=== PATIENT | male | born 1945 | race Caucasian/White ===

== ENCOUNTER 2017-06-18 02:50 | Inpatient (IN) | payer MEDICARE, MEDICAID ==
--- NOTE | 2017-06-18 03:07 | ED PDOC ---
Arrival/HPI - General Time Seen by Provider: 06/18/17 02:56 Historian: Patient, Family - History of Present Illness Narrative History of Present Illness (Text): 06/18/17 03:07 Perry Velásquez is a 71 year old male, whose past medical history includes leukemia and left arm PICC line, who presents to the Emergency department accompanied by relative complaining of fever. Relative states patient has been experiencing fever with associated generalized weakness tonight. Relative notes patient had chemotherapy yesterday and had been receiving antibiotics via his PICC line. Patient denies any chest pain, shortness of breath, nausea, vomiting , diarrhea, urinary symptoms, back pain, neck pain, headache, dizziness, or any other complaints. Oncologist: Dr. Martell ([facility]) Time/Duration: Other (tonight) Symptom Onset: Gradual Symptom Course: Unchanged Activities at Onset: Rest, Light Context: Home Past Medical History - Provider Review Nursing Documentation Reviewed: Yes Family/Social History - Physician Review Nursing Documentation Reviewed: Yes Family/Social History: Unknown Family HX Allergies/Home Meds Allergies/Adverse Reactions: Allergies No Known Allergies Allergy (Verified 06/18/17 02:56) Home Medications: Home Meds Medication Instructions Recorded Confirmed Acyclovir [Zovirax] 400 mg PO Q12H 06/18/17 06/18/17 Ciprofloxacin [Cipro] 500 mg PO Q12H 06/18/17 06/18/17 Docusate [Colace] 100 mg PO DAILY 06/18/17 06/18/17 Fluconazole [Diflucan] 400 mg PO DAILY 06/18/17 06/18/17 Insulin Aspart, Recombinant 8 units SUBCUT TID 06/18/17 06/18/17 [Novolog] Insulin Detemir [Levemir] 10 units SUBCUT HS 06/18/17 06/18/17 Memantine HCl [Namenda Xr] 28 mg PO HS 06/18/17 06/18/17 Pravastatin Sodium [Pravachol] 40 mg PO DAILY 06/18/17 06/18/17 Prochlorperazine [Compazine] 10 mg PO Q6H PRN 06/18/17 06/18/17 Tamsulosin [Flomax] 0.4 mg PO DAILY 06/18/17 06/18/17 Review of Systems - Physician Review All systems were reviewed & negative as marked: Yes - Review of Systems Constitutional: Fevers, Other (+generalized weakness) Eyes: Normal ENT: Normal Respiratory: Normal. absent: SOB, Cough Cardiovascular: Normal. absent: Chest Pain Gastrointestinal: Normal Genitourinary Male: Normal Musculoskeletal: Normal Skin: Normal Neurological: Normal Endocrine: Normal Hemo/Lymphatic: Normal Psychiatric: Normal Physical Exam Vital Signs Reviewed: Yes Vital Signs Temp Pulse Resp BP Pulse Ox 06/18/17 08:23 98 06/18/17 08:19 99.6 F 75 19 107/59 L 99 06/18/17 07:53 99.6 F 112 H 20 96/46 L 98 06/18/17 07:06 108 H 20 114/53 L 99 06/18/17 06:45 108 H 18 86/44 L 99 06/18/17 06:30 103 H 18 65/36 L 99 06/18/17 05:15 102.1 F H 107 H 18 102/60 98 06/18/17 04:59 102.1 F H 06/18/17 03:04 99.8 F H 117 H 17 104/63 96 Temperature: Afebrile Blood Pressure: Normal Pulse: Regular Respiratory Rate: Normal Appearance: Positive for: Well-Appearing, Non-Toxic, Comfortable Pain Distress: None Mental Status: Positive for: Alert and Oriented X 3 - Systems Exam Head: Present: Atraumatic, Normocephalic Pupils: Present: PERRL Extroacular Muscles: Present: EOMI Conjunctiva: Present: Normal Mouth: Present: Moist Mucous Membranes Neck: Present: Normal Range of Motion Respiratory/Chest: Present: Clear to Auscultation, Good Air Exchange. No: Respiratory Distress, Accessory Muscle Use Cardiovascular: Present: Regular Rate and Rhythm, Normal S1, S2. No: Murmurs Abdomen: Present: Normal Bowel Sounds. No: Tenderness, Distention, Peritoneal Signs Back: Present: Normal Inspection Upper Extremity: Present: Normal Inspection. No: Cyanosis, Edema Lower Extremity: Present: Normal Inspection. No: Edema Neurological: Present: GCS=15, CN II-XII Intact, Speech Normal Skin: Present: Warm, Dry, Normal Color. No: Rashes Psychiatric: Present: Alert, Oriented x 3, Normal Insight, Normal Concentration Medical Decision Making ED Course and Treatment: 06/18/17 03:07 Impression: 71 year old male brought in for fever and generalized weakness. Plan: -- EKG -- Chest X-ray -- Labs, VBG, blood cultures -- Urinalysis, urine cultures -- Vanco -- Zosyn -- Reassess and disposition Progress Notes: 06/18/17 03:12 Case discussed with RAQUEL Glaser, covering for Dr. Martell (pt's oncologist at [facility]), states pt can remain at [facility], does not need to be transferred at this time. 06/18/17 05:27 Reviewed EKG, sinus tachycardia at [address]-segment elevations or depressions, no T-wave inversions, normal intervals. 06/18/17 04:28 Reviewed radiology, Chest X-ray shows no acute processes. CASE D/W DR SPARKS ACCEPTS CASE CASE D/ DR VERONICA JENKINS ACCEPTS PT FOR SEPSIS 06/21/17 09:48 - Lab Interpretations Microbiology Results: Microbiology Results 06/18/17 04:50 Blood Blood Culture - Final Escherichia Coli 06/18/17 04:50 Blood Gram Stain - Final 06/18/17 04:20 Blood Blood Culture - Final Escherichia Coli 06/18/17 04:20 Blood Gram Stain - Final Lab Results: 06/18/17 04:20 06/18/17 04:20 Lab Results 06/18/17 06:27: Blood Type A POSITIVE, Antibody Screen Negative, Crossmatch See Detail, BBK History Checked No verified bt 06/18/17 04:20: Sodium 134, Chloride 101, Potassium 3.2 L, Carbon Dioxide 21, Anion Gap 15, BUN 30 H, Creatinine 1.1, Est GFR ( Amer) > 60, Est GFR ( Non-Af Amer) > 60, Random Glucose 284 H, Calcium 8.8, Phosphorus 1.4 L*, Magnesium 1.2 L, Total Bilirubin 0.7, AST 37, ALT 36, Alkaline Phosphatase 81, Total Protein 6.6, Albumin 3.4, Globulin 3.2, Albumin/Globulin Ratio 1.1 06/18/17 04:20: pO2 56 H, VBG pH 7.40, VBG pCO2 37.0 L, VBG HCO3 22.9, VBG Total CO2 24.0, VBG O2 Sat (Calc) 94.5 H, VBG Base Excess -1.7 L, VBG Potassium 3.2 L, Sodium 135.0, Chloride 102.0, Glucose 299 H, Lactate 3.7 H, FiO2 21.0, Venous Blood Potassium 3.2 L 06/18/17 04:20: PT 13.4 H, INR 1.24 H, APTT 21.6 L 06/18/17 04:20: WBC 0.1 L*, RBC 2.20 L, Hgb 6.6 L*, Hct 19.3 L*, MCV 87.7, MCH 30.0, MCHC 34.2, RDW 15.6 H, Plt Count 13 L*, Manual Plt Count 28 L*, Corrected WBC (Man) Cancelled, Neutrophils % (Manual) Cancelled, Band Neutrophils % Cancelled, Lymphocytes % (Manual) Cancelled, Atypical Lymphs % Cancelled, Monocytes % (Manual) Cancelled, Eosinophils % (Manual) Cancelled, Basophils % ( Manual) Cancelled, Metamyelocytes % Cancelled, Myelocytes % Cancelled, Promyelocytes % Cancelled, Nucleated RBC % Cancelled, Hypersegmented Polys Cancelled, Immature Lymphocytes Cancelled, Blast Cells Cancelled, Smudge Cells Cancelled, Toxic Granulation Cancelled, Dohle Bodies Cancelled, Denisse Rods Cancelled, Platelet Evaluation Cancelled, Plt Clumps, EDTA Cancelled, Large Platelets Cancelled, Giant Platelets Cancelled, Polychromasia Cancelled, Hypochromasia Cancelled, Hyperchromasia Cancelled, Poikilocytosis (manual Cancelled, Basophilic Stippling Cancelled, Anisocytosis (manual) Cancelled, Microcytosis (manual) Cancelled, Macrocytosis (manual) Cancelled, Spherocytes Cancelled, Sickle Cells Cancelled, Target Cells Cancelled, Tear Drop Cells Cancelled, Ovalocytes Cancelled, Stomatocytes Cancelled, Helmet Cells Cancelled , [place] Rings Cancelled, [place] Cells Cancelled, Acanthocytes (Spur) Cancelled, Rouleaux Cancelled I have reviewed the lab results: Yes - RAD Interpretation Radiology Orders: 06/18/17 03:28 CHEST PORTABLE [RAD] Stat County Director Welfare: Radiologist - EKG Interpretation Interpreted by ED Physician: Yes Type: 12 lead EKG - Medication Orders Current Medication Orders: Artificial Tears (Puralube Opht Oint) 1 appl OU Q2 OMARI Last Admin: 06/21/17 02:07 Dose: 1 applic Docusate Sodium (Colace) 100 mg PO DAILY [facility] Last Admin: 06/20/17 10:00 Dose: Sodium Chloride (Sodium Chloride 0.9%) 1,000 mls @ 125 mls/hr IV .Q8H [facility] Last Admin: 06/18/17 05:00 Dose: 125 mls/hr Norepinephrine Bitartrate 8 mg (/ Sodium Chloride) 250 mls @ 7.5 mls/hr IV .Q24H PRN; Protocol; 4 MCG/MIN PRN Reason: TITRATE PER MD ORDER Last Titration: 06/21/17 01:45 Dose: 1 mcg/min, 1.87 mls/hr Famotidine (Pepcid 20mg/50ml Premix) 20 mg in 50 mls @ 100 mls/hr IVPB Q12 [facility] Last Admin: 06/20/17 22:26 Dose: 100 mls/hr Propofol (Diprivan) 1,000 mg in 100 mls @ 2.121 mls/hr IV .Q24H PRN; Protocol; 5 MCG/KG/MIN PRN Reason: TITRATE PER MD ORDER Last Admin: 06/21/17 02:01 Dose: 25 mcg/kg/min, 10.607 mls/hr Micafungin Sodium 100 mg/ (Sodium Chloride) 100 mls @ 100 mls/hr IV DAILY [facility] PRN Reason: Protocol Stop: 06/27/17 10:01 Last Admin: 06/20/17 10:15 Dose: 100 mls/hr Meropenem 1g/NS 100mL IVPB (Meropenem 1g/Ns 100ml Ivpb) 1 gm in 100 mls @ 100 mls/hr IVPB Q8 OMARI PRN Reason: Protocol Stop: 07/01/17 14:01 Potassium Phosphate 15 mmole/ (Sodium Chloride) 255 mls @ 42.5 mls/hr IVPB ONCE ONE Stop: 06/21/17 15:30 Insulin Detemir (Levemir) 30 unit SC AMHS [facility] Insulin Human Lispro (Humalog High) 0 units SC Q6H OMARI PRN Reason: Protocol Last Admin: 06/21/17 07:46 Dose: 1 units Levalbuterol HCl (Xopenex) 1.25 mg IH [id number] PRN PRN Reason: Shortness of Breath Last Admin: 06/21/17 07:55 Dose: 1.25 mg Ondansetron HCl (Zofran Inj) 4 mg IVP Q6H PRN PRN Reason: Nausea/Vomiting Discontinued Medications Acetaminophen (Tylenol 325mg Tab) 650 mg PO STAT STA Stop: 06/18/17 04:53 Last Admin: 06/18/17 04:59 Dose: 650 mg Re-Assess: KAREN Pain/Vitals Document 06/18/17 05:59 GMI (Rec: 06/18/17 09:04 GMI [id number]) Pain Reassessment Is This A Pain ReAssessment? Yes Sleep Is patient sleeping during reassessment? No Presence of Pain Presence of Pain Yes Diphenhydramine HCl (Benadryl) 25 mg IVP STAT STA Stop: 06/18/17 14:10 Last Admin: 06/18/17 14:44 Dose: 25 mg Etomidate (Amidate) Confirm Administered Dose 20 mg IV .STK-MED ONE Stop: 06/19/17 01:41 Last Admin: 06/19/17 05:17 Dose: Etomidate (Amidate) 20 mg IVP STAT STA Stop: 06/19/17 02:10 Last Admin: 06/19/17 02:00 Dose: 20 mg Hydrocortisone Sodium Succinate (Solu-Cortef) 100 mg IV ONCE ONE Stop: 06/18/17 14:10 Last Admin: 06/18/17 14:44 Dose: 100 mg Hydrocortisone Sodium Succinate (Solu-Cortef) 100 mg IVP Q8 OMARI Last Admin: 06/19/17 06:37 Dose: 100 mg Hydrocortisone Sodium Succinate (Solu-Cortef) 50 mg IVP Q6H [facility] Last Admin: 06/21/17 05:18 Dose: 50 mg Vancomycin HCl (Vancomycin 1gm) 1 gm in 250 mls @ 167 mls/hr IVPB STAT STA PRN Reason: Protocol Stop: 06/18/17 04:57 Last Admin: 06/18/17 06:18 Dose: 167 mls/hr Piperacillin Sod/Tazobactam Sod (Zosyn 3.375 In Ns 100ml) 100 mls @ 200 mls/hr IVPB STAT STA PRN Reason: Protocol Stop: 06/18/17 03:58 Last Admin: 06/18/17 04:48 Dose: 200 mls/hr Sodium Chloride 2,100 ml/ IV (SUPPLIES) 2,100 mls @ 4,082.34 mls/hr IV ONCE ONE PRN Reason: 60 ML/KG/HR Stop: 06/18/17 06:36 Last Admin: 06/18/17 07:13 Dose: 4,082.34 mls/hr Gentamicin Sulfate 170 mg/ (Sodium Chloride) 104.25 mls @ 100 mls/hr IVPB Q8H [facility] Last Admin: 06/18/17 09:03 Dose: 100 mls/hr Sodium Chloride 2,100 ml/ IV (SUPPLIES) 2,100 mls @ 4,082.34 mls/hr IV ONCE ONE PRN Reason: 60 ML/KG/HR Stop: 06/18/17 08:04 Last Admin: 06/18/17 10:41 Dose: 4,082.34 mls/hr NOREPINEPHRINE BIT/0.9 % NACL (Levophed 4 Mg/ 250 Ml Ns Premixed) 4 mg in 250 mls @ 15 mls/hr IV .[id number] PRN; Protocol; 4 MCG/MIN PRN Reason: TITRATE PER MD ORDER Last Titration: 06/18/17 13:17 Dose: 24 mcg/min, 90 mls/hr Sodium Chloride (Sodium Chloride 0.9%) 1,000 mls @ 999 mls/hr IV .Q1H1M STA Stop: 06/18/17 10:27 Last Admin: 06/18/17 09:57 Dose: 999 mls/hr Sodium Chloride (Sodium Chloride 0.9%) 1,000 mls @ 999 mls/hr IV .Q1H1M STA Stop: 06/18/17 10:34 Last Admin: 06/18/17 10:02 Dose: 999 mls/hr Potassium Phosphate 15 mmole/ (Sodium Chloride) 255 mls @ 42.5 mls/hr IVPB ONCE ONE Stop: 06/18/17 15:53 Last Admin: 06/18/17 10:42 Dose: 42.5 mls/hr Acetaminophen (Ofirmev) 1,000 mg in 100 mls @ 400 mls/hr IVPB Q6H PRN PRN Reason: Temperature Stop: 06/20/17 09:59 Last Admin: 06/19/17 00:31 Dose: 400 mls/hr Re-Assess: KAREN Pain Assessment Document 06/19/17 01:31 SANDOVAL (Rec: 06/19/17 06:41 SANDOVAL [id number]) Pain Reassessment Is this a pain reassessment? No Sleep Is patient sleeping during reassessment? Yes Meropenem 1g/NS 100mL IVPB (Meropenem 1g/Ns 100ml Ivpb) 1 gm in 100 mls @ 100 mls/hr IVPB Q8 OMARI PRN Reason: Protocol Stop: 06/18/17 22:59 Last Admin: 06/18/17 13:08 Dose: 100 mls/hr Vancomycin HCl (Vancomycin 1gm) 1 gm in 250 mls @ 167 mls/hr IVPB Q12H OMARI PRN Reason: Protocol Stop: 06/28/17 10:16 Last Admin: 06/18/17 10:42 Dose: 167 mls/hr Magnesium Sulfate/Dextrose (Magnesium Sulfate 1 Gm/100 Ml D5w) 1 gm in 100 mls @ 100 mls/hr IVPB ONCE ONE Stop: 06/18/17 13:49 Last Admin: 06/18/17 13:14 Dose: 100 mls/hr Sodium Bicarbonate 100 meq/ (Sodium Chloride) 1,100 mls @ 100 mls/hr IV .Q11H [facility] Last Admin: 06/19/17 05:57 Dose: 100 mls/hr Comments: new bag needed Norepinephrine Bitartrate 8 mg (/ Sodium Chloride) 250 mls @ 7.5 mls/hr IV .Q24H OMARI PRN Reason: 4 MCG/MIN Last Admin: 06/18/17 15:39 Dose: Phenylephrine HCl 40 mg/ (Sodium Chloride) 254 mls @ 38.1 mls/hr IV .Q6H40M PRN ; Protocol; 100 MCG/MIN PRN Reason: TITRATE PER MD ORDER Last Admin: 06/19/17 15:18 Dose: 200 mcg/min, 76.2 mls/hr Meropenem 1g/NS 100mL IVPB (Meropenem 1g/Ns 100ml Ivpb) 1 gm in 100 mls @ 100 mls/hr IVPB Q8 OMARI PRN Reason: Protocol Stop: 06/28/17 22:01 Last Admin: 06/19/17 05:58 Dose: 100 mls/hr Propofol (Diprivan) Confirm Administered Dose 1,000 mg in 100 mls @ ud .ROUTE .STK-MED ONE Stop: 06/19/17 02:07 Last Admin: 06/19/17 05:18 Dose: Magnesium Sulfate/Dextrose (Magnesium Sulfate 1 Gm/100 Ml D5w) 1 gm in 100 mls @ 100 mls/hr IVPB ONCE ONE Stop: 06/19/17 03:11 Last Admin: 06/19/17 02:40 Dose: 100 mls/hr Meropenem 1g/NS 100mL IVPB (Meropenem 1g/Ns 100ml Ivpb) 1 gm in 100 mls @ 100 mls/hr IVPB Q12 OMARI PRN Reason: Protocol Stop: 06/29/17 10:01 Last Admin: 06/20/17 22:27 Dose: 100 mls/hr Vasopressin 20 units/ Sodium (Chloride) 101 mls @ 9.09 mls/hr IV .Q11H7M OMARI; 0.03 U/MIN PRN Reason: Protocol Last Admin: 06/20/17 01:55 Dose: 9.09 mls/hr Amikacin Sulfate 500 mg/ (Dextrose) 102 mls @ 204 mls/hr IVPB ONCE ONE PRN Reason: Protocol Stop: 06/19/17 10:14 Last Admin: 06/19/17 10:43 Dose: 204 mls/hr Sodium Bicarbonate 150 meq/ (Dextrose/Sodium Chloride) 1,150 mls @ 100 mls/hr IV .[id number] OMARI Stop: 06/20/17 23:58 Last Admin: 06/20/17 13:58 Dose: 100 mls/hr Micafungin Sodium 100 mg/ (Sodium Chloride) 100 mls @ 100 mls/hr IV DAILY OMARI PRN Reason: Protocol Stop: 06/26/17 10:59 Last Admin: 06/19/17 16:20 Dose: 100 mls/hr NOREPINEPHRINE BIT/0.9 % NACL (Levophed 4 Mg/ 250 Ml Ns Premixed) Confirm Administered Dose 4 mg in 250 mls @ ud IV .STK-MED ONE Stop: 06/20/17 02:37 Sodium Chloride (Sodium Chloride 0.9%) 1,000 mls @ 999 mls/hr IV .Q1H1M STA Stop: 06/20/17 16:36 Last Admin: 06/20/17 16:38 Dose: 999 mls/hr Potassium Phosphate 15 mmole/ (Sodium Chloride) 255 mls @ 42.5 mls/hr IVPB ONCE ONE Stop: 06/21/17 15:30 Insulin Detemir (Levemir) 10 unit SC HS [facility] Last Admin: 06/19/17 21:44 Dose: 10 unit Insulin Detemir (Levemir) 15 unit SC AMHS OMARI Last Admin: 06/20/17 12:53 Dose: 14 unit Insulin Detemir (Levemir) 20 unit SC AMHS [facility] Last Admin: 06/20/17 22:30 Dose: 20 unit Insulin Human Lispro (Humalog High) 0 units SC ACHS OMARI PRN Reason: Protocol Last Admin: 06/18/17 22:04 Dose: Not Given Non-Admin Reason: Blood Sugar Parameter Insulin Human Lispro (Humalog High) 0 units SC Q6H OMARI PRN Reason: Protocol Lorazepam (Ativan) Confirm Administered Dose 2 mg .ROUTE .STK-MED ONE Stop: 06/19/17 02:03 Last Admin: 06/19/17 05:18 Dose: Lorazepam (Ativan) 1 mg IVP ONCE ONE PRN Reason: Protocol Stop: 06/19/17 02:10 Last Admin: 06/19/17 03:14 Dose: 1 mg Magnesium Oxide (Mag-Ox) 400 mg PO STAT STA Stop: 06/18/17 09:54 Last Admin: 06/18/17 12:42 Dose: 400 mg Norepinephrine Bitartrate (Levophed) Confirm Administered Dose 8 mg IV .STK-MED ONE Stop: 06/18/17 15:02 Last Admin: 06/18/17 15:16 Dose: 8 mg Norepinephrine Bitartrate (Levophed) Confirm Administered Dose 4 mg IV .STK-MED ONE Stop: 06/20/17 02:52 Ondansetron HCl (Zofran Inj) 4 mg IVP STAT STA Stop: 06/18/17 05:24 Last Admin: 06/18/17 05:34 Dose: 4 mg Ondansetron HCl (Zofran Inj) Confirm Administered Dose 4 mg .ROUTE .STK-MED ONE Stop: 06/18/17 05:36 Last Admin: 06/18/17 06:19 Dose: Phenylephrine HCl (Phenylephrine Inj) Confirm Administered Dose 40 mg .ROUTE .STK-MED ONE Stop: 06/18/17 18:36 Last Admin: 06/18/17 18:43 Dose: 40 mg Potassium Chloride (K-Dur 20 Meq Er Tab) 40 meq PO STAT STA Stop: 06/18/17 04:56 Last Admin: 06/18/17 07:12 Dose: 40 meq Potassium Phos/Sodium Phos (Neutra-Phos) 1 pkt PO STAT STA Stop: 06/18/17 04:57 Last Admin: 06/18/17 07:13 Dose: 1 pkt Sodium Bicarbonate (Sodium Bicarbonate (8.4%) 50 Meq Syringe) 50 meq IVP ONCE ONE Stop: 06/18/17 12:37 Last Admin: 06/18/17 12:42 Dose: 50 meq Sodium Bicarbonate (Sodium Bicarbonate (8.4%) 50 Meq Syringe) 50 meq IVP STAT STA Stop: 06/18/17 13:31 Last Admin: 06/18/17 14:34 Dose: 50 meq Sodium Bicarbonate (Sodium Bicarbonate (8.4%) 50 Meq Syringe) 50 meq IVP ONCE ONE Stop: 06/19/17 09:58 Last Admin: 06/19/17 10:19 Dose: 50 meq - Scribe Statement The provider has reviewed the documentation as recorded by the Lisandro Boland Provider Scribe Attestation: All medical record entries made by the Scribangela were at my direction and personally dictated by me. I have reviewed the chart and agree that the record accurately reflects my personal performance of the history, physical exam, medical decision making, and the department course for this patient. I have also personally directed, reviewed, and agree with the discharge instructions and disposition. Disposition/Present on Arrival - Present on Arrival Any Indicators Present on Arrival: No - Disposition Have Diagnosis and Disposition been Completed?: Yes Diagnosis: Sepsis Disposition: HOSPITALIZED Disposition Time: 07:00 Condition: CRITICAL
[2017-06-18] MEDS ORDERED: Vancomycin 1gm in NS 250ml 1 GM/250 ML BAG IVPB STA (03:28)
[2017-06-18] MEDS ORDERED: Piperacillin/Tazobact 3.375 gm 100 ML IVPB STA (03:29)
[2017-06-18 04:42] LABS: VENOUS BLOOD GAS BASE EXCESS -1.7 mmol/L (0.0-2.0)
[2017-06-18 04:51] LABS: ALB/GLOB RATIO 1.1 (1.1-1.8); ALKALINE PHOSPHATASE 81 U/L (38-133); ALT/SGPT 36 U/L (7-56); AST/SGOT 37 U/L (15-59); BILIRUBIN,TOTAL 0.7 mg/dL (0.2-1.3); BLOOD UREA NITROGEN 30 mg/dL (7-21); CALCIUM 8.8 mg/dL (8.4-10.5); CARBON DIOXIDE 21 mmol/L (21-33); CHLORIDE 101 mmol/L (98-107); GFR AFRICAN-AMERICAN > 60; GLUCOSE,RANDOM 284 mg/dL (70-110); MAGNESIUM 1.2 mg/dL (1.7-2.2); POTASSIUM 3.2 mmol/L (3.6-5.0); SODIUM 134 mmol/L (132-148); TOTAL PROTEIN 6.6 g/dL (5.8-8.3)
[2017-06-18] MEDS ORDERED: Potassium Chloride 20 mEq ER Tab PO STA (04:55)
[2017-06-18] MEDS ORDERED: Potassium & Sodium Phosphate PO STA (04:56)
[2017-06-18] MEDS ORDERED: Sodium Chloride 0.9% 1,000 ML IV SCH (05:00)
[2017-06-18 05:01] LABS: PHOSPHOROUS 1.4 mg/dL (2.5-4.5)
[2017-06-18 06:22] LABS: WHITE BLOOD COUNT 0.1 10^3/ul (4.5-11.0)
[2017-06-18 06:23] LABS: HEMATOCRIT 19.3 % (42.0-52.0); MEAN CELL VOLUME 87.7 fl (80.0-105.0); MEAN CORPUSCULAR HGB CONC 34.2 g/dl (31.0-37.0); PLATELET COUNT 13 10^3/uL (120.0-450.0); RED CELL DISTRIBUTION WIDTH 15.6 % (11.5-14.5)
[2017-06-18 06:25] LABS: INR 1.24 (0.93-1.08)
[2017-06-18 06:26] LABS: PARTIAL THROMBOPLASTIN TIME 21.6 Seconds (23.7-30.8)
[2017-06-18] MEDS ORDERED: Gentamicin 80 mg/2mL Inj. IVPB SCH (06:45)
[2017-06-18 08:29] LABS: VENOUS BLOOD GAS BASE EXCESS -11.8 mmol/L (0.0-2.0); VENOUS BLOOD PH 7.35 (7.32-7.43)
[2017-06-18] MEDS ORDERED: NOREPINEPHRINE BIT/0.9 % NACL 4 MG/250 ML BAG IV PRN ×2 (09:15→14:51)
[2017-06-18] MEDS ORDERED: Sodium Chloride 0.9% 1,000 ML IV STA ×2 (09:27→09:34)
[2017-06-18 09:30] LABS: PH,URINE 5.5 (4.7-8.0); URINE BILIRUBIN NEGATIVE (NEGATIVE); URINE BLOOD TRACE-INTACT (NEGATIVE); URINE GLUCOSE (UA) NEGATIVE (NEGATIVE); URINE KETONE NEGATIVE (NEGATIVE); URINE LEUKOCYTE ESTERASE NEGATIVE Leu/uL (NEGATIVE); URINE PROTEIN TRACE mg/dL (<30 mg/dL); URINE UROBILINOGEN 0.2 E.U./dL (<1 E.U./dL)
[2017-06-18 09:31] LABS: URINE APPEARANCE CLEAR (CLEAR); URINE COLOR YELLOW (YELLOW)
[2017-06-18 09:38] LABS: URINE BACTERIA MANY (NEG)
[2017-06-18 09:39] LABS: URINE AMORPHOUS SEDIMENT FEW
[2017-06-18] MEDS ORDERED: Magnesium Oxide 400 mg Tab UD PO STA (09:53)
[2017-06-18] MEDS ORDERED: Potassium Phosphate 15 MMOLE in Sodium Chloride 0.9% 250 ML IVPB ONE (09:54)
[2017-06-18] MEDS ORDERED: Vancomycin 1gm in NS 250ml 1 GM/250 ML BAG IVPB SCH (10:15)
--- NOTE | 2017-06-18 10:53 | CARD ---
APPROVED REPORT EKG Measurement Heart [id number] <Conclusion> Sinus tachycardia Otherwise normal ECG
--- NOTE | 2017-06-18 11:20 | RAD ---
HISTORY: Sepsis Patient COMPARISON: 09/30/2016 FINDINGS: LUNGS: No active pulmonary disease. PLEURA: No significant pleural effusion identified, no pneumothorax apparent. CARDIOVASCULAR: Left PICC catheter terminates in the region of the right atrium. OSSEOUS STRUCTURES: No significant abnormalities. VISUALIZED UPPER ABDOMEN: Normal. OTHER FINDINGS: None. IMPRESSION: No acute infiltrate. Left PICC catheter.
[2017-06-18 12:17] LABS: VENOUS BLOOD GAS BASE EXCESS -15.9 mmol/L (0.0-2.0)
[2017-06-18 12:24] LABS: VENOUS BLOOD PH 7.11 (7.32-7.43)
[2017-06-18] MEDS ORDERED: Sodium Bicarbonate (8.4%) 50 Meq Syringe IVP ONE (12:36)
[2017-06-18] MEDS: Insulin Lispro (HUMAlog) HIGH Coverage SC SCH ×3 (12:36→22:04)
[2017-06-18] MEDS ORDERED: Magnesium Sulfate 1 gm in D5W 1 GM/100 ML BAG IVPB ONE (12:50)
[2017-06-18] MEDS ORDERED: Sodium Bicarbonate (8.4%) 50 Meq Syringe IVP STA (13:30)
[2017-06-18 13:31] VITALS: BMI 25.7
[2017-06-18] MEDS ORDERED: Meropenem 1g/NS 100mL IVPB 1 GM/100 ML PIGGYBACK IVPB SCH (14:00)
[2017-06-18] MEDS ORDERED: DiphenhydrAMINE 50 mg/ml Inj IVP STA (14:09)
[2017-06-18] MEDS ORDERED: Norepinephrine 8 MG in Sodium Chloride 0.9% 242 ML IV SCH (15:15)
[2017-06-18] MEDS: Levalbuterol 1.25 MG/3 ML Inhal Soln UD IH PRN (15:20)
[2017-06-18 15:58] LABS: VENOUS BLOOD GAS BASE EXCESS -14.4 mmol/L (0.0-2.0)
[2017-06-18 16:02] LABS: VENOUS BLOOD PH 7.11 (7.32-7.43)
[2017-06-18] MEDS: Norepinephrine 8 MG in Sodium Chloride 0.9% 242 ML IV PRN ×2 (16:55→19:11)
--- NOTE | 2017-06-18 18:21 | CON ---
DATE: 06/18/2017 LOCATION: The patient is seen in the ICU 128, bed 2. CHIEF COMPLAINT: Fever x1 to 2 days duration. HISTORY OF PRESENT ILLNESS: This is a 71-year-old [place] male with past medical history significant for leukemia and received status post chemotherapy one week ago and the patient is also with diabetes mellitus and hypertension. The patient also has a PICC line in his arm for the last 3-4 months, presenting now with a fever of 102, 103, shortness of breath, weakness, minimal cough, and he denies any abdominal pain, diarrhea or constipation. No bright red blood per rectum. He follows at [facility]. PAST MEDICAL HISTORY: Significant for leukemia, hypertension and diabetes according to the nursing note. PAST SURGICAL HISTORY: Significant for a PICC line placement 3-4 months ago. MEDICATIONS AT HOME: Are reviewed include acyclovir, Cipro, Diflucan, insulin, Namenda, Pravachol, Compazine and Flomax. PHYSICAL EXAMINATION: GENERAL: The patient is in bed, significantly acutely ill VITAL SIGNS: With a temperature of 102.1, blood pressure is 86/44, on pressors with a pulse of 108, respiratory rate of 20. HEENT: Unremarkable. NECK: Supple. LUNGS: Decreased breath sounds. HEART: Normal S1 and S2 ABDOMEN: Soft, nontender. No rebound. No guarding. No masses. LABORATORY DATA: Reveals a white count of 0.1, hemoglobin of 6, platelets of 13,000. Coagulation reveals INR is 1.24. Lactic acid in blood gases 9.2. BUN of 30,creatinine of 1.1. Glucose is 284. Phosphorus is 1.4. Urinalysis reveals 1-3 WBCs with yeast. Blood cultures have been ordered. The patient started on norepinephrine, was given vancomycin and Zosyn. ASSESSMENT AND PLAN: This is a 71-year-old male [place] with a history of leukemia, status post chemotherapy one week ago, history of diabetes, hypertension with a PICC line for the past 3-4 months, presenting with hypotension, fever, neutropenia and pancytopenia, and presenting now with septic shock and pancytopenia, neutropenic, febrile, status post chemotherapy, must rule out bacteremia from the PICC line and was fungemia versus healthcare-associated pneumonia. We will treat the patient with vancomycin, meropenem and Mycamine pending blood culture, urine culture. Case discussed with Dr. Pedro Bennett regarding the removal of the PICC line in phase of hypotension. We will make further recommendations pending initial bill[place] culture, procalcitonin, chest x-ray results. We will continue with gentamicin for now pending culture results in this patient, who is septic shock on pressors with pancytopenia and neutropenia pending procalcitonin and chest x-ray results and blood urine and sputum cultures. Gutsavo Billings MD
[2017-06-18] MEDS ORDERED: Phenylephrine 10 mg/ml Inj ONE (18:35)
[2017-06-18] MEDS: Insulin Detemir 100 units/ml Vial (Levemir) SC SCH (22:20)
[2017-06-18] MEDS: Famotidine 20mg/50ml 20 MG/50 ML BAG IVPB SCH (22:20)
[2017-06-18] MEDS: Meropenem 1g/NS 100mL IVPB 1 GM/100 ML PIGGYBACK IVPB SCH (22:20)
[2017-06-19 00:29] LABS: ARTERIAL BLOOD GAS HCO3 11.5 mmol/L (21-28); ARTERIAL BLOOD GAS PH 7.27 (7.35-7.45)
[2017-06-19] MEDS: Norepinephrine 8 MG in Sodium Chloride 0.9% 242 ML IV PRN ×4 (00:31→18:20)
--- NOTE | 2017-06-19 00:47 | CON ---
SURVEILLANCE OPERATOR CONSULT DATE: 06/18/2017 REQUESTING PHYSICIAN: Dr. Lane. CHIEF COMPLAINT: The patient presented with fever associated with weakness that started overnight. HISTORY OF PRESENT ILLNESS: Mr. Velásquez is a 71-year-old male with history of leukemia that presented to the emergency room with fever and chills, generalized weakness, that started approximately 24 hours prior to coming to the emergency room. The patient's family states that he had gotten chemotherapy approximately a week ago and episodes like this have happened in the past post chemotherapy. The patient is taking care for his leukemia at [facility]. Note that the patient has PICC line in that family states that it has been there for 3 months. He also has been receiving antibiotics via the PICC line. At this time, the patient does have a fever with rigors. He presented with hypotension given IV fluids, felt to be dehydrated and has been admitted to the intensive care unit. At this point, requires Levophed for blood pressure support. He is on oxygen support, facemask O2 with O2 saturation of 100%. The patient is awake and alert with no complaints of any pain, but does have fever and chills. PAST MEDICAL HISTORY: Significant for diabetes and leukemia. Also note that blood studies have shown that the patient is pancytopenic at this time and has been placed in reverse isolation. ALLERGIES: THE PATIENT HAS NO KNOWN ALLERGIES. CURRENT MEDICATIONS: Can be evaluated as per the nurses intake form. FAMILY HISTORY: Noncontributory. SOCIAL HISTORY: No history of smoking or ETOH abuse. No drug abuse. REVIEW OF SYSTEMS: CONSTITUTIONAL: Has fever and chills and weakness. HEENT: Within normal limits. CARDIOVASCULAR: No chest pain, no palpitations. GASTROINTESTINAL: The patient has no abdominal pain. RESPIRATORY: Does have some shortness of breath, but no cough, no congestion. MUSCULOSKELETAL: All normal. NEUROPSYCHIATRIC: All normal. INTEGUMENTARY: All normal. ENDOCRINE: All normal. HEMATOLOGIC AND LYMPHATIC: The patient has anemia, pancytopenia,and history of leukemia. IMMUNOLOGIC: All normal. PHYSICAL EXAMINATION VITAL SIGNS: Temperature is 101, pulse is 125, blood pressure is 113/59, respiratory rate 20, O2 saturation is 98%on facemask O2. HEENT: Head is atraumatic and normocephalic. Eyes reactive to light. Ear, nose, and throat seem to be within normal limits. NECK: Supple. No JVD. No thyroid enlargement. No lymph nodes. HEART: Regular rate and rhythm. Normal S1 and S2, but tachycardic. LUNGS: Revealed mild rhonchi at the bases. ABDOMEN: Soft, positive bowel sounds. No organomegaly noted. GENITALIA AND RECTAL: Deferred. MUSCULOSKELETAL: No joint deformities. EXTREMITIES: Reveal no edema. NEUROLOGICAL: The patient seems to be grossly intact. LABORATORY DATA: His white count is 0.1, hemoglobin is 6.6, hematocrit 19.3, and platelets 13,000. Manual platelet count is 28,000. PT is 13.4, INR is 1.24 and PTT is 21.6. Venous blood gas reveals a pH is 7.35, PCO2 of 23, and PO2 of 106. Note that his lactate is 9.2. Sodium 134, potassium 3.2, chloride 101, CO2 of 21 with a BUN 30, creatinine of 1.1, glucose of 284, calcium of 8.8, phosphorous of 1.4, and magnesium of 1.2. Chest x-ray unofficial reading; there seems to be a possibility of left lower lobe infiltrate. IMPRESSION: This patient has sepsis/septic shock with hypotension. The patient is pancytopenic, has history of lymphoma, also sepsis may be secondary to either pneumonia or line sepsis. Note that the patient has peripherally inserted central catheter line in place that was put in approximately 3 months ago. The patient has a history of diabetes. PLAN: We will continue with IV fluids, continue with Levophed to support blood pressure. The patient has ID consult as well as hematology/oncology consult. He is getting IV Tylenol for temperature. The patient is on antibiotics of Zosyn, vancomycin as well as gentamicin and, he is on Levophed to support blood pressure. The patient is getting O2 via facemask and we will follow his chest x-ray and O2 saturation closely. We will correct his electrolytes as needed and continue to follow his labs,CBC as well as CMP and we will continue to treat aggressively along with the consultants and primary care doctor. Pedro Bennett MD [facility] # [id number]
[2017-06-19 01:12] LABS: VENOUS BLOOD GAS BASE EXCESS -13.2 mmol/L (0.0-2.0); VENOUS BLOOD PH 7.24 (7.32-7.43)
[2017-06-19 01:18] LABS: BILIRUBIN,TOTAL 2.1 mg/dL (0.2-1.3); CALCIUM 7.3 mg/dL (8.4-10.5); MAGNESIUM 1.4 mg/dL (1.7-2.2)
[2017-06-19 01:19] LABS: MEAN CELL VOLUME 86.5 fl (80.0-105.0); MEAN CORPUSCULAR HEMOGLOBIN 30.7 pg (25.0-35.0); MEAN CORPUSCULAR HGB CONC 35.5 g/dl (31.0-37.0); MEAN PLATELET VOLUME 9.9 fl (7.0-11.0); PLATELET COUNT 59 10^3/uL (120.0-450.0); RED CELL DISTRIBUTION WIDTH 16.1 % (11.5-14.5)
[2017-06-19 01:22] LABS: HEMATOCRIT 18.6 % (42.0-52.0)
[2017-06-19 01:30] LABS: PHOSPHOROUS 7.3 mg/dL (2.5-4.5); POTASSIUM 3.9 mmol/L (3.6-5.0); TOTAL PROTEIN 5.7 g/dL (5.8-8.3)
[2017-06-19] MEDS ORDERED: Etomidate 20 mg/10ml Inj IV ONE (01:40)
[2017-06-19] MEDS ORDERED: Propofol 10 mg/ml 1,000 MG/100 ML VIAL ONE (02:06)
[2017-06-19] MEDS ORDERED: Etomidate 20 mg/10ml Inj IVP STA (02:09)
[2017-06-19] MEDS ORDERED: Magnesium Sulfate 1 gm in D5W 1 GM/100 ML BAG IVPB ONE (02:12)
[2017-06-19] MEDS: Propofol 10 mg/ml 1,000 MG/100 ML VIAL IV PRN ×3 (02:15→15:44)
--- NOTE | 2017-06-19 02:17 | PCM.PROC ---
<Jeni Carlson - Last Filed: 06/19/17 02:14> Procedures Attestation:: I certify that I have explained the specified Operation(s) or Procedure(s), risks, benefits and reasonable alternatives to the Patient and/or other person responsible. The opportunity was given to ask questions and all questions answered - Intubation Sedative: Etomidate Laryngoscope: Jocelyn ET Tube Size: 8.0 ET Tube Uncuffed: No ET Tube Secured at Depth: 23 ET Tube Secured Locarion: Lips ET Tube Placement Confirmation: Visualized Passing Through Cords, Breath Sounds Equal Bilaterally, Confirmation w/Capnometry Patient Tolerated Procedure: Well Procedure Immediate Complications: None Additional comments: Prior to intubation, patient refused central line placement. He would prefer a new PICC line instead. Patient was tachypneic, despite this pH remained low. PO2 was 87 on Non- rebreather, suggesting almost no reserve. Thus the decision to intubate was needed to decrease work of breathing in the hypermetabolic state of sepsis. <Bharat Gimenez - Last Filed: 06/19/17 06:30> Attending/Attestation - Attestation I have personally seen and examined this patient.: Yes I have fully participated in the care of the patient.: Yes I have reviewed all pertinent clinical information, including history, physical exam and plan: Yes
[2017-06-19] MEDS ORDERED: Insulin Lispro (HUMAlog) HIGH Coverage SC SCH (02:30)
--- NOTE | 2017-06-19 05:47 | CON ---
DATE: 06/18/2017 Hospital visiting, intensive care unit. For Dr. Vázquez. CHIEF COMPLAINT: Fevers. HISTORY OF PRESENT ILLNESS: The patient is a 71-year-old male brought in by his family due to high fevers with the family giving the history as the patient is lethargic and unable to answer questions appropriately. He is in the intensive care unit, has been admitted by the emergency room with significant pancytopenic indices. The patient has generalized weakness with the patient reportedly having chemotherapy recently. After conversation with Dr. Bennett, foundry operator, and Dr. Vázquez and family members, the patient has been injected with Neulasta yesterday in [place] as he had chemotherapy under Dr. Zaman's direction on 06/16. 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 He was on day #10 with consolidation treatment done. This was after conversation with Dr. Veliz, who returned the call to Dr. Vázquez today to give the information on the patient's recent chemotherapy and his diagnosis of AML. However, he did receive Neulasta, which is long-lasting agent for white blood cell stimulation similar to the short-acting version which are Granix or Neupogen. Therefore, no other medications for white blood stimulation are recommended since the patient did receive Neulasta. This was related to Dr. Bennett and to the ICU nurse. The patient is now seen lying supine, lethargic but arousable complaining of thirst as his only complaint. Denies any pain with family at the bedside unable to give more history then as above. They did report that chemo followup was to be on 06/13 with Mr. Ryley APN, phone number [phone] with the Neulasta which is pegfilgrastim recently given. FAMILY HISTORY: Noncontributory. SOCIAL HISTORY: Noncontributory. ALLERGIES: PER FAMILY NO KNOWN ALLERGIES. MEDICATIONS: At this point included for him to continue taking acyclovir, Cipro, Diflucan, Namenda, Pravachol, Compazine, Flomax, and insulin. He was to stop taking Januvia and B-Complex. He was also recommended to take MiraLax or Colace. PAST MEDICAL HISTORY: That of recently diagnosed AML/acute myelogenous leukemia with onset approximately 3-4 months prior as per his primary doctor, Dr. Childress. REVIEW OF SYSTEMS: Essentially negative to questioning except as above. The patient is unable to respond. OBJECTIVE/PHYSICAL EXAMINATION: VITAL SIGNS: Temperature on admission was 102.1. He was given IV Tylenol with the most recent temperature of 96.3, pulse 96, respirations 26, blood pressure 98/55, pulse ox of 93%. HEENT: Appears unremarkable. Tongue is dry. NECK: Supple. HEART: Tachy rate, regular rhythm. LUNGS: Rare rhonchi. ABDOMEN: Obese, soft, nontender. EXTREMITIES: No edema. SKIN: Warm and dry. NEUROLOGIC: Lethargic, but arousable with weakness of his extremities. He appears septic. LABORATORY DATA: The patient's labs were done, white blood cell count of 0.1, hemoglobin 6.6, hematocrit 19.3, [place] [address] with a manual count of 28,000. The patient's chem metabolic panel shows a potassium of 3.2, nonfasting glucose 295, phosphorus of 1.4, magnesium 1.2; otherwise normal chem panel. His INR is 1.24 with a blood gas showing a pH of 7.35. Urinalysis showed trace of protein, trace of blood. The patient's other testing included a chest x-ray which was done earlier today which is read as no acute infiltrate, left PICC catheter. His EKG was done earlier today it was read as sinus tach, otherwise normal EKG. ASSESSMENT: Pancytopenia, secondary to acute myelogenous leukemia/AML status post HiDAC consolidation treatment, day #10, was on 06/16/[address] Veliz at [facility]. The patient did get Neulasta after treatment; neutropenic sepsis; history of diabetes mellitus; benign prostatic hypertrophy; dementia?; hyperlipidemia. PLAN: After conversation with Dr. Vázquez and Dr. Bennett and Dr. Veliz at [facility] was to continue present medical regimen with consults with Dr. Gustavo Billings, infectious disease, and Dr. Toledo, renal, for his electrolyte analysis along with transfusion of 2 units of packed red blood cells along with 2 units of platelets. For now, we will also repeat his labs later on this afternoon along with monitoring clinically in the intensive care unit for his severe thrombocytopenia. There is no active bleeding at present; however, due to high temperatures, we will transfuse [address] Vázquez's recommendation. We will also give sips of clear liquids with ice chips as indicated. Prognosis for this patient is guarded. Family is at the bedside, they were informed of the severity of the patient's clinical presentation with recommendations as above. We will also monitor his electrolytes with supportive care including pressor agents as indicated as per ICU protocols. IV antibiotics will be continued. Jarrod Santiago MD
[2017-06-19] MEDS: Meropenem 1g/NS 100mL IVPB 1 GM/100 ML PIGGYBACK IVPB SCH ×3 (05:58→21:36)
[2017-06-19] MEDS ORDERED: Pantoprazole 40mg/100ml IVPB 40 MG/100 ML BAG IVPB SCH (06:00)
[2017-06-19 06:09] LABS: INR 1.81 (0.93-1.08); MEAN CELL VOLUME 85.8 fl (80.0-105.0); MEAN CORPUSCULAR HEMOGLOBIN 29.6 pg (25.0-35.0); MEAN CORPUSCULAR HGB CONC 34.5 g/dl (31.0-37.0); MEAN PLATELET VOLUME 9.1 fl (7.0-11.0); PARTIAL THROMBOPLASTIN TIME 35.9 Seconds (23.7-30.8)
[2017-06-19 06:10] LABS: ARTERIAL BLOOD GAS PH 7.26 (7.35-7.45)
[2017-06-19 06:12] LABS: WHITE BLOOD COUNT 0.1 10^3/ul (4.5-11.0)
[2017-06-19 06:13] LABS: ARTERIAL BLOOD GAS HCO3 9.9 mmol/L (21-28)
[2017-06-19 06:13] LABS: HEMATOCRIT 22.3 % (42.0-52.0); PLATELET COUNT 40 10^3/uL (120.0-450.0)
[2017-06-19 06:17] LABS: VENOUS BLOOD GAS BASE EXCESS -14.6 mmol/L (0.0-2.0); VENOUS BLOOD PH 7.21 (7.32-7.43)
[2017-06-19 06:37] LABS: BILIRUBIN,TOTAL 3.1 mg/dL (0.2-1.3); CALCIUM 7.3 mg/dL (8.4-10.5); MAGNESIUM 1.8 mg/dL (1.7-2.2); PHOSPHOROUS 7.1 mg/dL (2.5-4.5); POTASSIUM 4.1 mmol/L (3.6-5.0); TOTAL PROTEIN 5.6 g/dL (5.8-8.3)
[2017-06-19] MEDS: Insulin Lispro (HUMAlog) HIGH Coverage SC SCH ×3 (06:41→18:17)
--- NOTE | 2017-06-19 07:51 | RAD ---
HISTORY: ETT tube placement COMPARISON: 06/18/2017. FINDINGS: The endotracheal tube terminates 3.2 cm proximal to the natalie. The nasogastric tube terminates in the stomach. The left PICC line terminates in the right atrium. LUNGS: There is interval development of haziness and patchy airspace disease in the lungs. PLEURA: Suspect layering pleural effusions. No pneumothorax apparent. CARDIOVASCULAR: Normal. OSSEOUS STRUCTURES: No significant abnormalities. VISUALIZED UPPER ABDOMEN: Normal. OTHER FINDINGS: None. IMPRESSION: Findings are most compatible with developing pulmonary edema and pleural effusions. Endotracheal tube terminates 3.2 cm proximal to the natalie.
--- NOTE | 2017-06-19 09:34 | RAD ---
HISTORY: post intubation COMPARISON: Plain radiographs performed earlier the same day FINDINGS: The endotracheal tube terminates 4.5 cm proximal to the natalie. The nasogastric tube terminates in the stomach. The left PICC line terminates in the right atrium. LUNGS: There is redemonstration of severe pulmonary venous congestion and interstitial pulmonary edema. There is also alveolar pulmonary edema. PLEURA: No significant pleural effusion identified, no pneumothorax apparent. CARDIOVASCULAR: Normal. OSSEOUS STRUCTURES: No significant abnormalities. VISUALIZED UPPER ABDOMEN: Normal. OTHER FINDINGS: None. IMPRESSION: Endotracheal tube terminates 4.5 cm proximal to the natalie. Findings are most compatible with congestive heart failure.
--- NOTE | 2017-06-19 09:38 | CP.PCM.PN ---
Subjective - Date & Time of Evaluation Date of Evaluation: 06/19/17 Time of Evaluation: 09:00 - Subjective Subjective: Continues to be on the ventilator, sedated, poorly responsive, in some respiratory distress, on vasopressor support. No fevers noted this morning. Objective - Vital Signs/Intake and Output Vital Signs (last 24 hours): Temp Pulse Resp BP Pulse Ox 98.8 F 88 25 H 117/63 100 06/19/17 08:06 06/19/17 08:06 06/19/17 08:06 06/19/17 08:13 06/19/17 06:10 Intake and Output: 06/19/17 06/19/17 06:59 18:59 Intake Total 4100 150 Output Total 700 Balance 3400 150 - Medications Medications: Current Medications Docusate Sodium (Colace) 100 mg PO DAILY [facility] Hydrocortisone Sodium Succinate (Solu-Cortef) 100 mg IVP Q8 [facility] Last Admin: 06/19/17 06:37 Dose: 100 mg Sodium Chloride (Sodium Chloride 0.9%) 1,000 mls @ 125 mls/hr IV .Q8H [facility] Last Admin: 06/18/17 05:00 Dose: 125 mls/hr Acetaminophen (Ofirmev) 1,000 mg in 100 mls @ 400 mls/hr IVPB Q6H PRN PRN Reason: Temperature Stop: 06/20/17 09:59 Last Admin: 06/19/17 00:31 Dose: 400 mls/hr Sodium Bicarbonate 100 meq/ (Sodium Chloride) 1,100 mls @ 100 mls/hr IV .Q11H [facility] Last Admin: 06/19/17 05:57 Dose: 100 mls/hr Norepinephrine Bitartrate 8 mg (/ Sodium Chloride) 250 mls @ 7.5 mls/hr IV .Q24H PRN; Protocol; 4 MCG/MIN PRN Reason: TITRATE PER MD ORDER Last Titration: 06/19/17 06:00 Dose: 30 mcg/min, 56.25 mls/hr Famotidine (Pepcid 20mg/50ml Premix) 20 mg in 50 mls @ 100 mls/hr IVPB Q12 [facility] Last Admin: 06/18/17 22:20 Dose: 100 mls/hr Phenylephrine HCl 40 mg/ (Sodium Chloride) 254 mls @ 38.1 mls/hr IV .Q6H40M PRN ; Protocol; 100 MCG/MIN PRN Reason: TITRATE PER MD ORDER Last Admin: 06/19/17 06:29 Dose: 100 mcg/min, 38.1 mls/hr Propofol (Diprivan) 1,000 mg in 100 mls @ 2.121 mls/hr IV .Q24H PRN; Protocol; 5 MCG/KG/MIN PRN Reason: TITRATE PER MD ORDER Last Admin: 06/19/17 08:51 Dose: 30 mcg/kg/min, 12.729 mls/hr Meropenem 1g/NS 100mL IVPB (Meropenem 1g/Ns 100ml Ivpb) 1 gm in 100 mls @ 100 mls/hr IVPB Q12 [facility] PRN Reason: Protocol Stop: 06/29/17 10:01 Vasopressin 20 units/ Sodium (Chloride) 101 mls @ 9.09 mls/hr IV .Q11H7M [facility]; 0.03 U/MIN PRN Reason: Protocol Last Admin: 06/19/17 08:13 Dose: 9.09 mls/hr Insulin Detemir (Levemir) 10 unit SC HS [facility] Last Admin: 06/18/17 22:20 Dose: 10 unit Insulin Human Lispro (Humalog High) 0 units SC Q6H [facility] PRN Reason: Protocol Last Admin: 06/19/17 06:41 Dose: Not Given Levalbuterol HCl (Xopenex) 1.25 mg IH [id number] PRN PRN Reason: Shortness of Breath Last Admin: 06/18/17 15:20 Dose: 1.25 mg Ondansetron HCl (Zofran Inj) 4 mg IVP Q6H PRN PRN Reason: Nausea/Vomiting - Labs Labs: 06/19/17 05:45 06/19/17 05:45 PT 19.6 Seconds (9.9-11.8) H 06/19/17 05:45 INR 1.81 (0.93-1.08) H 06/19/17 05:45 APTT 35.9 Seconds (23.7-30.8) H 06/19/17 05:45 - Constitutional Appears: Other (Intubated, sedated, mild respiratory distress, on vasopressor support) - ENT Exam Additional comments: ET tube in place - Respiratory Exam Respiratory Exam: Rhonchi (scattered) - Cardiovascular Exam Cardiovascular Exam: +S1, +S2 - GI/Abdominal Exam GI & Abdominal Exam: Soft. absent: Tenderness - Extremities Exam Additional comments: left arm PICC line in place Assessment and Plan - Assessment and Plan (Free Text) Plan: Assessment Septic shock with multiorgan failure (acute renal failure, ventilator-dependent hypoxic respiratory failure, acute encephalopathy) due to gram negative bacilli bacteremia, suspect due to PICC line infection (since the PICC has been in place for about 3-4 months now) Leukemia S/P chemotherapy one week ago, now with neutropenia HTN DM Plan Continue Merrem (dose adjusted because of acute renal failure today) and will give a dose of IV amikacin pending identification and sensitivities of the gram negative bacilli in the blood discussed with ICU team - patient did not consent for new central venous catheter yesterday - recommend PICC removal when feasible as soon as possible - ICU team to reach out to family members will also continue Mycamine since he continues to be neutropenic and may be at risk for fungal infections will monitor clinically Overall prognosis is poor
[2017-06-19] MEDS ORDERED: Amikacin 500 MG in Dextrose 5% In Water 100 ML IVPB ONE (09:45)
[2017-06-19 09:50] LABS: VENOUS BLOOD GAS BASE EXCESS -18.7 mmol/L (0.0-2.0)
[2017-06-19 09:52] LABS: VENOUS BLOOD PH 7.06 (7.32-7.43)
--- NOTE | 2017-06-19 09:53 | CP.PCM.PN ---
<Yan Tipton - Last Filed: 06/19/17 20:22> Subjective - Date & Time of Evaluation Date of Evaluation: 06/19/17 Time of Evaluation: 07:10 - Subjective Subjective: Heme/ onc note for Dr Vázquez: Pt seen and examined at bedside in the ICU. Pt is currently intubated, and sedated. He is requiring levophed and phenylephrine at this time. ROS unobtainable. Objective - Vital Signs/Intake and Output Vital Signs (last 24 hours): Temp Pulse Resp BP Pulse Ox 98.8 F 88 25 H 117/63 100 06/19/17 08:06 06/19/17 08:06 06/19/17 08:06 06/19/17 08:13 06/19/17 06:10 Intake and Output: 06/19/17 06/19/17 06:59 18:59 Intake Total 4100 150 Output Total 700 Balance 3400 150 - Medications Medications: Current Medications Docusate Sodium (Colace) 100 mg PO DAILY [facility] Hydrocortisone Sodium Succinate (Solu-Cortef) 100 mg IVP Q8 [facility] Last Admin: 06/19/17 06:37 Dose: 100 mg Sodium Chloride (Sodium Chloride 0.9%) 1,000 mls @ 125 mls/hr IV .Q8H [facility] Last Admin: 06/18/17 05:00 Dose: 125 mls/hr Acetaminophen (Ofirmev) 1,000 mg in 100 mls @ 400 mls/hr IVPB Q6H PRN PRN Reason: Temperature Stop: 06/20/17 09:59 Last Admin: 06/19/17 00:31 Dose: 400 mls/hr Sodium Bicarbonate 100 meq/ (Sodium Chloride) 1,100 mls @ 100 mls/hr IV .Q11H [facility] Last Admin: 06/19/17 05:57 Dose: 100 mls/hr Norepinephrine Bitartrate 8 mg (/ Sodium Chloride) 250 mls @ 7.5 mls/hr IV .Q24H PRN; Protocol; 4 MCG/MIN PRN Reason: TITRATE PER MD ORDER Last Titration: 06/19/17 06:00 Dose: 30 mcg/min, 56.25 mls/hr Famotidine (Pepcid 20mg/50ml Premix) 20 mg in 50 mls @ 100 mls/hr IVPB Q12 [facility] Last Admin: 06/18/17 22:20 Dose: 100 mls/hr Phenylephrine HCl 40 mg/ (Sodium Chloride) 254 mls @ 38.1 mls/hr IV .Q6H40M PRN ; Protocol; 100 MCG/MIN PRN Reason: TITRATE PER MD ORDER Last Admin: 06/19/17 06:29 Dose: 100 mcg/min, 38.1 mls/hr Propofol (Diprivan) 1,000 mg in 100 mls @ 2.121 mls/hr IV .Q24H PRN; Protocol; 5 MCG/KG/MIN PRN Reason: TITRATE PER MD ORDER Last Admin: 06/19/17 08:51 Dose: 30 mcg/kg/min, 12.729 mls/hr Meropenem 1g/NS 100mL IVPB (Meropenem 1g/Ns 100ml Ivpb) 1 gm in 100 mls @ 100 mls/hr IVPB Q12 [facility]I PRN Reason: Protocol Stop: 06/29/17 10:01 Vasopressin 20 units/ Sodium (Chloride) 101 mls @ 9.09 mls/hr IV .Q11H7M [facility]; 0.03 U/MIN PRN Reason: Protocol Last Admin: 06/19/17 08:13 Dose: 9.09 mls/hr Insulin Detemir (Levemir) 10 unit SC HS [facility] Last Admin: 06/18/17 22:20 Dose: 10 unit Insulin Human Lispro (Humalog High) 0 units SC Q6H [facility] PRN Reason: Protocol Last Admin: 06/19/17 06:41 Dose: Not Given Levalbuterol HCl (Xopenex) 1.25 mg IH [id number] PRN PRN Reason: Shortness of Breath Last Admin: 06/18/17 15:20 Dose: 1.25 mg Ondansetron HCl (Zofran Inj) 4 mg IVP Q6H PRN PRN Reason: Nausea/Vomiting - Labs Labs: 06/19/17 05:45 06/19/17 05:45 PT 19.6 Seconds (9.9-11.8) H 06/19/17 05:45 INR 1.81 (0.93-1.08) H 06/19/17 05:45 APTT 35.9 Seconds (23.7-30.8) H 06/19/17 05:45 - Constitutional Appears: No Acute Distress - Head Exam Head Exam: ATRAUMATIC - Eye Exam Eye Exam: PERRL - ENT Exam ENT Exam: Mucous Membranes Moist - Respiratory Exam Respiratory Exam: Clear to Ausculation Bilateral. absent: Rales, Rhonchi, Wheezes - Cardiovascular Exam Cardiovascular Exam: REGULAR RHYTHM, +S1, +S2 - GI/Abdominal Exam GI & Abdominal Exam: Soft. absent: Distended, Tenderness - Neurological Exam Neurological Exam: Alert, Awake, Oriented x3 - Psychiatric Exam Psychiatric exam: Normal Affect, Normal Mood - Skin Skin Exam: Dry, Intact, Warm Assessment and Plan - Assessment and Plan (Free Text) Assessment: 71 M with pmh of DM, BPH, HLD, and acute myelogenous leukemia s/p HiDAC treatment (last administered 06/16/17) followed by [facility] presents with septic shock with fever and pancytopenia. Currently intubated, sedated and requiring 2 pressers. - Anemia - Hb this am 7.7 s/p 4 units PRBC - Recommend administering 1 unit FFP - Neutropenia - pt is s/p Neulasta - Thrombocytopenia - manual count 46 this am - no active bleeding - s/p 2 units platelets - ICU recs and management - currently intubated and sedated requiring 2 pressers - F/u ID recs - consider removing picc line and replacing - Cont Amikacin and Chacha - cont Mycamine - F/u Septic work up - Gram neg rods in blood - F/u Renal consult - F/u with patients oncologist at [facility] Case and plan was reviewed and discussed in detail with Dr Vázquez. <Sepideh Vázquez P - Last Filed: 06/24/17 18:32> Objective - Vital Signs/Intake and Output Vital Signs (last 24 hours): Temp Pulse Resp BP Pulse Ox 98.6 F 77 27 H 130/64 97 06/24/17 16:00 06/24/17 17:40 06/24/17 17:40 06/24/17 15:30 06/24/17 17:40 Intake and Output: 06/24/17 06/24/17 06:59 18:59 Intake Total 1536 Output Total 5100 Balance -3564 - Medications Medications: Current Medications Dextrose (Dextrose 50% Inj) 50 ml IVP Q15M PRN PRN Reason: Hypoglycemia Last Admin: 06/22/17 11:58 Dose: 50 ml Docusate Sodium (Colace) 100 mg PO DAILY [facility] Last Admin: 06/24/17 09:09 Dose: Not Given Furosemide (Lasix) 40 mg IVP Q12 [facility] Last Admin: 06/24/17 12:12 Dose: 40 mg Famotidine (Pepcid 20mg/50ml Premix) 20 mg in 50 mls @ 100 mls/hr IVPB Q12 [facility] Last Admin: 06/24/17 09:13 Dose: 100 mls/hr Meropenem 1g/NS 100mL IVPB (Meropenem 1g/Ns 100ml Ivpb) 1 gm in 100 mls @ 100 mls/hr IVPB Q8 [facility] PRN Reason: Protocol Stop: 07/01/17 14:01 Last Admin: 06/24/17 13:01 Dose: 100 mls/hr Dobutamine HCl/Dextrose (Dobutamine/Dextrose 5% 500mg/250ml) 500 mg in 250 mls @ 5.964 mls/hr IV .Q24H PRN; Protocol; 2.5 MCG/KG/MIN PRN Reason: TITRATE PER PROTOCOL Last Admin: 06/23/17 21:43 Dose: 2.5 mcg/kg/min, 5.964 mls/hr Dextrose (Dextrose 5% In Water 1000 Ml) 1,000 mls @ 50 mls/hr IV .Q20H [facility] Last Admin: 06/24/17 13:01 Dose: 50 mls/hr Insulin Human Lispro (Humalog High) 0 units SC Q6H [facility] PRN Reason: Protocol Last Admin: 06/24/17 17:31 Dose: 10 units Levalbuterol HCl (Xopenex) 1.25 mg IH [id number] PRN PRN Reason: Shortness of Breath Last Admin: 06/24/17 07:48 Dose: 1.25 mg Ondansetron HCl (Zofran Inj) 4 mg IVP Q6H PRN PRN Reason: Nausea/Vomiting Last Admin: 06/22/17 12:33 Dose: 4 mg - Labs Labs: 06/24/17 06:00 06/24/17 06:00 PT 18.6 Seconds (9.9-11.8) H 06/24/17 06:00 INR 1.72 (0.93-1.08) H 06/24/17 06:00 APTT 35.9 Seconds (23.7-30.8) H 06/19/17 05:45 Attending/Attestation - Attestation I have personally seen and examined this patient.: Yes I have fully participated in the care of the patient.: Yes I have reviewed all pertinent clinical information, including history, physical exam and plan: Yes
[2017-06-19] MEDS: Famotidine 20mg/50ml 20 MG/50 ML BAG IVPB SCH ×2 (09:56→21:37)
[2017-06-19] MEDS ORDERED: Sodium Bicarbonate (8.4%) 50 Meq Syringe IVP ONE (09:57)
[2017-06-19] MEDS ORDERED: Micafungin 100 MG in Sodium Chloride 0.9% 100 ML IV SCH ×2 (10:00→15:45)
--- NOTE | 2017-06-19 10:39 | CP.PCM.PN ---
Subjective - Date & Time of Evaluation Date of Evaluation: 06/19/17 Time of Evaluation: 09:00 - Subjective Subjective: Pt's daughter called and informed about the need for CVC placement, and removal of current PICC line, as it is the likely source of infection. Pt's daughter did not agree to allow the ICU team to place the CVC until she is physically here. We will wait until the daughter is inhouse before proceeding with the CVC placement as per family wishes. Objective - Vital Signs/Intake and Output Vital Signs (last 24 hours): Temp Pulse Resp BP Pulse Ox 98.8 F 88 25 H 96/70 L 100 06/19/17 10:20 06/19/17 10:20 06/19/17 08:06 06/19/17 10:15 06/19/17 10:20 Intake and Output: 06/19/17 06/19/17 06:59 18:59 Intake Total 4100 150 Output Total 700 Balance 3400 150 - Medications Medications: Current Medications Docusate Sodium (Colace) 100 mg PO DAILY [facility] Last Admin: 06/19/17 09:36 Dose: Not Given Hydrocortisone Sodium Succinate (Solu-Cortef) 100 mg IVP Q8 [facility] Last Admin: 06/19/17 06:37 Dose: 100 mg Sodium Chloride (Sodium Chloride 0.9%) 1,000 mls @ 125 mls/hr IV .Q8H [facility] Last Admin: 06/18/17 05:00 Dose: 125 mls/hr Acetaminophen (Ofirmev) 1,000 mg in 100 mls @ 400 mls/hr IVPB Q6H PRN PRN Reason: Temperature Stop: 06/20/17 09:59 Last Admin: 06/19/17 00:31 Dose: 400 mls/hr Norepinephrine Bitartrate 8 mg (/ Sodium Chloride) 250 mls @ 7.5 mls/hr IV .Q24H PRN; Protocol; 4 MCG/MIN PRN Reason: TITRATE PER MD ORDER Last Titration: 06/19/17 06:00 Dose: 30 mcg/min, 56.25 mls/hr Famotidine (Pepcid 20mg/50ml Premix) 20 mg in 50 mls @ 100 mls/hr IVPB Q12 [facility] Last Admin: 06/19/17 09:56 Dose: 100 mls/hr Phenylephrine HCl 40 mg/ (Sodium Chloride) 254 mls @ 38.1 mls/hr IV .Q6H40M PRN ; Protocol; 100 MCG/MIN PRN Reason: TITRATE PER MD ORDER Last Admin: 06/19/17 06:29 Dose: 100 mcg/min, 38.1 mls/hr Propofol (Diprivan) 1,000 mg in 100 mls @ 2.121 mls/hr IV .Q24H PRN; Protocol; 5 MCG/KG/MIN PRN Reason: TITRATE PER MD ORDER Last Admin: 06/19/17 08:51 Dose: 30 mcg/kg/min, 12.729 mls/hr Meropenem 1g/NS 100mL IVPB (Meropenem 1g/Ns 100ml Ivpb) 1 gm in 100 mls @ 100 mls/hr IVPB Q12 [facility] PRN Reason: Protocol Stop: 06/29/17 10:01 Last Admin: 06/19/17 09:55 Dose: 100 mls/hr Vasopressin 20 units/ Sodium (Chloride) 101 mls @ 9.09 mls/hr IV .Q11H7M [facility]; 0.03 U/MIN PRN Reason: Protocol Last Admin: 06/19/17 08:13 Dose: 9.09 mls/hr Sodium Bicarbonate 150 meq/ (Dextrose/Sodium Chloride) 1,150 mls @ 100 mls/hr IV .[id number] [facility] Insulin Detemir (Levemir) 10 unit SC HS [facility] Last Admin: 06/18/17 22:20 Dose: 10 unit Insulin Human Lispro (Humalog High) 0 units SC Q6H [facility] PRN Reason: Protocol Last Admin: 06/19/17 06:41 Dose: Not Given Levalbuterol HCl (Xopenex) 1.25 mg IH [id number] PRN PRN Reason: Shortness of Breath Last Admin: 06/18/17 15:20 Dose: 1.25 mg Ondansetron HCl (Zofran Inj) 4 mg IVP Q6H PRN PRN Reason: Nausea/Vomiting - Labs Labs: 06/19/17 05:45 06/19/17 05:45 PT 19.6 Seconds (9.9-11.8) H 06/19/17 05:45 INR 1.81 (0.93-1.08) H 06/19/17 05:45 APTT 35.9 Seconds (23.7-30.8) H 06/19/17 05:45
[2017-06-19] MEDS: Sodium Bicarbonate 8.4% 150 MEQ in Dextrose 5%/0.9% NS 1,000 ML IV SCH (10:44)
--- NOTE | 2017-06-19 12:58 | PCM.PROC ---
Procedures Attestation:: I certify that I have explained the specified Operation(s) or Procedure(s), risks, benefits and reasonable alternatives to the Patient and/or other person responsible. The opportunity was given to ask questions and all questions answered - Central Line Placement Right Internal Jugular Triple Lumen Catheter Aseptic technique was employed throughout the procedure: Hand Hygiene done prior to procedure, Full sterile barriers (mask, hair cover, sterile gown, sterile gloves), Full body sterile drape, Chloraprep Antiseptic: 30 second prep for IJ or SC sites CVP Time Out Performed: Yes Pt. Placed on Pulse Ox Monitor: Yes Central Line Prep: Chlorhexidine-Alcohol Combination Local Anesthesia Used: Lidocaine 1% Ultrasound Used for Placement: Yes Central Line Lumen Inserted: triple Central Line Length: 20 cm Post Procedure: Sutured in Place, Good Blood Return, All Ports Aspirated, Flushed, Capped, Sterile Dressing Applied Secured by: Suture Post procedure dressing: Chlorhexidine disc (Biopatch) Post Procedure X-Ray: Yes Patient Tolerated Procedure: Well Immediate Complications: None
[2017-06-19 13:00] LABS: HEMATOCRIT 26.4 % (42.0-52.0); MEAN CELL VOLUME 85.4 fl (80.0-105.0); MEAN CORPUSCULAR HEMOGLOBIN 29.4 pg (25.0-35.0); MEAN CORPUSCULAR HGB CONC 34.5 g/dl (31.0-37.0); MEAN PLATELET VOLUME 11.3 fl (7.0-11.0); RED CELL DISTRIBUTION WIDTH 16.7 % (11.5-14.5); VENOUS BLOOD GAS BASE EXCESS -15.7 mmol/L (0.0-2.0)
[2017-06-19 13:03] LABS: VENOUS BLOOD PH 7.16 (7.32-7.43)
[2017-06-19 13:04] LABS: PLATELET COUNT 25 10^3/uL (120.0-450.0)
--- NOTE | 2017-06-19 13:41 | RAD ---
HISTORY: Central line placement COMPARISON: Earlier same day FINDINGS: LUNGS: There is a new right internal jugular line that terminates at the caval atrial junction. There is no pneumothorax. Endotracheal and nasogastric tubes unchanged. Left-sided central line in the SVC PLEURA: No significant pleural effusion identified, no pneumothorax apparent. CARDIOVASCULAR: Normal. OSSEOUS STRUCTURES: No significant abnormalities. VISUALIZED UPPER ABDOMEN: Normal. OTHER FINDINGS: None. IMPRESSION: Right internal jugular line in satisfactory position. No pneumothorax
[2017-06-19 14:34] LABS: PLATELET ESTIMATE LOW (NORMAL)
--- NOTE | 2017-06-19 14:47 | CP.PCM.PN ---
<JIM LEIVA - Last Filed: 06/19/17 14:36> Subjective - Date & Time of Evaluation Date of Evaluation: 06/19/17 Time of Evaluation: 07:30 - Subjective Subjective: Jim Gigi DO PGY1 - ICU Progress Note Patient seen and examined at bedside. Overnight, patient was intubated for respiratory distress with tachypnea and increased work of breathing. He remains persistently acidotic with an elevated lactate and decreased bicarbonate. Today , family was contacted in the morning to consent for placement of a central line , prior to removal of the PICC line, which was the presumed source of infection. Initially, family did not consent and insisted on having us wait until they arrived, despite the urgent nature of the procedure which was stressed to them. Eventually, they arrived and consented to the procedure, R IJ central line placed and left PICC removed, without complications. Objective - Vital Signs/Intake and Output Vital Signs (last 24 hours): Temp Pulse Resp BP Pulse Ox 98.8 F 83 25 H 87/62 L 100 06/19/17 10:45 06/19/17 10:45 06/19/17 08:06 06/19/17 10:45 06/19/17 10:45 Intake and Output: 06/19/17 06/19/17 06:59 18:59 Intake Total 4100 400 Output Total 700 Balance 3400 400 - Medications Medications: Current Medications Docusate Sodium (Colace) 100 mg PO DAILY [facility] Last Admin: 06/19/17 09:36 Dose: Not Given Hydrocortisone Sodium Succinate (Solu-Cortef) 50 mg IVP Q6H [facility] Sodium Chloride (Sodium Chloride 0.9%) 1,000 mls @ 125 mls/hr IV .Q8H [facility] Last Admin: 06/18/17 05:00 Dose: 125 mls/hr Acetaminophen (Ofirmev) 1,000 mg in 100 mls @ 400 mls/hr IVPB Q6H PRN PRN Reason: Temperature Stop: 06/20/17 09:59 Last Admin: 06/19/17 00:31 Dose: 400 mls/hr Norepinephrine Bitartrate 8 mg (/ Sodium Chloride) 250 mls @ 7.5 mls/hr IV .Q24H PRN; Protocol; 4 MCG/MIN PRN Reason: TITRATE PER MD ORDER Last Admin: 06/19/17 11:18 Dose: 30 mcg/min, 56.25 mls/hr Famotidine (Pepcid 20mg/50ml Premix) 20 mg in 50 mls @ 100 mls/hr IVPB Q12 [facility] Last Admin: 06/19/17 09:56 Dose: 100 mls/hr Phenylephrine HCl 40 mg/ (Sodium Chloride) 254 mls @ 38.1 mls/hr IV .Q6H40M PRN ; Protocol; 100 MCG/MIN PRN Reason: TITRATE PER MD ORDER Last Admin: 06/19/17 06:29 Dose: 100 mcg/min, 38.1 mls/hr Propofol (Diprivan) 1,000 mg in 100 mls @ 2.121 mls/hr IV .Q24H PRN; Protocol; 5 MCG/KG/MIN PRN Reason: TITRATE PER MD ORDER Last Admin: 06/19/17 08:51 Dose: 30 mcg/kg/min, 12.729 mls/hr Meropenem 1g/NS 100mL IVPB (Meropenem 1g/Ns 100ml Ivpb) 1 gm in 100 mls @ 100 mls/hr IVPB Q12 [facility] PRN Reason: Protocol Stop: 06/29/17 10:01 Last Admin: 06/19/17 09:55 Dose: 100 mls/hr Vasopressin 20 units/ Sodium (Chloride) 101 mls @ 9.09 mls/hr IV .Q11H7M [facility]; 0.03 U/MIN PRN Reason: Protocol Last Admin: 06/19/17 08:13 Dose: 9.09 mls/hr Sodium Bicarbonate 150 meq/ (Dextrose/Sodium Chloride) 1,150 mls @ 100 mls/hr IV .[id number] [facility] Last Admin: 06/19/17 10:44 Dose: 100 mls/hr Insulin Detemir (Levemir) 10 unit SC HS [facility] Last Admin: 06/18/17 22:20 Dose: 10 unit Insulin Human Lispro (Humalog High) 0 units SC Q6H [facility] PRN Reason: Protocol Last Admin: 06/19/17 06:41 Dose: Not Given Levalbuterol HCl (Xopenex) 1.25 mg IH [id number] PRN PRN Reason: Shortness of Breath Last Admin: 06/18/17 15:20 Dose: 1.25 mg Ondansetron HCl (Zofran Inj) 4 mg IVP Q6H PRN PRN Reason: Nausea/Vomiting - Labs Labs: 06/19/17 12:57 06/19/17 05:45 PT 19.6 Seconds (9.9-11.8) H 06/19/17 05:45 INR 1.81 (0.93-1.08) H 06/19/17 05:45 APTT 35.9 Seconds (23.7-30.8) H 06/19/17 05:45 - Constitutional Appears: Chronically Ill, Other (intubated, sedated) - Head Exam Head Exam: ATRAUMATIC, NORMOCEPHALIC - Eye Exam Eye Exam: PERRL - ENT Exam ENT Exam: Mucous Membranes Moist - Neck Exam Neck Exam: absent: Lymphadenopathy, Thyromegaly - Respiratory Exam Respiratory Exam: Clear to Ausculation Bilateral. absent: Rales, Rhonchi, Wheezes - Cardiovascular Exam Cardiovascular Exam: RRR, +S1, +S2 Additional comments: Borderline hypotensive, despite being on 3 vasopressors - GI/Abdominal Exam GI & Abdominal Exam: Soft. absent: Distended, Firm, Guarding, Rigid - Extremities Exam Additional comments: Left PICC line in place, no exudate or drainage, minimal erythema. 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 - On Levophed, phenylephrine, and Vasopressin, titrated to maintain MAP>65 - S/p 4 U PRBC, 2U plt, and 6L fluid bolus. Bedside ultrasound indicates no longer fluid responsive. - Will continue with vasopressors, stress dose steroids, and optimization of acid base status, to maintain BP - Maintaining slight UO, indicates adequate perfusion. - Echo completed, pending read - Maintain MAP>65 Pulm: - Currently intubated for respiratory distress with tachypnea and increased work of breathing in the setting of severe lactic acidosis 2/2 sepsis - PRCV 400/14/5/80% - Patient continues to over-breathe the vent at RR ~30 due to persistent metabolic acidosis. Acid/base status improving slightly, after receiving 1 amp bicarb this AM and currently on a bicarb drip. Will repeat ABG and titrate vent settings as indicated - Protective lung strategies, wean FiO2 down from 100% to 50% as tolerated GI: - Currently NPO, will place NG tube if respiratory status doesn't improve - Transaminitis and elevated total bilirubin, likely 2/2 shock state, but cannot r/o cholelithiasis/cholecystitis - Ordered RUQ US - Pepcid for PPx Renal: - DONTE likely 2/2 hypoperfusion in the setting of shock - Maintaining some urine output - Received approximately 7L fluids, and on 100cc/hr bicarb drip - Strict I's and O's - Maintain euvolemia - Monitor and replete lytes as needed - Nephro (Tre) on consult, all recs appreciated Endo: - History of DM, hold all oral hypoglycemics - Accucheck Q6 and ACHS, with SSI high - On Stress dose steroids, hydrocortisone 50mg Q6 - Maintain euglycemia Hem/Onc: - Pancytopenic with ANC of 0, 2/2 AML s/p chemotherapy (HiDAC) and Neulasta, last dose 06/16/2017 - s/p 4U PRBC, 2U platelets. H/H stable after transfusions. - No bone marrow stimulant indicated at this time, per Hem/Onc - Hem/Onc consulted, all recs appreciated ID: - Septic shock in the setting of pancytopenia with ANC of 0. Likely 2/2 to indwelling PICC line infection, vs UTI vs PNA - PICC line removed for source control, after placement of a central line for continued administration of vasopressors - On merrem and mycamine (d1), received one dose of amikacin today, and zosyn and vanc in the ER - ID consulted (Taj), all recs appreciated Ppx: SCDs for DVT and Pepcid for GI Patient seen, discussed, and reviewed with attending <Alberto Almaraz - Last Filed: 06/19/17 16:23> Objective - Vital Signs/Intake and Output Vital Signs (last 24 hours): Temp Pulse Resp BP Pulse Ox 98.8 F 83 25 H 101/69 100 06/19/17 10:45 06/19/17 10:45 06/19/17 08:06 06/19/17 14:00 06/19/17 10:45 Intake and Output: 06/19/17 06/19/17 06:59 18:59 Intake Total 4100 754 Output Total 700 Balance 3400 754 - Medications Medications: Current Medications Docusate Sodium (Colace) 100 mg PO DAILY [facility] Last Admin: 06/19/17 09:36 Dose: Not Given Hydrocortisone Sodium Succinate (Solu-Cortef) 50 mg IVP Q6H [facility] Last Admin: 06/19/17 11:00 Dose: 50 mg Sodium Chloride (Sodium Chloride 0.9%) 1,000 mls @ 125 mls/hr IV .Q8H [facility] Last Admin: 06/18/17 05:00 Dose: 125 mls/hr Acetaminophen (Ofirmev) 1,000 mg in 100 mls @ 400 mls/hr IVPB Q6H PRN PRN Reason: Temperature Stop: 06/20/17 09:59 Last Admin: 06/19/17 00:31 Dose: 400 mls/hr Norepinephrine Bitartrate 8 mg (/ Sodium Chloride) 250 mls @ 7.5 mls/hr IV .Q24H PRN; Protocol; 4 MCG/MIN PRN Reason: TITRATE PER MD ORDER Last Admin: 06/19/17 11:18 Dose: 30 mcg/min, 56.25 mls/hr Famotidine (Pepcid 20mg/50ml Premix) 20 mg in 50 mls @ 100 mls/hr IVPB Q12 [facility] Last Admin: 06/19/17 09:56 Dose: 100 mls/hr Phenylephrine HCl 40 mg/ (Sodium Chloride) 254 mls @ 38.1 mls/hr IV .Q6H40M PRN ; Protocol; 100 MCG/MIN PRN Reason: TITRATE PER MD ORDER Last Admin: 06/19/17 15:18 Dose: 200 mcg/min, 76.2 mls/hr Propofol (Diprivan) 1,000 mg in 100 mls @ 2.121 mls/hr IV .Q24H PRN; Protocol; 5 MCG/KG/MIN PRN Reason: TITRATE PER MD ORDER Last Admin: 06/19/17 15:44 Dose: 35 mcg/kg/min, 14.85 mls/hr Meropenem 1g/NS 100mL IVPB (Meropenem 1g/Ns 100ml Ivpb) 1 gm in 100 mls @ 100 mls/hr IVPB Q12 [facility] PRN Reason: Protocol Stop: 06/29/17 10:01 Last Admin: 06/19/17 09:55 Dose: 100 mls/hr Vasopressin 20 units/ Sodium (Chloride) 101 mls @ 9.09 mls/hr IV .Q11H7M [facility]; 0.03 U/MIN PRN Reason: Protocol Last Admin: 06/19/17 14:00 Dose: 9.09 mls/hr Sodium Bicarbonate 150 meq/ (Dextrose/Sodium Chloride) 1,150 mls @ 100 mls/hr IV .[id number] [facility] Last Admin: 06/19/17 10:44 Dose: 100 mls/hr Micafungin Sodium 100 mg/ (Sodium Chloride) 100 mls @ 100 mls/hr IV DAILY [facility] PRN Reason: Protocol Stop: 06/26/17 10:59 Insulin Detemir (Levemir) 10 unit SC HS [facility] Last Admin: 06/18/17 22:20 Dose: 10 unit Insulin Human Lispro (Humalog High) 0 units SC Q6H [facility] PRN Reason: Protocol Last Admin: 06/19/17 12:00 Dose: 1 units Levalbuterol HCl (Xopenex) 1.25 mg IH [id number] PRN PRN Reason: Shortness of Breath Last Admin: 06/18/17 15:20 Dose: 1.25 mg Ondansetron HCl (Zofran Inj) 4 mg IVP Q6H PRN PRN Reason: Nausea/Vomiting - Labs Labs: 06/19/17 12:57 06/19/17 05:45 PT 19.6 Seconds (9.9-11.8) H 06/19/17 05:45 INR 1.81 (0.93-1.08) H 06/19/17 05:45 APTT 35.9 Seconds (23.7-30.8) H 06/19/17 05:45 Assessment and Plan - Assessment and Plan (Free Text) Assessment: Patient seen and examined. Case discussed with residents on rounds. Agree with residents note, A/P. Patient is 71yo male with PMHx of AML on chemo, followed at [facility] in [place], [place], presented with septic shock, gram negative bacteremia, neutropenic fevers. Currently the patient remains intubated, sedated, on vasopressors, Neosynephrine , Vasopressin, Levophed. Pressor requirements are actually decreasing, yet patient is not adequately clearing lactate. Patient with gram negative bacteremia, with source likely being L arm PICC line which has been in use for the last 3 months. This morning the patients family member was notified of the importance of removing the PICC line and placing a central line, the family insisted that we wait for them to come in before proceeding with the central line placement. Patient had CVC placed this morning, tolerated the procedure well, L arm PICC line removed. ID is following. AML on chemotherapy Septic Shock Gram negative Bacteremia PNA Respiratory failure Renal failure PICC line infection? Recommend: - cont with ventilatory support, low tidal volume ventilation, titrate FiO2, goal saturation 90-92% - cont with broad spectrum abx as per ID, Merropenem, Mycafungin, Amikacin x 1, Vancomycin x 1, by levels - Cont with vasopressor support, titrate to MAP>65, stress dose steroids SoluCortef 50mg Q6hr - Persistent metabolic acidosis 2/2 lactic acidosis, renal failure, septic shock , renal following - cont with NaBicarb drip, D5W with 3 amps NaBicarb, repeat ABG - follow up ECHO - check central venous sat% - follow up cultures, speciation of gram neg bacteremia - keep NPO for now - monitor HH, platelets, monitor for bleeding - follow up Hematology - GI ppx, Pepcid - DVT ppx HSQ Patients condition remains critical. Patient at high risk for morbidity and mortality Patients condition discussed with the family Critical care time 60 minutes
--- NOTE | 2017-06-19 15:18 | CARD ---
APPROVED REPORT EXAM: Two-dimensional and M-mode echocardiogram with Doppler and color Doppler. INDICATION PULMONARY VASCULAR CONGESTION 2D DIMENSIONS Left Atrium (2D)3.7 (1.6-4.0cm)IVSd1.0 (0.7-1.1cm) LVDd4.7 (3.9-5.9cm)PWd1.0 (0.7-1.1cm) LVDs4.0 (2.5-4.0cm)FS (%) 15.0 % LVEF (%)31.7 (>50%) M-Mode DIMENSIONS Aortic Root3.20 (2.2-3.7cm)Aortic Cusp Exc.1.90 (1.5-2.0cm) Aortic Valve AO Peak GR.5mmHg Mitral Valve E/A ratio0.0 TDI E/Lateral E'0.0E/Medial E'0.0 Tricuspid Valve TR Peak [id number]/sRAP [id number] Peak Gr.31mmHg [id number] LEFT VENTRICLE The left ventricle is normal size. There is normal left ventricular wall thickness. The systolic function is severely impaired. Apical hypokinesis Transmitral Doppler flow pattern is Grade I-abnormal relaxation pattern. Cannot rule out thrombus in left Ventricle. RIGHT VENTRICLE The right ventricle is normal size. There is normal right ventricular wall thickness. Systolic function is mildly reduced. ATRIA The left atrium size is normal. The right atrium size is normal. AORTIC VALVE The aortic valve is not well visualized. No aortic regurgitation is present. There is no aortic valvular stenosis. MITRAL VALVE The mitral valve is mildly thickened. There is no mitral valve regurgitation noted. TRICUSPID VALVE There is mild tricuspid regurgitation. There is mild pulmonary hypertension. GREAT VESSELS The aortic root is normal in size. The IVC collapses <50% with inspiration. <Conclusion> The left ventricle is normal size. There is normal left ventricular wall thickness. The systolic function is severely impaired. Apical hypokinesis Cannot rule out thrombus in left Ventricle. There is mild tricuspid regurgitation. There is mild pulmonary hypertension.
[2017-06-19] MEDS: White Petrolatum Ophth Oint (Puralube) OU SCH ×3 (17:23→22:00)
--- NOTE | 2017-06-19 17:50 | US ---
HISTORY: Transaminitis COMPARISON: None available. TECHNIQUE: Sonographic evaluation of the abdomen. FINDINGS: LIVER: Measures 16.2 x 10.9 x 19.9 cm. No focal hepatic mass identified. The main portal vein appears patent with normal directional flow. No intrahepatic bile duct dilatation. GALLBLADDER: No gallstones. Pericholecystic fluid/ gallbladder-wall thickening measuring up to approximately 4 mm. Negative sonographic No's sign as assessed by the uniform cap operator. COMMON BILE DUCT: Measures 5 mm. PANCREAS: Not well visualized. RIGHT KIDNEY: Measures 13.1 x 5.2 x 5.0cm. No obstructing calculus or hydronephrosis identified. LEFT KIDNEY: Measures 12.4 x 5.2 x 5.3cm. No obstructing calculus or hydronephrosis identified. SPLEEN: Measures approximately 12.1 x 4.1 x 6.9 cm. AORTA: Limited views appear unremarkable. IVC: Limited views appear unremarkable. OTHER FINDINGS: Incidental note is made of right-sided pleural effusion. IMPRESSION: Incidental note is made of right-sided pleural effusion. Trace pericholecystic fluid/gallbladder-wall thickening measuring up to 4 mm. No gallstones. Negative sonographic No's sign as assessed by the uniform cap operator. Correlate clinically.
[2017-06-19 18:03] LABS: ABG MECHANICAL RATE 16; ARTERIAL BLOOD GAS PH 7.26 (7.35-7.45); ATERIAL BLOOD GAS PEEP 5
[2017-06-19 18:44] LABS: ARTERIAL BLOOD GAS HCO3 9.9 mmol/L (21-28)
[2017-06-19] MEDS: Levalbuterol 1.25 MG/3 ML Inhal Soln UD IH PRN (19:45)
[2017-06-19] MEDS: Insulin Detemir 100 units/ml Vial (Levemir) SC SCH (21:44)
[2017-06-19 22:22] LABS: VENOUS BLOOD GAS BASE EXCESS -10.5 mmol/L (0.0-2.0); VENOUS BLOOD PH 7.26 (7.32-7.43)
--- NOTE | 2017-06-19 23:52 | CON ---
DATE: 06/19/2017 REASON FOR CONSULTATION: Pancytopenia, acute kidney injury, severe metabolic acidosis. HISTORY OF PRESENT ILLNESS: A 71-year-old male previously unknown to me, was brought to the emergency room yesterday by his family because of history of high fevers. The patient was found to be lethargic. Currently, the patient is intubated and sedated in the ICU. Hence, history is obtained from the chart. 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 He received chemotherapy with HiDAC, D10 of consolidation treatment. The patient was found to have a PICC line which was placed 3 months ago. The patient was receiving outpatient antibiotics with the PICC line. At presentation, the patient had fever with rigors, he was hypotensive. He was given IV fluids. He was admitted to the ICU. He was started on pressor support with Levophed. Subsequently, the patient was intubated early this morning at 2 a.m. because he was tachypneic, severely acidotic and hypoxic. Currently, the patient is sedated, on mechanical ventilation. He is initial creatinine was 1.1. His creatinine has risen to 1.5. Hence consultation was requested. He was also found to be profoundly acidotic with a VBG showing a pH of 7.06. His arterial blood gas showed a pH of 7.26 earlier this morning. His WBC count is 0.1 and he is pancytopenic with hemoglobin of 7.7 and platelets of 40. PAST MEDICAL AND SURGICAL HISTORY: AML diagnosed recently. SOCIAL HISTORY: Not available. FAMILY HISTORY: Not available. ALLERGIES: NO KNOWN DRUG ALLERGIES. REVIEW OF SYSTEMS: Unavailable as the patient is currently sedated, on mechanical ventilation in the ICU. PHYSICAL EXAMINATION: GENERAL: Elderly male lying in bed in the ICU on mechanical ventilation. VITAL SIGNS: Blood pressure 87/62, heart rate 83, respiratory rate 25, temperature 98.8, T-max is 99. HEENT: Normocephalic, atraumatic. NECK: Supple, no JVD. LUNGS: Bilateral equal air entry, bilateral rhonchi, no rales appreciated. CARDIAC: S1 and S2, regular rate and rhythm, no murmur, no rub. ABDOMEN: Obese, distended, soft, nontender, bowel sounds present. EXTREMITIES: No lower extremity edema. INTAKE AND OUTPUT: 4238/700. LABORATORY DATA: WBC 0.1, hemoglobin 7.7, hematocrit 22, platelets 40. Sodium 144, potassium 4.1, chloride 112, CO2 of 12, BUN 37, creatinine 1.5, glucose 189, calcium 7.3, phosphorus 7.1 magnesium 1.8, total bili 3.1, AST 337, ALT 309. Total protein 5.6, albumin 2.8. Urinalysis: Yellow, clear, pH 5.5, specific gravity 1.020, protein trace, blood trace, nitrite negative, leukocyte esterase negative. Chest x-ray pulmonary edema. CURRENT MEDICATIONS: Colace, Diprivan, Humalog, meropenem 1 g q. 12, norepinephrine at 30 mcg/minute, Pepcid, phenylephrine, D5W with 3 amps of bicarb at 100, Solu-Cortef 100 q. 12, vasopressin, Xopenex, Zofran, amikacin 1 dose given. ASSESSMENT AND PLAN: A 71-year-old male with recently diagnosed AML, status post chemotherapy, was receiving consolidation therapy #10 with HiDAC presenting with pancytopenia, septic shock, hypotension, respiratory failure, acute kidney injury. The patient has a PICC line which may be a source of sepsis. At this time, the patient is critically ill. He has multiorgan dysfunction. He is receiving multiple antibiotics. He is receiving antifungals as well. The patient now has received 2 doses of aminoglycosides. Suspect his renal function will get worse before it gets better. He has severe metabolic acidosis. He also has lactic acidosis. The patient is critically ill. He also has transaminitis, RBCs, severe hypocalcemia, hyperphosphatemia. 1. Neutropenic septic shock. 2. Pancytopenia. 3. Respiratory failure. 4. Acute kidney injury. 5. Severe anion gap metabolic acidosis. 6. Transaminitis suspect shock liver. 7. Underlying history of diabetes. 8. AML status post chemotherapy. PLAN: 1. Continue IV fluids with sodium bicarbonate, D5W with 3 amps of bicarbonate to 100 mL/hour. 2. Agree with empiric broad-spectrum antibiotics. 3. Agree with antifungals 4. Remove PICC line 5. Monitor urine output. 6. Expect renal function to deteriorate. 7. Check urine sodium, urine creatinine, urine eosinophils. Case discussed with ICU attending and resident at bedside at length. More than 35 minutes spent in the care of this critically ill patient. Nicole Toledo MD
[2017-06-20] MEDS: Sodium Bicarbonate 8.4% 150 MEQ in Dextrose 5%/0.9% NS 1,000 ML IV SCH ×2 (01:31→13:58)
[2017-06-20] MEDS: White Petrolatum Ophth Oint (Puralube) OU SCH ×10 (02:00→22:35)
--- NOTE | 2017-06-20 02:01 | HP ---
The patient is a 71-year-old male. CHIEF COMPLAINT: Fever and feeling fatigue and tired. HISTORY OF PRESENT ILLNESS: Mr. Christen Amador is a 71-year-old male with past medical history of leukemia, left arm PICC line, came to the emergency room. Relative states that the patient has fever with associated generalized weakness tonight. Relative noticed that the patient had chemotherapy yesterday and had been receiving antibiotics via PICC line, denies any chest pain. I saw the patient in the ICU with heavy shortness of breath. No nausea, vomiting, or diarrhea; no urinary symptoms; no dizziness. The patient was getting chemotherapy in [facility]. 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 PAST MEDICAL HISTORY: Leukemia, getting chemotherapy and anemia. ALLERGIES: THE PATIENT IS NOT ALLERGIC TO ANY MEDICATIONS. HABITS: No smoking No drugs. No ethanol. HOME MEDICATIONS: Reviewed by me. REVIEW OF SYSTEMS: The patient was seen and examined on 06/18/2017 on the bedside in the unit, still having shortness of breath, feverish chills, feeling lethargic. The patient is not very good historian, not giving good review of systems. PHYSICAL EXAMINATION: VITAL SIGNS: Temperature 102.1, blood pressure 86/44, respiratory 20, pulse 108. HEENT: Head normocephalic and atraumatic. Eyes; PERRLA. Extraocular muscles intact. Conjunctivae clear. Nose is patent. Mucous membranes moist. NECK: Supple. No carotid bruits. No JVD or thyromegaly. CHEST: Bilaterally symmetrical. HEART: S1 and S2 positive. LUNGS: Clear to auscultation. ABDOMEN: Soft. Bowel sounds present. No organomegaly. EXTREMITIES: No edema. No cyanosis. NEUROLOGIC: The patient is awake and alert, answering the simple questions, but is not giving good conversation. LABORATORY DATA: White blood cell is 0.1, hemoglobin 6.6, hematocrit 20.3, platelets 13. Sodium 134, potassium 3.4, BUN 30, creatinine 1.1, glucose 284, phosphorus 1.4, magnesium 1.2. ASSESSMENT AND PLAN: Mr. Christen Amador is a 71-year-old male with hypokalemia, hyperglycemia, hypophosphatemia, diabetes mellitus uncontrolled, hypomagnesemia, leukopenia, severe anemia, status post blood transfusion, thrombocytopenia, overall pancytopenia, history of leukemia, hypertension, has peripherally inserted central catheter line placement 3 to 4 months ago, status post chemotherapy one week ago, came with fever and severe pancytopenia, now is in septic shock, no neutropenic precautions, must rule out bacteremia from PICC line and fungemia versus healthcare-associated pneumonia. The patient will get vancomycin, meropenem, and Mycamine pending blood culture and urine culture as per Dr. Billings. Dr. Pedro Bennett was aba tutor, has discussion done with him. We will continue with gentamicin. GI and DVT prophylaxis, repeat labs. We will follow up. Melanie Lane MD
[2017-06-20] MEDS ORDERED: NOREPINEPHRINE BIT/0.9 % NACL 4 MG/250 ML BAG IV ONE (02:36)
[2017-06-20 02:39] LABS: VENOUS BLOOD GAS BASE EXCESS -7.9 mmol/L (0.0-2.0)
[2017-06-20] MEDS: Norepinephrine 8 MG in Sodium Chloride 0.9% 242 ML IV PRN ×2 (02:41→13:24)
[2017-06-20] MEDS: Propofol 10 mg/ml 1,000 MG/100 ML VIAL IV PRN ×3 (02:59→18:15)
--- NOTE | 2017-06-20 03:11 | PN ---
DATE: 06/19/2017 The patient is a 71-year-old male. SUBJECTIVE: When I saw the patient today, the patient was intubated. Actually overnight, the patient had respiratory distress with tachypnea and increased work of breathing. He persistently was acidotic with an elevated lactate and decreased bicarbonate. Then, the patient is septic, plan was to discontinue PICC line and start another IV line. ICU called the patient's family, especially daughter; she do not want to do any procedure without her presence. According to her, she said that she will come and then she will give consent for removing PICC line and putting central line. Hospital explained her urgency of the procedure, but still she wants to come to do the consent and wants her product sales representative to wait; then finally, she arrived to give consent and safely PICC line was removed and central line was pushed. When I saw the patient, he was intubated. PHYSICAL EXAMINATION VITAL SIGNS: Temperature 98.8, pulse 83, respiratory rate 25, blood pressure 87/76 and pulse oximetry 100%. HEENT: Head is normocephalic and atraumatic. Eyes closed. Nose patent. NECK: Supple. No carotid bruit. No JVD. No thyromegaly. CHEST: Bilaterally symmetrical. HEART: S1 and S2 positive. LUNGS: Poor air entry, now with intubation. Lungs are clear. ABDOMEN: Soft. Bowel sounds present. No organomegaly. EXTREMITIES: No edema. No cyanosis. NEUROLOGIC: The patient cannot be evaluated because the patient is sedated and is intubated. MEDICATIONS: Colace, Solu-Cortef, Ancef, acetaminophen, norepinephrine, famotidine, MS, Diprivan, meropenem, vasopressor, bicarbonate, Levemir and Zofran. LABORATORY DATA: White blood cell is 0.0, hemoglobin 9.1, hematocrit 26.4 and platelets 25. Sodium 144, potassium 4.1, BUN 36, creatinine 1.5 and glucose 189. ASSESSMENT AND PLAN: The patient is a 71-year-old male with leukopenia, , anemia, thrombocytopenia, bad pancytopenia, renal insufficiency, hyperglycemia, hyperchloremia, has septic shock likely with PICC line infection versus urinary tract infection versus , in the setting of pancytopenia with ANC of 0 with PMH of AML on Neulasta. Currently, the patient is sedated on propofol, daily sedation and weaning trial, continue monitoring. Gastrointestinal and deep venous thrombosis prophylaxis maintaining blood pressure. Tachypnea is better. We will follow. Melanie Lane MD [email or web address]
[2017-06-20] MEDS: Insulin Lispro (HUMAlog) HIGH Coverage SC SCH ×3 (05:34→18:42)
[2017-06-20 06:06] LABS: VENOUS BLOOD GAS BASE EXCESS -6.2 mmol/L (0.0-2.0); VENOUS BLOOD PH 7.31 (7.32-7.43)
[2017-06-20 06:16] LABS: ALB/GLOB RATIO 0.9 (1.1-1.8); BILIRUBIN,TOTAL 2.4 mg/dL (0.2-1.3); CALCIUM 7.5 mg/dL (8.4-10.5); MAGNESIUM 1.9 mg/dL (1.7-2.2); POTASSIUM 4.8 mmol/L (3.6-5.0); TOTAL PROTEIN 5.3 g/dL (5.8-8.3)
[2017-06-20 06:17] LABS: INR 3.29 (0.93-1.08)
[2017-06-20 06:46] LABS: HEMATOCRIT 25.7 % (42.0-52.0); MEAN CELL VOLUME 85.4 fl (80.0-105.0); MEAN CORPUSCULAR HEMOGLOBIN 28.9 pg (25.0-35.0); MEAN CORPUSCULAR HGB CONC 33.9 g/dl (31.0-37.0); RED CELL DISTRIBUTION WIDTH 17.7 % (11.5-14.5)
[2017-06-20 06:55] LABS: PHOSPHOROUS 5.8 mg/dL (2.5-4.5)
[2017-06-20 06:56] LABS: WHITE BLOOD COUNT 0.1 10^3/ul (4.5-11.0)
[2017-06-20 06:59] LABS: PLATELET COUNT 12 10^3/uL (120.0-450.0)
[2017-06-20] MEDS: Levalbuterol 1.25 MG/3 ML Inhal Soln UD IH PRN (07:30)
[2017-06-20] MEDS: Meropenem 1g/NS 100mL IVPB 1 GM/100 ML PIGGYBACK IVPB SCH ×3 (08:50→22:27)
[2017-06-20] MEDS: Famotidine 20mg/50ml 20 MG/50 ML BAG IVPB SCH ×3 (08:53→22:26)
--- NOTE | 2017-06-20 09:37 | CP.PCM.PN ---
Subjective - Date & Time of Evaluation Date of Evaluation: 06/20/17 Time of Evaluation: 09:10 - Subjective Subjective: Continues to be on the ventilator, still on sedation but is opening eyes to tactile stimuli, no fevers overnight, still on vasopressors, PICC was removed yesterday and a new central venous catheter was placed. Objective - Vital Signs/Intake and Output Vital Signs (last 24 hours): Temp Pulse Resp BP Pulse Ox 97.5 F L 78 25 H 99/56 L 99 06/20/17 04:50 06/20/17 04:50 06/19/17 08:06 06/20/17 04:30 06/20/17 04:50 Intake and Output: 06/19/17 06/20/17 18:59 06:59 Intake Total 2754 63.1 Output Total 650 Balance 2104 63.1 - Medications Medications: Current Medications Artificial Tears (Puralube Opht Oint) 1 appl OU Q2 [facility] Last Admin: 06/20/17 04:00 Dose: 1 applic Docusate Sodium (Colace) 100 mg PO DAILY [facility] Last Admin: 06/19/17 09:36 Dose: Not Given Hydrocortisone Sodium Succinate (Solu-Cortef) 50 mg IVP Q6H [facility] Last Admin: 06/20/17 05:12 Dose: 50 mg Sodium Chloride (Sodium Chloride 0.9%) 1,000 mls @ 125 mls/hr IV .Q8H [facility] Last Admin: 06/18/17 05:00 Dose: 125 mls/hr Acetaminophen (Ofirmev) 1,000 mg in 100 mls @ 400 mls/hr IVPB Q6H PRN PRN Reason: Temperature Stop: 06/20/17 09:59 Last Admin: 06/19/17 00:31 Dose: 400 mls/hr Norepinephrine Bitartrate 8 mg (/ Sodium Chloride) 250 mls @ 7.5 mls/hr IV .Q24H PRN; Protocol; 4 MCG/MIN PRN Reason: TITRATE PER MD ORDER Last Admin: 06/20/17 02:41 Dose: 20 mcg/min, 37.5 mls/hr Famotidine (Pepcid 20mg/50ml Premix) 20 mg in 50 mls @ 100 mls/hr IVPB Q12 [facility] Last Admin: 06/19/17 21:37 Dose: 100 mls/hr Phenylephrine HCl 40 mg/ (Sodium Chloride) 254 mls @ 38.1 mls/hr IV .Q6H40M PRN ; Protocol; 100 MCG/MIN PRN Reason: TITRATE PER MD ORDER Last Admin: 06/19/17 15:18 Dose: 200 mcg/min, 76.2 mls/hr Propofol (Diprivan) 1,000 mg in 100 mls @ 2.121 mls/hr IV .Q24H PRN; Protocol; 5 MCG/KG/MIN PRN Reason: TITRATE PER MD ORDER Last Admin: 06/20/17 02:59 Dose: 35 mcg/kg/min, 14.85 mls/hr Meropenem 1g/NS 100mL IVPB (Meropenem 1g/Ns 100ml Ivpb) 1 gm in 100 mls @ 100 mls/hr IVPB Q12 [facility] PRN Reason: Protocol Stop: 06/29/17 10:01 Last Admin: 06/19/17 21:36 Dose: 100 mls/hr Vasopressin 20 units/ Sodium (Chloride) 101 mls @ 9.09 mls/hr IV .Q11H7M [facility]; 0.03 U/MIN PRN Reason: Protocol Last Admin: 06/20/17 01:55 Dose: 9.09 mls/hr Sodium Bicarbonate 150 meq/ (Dextrose/Sodium Chloride) 1,150 mls @ 100 mls/hr IV .[id number] [facility] Last Admin: 06/20/17 01:31 Dose: 100 mls/hr Micafungin Sodium 100 mg/ (Sodium Chloride) 100 mls @ 100 mls/hr IV DAILY [facility] PRN Reason: Protocol Stop: 06/26/17 10:59 Last Admin: 06/19/17 16:20 Dose: 100 mls/hr Insulin Detemir (Levemir) 10 unit SC HS [facility] Last Admin: 06/19/17 21:44 Dose: 10 unit Insulin Human Lispro (Humalog High) 0 units SC Q6H [facility] PRN Reason: Protocol Last Admin: 06/20/17 05:34 Dose: 10 units Levalbuterol HCl (Xopenex) 1.25 mg IH [id number] PRN PRN Reason: Shortness of Breath Last Admin: 06/19/17 19:45 Dose: 1.25 mg Ondansetron HCl (Zofran Inj) 4 mg IVP Q6H PRN PRN Reason: Nausea/Vomiting - Labs Labs: 06/19/17 12:57 06/19/17 05:45 PT 19.6 Seconds (9.9-11.8) H 06/19/17 05:45 INR 1.81 (0.93-1.08) H 06/19/17 05:45 APTT 35.9 Seconds (23.7-30.8) H 06/19/17 05:45 - Constitutional Appears: Other (Intubated, on sedated, on vasopressor support) - Head Exam Head Exam: NORMAL INSPECTION - ENT Exam Additional comments: ET tube in place - Neck Exam Additional comments: right IJ central venous catheter in place with surrounding petechiae - Respiratory Exam Respiratory Exam: Decreased Breath Sounds, Rhonchi (scattered) - Cardiovascular Exam Cardiovascular Exam: Tachycardia, +S1, +S2 - GI/Abdominal Exam GI & Abdominal Exam: Soft. absent: Tenderness Assessment and Plan - Assessment and Plan (Free Text) Plan: Assessment Septic shock with multiorgan failure (acute renal failure, ventilator-dependent hypoxic respiratory failure, acute encephalopathy) due to gram negative bacilli bacteremia, suspect due to PICC line infection (since the PICC has been in place for about 3-4 months now), S/P removal yesterday Leukemia S/P chemotherapy one week ago, now with continued neutropenia HTN DM Plan Continue Merrem (dose adjusted because of acute renal failure) and has been given a dose of IV amikacin yesterday pending identification and sensitivities of the gram negative bacilli in the blood - follow up repeat blood cx that were taken last night after the PICC was removed will also continue Mycamine since he continues to be neutropenic (ie. he may have been neutropenic for about 2-3 days prior to admission and may be at risk for fungal infections) will continue monitor clinically Overall prognosis is poor
[2017-06-20] MEDS: Micafungin 100 MG in Sodium Chloride 0.9% 100 ML IV SCH (10:15)
--- NOTE | 2017-06-20 10:39 | CP.PCM.PN ---
<Yan Tipton - Last Filed: 06/20/17 10:52> Subjective - Date & Time of Evaluation Date of Evaluation: 06/20/17 Time of Evaluation: 08:00 - Subjective Subjective: Heme/ onc note for Dr Vázquez: Pt seen and examined at bedside in the ICU. Pt is intubated, and sedated. He is requiring levophed and vasopressin. ROS unobtainable. Objective - Vital Signs/Intake and Output Vital Signs (last 24 hours): Temp Pulse Resp BP Pulse Ox 97.5 F L 74 25 H 90/57 L 100 06/20/17 08:40 06/20/17 08:40 06/19/17 08:06 06/20/17 08:30 06/20/17 08:40 Intake and Output: 06/20/17 06/20/17 06:59 18:59 Intake Total 622.1 Output Total 700 Balance -77.9 - Medications Medications: Current Medications Artificial Tears (Puralube Opht Oint) 1 appl OU Q2 [facility] BEDS AT [facility] Last Admin: 06/20/17 08:00 Dose: 1 applic Docusate Sodium (Colace) 100 mg PO DAILY [facility] 234 BEDS AT [facility] Last Admin: 06/19/17 09:36 Dose: Not Given Hydrocortisone Sodium Succinate (Solu-Cortef) 50 mg IVP Q6H [facility] 234 BEDS AT THE [facility] Last Admin: 06/20/17 05:12 Dose: 50 mg Sodium Chloride (Sodium Chloride 0.9%) 1,000 mls @ 125 mls/hr IV .Q8H [facility] 234 BEDS AT THE [facility] Last Admin: 06/18/17 05:00 Dose: 125 mls/hr Norepinephrine Bitartrate 8 mg (/ Sodium Chloride) 250 mls @ 7.5 mls/hr IV .Q24H PRN; Protocol; 4 MCG/MIN PRN Reason: TITRATE PER MD ORDER Last Admin: 06/20/17 02:41 Dose: 20 mcg/min, 37.5 mls/hr Famotidine (Pepcid 20mg/50ml Premix) 20 mg in 50 mls @ 100 mls/hr IVPB Q12 [facility] 234 BEDS AT [facility] Last Admin: 06/20/17 08:53 Dose: 100 mls/hr Phenylephrine HCl 40 mg/ (Sodium Chloride) 254 mls @ 38.1 mls/hr IV .Q6H40M PRN ; Protocol; 100 MCG/MIN PRN Reason: TITRATE PER MD ORDER Last Admin: 06/19/17 15:18 Dose: 200 mcg/min, 76.2 mls/hr Propofol (Diprivan) 1,000 mg in 100 mls @ 2.121 mls/hr IV .Q24H PRN; Protocol; 5 MCG/KG/MIN PRN Reason: TITRATE PER MD ORDER Last Admin: 06/20/17 06:47 Dose: 25 mcg/kg/min, 10.607 mls/hr Meropenem 1g/NS 100mL IVPB (Meropenem 1g/Ns 100ml Ivpb) 1 gm in 100 mls @ 100 mls/hr IVPB Q12 [facility] PRN Reason: Protocol Stop: 06/29/17 10:01 Last Admin: 06/20/17 08:50 Dose: 100 mls/hr Vasopressin 20 units/ Sodium (Chloride) 101 mls @ 9.09 mls/hr IV .Q11H7M [facility]; 0.03 U/MIN PRN Reason: Protocol Last Admin: 06/20/17 01:55 Dose: 9.09 mls/hr Sodium Bicarbonate 150 meq/ (Dextrose/Sodium Chloride) 1,150 mls @ 100 mls/hr IV .[id number] [facility] Last Admin: 06/20/17 01:31 Dose: 100 mls/hr Micafungin Sodium 100 mg/ (Sodium Chloride) 100 mls @ 100 mls/hr IV DAILY [facility] PRN Reason: Protocol Stop: 06/27/17 10:01 Last Admin: 06/20/17 10:15 Dose: 100 mls/hr Insulin Detemir (Levemir) 10 unit SC HS [facility] Last Admin: 06/19/17 21:44 Dose: 10 unit Insulin Human Lispro (Humalog High) 0 units SC Q6H [facility] PRN Reason: Protocol Last Admin: 06/20/17 05:34 Dose: 10 units Levalbuterol HCl (Xopenex) 1.25 mg IH [id number] PRN PRN Reason: Shortness of Breath Last Admin: 06/20/17 07:30 Dose: 1.25 mg Ondansetron HCl (Zofran Inj) 4 mg IVP Q6H PRN PRN Reason: Nausea/Vomiting - Labs Labs: 06/20/17 05:50 06/20/17 05:50 PT 35.5 Seconds (9.9-11.8) H* 06/20/17 05:50 INR 3.29 (0.93-1.08) H 06/20/17 05:50 APTT 35.9 Seconds (23.7-30.8) H 06/19/17 05:45 - Constitutional Appears: No Acute Distress - Head Exam Head Exam: ATRAUMATIC - Eye Exam Eye Exam: PERRL - ENT Exam ENT Exam: Mucous Membranes Moist - Respiratory Exam Respiratory Exam: Clear to Ausculation Bilateral. absent: Rales, Rhonchi, Wheezes - Cardiovascular Exam Cardiovascular Exam: REGULAR RHYTHM, RRR, +S1, +S2 - GI/Abdominal Exam GI & Abdominal Exam: Soft. absent: Distended, Tenderness - Extremities Exam Extremities Exam: absent: Calf Tenderness, Pedal Edema - Skin Skin Exam: Dry, Intact, Warm Assessment and Plan - Assessment and Plan (Free Text) Assessment: 71 M with pmh of DM, BPH, HLD, and acute myelogenous leukemia s/p HiDAC treatment followed by [facility] presents with septic shock 2/2 ESBL E.coli bacterimia. Pancytopenic. Currently intubated, sedated and requiring 2 pressers. I spoke to Jane from Dr Martell office which is aware the patient is here in the ICU. She stated the pateint received 7+3 induction HiDAC and a second dose during hospitalization of 06/06-06/11; pt did follow up in the office on 06/16. Pt also has a matched 10/[address] Bill Calle called Dr Vázquez regarding the patient and recommended considering Neupogen this . Will follow up. - Neutropenia - pt is s/p Neulasta - Anemia - Hb this am 8.7 s/p 4 units PRBC - Recommend transfusing 2 units of PRBC today along with 1 unit FFP (can transfuse 2 if not clinically fluid overloaded) - Thrombocytopenia - platelets of 12 this am s/p 2 units platelets - no signs of active bleeding - recommend transfusing 2 units of irradiated platelets - Transaminitis - recommend GI consult - ICU recs and management - currently intubated and sedated requiring 2 pressers - F/u ID recs - picc line removed - Cont Amikacin and Chacha - cont Mycamine - F/u Septic work up - E. coli + ESBL - F/u Renal consult - F/u with patients oncologist at [facility] Case and plan was reviewed and discussed in detail with Dr Vázquez. <Sepideh Vázquez P - Last Filed: 06/23/17 23:31> Objective - Vital Signs/Intake and Output Vital Signs (last 24 hours): Temp Pulse Resp BP Pulse Ox 98 F 64 16 123/62 97 06/23/17 22:30 06/23/17 22:30 06/23/17 22:30 06/23/17 22:30 06/23/17 22:15 Intake and Output: 06/23/17 06/24/17 18:59 06:59 Intake Total 572 275 Output Total 3500 Balance -2928 275 - Medications Medications: Current Medications Dextrose (Dextrose 50% Inj) 50 ml IVP Q15M PRN PRN Reason: Hypoglycemia Last Admin: 06/22/17 11:58 Dose: 50 ml Docusate Sodium (Colace) 100 mg PO DAILY [facility]CLUDE 234 BEDS AT [facility] Last Admin: 06/23/17 10:09 Dose: Not Given Furosemide (Lasix) 40 mg IVP Q12 [facility] Last Admin: 06/23/17 21:00 Dose: 40 mg Famotidine (Pepcid 20mg/50ml Premix) 20 mg in 50 mls @ 100 mls/hr IVPB Q12 [facility] Last Admin: 06/23/17 21:45 Dose: 100 mls/hr Micafungin Sodium 100 mg/ (Sodium Chloride) 100 mls @ 100 mls/hr IV DAILY [facility] PRN Reason: Protocol Stop: 06/27/17 10:01 Last Admin: 06/23/17 10:14 Dose: 100 mls/hr Meropenem 1g/NS 100mL IVPB (Meropenem 1g/Ns 100ml Ivpb) 1 gm in 100 mls @ 100 mls/hr IVPB Q8 [facility] PRN Reason: Protocol Stop: 07/01/17 14:01 Last Admin: 06/23/17 21:45 Dose: 100 mls/hr Dobutamine HCl/Dextrose (Dobutamine/Dextrose 5% 500mg/250ml) 500 mg in 250 mls @ 5.964 mls/hr IV .Q24H PRN; Protocol; 2.5 MCG/KG/MIN PRN Reason: TITRATE PER PROTOCOL Last Admin: 06/23/17 21:43 Dose: 2.5 mcg/kg/min, 5.964 mls/hr Dextrose (Dextrose 5% In Water 1000 Ml) 1,000 mls @ 50 mls/hr IV .Q20H [facility] Last Admin: 06/22/17 22:14 Dose: 50 mls/hr Insulin Human Lispro (Humalog High) 0 units SC Q6H [facility] PRN Reason: Protocol Last Admin: 06/23/17 17:49 Dose: 2 units Levalbuterol HCl (Xopenex) 1.25 mg IH [id number] PRN PRN Reason: Shortness of Breath Last Admin: 06/23/17 13:11 Dose: 1.25 mg Ondansetron HCl (Zofran Inj) 4 mg IVP Q6H PRN PRN Reason: Nausea/Vomiting Last Admin: 06/22/17 12:33 Dose: 4 mg - Labs Labs: 06/23/17 05:30 06/23/17 13:00 PT 19.4 Seconds (9.9-11.8) H 06/23/17 05:30 INR 1.80 (0.93-1.08) H 06/23/17 05:30 APTT 35.9 Seconds (23.7-30.8) H 06/19/17 05:45 Attending/Attestation - Attestation I have personally seen and examined this patient.: Yes I have fully participated in the care of the patient.: Yes I have reviewed all pertinent clinical information, including history, physical exam and plan: Yes
[2017-06-20] MEDS ORDERED: Insulin Regular 100 UNITS in Sodium Chloride 0.9% 99 ML IV PRN (12:02)
[2017-06-20] MEDS ORDERED: Insulin Detemir 100 units/ml Vial (Levemir) SC SCH ×2 (12:20→18:32)
--- NOTE | 2017-06-20 12:31 | CP.PCM.PN ---
<JIM LEIVA - Last Filed: 06/20/17 14:45> Subjective - Date & Time of Evaluation Date of Evaluation: 06/20/17 Time of Evaluation: 07:30 - Subjective Subjective: Jim Leiva DO PGY1 - ICU Progress Note Patient seen and examined at bedside. Nurse reports that patient was afebrile overnight, with decreased requirement for vasopressor support, as well as 700mL urine output. Patient remains intubated, and sedated on propofol. Continues to have some spontaneous movements of all extremities. Objective - Vital Signs/Intake and Output Vital Signs (last 24 hours): Temp Pulse Resp BP Pulse Ox 97.5 F L 74 25 H 103/60 100 06/20/17 11:30 06/20/17 11:30 06/19/17 08:06 06/20/17 11:00 06/20/17 11:30 Intake and Output: 06/20/17 06/20/17 06:59 18:59 Intake Total 622.1 Output Total 700 Balance -77.9 - Medications Medications: Current Medications Artificial Tears (Puralube Opht Oint) 1 appl OU Q2 [facility] Last Admin: 06/20/17 08:00 Dose: 1 applic Docusate Sodium (Colace) 100 mg PO DAILY [facility] Last Admin: 06/19/17 09:36 Dose: Not Given Hydrocortisone Sodium Succinate (Solu-Cortef) 50 mg IVP Q6H [facility] Last Admin: 06/20/17 05:12 Dose: 50 mg Sodium Chloride (Sodium Chloride 0.9%) 1,000 mls @ 125 mls/hr IV .Q8H [facility] Last Admin: 06/18/17 05:00 Dose: 125 mls/hr Norepinephrine Bitartrate 8 mg (/ Sodium Chloride) 250 mls @ 7.5 mls/hr IV .Q24H PRN; Protocol; 4 MCG/MIN PRN Reason: TITRATE PER MD ORDER Last Admin: 06/20/17 02:41 Dose: 20 mcg/min, 37.5 mls/hr Famotidine (Pepcid 20mg/50ml Premix) 20 mg in 50 mls @ 100 mls/hr IVPB Q12 [facility] Last Admin: 06/20/17 08:53 Dose: 100 mls/hr Propofol (Diprivan) 1,000 mg in 100 mls @ 2.121 mls/hr IV .Q24H PRN; Protocol; 5 MCG/KG/MIN PRN Reason: TITRATE PER MD ORDER Last Admin: 06/20/17 06:47 Dose: 25 mcg/kg/min, 10.607 mls/hr Meropenem 1g/NS 100mL IVPB (Meropenem 1g/Ns 100ml Ivpb) 1 gm in 100 mls @ 100 mls/hr IVPB Q12 [facility] PRN Reason: Protocol Stop: 06/29/17 10:01 Last Admin: 06/20/17 08:50 Dose: 100 mls/hr Sodium Bicarbonate 150 meq/ (Dextrose/Sodium Chloride) 1,150 mls @ 100 mls/hr IV .[id number] [facility] Last Admin: 06/20/17 01:31 Dose: 100 mls/hr Micafungin Sodium 100 mg/ (Sodium Chloride) 100 mls @ 100 mls/hr IV DAILY [facility] PRN Reason: Protocol Stop: 06/27/17 10:01 Last Admin: 06/20/17 10:15 Dose: 100 mls/hr Insulin Human Regular 100 (units/ Sodium Chloride) 100 mls @ 1 mls/hr IV .Q24H PRN; Protocol; 1 UNITS/HR PRN Reason: TITRATE PER MD ORDER Insulin Human Lispro (Humalog High) 0 units SC Q6H [facility] PRN Reason: Protocol Last Admin: 06/20/17 05:34 Dose: 10 units Levalbuterol HCl (Xopenex) 1.25 mg IH [id number] PRN PRN Reason: Shortness of Breath Last Admin: 06/20/17 07:30 Dose: 1.25 mg Ondansetron HCl (Zofran Inj) 4 mg IVP Q6H PRN PRN Reason: Nausea/Vomiting - Labs Labs: 06/20/17 05:50 06/20/17 05:50 PT 35.5 Seconds (9.9-11.8) H* 06/20/17 05:50 INR 3.29 (0.93-1.08) H 06/20/17 05:50 APTT 35.9 Seconds (23.7-30.8) H 06/19/17 05:45 - Constitutional Appears: Chronically Ill, Other (intubated, sedated) - Head Exam Head Exam: ATRAUMATIC, NORMOCEPHALIC - Eye Exam Eye Exam: PERRL - ENT Exam ENT Exam: Mucous Membranes Moist - Neck Exam Neck Exam: absent: Lymphadenopathy, Thyromegaly - Respiratory Exam Respiratory Exam: Rales. absent: Rhonchi, Wheezes Additional comments: Intubated on PRVC 60%/5/16/400 - Cardiovascular Exam Cardiovascular Exam: RRR, +S1, +S2 - GI/Abdominal Exam GI & Abdominal Exam: Soft. 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 Will continue to titrate off vasopressors. Off neosynephrine yesterday evening, will d/c vasopressin today, then titrate down on levophed as tolerated - On Levophed and Vasopressin, titrated to maintain MAP>65 - S/p 4 U PRBC, 2U plt, and 6L fluid bolus. On 100cc/hr bicarb drip. Bedside ultrasound this afternoon indicated that he is again fluid responsive, will bolus with 1L NS. - Will continue with vasopressors, and optimization of acid base status, to maintain BP. Will d/c stress dose steroids - Maintaining slight UO, indicates adequate perfusion. - Echo completed, pending read - Maintain MAP>65 Pulm: - Currently intubated for respiratory distress with tachypnea and increased work of breathing in the setting of severe lactic acidosis 2/2 sepsis - PRCV 400/14/5/80% - Patient continues to over-breathe the vent at RR ~30 due to persistent metabolic acidosis. Acid/base status improving slightly, after receiving 1 amp bicarb this AM and currently on a bicarb drip. Will repeat ABG and titrate vent settings as indicated - Protective lung strategies, wean FiO2 down from 100% to 50% as tolerated GI: - OG tube in place, deras start tube feeding today, glucerna - Further elevated transaminitis and elevated total bilirubin, likely 2/2 shock state - RUQ US completed yesterday, negative for signs of cholecystitis, cholangitis, cholelithiasis, or choledocholithiasis - Pepcid for PPx Renal: - DONTE likely 2/2 hypoperfusion in the setting of shock, stable - Maintaining urine output, though minimal relative to amount of fluids he has received - Received approximately 7L fluids, and on 100cc/hr bicarb drip. Will d/c bicarb drip today if repeat labs indicate improving acid-base status with improvement in bicarb level - Strict I's and O's - Maintain euvolemia - Monitor and replete lytes as needed - Nephro ([place]) on consult, all recs appreciated Endo: - History of DM, hold all oral hypoglycemics - On levimir 10u HS, will increase to 15u [facility] - Accucheck Q6 and ACHS, with SSI high - On Stress dose steroids, will d/c today - Maintain euglycemia Hem/Onc: - Pancytopenic with ANC of 0, 2/2 AML s/p chemotherapy (HiDAC) and Neulasta, last dose 06/16/2017 - s/p 4U PRBC, 2U platelets. H/H stable after transfusions. - No bone marrow stimulant indicated at this time, per Hem/Onc - Hem/Onc consulted, all recs appreciated ID: - Septic shock in the setting of pancytopenia with ANC of 0. Likely 2/2 to indwelling PICC line infection, vs UTI vs PNA - UCx negative. BCx significant for ESBL+ E. coli. - PICC line removed yesterday for source control, after placement of a central line for continued administration of vasopressors - On merrem and mycamine (d2), received one dose of amikacin yesterday, and zosyn and vanc in the ER - ID consulted (Taj), all recs appreciated Ppx: SCDs for DVT and Pepcid for GI Patient seen, discussed, and reviewed with attending <Natalie Mckinnon MD H - Last Filed: 06/20/17 17:15> Objective - Vital Signs/Intake and Output Vital Signs (last 24 hours): Temp Pulse Resp BP Pulse Ox 97.3 F L 85 25 H 103/60 98 06/20/17 12:20 06/20/17 12:20 06/19/17 08:06 06/20/17 11:00 06/20/17 12:20 Intake and Output: 06/20/17 06/20/17 06:59 18:59 Intake Total 622.1 387 Output Total 700 Balance -77.9 387 - Medications Medications: Current Medications Artificial Tears (Puralube Opht Oint) 1 appl OU Q2 [facility] Last Admin: 06/20/17 15:19 Dose: 1 applic Docusate Sodium (Colace) 100 mg PO DAILY [facility] Last Admin: 06/20/17 10:00 Dose: Not Given Hydrocortisone Sodium Succinate (Solu-Cortef) 50 mg IVP Q6H [facility] Last Admin: 06/20/17 12:52 Dose: 50 mg Sodium Chloride (Sodium Chloride 0.9%) 1,000 mls @ 125 mls/hr IV .Q8H [facility] Last Admin: 06/18/17 05:00 Dose: 125 mls/hr Norepinephrine Bitartrate 8 mg (/ Sodium Chloride) 250 mls @ 7.5 mls/hr IV .Q24H PRN; Protocol; 4 MCG/MIN PRN Reason: TITRATE PER MD ORDER Last Titration: 06/20/17 16:30 Dose: 5 mcg/min, 9.37 mls/hr Famotidine (Pepcid 20mg/50ml Premix) 20 mg in 50 mls @ 100 mls/hr IVPB Q12 [facility] Last Admin: 06/20/17 15:11 Dose: 100 mls/hr Propofol (Diprivan) 1,000 mg in 100 mls @ 2.121 mls/hr IV .Q24H PRN; Protocol; 5 MCG/KG/MIN PRN Reason: TITRATE PER MD ORDER Last Titration: 06/20/17 15:25 Dose: 25 mcg/kg/min, 10.607 mls/hr Meropenem 1g/NS 100mL IVPB (Meropenem 1g/Ns 100ml Ivpb) 1 gm in 100 mls @ 100 mls/hr IVPB Q12 [facility] PRN Reason: Protocol Stop: 06/29/17 10:01 Last Admin: 06/20/17 16:37 Dose: 100 mls/hr Sodium Bicarbonate 150 meq/ (Dextrose/Sodium Chloride) 1,150 mls @ 100 mls/hr IV .[id number] [facility] Stop: 06/20/17 23:58 Last Admin: 06/20/17 13:58 Dose: 100 mls/hr Micafungin Sodium 100 mg/ (Sodium Chloride) 100 mls @ 100 mls/hr IV DAILY [facility] PRN Reason: Protocol Stop: 06/27/17 10:01 Last Admin: 06/20/17 10:15 Dose: 100 mls/hr Insulin Detemir (Levemir) 15 unit SC [facility] Last Admin: 06/20/17 12:53 Dose: 14 unit Insulin Human Lispro (Humalog High) 0 units SC Q6H [facility] PRN Reason: Protocol Last Admin: 06/20/17 05:34 Dose: 10 units Levalbuterol HCl (Xopenex) 1.25 mg IH [id number] PRN PRN Reason: Shortness of Breath Last Admin: 06/20/17 07:30 Dose: 1.25 mg Ondansetron HCl (Zofran Inj) 4 mg IVP Q6H PRN PRN Reason: Nausea/Vomiting - Labs Labs: 06/20/17 05:50 06/20/17 05:50 PT 35.5 Seconds (9.9-11.8) H* 06/20/17 05:50 INR 3.29 (0.93-1.08) H 06/20/17 05:50 APTT 35.9 Seconds (23.7-30.8) H 06/19/17 05:45 Attending/Attestation - Attestation I have personally seen and examined this patient.: Yes I have fully participated in the care of the patient.: Yes I have reviewed all pertinent clinical information, including history, physical exam and plan: Yes Notes (Text): 06/20/17 17:11 71 y/o M w/ Neutropenic Septic shock. Currently source control was in effect an dPICC was removed and new TLC was placed. Vasopressor requirement has cr improving. Urine output increasing. Currently on Levophed 8 to keep MAP>65 On Broad spectrum abx due to neutropenia and blood cx Gram - ESBl E. Coli. On Carbapenum. Acute liver failure with increased INR and LFT's. Likely due to MODS and Septic shock. US abd negative. Will follow daily trend, no further changes at this point. If Platelets< 10k or bleeding, and INR elevated if bleeding or procedure planned can give FFp and Platelets. Acute respiratory failure . ABG ordered. Keep PAO2> 60 Ph>7.3 on Bicarbonate drip. CMP this evening. DVT p SCD AML- plan per oncology , Neulasta given prior, awaiting counts to rise. Poor prognosis cc time 65 min
[2017-06-20] MEDS ORDERED: Sodium Chloride 0.9% 1,000 ML IV STA (15:36)
--- NOTE | 2017-06-20 16:23 | RAD ---
HISTORY: Intubated COMPARISON: 06/19/2017 FINDINGS: LUNGS: Increasing infiltrates are seen most consistent with pulmonary edema. The endotracheal tube and nasogastric tube are in satisfactory position PLEURA: No significant pleural effusion identified, no pneumothorax apparent. CARDIOVASCULAR: Normal. OSSEOUS STRUCTURES: No significant abnormalities. VISUALIZED UPPER ABDOMEN: Normal. OTHER FINDINGS: None. IMPRESSION: Increasing infiltrates are seen most consistent with pulmonary edema. The endotracheal tube and nasogastric tube are in satisfactory position
--- NOTE | 2017-06-20 17:49 | PN ---
SUBJECTIVE: The patient is currently seen in ICU bed 2. The patient remains intubated, sedated. He is down to one pressor for blood pressure support. He remains on a multitude of antibacterial, antifungal agents for his pancytopenic sepsis. He is status post recent chemotherapy for AML. MEDICATIONS: Medication was reviewed. The patient is currently on Colace, Diprivan, insulin sliding scale, meropenem, micafungin, Levocet, Pepcid, sodium bicarbonate and IV fluid 150 mEq at 100 mL an hour, Solu-Cortef, Xopenex and Zofran p.r.n. OBJECTIVE: INTAKE/OUTPUT: 3376/1350. VITAL SIGNS: Blood pressure presently is 103/60. Temperature 97.3, respiratory rate is 19. Pulse is 85. Pulse ox is 98%. HEENT: The patient's eyes are closed. The patient is intubated and he is sedated. NECK: No neck vein distention. CHEST: Clear to auscultation and percussion. Bilateral rhonchi. No rales or wheezing. CARDIOVASCULAR: S1 and S2 are normal. No audible murmurs, rubs or gallops. ABDOMEN: Soft. Bowel sounds normal. No masses, no rebound, no guarding. EXTREMITIES: Show no lower extremity edema. No cyanosis or clubbing. NEUROLOGIC: Difficult to assess this patient as he is sedated, on a ventilator. LABORATORY DATA AND IMAGING: CBC: White blood cell count remains low at 0.1, hemoglobin is 8.7, platelets count is 12,000. Coagulation PT 35.5 with a PTT of 35.9, fibrinogen split products greater than 10 less than 40 mcg/mL, fibrinogen elevated at 418.7. Blood gas today pO2 67, pH is 7.31, pCO2 is 39 with the bicarbonate of 20 significantly improved. Chemistry: Sodium 148, potassium 4.8, chloride 112, CO2 of 20 up from 12. BUN 46, creatinine 1.5. BUN is up from 30, creatinine is up from 1.1. Glucose 334, calcium 7.5, phosphorus 5.8, magnesium 1.9, elevated liver enzymes. Bilirubin 2.4, albumin 2.5. Urine: Eosinophils are negative. Urinalysis is negative. Microbiology positive for E. coli as blood ESBL. Urine cultures were negative. ASSESSMENT AND PLAN: 1. Acute renal failure mild in the setting of pancytopenia, septic shock, E. coli ESBL bacteremia. The patient is on appropriate antibiotic therapy, also continues on antifungal therapy. The patient's blood pressure has stabilized. He is currently only on one pressor which is being weaned. 2. Respiratory failure, the patient remains intubated. He remains sedated. Over the next 24 to 48 hours, there will be an attempt to try and remove sedation and see if patient can be maintained off the ventilator. 3. Status post severe anion gap metabolic acidosis, the patient continues on sodium bicarbonate therapy. We will be cautious not to over correct him as his pH is returning to normal. 4. Transaminitis secondary to suspected shock liver. This is in the setting of profound hypotension and septic shock. 5. History of diabetes. Glucose controlled. He is being monitored closely with sliding scale insulin. 6. History of acute myelogenous leukemia status post chemotherapy likely the cause of his pancytopenia. PLAN: 1. Agree to continue IV fluids with sodium bicarbonate and try not to make the patient too hyponatremic. The amount of sodium bicarbonate in the IV fluid may be decreased from 3 amps/L down to 1 - 2 amps/L pending follow up labs. Again be cautious not to overcorrect and overtreat his metabolic acidosis. 2. Continue to monitor labs closely. 3. Continue to monitor accurate I's and O's. The patient appears to be making adequate amounts of urine. 4. Continue appropriate antibiotic therapy for his pancytopenic sepsis being caused by ESBL E. coli bacteremia. 5. Discussed with ICU staff in detail. 6. Greater than 35 minutes spent in the care of this patient. Oswaldo Araya MD
[2017-06-20 18:46] LABS: VENOUS BLOOD GAS BASE EXCESS 0.4 mmol/L (0.0-2.0); VENOUS BLOOD PH 7.36 (7.32-7.43)
[2017-06-20 18:48] LABS: MEAN CELL VOLUME 84.4 fl (80.0-105.0); MEAN CORPUSCULAR HEMOGLOBIN 29.2 pg (25.0-35.0); MEAN CORPUSCULAR HGB CONC 34.6 g/dl (31.0-37.0); RED CELL DISTRIBUTION WIDTH 17.1 % (11.5-14.5)
[2017-06-20 18:52] LABS: INR 2.44 (0.93-1.08)
[2017-06-20 18:53] LABS: HEMATOCRIT 20.5 % (42.0-52.0); PLATELET COUNT 8 10^3/uL (120.0-450.0)
[2017-06-20 19:00] LABS: ALB/GLOB RATIO 0.9 (1.1-1.8); ALKALINE PHOSPHATASE 60 U/L (38-133); BILIRUBIN,TOTAL 2.1 mg/dL (0.2-1.3); BLOOD UREA NITROGEN 45 mg/dL (7-21); CALCIUM 7.4 mg/dL (8.4-10.5); CARBON DIOXIDE 26 mmol/L (21-33); CHLORIDE 114 mmol/L (98-107); GFR AFRICAN-AMERICAN > 60; POTASSIUM 3.7 mmol/L (3.6-5.0); SODIUM 154 mmol/L (132-148); TOTAL PROTEIN 4.8 g/dL (5.8-8.3)
[2017-06-20 19:45] LABS: ALT/SGPT 4016 U/L (7-56); AST/SGOT 2534 U/L (15-59)
[2017-06-20 19:47] LABS: GLUCOSE,RANDOM 342 mg/dL (70-110)
[2017-06-20 22:21] LABS: VENOUS BLOOD PH 7.38 (7.32-7.43)
[2017-06-21] MEDS: Insulin Lispro (HUMAlog) HIGH Coverage SC SCH ×4 (00:24→18:27)
[2017-06-21] MEDS: White Petrolatum Ophth Oint (Puralube) OU SCH ×5 (00:25→18:28)
[2017-06-21] MEDS: Propofol 10 mg/ml 1,000 MG/100 ML VIAL IV PRN (02:01)
[2017-06-21 05:36] LABS: ARTERIAL BLOOD GAS HCO3 30.8 mmol/L (21-28); ARTERIAL BLOOD GAS PH 7.54 (7.35-7.45)
[2017-06-21 06:31] LABS: INR 1.77 (0.93-1.08)
[2017-06-21 06:46] LABS: ALKALINE PHOSPHATASE 72 U/L (38-133); BILIRUBIN,TOTAL 2.4 mg/dL (0.2-1.3); BLOOD UREA NITROGEN 45 mg/dL (7-21); CARBON DIOXIDE 30 mmol/L (21-33); CHLORIDE 117 mmol/L (98-107); GFR AFRICAN-AMERICAN > 60; GLUCOSE,RANDOM 267 mg/dL (70-110); PHOSPHOROUS 2.2 mg/dL (2.5-4.5); POTASSIUM 3.3 mmol/L (3.6-5.0); TOTAL PROTEIN 5.1 g/dL (5.8-8.3)
[2017-06-21 06:48] LABS: MEAN CELL VOLUME 84.6 fl (80.0-105.0); MEAN CORPUSCULAR HEMOGLOBIN 29.8 pg (25.0-35.0); MEAN CORPUSCULAR HGB CONC 35.2 g/dl (31.0-37.0); MEAN PLATELET VOLUME 10.2 fl (7.0-11.0); RED CELL DISTRIBUTION WIDTH 16.9 % (11.5-14.5)
[2017-06-21 06:51] LABS: HEMATOCRIT 19.3 % (42.0-52.0); WHITE BLOOD COUNT 0.1 10^3/ul (4.5-11.0)
[2017-06-21 07:37] LABS: AST/SGOT 1281 U/L (15-59)
[2017-06-21 07:38] LABS: ALT/SGPT 3249 U/L (7-56)
[2017-06-21 07:40] LABS: SODIUM 157 mmol/L (132-148)
[2017-06-21] MEDS: Levalbuterol 1.25 MG/3 ML Inhal Soln UD IH PRN ×3 (07:55→16:57)
[2017-06-21 08:20] LABS: PLATELET COUNT 17 10^3/uL (120.0-450.0)
--- NOTE | 2017-06-21 09:28 | RAD ---
HISTORY: Intubated COMPARISON: 08/20/2017 FINDINGS: LUNGS: The hazy bilateral inferior opacities concerning for coalescent areas of pulmonary edema are renoted. Bilateral pleural effusions are suggested. There is perhaps some minimal increased aeration in the left lung base compared the prior study. The left perihilar vascular fullness congestion is re- suggested. No worsening or significant changes in the right are appreciated. PLEURA: No significant pleural effusion identified, no pneumothorax apparent. CARDIOVASCULAR: Probable top-normal OSSEOUS STRUCTURES: No significant abnormalities. VISUALIZED UPPER ABDOMEN: Normal. OTHER FINDINGS: The inferior endotracheal tip is at the inferior clavicular level approximately 2 cm cephalad to the natalie. An NG tube is inserted its tip is in the region of the gastric upper body. A right internal jugular vein central line is inserted its tip is in the superior vena cava probably bordering the right atrium. IMPRESSION: B bilateral layering pleural effusions with coalescent bilateral pulmonary edema opacities are renoted there is probably some mild improved aeration in the left infrahilar location. The persistent prominence of the central pulmonary vasculature left greater than right is as before. No worsening features suggested Support lines and tubes as above all appear satisfactory
[2017-06-21] MEDS ORDERED: Potassium Phosphate 15 MMOLE in Sodium Chloride 0.9% 250 ML IVPB ONE ×2 (09:31→09:42)
[2017-06-21] MEDS ORDERED: SODIUM CHLORIDE IVPB ONE (09:35)
[2017-06-21] MEDS ORDERED: POTASSIUM PHOSPHATE IVPB ONE (09:35)
--- NOTE | 2017-06-21 09:58 | CP.PCM.PN ---
<NOELLE YUCHUYITA - Last Filed: 06/21/17 10:34> Subjective - Date & Time of Evaluation Date of Evaluation: 06/21/17 Time of Evaluation: 07:30 - Subjective Subjective: Jim Yu DO PGY1 - ICU Progress Note Patient seen and examined at bedside. Nurse reports that overnight, he received 2U platelets (as ordered yesterday), and that he is no longer on any vasopressors. Patient remains intubated, sedated, responsive only to painful stimuli on exam. Objective - Vital Signs/Intake and Output Vital Signs (last 24 hours): Temp Pulse Resp BP Pulse Ox 97.7 F 80 16 90/53 L 100 06/21/17 09:39 06/21/17 09:39 06/21/17 09:39 06/21/17 09:39 06/21/17 07:55 Intake and Output: 06/21/17 06/21/17 06:59 18:59 Intake Total 2100 20 Output Total 800 Balance 1300 20 - Medications Medications: Current Medications Artificial Tears (Puralube Opht Oint) 1 appl OU Q2 [facility] Last Admin: 06/21/17 02:07 Dose: 1 applic Docusate Sodium (Colace) 100 mg PO DAILY [facility] Last Admin: 06/20/17 10:00 Dose: Not Given Sodium Chloride (Sodium Chloride 0.9%) 1,000 mls @ 125 mls/hr IV .Q8H [facility] Last Admin: 06/18/17 05:00 Dose: 125 mls/hr Norepinephrine Bitartrate 8 mg (/ Sodium Chloride) 250 mls @ 7.5 mls/hr IV .Q24H PRN; Protocol; 4 MCG/MIN PRN Reason: TITRATE PER MD ORDER Last Titration: 06/21/17 01:45 Dose: 1 mcg/min, 1.87 mls/hr Famotidine (Pepcid 20mg/50ml Premix) 20 mg in 50 mls @ 100 mls/hr IVPB Q12 [facility] Last Admin: 06/20/17 22:26 Dose: 100 mls/hr Propofol (Diprivan) 1,000 mg in 100 mls @ 2.121 mls/hr IV .Q24H PRN; Protocol; 5 MCG/KG/MIN PRN Reason: TITRATE PER MD ORDER Last Admin: 06/21/17 02:01 Dose: 25 mcg/kg/min, 10.607 mls/hr Micafungin Sodium 100 mg/ (Sodium Chloride) 100 mls @ 100 mls/hr IV DAILY [facility] PRN Reason: Protocol Stop: 06/27/17 10:01 Last Admin: 06/20/17 10:15 Dose: 100 mls/hr Meropenem 1g/NS 100mL IVPB (Meropenem 1g/Ns 100ml Ivpb) 1 gm in 100 mls @ 100 mls/hr IVPB Q8 [facility] PRN Reason: Protocol Stop: 07/01/17 14:01 Potassium Phosphate 15 mmole/ (Sodium Chloride) 255 mls @ 42.5 mls/hr IVPB ONCE ONE Stop: 06/21/17 15:30 Insulin Detemir (Levemir) 30 unit SC AMHS [facility] Insulin Human Lispro (Humalog High) 0 units SC Q6H [facility] PRN Reason: Protocol Last Admin: 06/21/17 07:46 Dose: 1 units Levalbuterol HCl (Xopenex) 1.25 mg IH [id number] PRN PRN Reason: Shortness of Breath Last Admin: 06/21/17 07:55 Dose: 1.25 mg Ondansetron HCl (Zofran Inj) 4 mg IVP Q6H PRN PRN Reason: Nausea/Vomiting - Labs Labs: 06/21/17 05:50 06/21/17 05:50 PT 19.1 Seconds (9.9-11.8) H 06/21/17 05:50 INR 1.77 (0.93-1.08) H 06/21/17 05:50 APTT 35.9 Seconds (23.7-30.8) H 06/19/17 05:45 - Constitutional Appears: Chronically Ill, Other (intubated, sedated) - Head Exam Head Exam: ATRAUMATIC, NORMOCEPHALIC - Eye Exam Eye Exam: PERRL - ENT Exam ENT Exam: Mucous Membranes Moist - Respiratory Exam Additional comments: Intubated, PRVC 60%/16/5/400 Bloody sputum in suction tubing - Cardiovascular Exam Cardiovascular Exam: RRR, +S1, +S2 - GI/Abdominal Exam GI & Abdominal Exam: Soft. 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 Off bicarb drip. - Will continue with optimization of acid base status and fluid management, to maintain BP. - Significantly improved UO, indicates adequate renal perfusion - Echo completed, significant for apical hypokinesis and severely impared systolic function with LVEF of 31% - Maintain MAP>65 Pulm: - Currently intubated for respiratory distress with tachypnea and increased work of breathing in the setting of severe lactic acidosis 2/2 sepsis - Daily weaning trials - PRCV 400/16/5/60% this AM, now on pressure support, 08/03, without tachypnea or hypoxia - No longer over breathing the vent. Acid/base status improved significantly. Repeat ABG shows metabolic alkalosis, likely contraction alkalosis after large urine output since yesterday - Protective lung strategies GI: - OG tube in place, continue tube feeds with glucerna, increase free water flush to 300mL Q6 - Transaminitis improving, with improving INR, acute liver failure likely 2/2 shock state and MODS - RUQ US completed, negative for signs of cholecystitis, cholangitis, cholelithiasis, or choledocholithiasis - Pepcid for PPx Renal: - DONTE likely 2/2 hypoperfusion in the setting of shock, resolved - Maintaining good urine output, though still has significant positive fluid balance (total 8L since admission) - Bicarb drip discontinued yesterday, acidosis resolved - Now hypernatremic and hyperchloremic, increased free water flushes and will recheck BMP this afternoon. Will likely start 1/2NS if no improvement in hyperglycemia and hypernatremia. - Strict I's and O's - Maintain euvolemia - Monitor and replete lytes as needed - Nephro Devante) on consult, all recs appreciated Endo: - History of DM, hold all oral hypoglycemics - On levimir 20u AMHS. Continues to be hyperglycemic. Recently discontinued stress dose steroids, which likely worsened this. Will increase levemir again to 30u [facility] and continue to monitor. - Not starting insulin drip at this time to avoid Q1 accucheck due to pancytopenic state - Accucheck Q6 and ACHS, with SSI high - Maintain euglycemia Hem/Onc: - Pancytopenic with ANC of 0, 2/2 AML s/p chemotherapy (HiDAC) and Neulasta, last dose of both 06/16/2017 - s/p 4U PRBC, 4U platelets. Hgb today 6.8, currently receiving first of 2U PRBC ordered by hem/onc, who also ordered 1U FFP - No colony stimulating factor indicated at this time, per Hem/Onc - Hem/Onc consulted, all recs appreciated ID: - Septic shock in the setting of pancytopenia with ANC of 0. Likely 2/2 to indwelling PICC line infection, vs UTI vs PNA - Shock state resolved, though still neutropenic with elevated lactate - which is downtrending. No longer acidotic, tachypnic, tachycardic, or hypotensive. - UCx negative. BCx significant for ESBL+ E. coli. - PICC line removed yesterday for source control, after placement of a central line - On merrem and mycamine (d3), received one dose of amikacin on admission, and zosyn and vanc in the ER - ID consulted (Taj), all recs appreciated Ppx: SCDs for DVT and Pepcid for GI Patient seen, discussed, and reviewed with attending <Natalie Mckinnon MD - Last Filed: 06/21/17 13:40> Objective - Vital Signs/Intake and Output Vital Signs (last 24 hours): Temp Pulse Resp BP Pulse Ox 97.3 F L 64 16 85/51 L 100 06/21/17 12:31 06/21/17 12:31 06/21/17 12:31 06/21/17 12:31 06/21/17 10:40 Intake and Output: 06/21/17 06/21/17 06:59 18:59 Intake Total 2100 345 Output Total 800 Balance 1300 345 - Medications Medications: Current Medications Artificial Tears (Puralube Opht Oint) 1 appl OU Q2 [facility] Last Admin: 06/21/17 10:17 Dose: 1 applic Docusate Sodium (Colace) 100 mg PO DAILY [facility] Last Admin: 06/21/17 10:06 Dose: Not Given Sodium Chloride (Sodium Chloride 0.9%) 1,000 mls @ 125 mls/hr IV .Q8H [facility] Last Admin: 06/18/17 05:00 Dose: 125 mls/hr Norepinephrine Bitartrate 8 mg (/ Sodium Chloride) 250 mls @ 7.5 mls/hr IV .Q24H PRN; Protocol; 4 MCG/MIN PRN Reason: TITRATE PER MD ORDER Last Titration: 06/21/17 01:45 Dose: 1 mcg/min, 1.87 mls/hr Famotidine (Pepcid 20mg/50ml Premix) 20 mg in 50 mls @ 100 mls/hr IVPB Q12 [facility] Last Admin: 06/21/17 10:15 Dose: 100 mls/hr Propofol (Diprivan) 1,000 mg in 100 mls @ 2.121 mls/hr IV .Q24H PRN; Protocol; 5 MCG/KG/MIN PRN Reason: TITRATE PER MD ORDER Last Admin: 06/21/17 02:01 Dose: 25 mcg/kg/min, 10.607 mls/hr Micafungin Sodium 100 mg/ (Sodium Chloride) 100 mls @ 100 mls/hr IV DAILY [facility] PRN Reason: Protocol Stop: 06/27/17 10:01 Last Admin: 06/21/17 10:08 Dose: 100 mls/hr Meropenem 1g/NS 100mL IVPB (Meropenem 1g/Ns 100ml Ivpb) 1 gm in 100 mls @ 100 mls/hr IVPB Q8 [facility] PRN Reason: Protocol Stop: 07/01/17 14:01 Potassium Phosphate 15 mmole/ (Sodium Chloride) 255 mls @ 42.5 mls/hr IVPB ONCE ONE Stop: 06/21/17 15:30 Last Admin: 06/21/17 10:18 Dose: 42.5 mls/hr Insulin Detemir (Levemir) 30 unit SC AMHS [facility] Last Admin: 06/21/17 10:15 Dose: 30 unit Insulin Human Lispro (Humalog High) 0 units SC Q6H [facility] PRN Reason: Protocol Last Admin: 06/21/17 07:46 Dose: 1 units Levalbuterol HCl (Xopenex) 1.25 mg IH [id number] PRN PRN Reason: Shortness of Breath Last Admin: 06/21/17 07:55 Dose: 1.25 mg Ondansetron HCl (Zofran Inj) 4 mg IVP Q6H PRN PRN Reason: Nausea/Vomiting - Labs Labs: 06/21/17 05:50 06/21/17 05:50 PT 19.1 Seconds (9.9-11.8) H 06/21/17 05:50 INR 1.77 (0.93-1.08) H 06/21/17 05:50 APTT 35.9 Seconds (23.7-30.8) H 06/19/17 05:45 Attending/Attestation - Attestation I have personally seen and examined this patient.: Yes I have fully participated in the care of the patient.: Yes I have reviewed all pertinent clinical information, including history, physical exam and plan: Yes Notes (Text): 06/21/17 13:38 VDRF , Acute respiratory failure Neutropenic septic shock resolving. ESBL bactermemia Currently on Broad spectrum abx and to cover ESBL, PICC removed and TLC placed. Keep HGB>7, Platelets > 20k and INR< 2. transfusions to be given today PS trial comleted, SBT passed, after transfusion, plan to extubate unless clinical status changes. dvt p SCD Tube feeds continued . cc time 65 min
--- NOTE | 2017-06-21 10:01 | CP.PCM.PN ---
Subjective - Date & Time of Evaluation Date of Evaluation: 06/21/17 Time of Evaluation: 09:40 - Subjective Subjective: Continues to be on the ventilator, now off vasopressors, still on sedation, but responds to tactile stimuli with eye opening. No fevers overnight. Objective - Vital Signs/Intake and Output Vital Signs (last 24 hours): Temp Pulse Resp BP Pulse Ox 97.3 F L 72 17 102/66 100 06/21/17 04:36 06/21/17 04:36 06/21/17 04:36 06/21/17 04:36 06/21/17 04:00 Intake and Output: 06/20/17 06/21/17 18:59 06:59 Intake Total 2021 504 Output Total 900 Balance 1121 504 - Medications Medications: Current Medications Artificial Tears (Puralube Opht Oint) 1 appl OU Q2 [facility] Last Admin: 06/21/17 02:07 Dose: 1 applic Docusate Sodium (Colace) 100 mg PO DAILY [facility] Last Admin: 06/20/17 10:00 Dose: Not Given Hydrocortisone Sodium Succinate (Solu-Cortef) 50 mg IVP Q6H [facility] Last Admin: 06/21/17 05:18 Dose: 50 mg Sodium Chloride (Sodium Chloride 0.9%) 1,000 mls @ 125 mls/hr IV .Q8H [facility] Last Admin: 06/18/17 05:00 Dose: 125 mls/hr Norepinephrine Bitartrate 8 mg (/ Sodium Chloride) 250 mls @ 7.5 mls/hr IV .Q24H PRN; Protocol; 4 MCG/MIN PRN Reason: TITRATE PER MD ORDER Last Titration: 06/21/17 01:45 Dose: 1 mcg/min, 1.87 mls/hr Famotidine (Pepcid 20mg/50ml Premix) 20 mg in 50 mls @ 100 mls/hr IVPB Q12 [facility] Last Admin: 06/20/17 22:26 Dose: 100 mls/hr Propofol (Diprivan) 1,000 mg in 100 mls @ 2.121 mls/hr IV .Q24H PRN; Protocol; 5 MCG/KG/MIN PRN Reason: TITRATE PER MD ORDER Last Admin: 06/21/17 02:01 Dose: 25 mcg/kg/min, 10.607 mls/hr Meropenem 1g/NS 100mL IVPB (Meropenem 1g/Ns 100ml Ivpb) 1 gm in 100 mls @ 100 mls/hr IVPB Q12 [facility] PRN Reason: Protocol Stop: 06/29/17 10:01 Last Admin: 06/20/17 22:27 Dose: 100 mls/hr Micafungin Sodium 100 mg/ (Sodium Chloride) 100 mls @ 100 mls/hr IV DAILY [facility] PRN Reason: Protocol Stop: 06/27/17 10:01 Last Admin: 06/20/17 10:15 Dose: 100 mls/hr Insulin Detemir (Levemir) 20 unit SC [facility] Last Admin: 06/20/17 22:30 Dose: 20 unit Insulin Human Lispro (Humalog High) 0 units SC Q6H [facility] PRN Reason: Protocol Last Admin: 06/21/17 00:24 Dose: 2 units Levalbuterol HCl (Xopenex) 1.25 mg IH [id number] PRN PRN Reason: Shortness of Breath Last Admin: 06/20/17 07:30 Dose: 1.25 mg Ondansetron HCl (Zofran Inj) 4 mg IVP Q6H PRN PRN Reason: Nausea/Vomiting - Labs Labs: 06/20/17 18:18 06/20/17 18:18 PT 26.4 Seconds (9.9-11.8) H 06/20/17 18:18 INR 2.44 (0.93-1.08) H 06/20/17 18:18 APTT 35.9 Seconds (23.7-30.8) H 06/19/17 05:45 - Constitutional Appears: Other (Intubated and sedated) - Head Exam Head Exam: NORMAL INSPECTION - ENT Exam Additional comments: ET tube in place - Neck Exam Additional comments: right IJ central venous catheter intact, some petechiae noted - Respiratory Exam Respiratory Exam: Decreased Breath Sounds - Cardiovascular Exam Cardiovascular Exam: +S1, +S2 - GI/Abdominal Exam GI & Abdominal Exam: Soft. absent: Tenderness Assessment and Plan - Assessment and Plan (Free Text) Plan: Assessment Septic shock with multiorgan failure (acute renal failure, ventilator-dependent hypoxic respiratory failure, acute encephalopathy) due to ESBL E.coli bacteremia , suspect due to PICC line infection (since the PICC has been in place for about 3-4 months now), S/P removal 2 days ago - now off vaspressors Leukemia S/P chemotherapy one week ago, now with continued severe neutropenia and pancytopenia HTN DM Plan Continue Merrem - repeat blood cx are negative x 24 hours will also continue Mycamine since he continues to be neutropenic (ie. he may have been neutropenic for about 2-3 days prior to admission and may be at risk for fungal infections) will continue monitor clinically Overall prognosis is poor
[2017-06-21] MEDS: Micafungin 100 MG in Sodium Chloride 0.9% 100 ML IV SCH (10:08)
[2017-06-21] MEDS: Insulin Detemir 100 units/ml Vial (Levemir) SC SCH ×2 (10:15→21:45)
[2017-06-21] MEDS: Famotidine 20mg/50ml 20 MG/50 ML BAG IVPB SCH ×2 (10:15→21:46)
[2017-06-21] MEDS: Meropenem 1g/NS 100mL IVPB 1 GM/100 ML PIGGYBACK IVPB SCH ×2 (14:33→21:46)
--- NOTE | 2017-06-21 16:56 | PN ---
DATE: 06/20/2017 This is a 71-year-old male. SUBJECTIVE: The patient was seen and examined on 06/20/2017 on the unit, talked to the patient's daughter. The patient is still intubated, sedated, requiring Levophed and vasopressor. REVIEW OF SYSTEMS: The patient is on neutropenic precautions, has contact isolation. No nausea, vomiting. PHYSICAL EXAMINATION: VITAL SIGNS: Temperature 97.5, pulse 74, respiratory rate 25, blood pressure 90/57 and pulse oximetry 100%. HEENT: Head is normocephalic and atraumatic. Eyes closed. Nose patent. The patient is intubated. Mucous membranes are moist. NECK: Supple. No carotid bruit. CHEST: Positive wheezing bilaterally. HEART: S1 and S2 positive. ABDOMEN: Soft. Bowel sounds present. No organomegaly. EXTREMITIES: No edema. No cyanosis. NEUROLOGIC: Cannot do evaluation, patient is sedated. MEDICATIONS: Colace, Solu-Cortef, famotidine, MS, Diprivan, meropenem, vasopressor, bicarbonate, Levemir, Xopenex, Zofran. LABORATORY DATA: White blood cell is 0.1, hemoglobin 8.7, hematocrit 25.7, platelets 12. Sodium 148, potassium 4.1, BUN 46, creatinine 1.5 and glucose 334. ASSESSMENT AND PLAN: Mr. Perry Velásquez is a 71-year-old male with leukopenia, anemia, renal insufficiency, thrombocytopenia, pancytopenia, hyperglycemia, with history of diabetes mellitus, benign prostatic hypertrophy, HDL, has acute myelogenous leukemia, status post HiDAC treatment followed by [facility], came with septic shock, ESBL E. coli bacteremia, currently intubated and sedated, requiring tube pressors. Lots of family discussion done with the patient's daughter. She knows father's condition. Neutropenia. The patient is status post Neulasta. I recommended a transfusion of two units of packed RBCs along with the one unit of FFP, status post two units of platelets. No significant active bleeding. Transaminitis. We will require GI consult. Continue antibiotics amikacin and meropenem. Continue Mycamine. We will follow up. Melanie Lane MD
[2017-06-21 18:22] LABS: MEAN CELL VOLUME 86.5 fl (80.0-105.0); MEAN CORPUSCULAR HEMOGLOBIN 29.8 pg (25.0-35.0); MEAN CORPUSCULAR HGB CONC 34.5 g/dl (31.0-37.0); MEAN PLATELET VOLUME 9.4 fl (7.0-11.0); PLATELET COUNT 44 10^3/uL (120.0-450.0); RED CELL DISTRIBUTION WIDTH 17.1 % (11.5-14.5)
[2017-06-21 18:23] LABS: VENOUS BLOOD GAS BASE EXCESS 6.3 mmol/L (0.0-2.0); VENOUS BLOOD PH 7.41 (7.32-7.43)
[2017-06-21 18:28] LABS: HEMATOCRIT 23.8 % (42.0-52.0); WHITE BLOOD COUNT 0.1 10^3/ul (4.5-11.0)
[2017-06-21 18:29] LABS: BLOOD UREA NITROGEN 48 mg/dL (7-21); CALCIUM 8.6 mg/dL (8.4-10.5); CARBON DIOXIDE 31 mmol/L (21-33); CHLORIDE 115 mmol/L (95-110); GFR AFRICAN-AMERICAN > 60; GLUCOSE,RANDOM 200 mg/dL (70-110)
[2017-06-21 18:31] LABS: SODIUM 158 mmol/L (132-148)
--- NOTE | 2017-06-21 19:31 | PN ---
DATE: SUBJECTIVE: The patient is currently seen in ICU, bed 2. He remains sedated. There are plans to possibly extubate him later in the day. The patient's blood pressure has stabilized. The patient's IV fluids have been discontinued. He is receiving tube feedings together with copious amounts of free water. He is receiving potassium phosphorus supplements. His creatinine remains stable and improved at 1.1 with improvement in his blood pressure. MEDICATIONS: Medications are currently reviewed. The patient is currently on Colace, Diprivan, insulin, meropenem, micafungin, norepinephrine at low dose, Pepcid, potassium, artificial tears. Sodium chloride has been discontinued. Xopenex and Zofran p.r.n. OBJECTIVE: INTAKE/OUTPUT: Intake 4121. Output 1700 mL. VITAL SIGNS: Blood pressure presently is 89/53 with temperature of 97.3, pulse of 64 with a respiratory rate of 16. HEENT: The patient's eyes are closed as he is sedated on ventilator and intubated. NECK: No neck vein distention. CHEST: Clear to auscultation and percussion. Scattered rhonchi. No rales or wheezing. CARDIOVASCULAR: S1 and S2 are normal. No audible murmurs, rub,s or gallops. ABDOMEN: Soft. Bowel sounds normal. No masses, no rebound, no guarding. EXTREMITIES: Show no significant lower extremity edema. No cyanosis or clubbing. LABORATORY DATA AND IMAGING: CBC: White blood cell count is 0.1, hemoglobin is 6.8 with a platelet count of 17,000. He remains profoundly pancytopenic. Blood gas today pH 7.54, pO2 of 163 with a pCO2 of 36. Sodium bicarbonate infusion had been discontinued. Chemistries: Sodium up to 157 with potassium of 3.3, chloride 117 with a CO2 of 30. BUN 45, creatinine 1.1, glucose 267, repeat 315, calcium 8 with a phosphorus of 2.2, magnesium 2.0. Liver enzymes remain elevated, but improving. Albumin level is 2.5. Microbiology: Blood cultures are positive for E. coli, ESBL. Follow up blood cultures have been negative. Urine cultures are negative. ASSESSMENT AND PLAN: 1. Acute renal failure, mostly prerenal in nature in the setting of pancytopenia, septic shock, Escherichia coli extended-spectrum beta-lactamase bacteremia in the setting of profound pancytopenia. The patient has neutropenic sepsis. The patient appears to have stabilization of his blood pressure, he is down to low dose Levophed to maintain blood pressure in the 90 systolic range. 2. Respiratory failure. The patient remains intubated. He is currently receiving 2 units of packed red blood cells post transfusions, there will be an attempt to try and decrease his sedation and to wean the patient off the ventilator and extubate him. 3. Status post severe anion gap metabolic acidosis. Sodium bicarbonate has been discontinued as we have overcorrected his CO2 level. 4. Hyponatremia. This is secondary to receiving hypertonic fluids, sodium bicarbonate plus normal saline. With discontinuation of the IV fluids and giving the patient free water through the tube feeding, I expect the sodium level to gradually fall back to baseline levels. 5. Transaminitis secondary to suspected shock liver. This should likely continue to recover with stabilization of blood pressure and treatment of septic shock. 6. History of diabetes. Glucose is difficult to control. Sugars have been in the 300 range. He is being monitored closely and he is on sliding scale insulin. 7. History of acute myelogenous leukemia, status post chemotherapy, which is likely the cause of his pancytopenia. PLAN: 1. Agree with the decision to discontinue IV fluids. The patient can receive free water via the PEG tube. I will increase the free water to 300 mL q.4 hours instead of q.6 hours, this has been discussed with the nursing staff. No further sodium bicarbonate is necessary. 2. Continue to monitor accurate I's and O's. 3. Continue tube feedings with free mendez as noted above. 4. Continue antibiotic therapy for his pancytopenic/neutropenic sepsis being caused by E. coli bacteremia, ESBL. 5. Agree with Lenka feldman. 6. Should it be difficult to correct his hypernatremia, the patient may be started on D5W cautiously with close coverage and monitoring of his glucose levels. 7. Greater than 35 minutes spent in the care of this critically ill patient. Oswaldo Araya MD [facility]
[2017-06-21 23:17] LABS: VENOUS BLOOD GAS BASE EXCESS 11.2 mmol/L (0.0-2.0); VENOUS BLOOD PH 7.46 (7.32-7.43)
[2017-06-22 00:13] LABS: BLOOD UREA NITROGEN 48 mg/dL (7-21); CALCIUM 8.7 mg/dL (8.4-10.5); CARBON DIOXIDE 35 mmol/L (21-33); CHLORIDE 115 mmol/L (95-110); GFR AFRICAN-AMERICAN > 60; GLUCOSE,RANDOM 106 mg/dL (70-110); MAGNESIUM 1.8 mg/dL (1.7-2.2); PHOSPHOROUS 2.6 mg/dL (2.5-4.5)
[2017-06-22 00:14] LABS: SODIUM 157 mmol/L (132-148)
[2017-06-22 00:15] LABS: POTASSIUM 2.7 mmol/L (3.6-5.0)
[2017-06-22] MEDS: Insulin Lispro (HUMAlog) HIGH Coverage SC SCH ×4 (00:20→18:47)
[2017-06-22] MEDS: Levalbuterol 1.25 MG/3 ML Inhal Soln UD IH PRN ×3 (01:05→13:12)
[2017-06-22 02:03] LABS: ARTERIAL BLOOD GAS HCO3 36.7 mmol/L (21-28); ARTERIAL BLOOD GAS O2 CAPACITY 11.9 mL/dl (16-24); ARTERIAL BLOOD GAS O2 CONTENT 11.3 ML/dl (15-23); ARTERIAL BLOOD GAS PH 7.51 (7.35-7.45); ARTERIAL BLOOD HGB O2 SAT 91.7 % (95.0-98.0); CARBOXYHEMOGLOBIN 2.6 % (0.5-1.5); HHB 4.5 % (0-5); METHEMOGLOBIN 1.2 % (0.0-3.0)
[2017-06-22] MEDS: Meropenem 1g/NS 100mL IVPB 1 GM/100 ML PIGGYBACK IVPB SCH ×3 (05:25→21:29)
[2017-06-22] MEDS ORDERED: Dextrose 50% SYRINGE Inj (50 ml) ONE (06:23)
[2017-06-22] MEDS ORDERED: Dextrose 50% SYRINGE Inj (50 ml) IVP ONE ×2 (06:44→08:03)
[2017-06-22 06:53] LABS: VENOUS BLOOD GAS BASE EXCESS 11.4 mmol/L (0.0-2.0); VENOUS BLOOD PH 7.42 (7.32-7.43)
[2017-06-22 07:04] LABS: GRAN # 0.08 (1.4-6.5); GRAN % 29.7 % (50.0-68.0); LYMPH # 0.1 (1.2-3.4); LYMPH % 33.3 % (22.0-35.0); MEAN CELL VOLUME 85.1 fl (80.0-105.0); MEAN PLATELET VOLUME 9.2 fl (7.0-11.0); MONO # 0.1 (0.1-0.6); RED CELL DISTRIBUTION WIDTH 17.5 % (11.5-14.5)
[2017-06-22 07:12] LABS: ALB/GLOB RATIO 0.9 (1.1-1.8); ALKALINE PHOSPHATASE 66 U/L (38-133); AST/SGOT 453 U/L (15-59); BLOOD UREA NITROGEN 46 mg/dL (7-21); CALCIUM 8.2 mg/dL (8.4-10.5); CARBON DIOXIDE 36 mmol/L (21-33); CHLORIDE 116 mmol/L (98-107); GFR AFRICAN-AMERICAN > 60; GLUCOSE,RANDOM 179 mg/dL (70-110); MAGNESIUM 1.7 mg/dL (1.7-2.2); PHOSPHOROUS 2.9 mg/dL (2.5-4.5); TOTAL PROTEIN 5.2 g/dL (5.8-8.3)
--- NOTE | 2017-06-22 07:13 | CON ---
DATE: 06/21/2017 PULMONARY CRITICAL CARE CONSULT REFERRING PHYSICIAN: Dr. Lane. REASON FOR CONSULTATION: Respiratory failure, pulmonary infiltrates. HISTORY OF PRESENT ILLNESS: This is a 71-year-old gentleman with past medical history significant for acute myelocytic leukemia, been lethargic with respiratory distress, intubated, in the intensive care unit. He recently received chemotherapy for his acute myelocytic leukemia, presently arousable, receiving blood transfusion, on ventilator. No hemoptysis or emesis. No hematuria, no diarrhea reported. He is neutropenic. He required originally better fluid challenges. PAST MEDICAL HISTORY: Acute myelocytic leukemia. FAMILY HISTORY: No significant cardiopulmonary disease reported. SOCIAL HISTORY: No smoker. No drinker. ALLERGIES: NONE KNOWN. MEDICATIONS: Colace 100 mg daily, on Diprivan, insulin, Levemir 30 units subcu a.m. and at bedtime, meropenem 1 g IV q. 8 hours, also on micafungin 100 mg daily, was on Levophed, Pepcid 20 mg q. 12 hours, IV fluid normal saline, Xopenex to inhale q. 6 hours, Zofran p.r.n. basis. REVIEW OF SYSTEMS: Presently intubated, arousable, not much ET tube secretions. No hemoptysis, hematemesis. No hematuria. No diarrhea. No significant leg swelling. PHYSICAL EXAMINATION GENERAL: Intubated, on vent. VITAL SIGNS: Temperature 98, heart rate is 85, respiratory rate is 20, blood pressure 91/55, pulse ox 100% on ventilator. HEENT: Moist mucous membranes. ET tube showing minimal secretions. NECK: Supple. No JVD. LUNGS: Scattered rhonchi. HEART: S1 and S2. ABDOMEN: Soft, nontender. No organomegaly. EXTREMITIES: No edema. NEUROLOGIC: Lethargic, arousable. LABORATORY DATA: Shows hemoglobin 6.8, hematocrit 19.3, WBC 0.1, platelets 17,000. INR 1.77, fibrinogen 2 days ago 418, blood gasses done, which shows pH of 7.54, PCO2 36, O2 163 this is on ventilator with 60% of oxygen. Sodium 157, potassium 2.3, chloride 117, bicarbonate 30, BUN 45, creatinine 1.1, glucose 267, calcium 8.0, phosphorus 2.2, magnesium 2.0, AST 1281, ALT 3246, alk phos is 72, albumin is 2.5. Urinalysis is trace blood and proteins. Microbiology on admission on 06/18/2017, his blood culture was positive for E. coli subsequent follow up blood culture so far is negative. ET tube cultures are pending. Last chest x-ray which is done on today shows bilateral pleural effusion, bilateral infiltrates, not much change from yesterday. He had echocardiogram done on 06/19/2017, which shows normal wall thickening, systolic function is severely impaired, cannot rule out the left ventricle, mild pulmonary hypertension, PA pressure is 41. IMPRESSION AND PLAN: Respiratory failure, severe cardiomyopathy, pulmonary hypertension, pancytopenia, leukopenia. Agree with the present management, status post chemotherapy, receive Neulasta. Follow up serial ABGs, keep head elevated at 45 degrees, gastric prophylaxis, sequential compression devices to lower extremities. We will suggest placing the patient on small dose of dobutamine, if cardiac point of view he can handle it. If tachycardia will discontinued, follow ABG, chest x-ray, CBC, CMP in the morning. Critical care time spent more than 30 minutes and can be followed. Pablo Miguel MD
[2017-06-22 07:23] LABS: ALT/SGPT 1824 U/L (7-56)
[2017-06-22 07:24] LABS: SODIUM 160 mmol/L (132-148)
[2017-06-22 07:25] LABS: POTASSIUM 2.7 mmol/L (3.6-5.0)
--- NOTE | 2017-06-22 07:37 | PN ---
SUBJECTIVE: The patient was seen and examined on the bedside, looking comfortable. No nausea, vomiting or diarrhea. No hematuria or hematochezia. No swelling of the legs. No chest pain, no palpitation. The patient is not a good historian, still intubated and sedated. PHYSICAL EXAMINATION: VITAL SIGNS: Temperature 98.2, pulse 86, respiratory rate 32, blood pressure 134/81. HEENT: Head normocephalic and atraumatic. Eyes closed. Nose patent. Mucous membranes are moist. The patient is intubated. NECK: Supple. No carotid bruit, JVD, or thyromegaly. CHEST: Bilateral symmetrical. HEART: S1 and S2 positive. LUNGS: Poor air entry. ABDOMEN: Soft. Bowel sounds present. No organomegaly. EXTREMITIES: No edema. No cyanosis. NEUROLOGIC: The patient is sedated, cannot do further neurological examination. MEDICATIONS: Colace, insulin, Levemir, meropenem, Xopenex, Zofran. LABORATORY DATA: White blood cells 0.1, hemoglobin 8.2, hematocrit 23.8, platelets 44. ASSESSMENT AND PLAN: The patient is a 71-year-old male with leukopenia; anemia; thrombocytopenia, practically pancytopenia; hypernatremia; hypokalemia; hyperchloremia; increased BUN; hyperglycemia; proteinuria, and hematuria came with septic shock, still on the ventilator, now off the vasopressors, still on sedation but responding to tactile stimuli with opening eyes, no fever overnight, history of hypertension, multiorgan failure with acute renal failure, ventilator dependent, hypoxia, respiratory failure, acute encephalopathy due to extended-spectrum beta-lactamases Escherichia coli bacteremia suspect due to PICC line infection since PICC line has been placed in about 2 to 4 months now, 2 days ago now off the vasopressor. Leukemia, status post chemotherapy. Continue present treatment. Gastrointestinal and deep venous thrombosis prophylaxis. Blood cultures were done. Review Dr. Oswaldo Araya, Dr. Keny Vang and Dr. Mckinnon . Gastrointestinal and deep venous thrombosis prophylaxis. Repeat labs. We will follow. Melanie Lane MD MTDD
[2017-06-22 07:47] LABS: WHITE BLOOD COUNT 0.3 10^3/ul (4.5-11.0)
[2017-06-22 07:48] LABS: HEMATOCRIT 23.5 % (42.0-52.0)
[2017-06-22] MEDS: DOBUTamine 500mg/250ml D5W 500 MG/250 ML BAG IV PRN (07:55)
--- NOTE | 2017-06-22 07:56 | CP.PCM.PN ---
<JIM YU - Last Filed: 06/22/17 08:58> Subjective - Date & Time of Evaluation Date of Evaluation: 06/22/17 Time of Evaluation: 07:30 - Subjective Subjective: Jim Yu DO PGY1 - ICU Progress Note Patient seen and examined at bedside. Nurse reports that overnight patient became agitated and required 0.5mg Ativan once, then again at 2AM became agitated again and was desaturating on O2 by facemask so was given 2mg Haldol then switched to highflow. Nurse also reported that overnight, blood glucose came down to ~110, then at approximately 6AM, was <20's, so he reflexively gave an amp of bicarb. On exam, patient remains lethargic, but arousable, making incomprehensible sounds, not obeying commands. He is on HFNC, saturating well, at 100% FiO2. Significant electrolyte derangements noted on morning labs. Objective - Vital Signs/Intake and Output Vital Signs (last 24 hours): Temp Pulse Resp BP Pulse Ox 98.2 F 61 18 99/48 L 100 06/21/17 18:00 06/22/17 07:42 06/22/17 07:30 06/22/17 04:00 06/22/17 04:30 - Medications Medications: Current Medications Docusate Sodium (Colace) 100 mg PO DAILY PENDING SALE TO [facility] Last Admin: 06/21/17 10:06 Dose: Not Given Famotidine (Pepcid 20mg/50ml Premix) 20 mg in 50 mls @ 100 mls/hr IVPB Q12 PENDING SALE TO [facility] Last Admin: 06/21/17 21:46 Dose: 100 mls/hr Micafungin Sodium 100 mg/ (Sodium Chloride) 100 mls @ 100 mls/hr IV DAILY OMARI PRN Reason: Protocol Stop: 06/27/17 10:01 Last Admin: 06/21/17 10:08 Dose: 100 mls/hr Meropenem 1g/NS 100mL IVPB (Meropenem 1g/Ns 100ml Ivpb) 1 gm in 100 mls @ 100 mls/hr IVPB Q8 OMARI PRN Reason: Protocol Stop: 07/01/17 14:01 Last Admin: 06/22/17 05:25 Dose: 100 mls/hr Dobutamine HCl/Dextrose (Dobutamine/Dextrose 5% 500mg/250ml) 500 mg in 250 mls @ 5.964 mls/hr IV .Q24H PRN; Protocol; 2.5 MCG/KG/MIN PRN Reason: TITRATE PER PROTOCOL Dextrose (Dextrose 5% In Water 1000 Ml) 1,000 mls @ 50 mls/hr IV .Q20H PENDING SALE TO [facility] Last Admin: 06/21/17 21:00 Dose: 50 mls/hr Potassium Chloride (Potassium Chloride 20 Meq/100 Ml) 20 meq in 100 mls @ 50 mls/hr IVPB Q2H PENDING SALE TO [facility] Stop: 06/22/17 11:44 Insulin Detemir (Levemir) 30 unit SC AMHS PENDING SALE TO [facility] Last Admin: 06/21/17 21:45 Dose: 30 unit Insulin Human Lispro (Humalog High) 0 units SC Q6H OMARI PRN Reason: Protocol Last Admin: 06/22/17 00:20 Dose: Not Given Levalbuterol HCl (Xopenex) 1.25 mg IH [id number] PRN PRN Reason: Shortness of Breath Last Admin: 06/22/17 07:21 Dose: 1.25 mg Ondansetron HCl (Zofran Inj) 4 mg IVP Q6H PRN PRN Reason: Nausea/Vomiting - Labs Labs: 06/21/17 18:16 06/22/17 06:37 PT 19.1 Seconds (9.9-11.8) H 06/21/17 05:50 INR 1.77 (0.93-1.08) H 06/21/17 05:50 APTT 35.9 Seconds (23.7-30.8) H 06/19/17 05:45 - Constitutional Appears: In Acute Distress, Confused, Chronically Ill - Head Exam Head Exam: ATRAUMATIC, NORMOCEPHALIC - Eye Exam Eye Exam: EOMI - ENT Exam ENT Exam: Mucous Membranes Dry - Neck Exam Neck Exam: absent: Lymphadenopathy, Thyromegaly - Respiratory Exam Respiratory Exam: Decreased Breath Sounds, Rales, Rhonchi Additional comments: On HFNC 50L at 70% FiO2, recently decreased from 100% - Cardiovascular Exam Cardiovascular Exam: RRR, +S1, +S2 - GI/Abdominal Exam GI & Abdominal Exam: Soft. absent: Distended, Firm, Guarding, Rigid - Extremities Exam Extremities Exam: Pedal Edema. 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 Plan: Neuro: - Off sedation, was agitated overnight, received 0.5mg Ativan then several hours later 2mg Haldol. Currently lethargic but arousable, responsive to verbal stimuli, but only making inappropriate sounds, and not obeying commands - AMS likely 2/2 to sepsis vs hypoglycemia vs hypernatremia vs hepatic encephalopathy in the setting of acute liver failure - Severely hypoglycemic this AM, given one amp of D50 twice - Hypernatremic, likely free water deficit, but in the setting of CHF with pulmonary edema will administer free water PO and D5W@150, hold diuresis while monitoring respiratory status and starting dobutamine as a positive inotrope - Continue to monitor CV: - No longer in shock, off all pressors, BP stable - S/p 6 U PRBC, 6U plt, 1U FFP - Will continue with optimization of acid base status and fluid management, to maintain BP. - Significantly improved UO with slight negative fluid balance after receiving lasix once yesterday - Echo completed, significant for apical hypokinesis and severely impared systolic function with LVEF of 31% - On dobutamine, which was held yesterday, but will start today as positive inotrope to improve heart function and reduce pulmonary edema - Maintain MAP>65 Pulm: - Extubated yesterday, to O2 by facemask, but switched to HFNC overnight. Saturating well on 70% FiO2. - Repeat ABG last night shows metabolic alkalosis with compensatory respiratory acidosis - Protective lung strategies GI: - Currently NPO, pending swallow eval - Transaminitis improving, with improving INR, acute liver failure likely 2/2 shock state and MODS - GI (Brian) on consult, all recs appreciated - RUQ US completed, negative for signs of cholecystitis, cholangitis, cholelithiasis, or choledocholithiasis - Pepcid for PPx Renal: - DONTE likely 2/2 hypoperfusion in the setting of shock, resolved - Maintaining good urine output, with slight negative balance past 24 hours, overall still has significant positive fluid balance (total 8L since admission) - Persistent hypernatremia and hyperchloremia, with significant free water deficit. On D5 at 50cc/hr, will continue to administer free water PO as tolerated (passed bedside swallow screen) and increase D5 to 150cc/hr. Monitor respiratory status closely with low threshold for diuresis. - Strict I's and O's - Maintain euvolemia - Monitor and replete lytes as needed - Nephro (Tre) on consult, all recs appreciated Endo: - History of DM, hold all oral hypoglycemics - On levimir 30u AMHS. Hypoglycemic this AM, after stopping tube feeds and increasing levemir. Given one amp of D50 twice. Will decrease dose of levimir back down to 10u AMHS with SSI coverage - Accucheck Q6 and ACHS, with SSI high - Maintain euglycemia Hem/Onc: - Pancytopenic 2/2 AML s/p chemotherapy (HiDAC) and Neulasta, last dose of both 06/16/2017. WBC improved very slightly today to 300 - s/p 6U PRBC, 6U platelets, and 1 FFP. Hgb today 8.0, platelets 21,000 - No colony stimulating factor indicated at this time, per Hem/Onc - Hem/Onc consulted, all recs appreciated ID: - Septic shock in the setting of pancytopenia. Likely 2/2 to indwelling PICC line infection, vs UTI vs PNA - Shock state resolved, though still neutropenic. No longer acidotic, lactate down to 1.7, tachypnic, tachycardic, or hypotensive. - UCx negative. BCx significant for ESBL+ E. coli. Repeat BCx shows no growth after 48hrs. Sputum Cx pending. - PICC line removed for source control, after placement of a central line - On merrem and mycamine (d4), received one dose of amikacin on admission, and zosyn and vanc in the ER - ID consulted (Taj), all recs appreciated Ppx: SCDs for DVT and Pepcid for GI Patient seen, discussed, and reviewed with attending <Natalie Mckinnon MD H - Last Filed: 06/22/17 14:10> Objective - Vital Signs/Intake and Output Vital Signs (last 24 hours): Temp Pulse Resp BP Pulse Ox 97.3 F L 55 L 32 H 93/49 L 100 06/22/17 06:00 06/22/17 09:00 06/22/17 13:19 06/22/17 09:00 06/22/17 09:00 Intake and Output: 06/22/17 06/22/17 06:59 18:59 Intake Total 2560 Output Total 2600 Balance -40 - Medications Medications: Current Medications Dextrose (Dextrose 50% Inj) 50 ml IVP Q15M PRN PRN Reason: Hypoglycemia Last Admin: 06/22/17 11:58 Dose: 50 ml Docusate Sodium (Colace) 100 mg PO DAILY OMARI Last Admin: 06/22/17 09:47 Dose: Not Given Famotidine (Pepcid 20mg/50ml Premix) 20 mg in 50 mls @ 100 mls/hr IVPB Q12 OMARI Last Admin: 06/22/17 09:48 Dose: 100 mls/hr Micafungin Sodium 100 mg/ (Sodium Chloride) 100 mls @ 100 mls/hr IV DAILY OMARI PRN Reason: Protocol Stop: 06/27/17 10:01 Last Admin: 06/22/17 09:48 Dose: 100 mls/hr Meropenem 1g/NS 100mL IVPB (Meropenem 1g/Ns 100ml Ivpb) 1 gm in 100 mls @ 100 mls/hr IVPB Q8 OMARI PRN Reason: Protocol Stop: 07/01/17 14:01 Last Admin: 06/22/17 05:25 Dose: 100 mls/hr Dobutamine HCl/Dextrose (Dobutamine/Dextrose 5% 500mg/250ml) 500 mg in 250 mls @ 5.964 mls/hr IV .Q24H PRN; Protocol; 2.5 MCG/KG/MIN PRN Reason: TITRATE PER PROTOCOL Last Admin: 06/22/17 07:55 Dose: 2.5 mcg/kg/min, 5.964 mls/hr Potassium Chloride 60 meq/ (Dextrose) 1,030 mls @ 150 mls/hr IV .Q6H52M PENDING SALE TO [facility] Stop: 06/22/17 18:23 Last Admin: 06/22/17 12:26 Dose: 150 mls/hr Insulin Human Lispro (Humalog High) 0 units SC Q6H OMARI PRN Reason: Protocol Last Admin: 06/22/17 08:31 Dose: Not Given Levalbuterol HCl (Xopenex) 1.25 mg IH [id number] PRN PRN Reason: Shortness of Breath Last Admin: 06/22/17 13:12 Dose: 1.25 mg Ondansetron HCl (Zofran Inj) 4 mg IVP Q6H PRN PRN Reason: Nausea/Vomiting Last Admin: 06/22/17 12:33 Dose: 4 mg - Labs Labs: 06/22/17 06:37 06/22/17 06:37 PT 17.8 Seconds (9.9-11.8) H 06/22/17 12:29 INR 1.65 (0.93-1.08) H 06/22/17 12:29 APTT 35.9 Seconds (23.7-30.8) H 06/19/17 05:45 Attending/Attestation - Attestation I have personally seen and examined this patient.: Yes I have fully participated in the care of the patient.: Yes I have reviewed all pertinent clinical information, including history, physical exam and plan: Yes Notes (Text): 06/22/17 14:06 71 y/o M w/ Resolved septic shock from ESBL bacteremia Respiratory failure s/p extubation on HFNC CXR shows RLL infiltrate with increased pulmonary vascular congestion. I&0'S indicate 10+L positive. Diamox x1 dose given. Plan to diurese aggressively as tolerated. Reduced EF , dobutamine started by infrastructure consultant . Cardiology following. On Abx for ESBL bacteremia. Neutropenia improving slowly. Plan to keep Platelets > 20k , INR< 2 and HGb> 7. Monitor for fluid overload as well. AML, plan per ONC, possible BMT candidate. dvt p SCD cc time 65 min
--- NOTE | 2017-06-22 08:02 | RAD ---
HISTORY: Intubated COMPARISON: 06/21/2017 FINDINGS: LUNGS: No active pulmonary disease. PLEURA: Bilateral pleural effusion, right greater than left. CARDIOVASCULAR: Right internal jugular central venous catheter. Endotracheal tube and nasogastric tube have been removed. OSSEOUS STRUCTURES: No significant abnormalities. VISUALIZED UPPER ABDOMEN: Normal. OTHER FINDINGS: None. IMPRESSION: Bilateral pleural effusion, right greater than left. No definite infiltrate. ET tube and NG tube removed.
[2017-06-22] MEDS ORDERED: Dextrose 50% SYRINGE Inj (50 ml) IVP PRN (08:04)
--- NOTE | 2017-06-22 08:07 | CP.PCM.CON ---
History of Present Illness - History of Present Illness History of Present Illness: this 71-year-old patient with a past medical history of AML status-post s/p HiDAC treatment followed by [facility] on 06/20/2017 was admitted with a fever and weakness. Patient was found to have septic shock blood cultures grew Escherichia coli ESBL. Patient did have a PICC line which was removed. Patient was found to have elevated LFTs. Mainly transaminases. Patient was also hypotensive with systolic blood pressure around 80. patient was on vasopressor support to maintain blood pressure.The ultrasound scan showed trace pericholecystic fluid CBC normal no gallstones. Patient is also pancytopenic. He is due to get Neupogen on . Patient is on antibiotics Merrem,and mycamine as per ID. Patient was followed at [facility] for AML treatment. He was also matched for transplant donor at the time of examination today he was extubated and the patient's family was at bedside on neutropenic precautions OTHER PAST MEDICAL HISTORY significant for ddiabetes mellitus and hypertension SOCIAL HISTORY nno smoking or alcohol FAMILY HISTORY Limited REVIEW OF SYSTEMS as per chart patient recently was extubated Past Patient History - Past Social History Smoking Status: Never Smoked - CARDIAC Hx Hypertension: Yes - PULMONARY Hx Respiratory Disorders: No - NEUROLOGICAL Hx Neurological Disorder: No - HEENT Hx HEENT Problems: No - RENAL Hx Chronic Kidney Disease: No - ENDOCRINE/METABOLIC Hx Endocrine Disorders: No Hx Diabetes Mellitus Type 2: Yes - HEMATOLOGICAL/ONCOLOGICAL Hx Blood Disorders: No Hx Leukemia: Yes - INTEGUMENTARY Hx Dermatological Problems: No - MUSCULOSKELETAL/RHEUMATOLOGICAL Hx Falls: No - GASTROINTESTINAL Hx Gastrointestinal Disorders: No - GENITOURINARY/GYNECOLOGICAL Hx Genitourinary Disorders: No - PSYCHIATRIC Hx Substance Use: No - SURGICAL HISTORY Hx Surgeries: No Meds Allergies/Adverse Reactions: Allergies Allergy/AdvReac Type Severity Reaction Status Date / Time No Known Allergies Allergy Verified 06/18/17 02:56 - Medications Medications: Current Medications Docusate Sodium (Colace) 100 mg PO DAILY [facility] Last Admin: 06/21/17 10:06 Dose: Not Given Famotidine (Pepcid 20mg/50ml Premix) 20 mg in 50 mls @ 100 mls/hr IVPB Q12 [facility] Last Admin: 06/21/17 21:46 Dose: 100 mls/hr Micafungin Sodium 100 mg/ (Sodium Chloride) 100 mls @ 100 mls/hr IV DAILY [facility] PRN Reason: Protocol Stop: 06/27/17 10:01 Last Admin: 06/21/17 10:08 Dose: 100 mls/hr Meropenem 1g/NS 100mL IVPB (Meropenem 1g/Ns 100ml Ivpb) 1 gm in 100 mls @ 100 mls/hr IVPB Q8 [facility] PRN Reason: Protocol Stop: 07/01/17 14:01 Last Admin: 06/21/17 21:46 Dose: 100 mls/hr Dobutamine HCl/Dextrose (Dobutamine/Dextrose 5% 500mg/250ml) 500 mg in 250 mls @ 5.964 mls/hr IV .Q24H PRN; Protocol; 2.5 MCG/KG/MIN PRN Reason: TITRATE PER PROTOCOL Dextrose (Dextrose 5% In Water 1000 Ml) 1,000 mls @ 50 mls/hr IV .Q20H [facility] Last Admin: 06/21/17 21:00 Dose: 50 mls/hr Insulin Detemir (Levemir) 30 unit SC AMHS [facility] Last Admin: 06/21/17 21:45 Dose: 30 unit Insulin Human Lispro (Humalog High) 0 units SC Q6H [facility] PRN Reason: Protocol Last Admin: 06/21/17 18:27 Dose: 4 units Levalbuterol HCl (Xopenex) 1.25 mg IH [id number] PRN PRN Reason: Shortness of Breath Last Admin: 06/21/17 16:57 Dose: 1.25 mg Ondansetron HCl (Zofran Inj) 4 mg IVP Q6H PRN PRN Reason: Nausea/Vomiting Physical Exam - Constitutional Appears: Confused - Head Exam Head Exam: ATRAUMATIC, NORMOCEPHALIC - Eye Exam Eye Exam: EOMI, PERRL, Scleral icterus - ENT Exam ENT Exam: Mucous Membranes Moist - Neck Exam Neck exam: Positive for: Full Rom. Negative for: Lymphadenopathy - Respiratory Exam Respiratory Exam: Rales. absent: Rhonchi, Respiratory Distress - Cardiovascular Exam Cardiovascular Exam: +S1, +S2. absent: JVD - GI/Abdominal Exam GI & Abdominal Exam: Soft. absent: Mass, Tenderness - Extremities Exam Extremities exam: Positive for: pedal pulses present. Negative for: joint swelling Results - Vital Signs Recent Vital Signs: Last Vital Signs Temp 98.2 F 06/21/17 18:00 Pulse 86 06/21/17 18:50 Resp 32 H 06/21/17 18:40 BP 100/38 L 06/21/17 18:15 Pulse Ox 97 06/21/17 18:50 - Labs Result Diagrams: 06/22/17 06:37 06/22/17 06:37 Labs: Laboratory Results - last 24 hr 06/21/17 06/21/17 06/21/17 00:06 05:20 05:50 WBC 0.1 L* D RBC 2.28 L Hgb 6.8 L* Hct 19.3 L* MCV 84.6 MCH 29.8 MCHC 35.2 RDW 16.9 H Plt Count 17 L* MPV 10.2 Corrected WBC (Man) Cancelled Neutrophils % (Manual) Cancelled Band Neutrophils % Cancelled Lymphocytes % (Manual) Cancelled Atypical Lymphs % Cancelled Monocytes % (Manual) Cancelled Eosinophils % (Manual) Cancelled Basophils % (Manual) Cancelled Metamyelocytes % Cancelled Myelocytes % Cancelled Promyelocytes % Cancelled Nucleated RBC % Cancelled Hypersegmented Polys Cancelled Immature Lymphocytes Cancelled Blast Cells Cancelled Smudge Cells Cancelled Toxic Granulation Cancelled Dohle Bodies Cancelled Denisse Rods Cancelled Platelet Evaluation Cancelled Plt Clumps, EDTA Cancelled Large Platelets Cancelled Giant Platelets Cancelled Polychromasia Cancelled Hypochromasia Cancelled Hyperchromasia Cancelled Poikilocytosis (manual Cancelled Basophilic Stippling Cancelled Anisocytosis (manual) Cancelled Microcytosis (manual) Cancelled Macrocytosis (manual) Cancelled Spherocytes Cancelled Sickle Cells Cancelled Target Cells Cancelled Tear Drop Cells Cancelled Ovalocytes Cancelled Stomatocytes Cancelled Helmet Cells Cancelled Galien Rings Cancelled Lawrence Cells Cancelled Acanthocytes (Spur) Cancelled Rouleaux Cancelled Schistocytes Cancelled PT INR pCO2 36 pO2 163.0 H HCO3 30.8 H ABG pH 7.54 H ABG Total CO2 31.9 H ABG O2 Saturation 99.6 H ABG Base Excess 7.7 H ABG Potassium 3.4 L VBG pH VBG pCO2 VBG HCO3 VBG Total CO2 VBG O2 Sat (Calc) VBG Base Excess VBG Potassium Sodium 156.0 H Chloride 121.0 H Glucose 291 H Lactate 4.7 H* FiO2 60.0 Potassium Carbon Dioxide Anion Gap BUN Creatinine Est GFR ( Amer) Est GFR (Non-Af Amer) POC Glucose (mg/dL) 338 H Random Glucose Calcium Phosphorus Magnesium Total Bilirubin AST ALT Alkaline Phosphatase Total Protein Albumin Globulin Albumin/Globulin Ratio Arterial Blood Potassium 3.4 L Venous Blood Potassium Blood Type Antibody Screen Crossmatch BBK History Checked 06/21/17 06/21/17 06/21/17 05:50 05:50 06:13 WBC RBC Hgb Hct MCV MCH MCHC RDW Plt Count MPV Corrected WBC (Man) Neutrophils % (Manual) Band Neutrophils % Lymphocytes % (Manual) Atypical Lymphs % Monocytes % (Manual) Eosinophils % (Manual) Basophils % (Manual) Metamyelocytes % Myelocytes % Promyelocytes % Nucleated RBC % Hypersegmented Polys Immature Lymphocytes Blast Cells Smudge Cells Toxic Granulation Dohle Bodies Denises Rods Platelet Evaluation Plt Clumps, EDTA Large Platelets Giant Platelets Polychromasia Hypochromasia Hyperchromasia Poikilocytosis (manual Basophilic Stippling Anisocytosis (manual) Microcytosis (manual) Macrocytosis (manual) Spherocytes Sickle Cells Target Cells Tear Drop Cells Ovalocytes Stomatocytes Helmet Cells Galien Rings Lawrence Cells Acanthocytes (Spur) Rouleaux Schistocytes PT 19.1 H INR 1.77 H pCO2 pO2 HCO3 ABG pH ABG Total CO2 ABG O2 Saturation ABG Base Excess ABG Potassium VBG pH VBG pCO2 VBG HCO3 VBG Total CO2 VBG O2 Sat (Calc) VBG Base Excess VBG Potassium Sodium 157 H* Chloride 117 H Glucose Lactate FiO2 Potassium 3.3 L Carbon Dioxide 30 Anion Gap 13 BUN 45 H Creatinine 1.1 Est GFR ( Amer) > 60 Est GFR (Non-Af Amer) > 60 POC Glucose (mg/dL) 315 H Random Glucose 267 H Calcium 8.0 L Phosphorus 2.2 L Magnesium 2.0 Total Bilirubin 2.4 H AST 1281 H ALT 3249 H Alkaline Phosphatase 72 Total Protein 5.1 L Albumin 2.5 L Globulin 2.6 Albumin/Globulin Ratio 1.0 L Arterial Blood Potassium Venous Blood Potassium Blood Type Antibody Screen Crossmatch BBK History Checked 06/21/17 06/21/17 06/21/17 07:06 14:27 18:02 WBC RBC Hgb Hct MCV MCH MCHC RDW Plt Count MPV Corrected WBC (Man) Neutrophils % (Manual) Band Neutrophils % Lymphocytes % (Manual) Atypical Lymphs % Monocytes % (Manual) Eosinophils % (Manual) Basophils % (Manual) Metamyelocytes % Myelocytes % Promyelocytes % Nucleated RBC % Hypersegmented Polys Immature Lymphocytes Blast Cells Smudge Cells Toxic Granulation Dohle Bodies Denisse Rods Platelet Evaluation Plt Clumps, EDTA Large Platelets Giant Platelets Polychromasia Hypochromasia Hyperchromasia Poikilocytosis (manual Basophilic Stippling Anisocytosis (manual) Microcytosis (manual) Macrocytosis (manual) Spherocytes Sickle Cells Target Cells Tear Drop Cells Ovalocytes Stomatocytes Helmet Cells Galien Rings Lawrence Cells Acanthocytes (Spur) Rouleaux Schistocytes PT INR pCO2 pO2 HCO3 ABG pH ABG Total CO2 ABG O2 Saturation ABG Base Excess ABG Potassium VBG pH VBG pCO2 VBG HCO3 VBG Total CO2 VBG O2 Sat (Calc) VBG Base Excess VBG Potassium Sodium Chloride Glucose Lactate FiO2 Potassium Carbon Dioxide Anion Gap BUN Creatinine Est GFR ( Amer) Est GFR (Non-Af Amer) POC Glucose (mg/dL) 327 H 220 H Random Glucose Calcium Phosphorus Magnesium Total Bilirubin AST ALT Alkaline Phosphatase Total Protein Albumin Globulin Albumin/Globulin Ratio Arterial Blood Potassium Venous Blood Potassium Blood Type A POSITIVE Antibody Screen Negative Crossmatch See Detail BBK History Checked Patient has bt 06/21/17 06/21/17 06/21/17 18:16 18:16 18:16 WBC 0.1 L* RBC 2.75 L Hgb 8.2 L Hct 23.8 L MCV 86.5 MCH 29.8 MCHC 34.5 RDW 17.1 H Plt Count 44 L* MPV 9.4 Corrected WBC (Man) Neutrophils % (Manual) Band Neutrophils % Lymphocytes % (Manual) Atypical Lymphs % Monocytes % (Manual) Eosinophils % (Manual) Basophils % (Manual) Metamyelocytes % Myelocytes % Promyelocytes % Nucleated RBC % Hypersegmented Polys Immature Lymphocytes Blast Cells Smudge Cells Toxic Granulation Dohle Bodies Denisse Rods Platelet Evaluation Plt Clumps, EDTA Large Platelets Giant Platelets Polychromasia Hypochromasia Hyperchromasia Poikilocytosis (manual Basophilic Stippling Anisocytosis (manual) Microcytosis (manual) Macrocytosis (manual) Spherocytes Sickle Cells Target Cells Tear Drop Cells Ovalocytes Stomatocytes Helmet Cells Galien Rings Lawrence Cells Acanthocytes (Spur) Rouleaux Schistocytes PT INR pCO2 pO2 54 HCO3 ABG pH ABG Total CO2 ABG O2 Saturation ABG Base Excess ABG Potassium VBG pH 7.41 VBG pCO2 51.0 VBG HCO3 32.3 H VBG Total CO2 33.9 H VBG O2 Sat (Calc) 94.0 H VBG Base Excess 6.3 H VBG Potassium 3.1 L Sodium 160.0 H* 158 H* Chloride 120.0 H 115 H Glucose 205 H Lactate 4.8 H* FiO2 21.0 Potassium 3.0 L Carbon Dioxide 31 Anion Gap 15 BUN 48 H Creatinine 1.1 Est GFR ( Amer) > 60 Est GFR (Non-Af Amer) > 60 POC Glucose (mg/dL) Random Glucose 200 H Calcium 8.6 Phosphorus Magnesium Total Bilirubin AST ALT Alkaline Phosphatase Total Protein Albumin Globulin Albumin/Globulin Ratio Arterial Blood Potassium Venous Blood Potassium 3.1 L Blood Type Antibody Screen Crossmatch BBK History Checked 06/21/17 18:16 WBC RBC Hgb Hct MCV MCH MCHC RDW Plt Count MPV Corrected WBC (Man) Neutrophils % (Manual) Band Neutrophils % Lymphocytes % (Manual) Atypical Lymphs % Monocytes % (Manual) Eosinophils % (Manual) Basophils % (Manual) Metamyelocytes % Myelocytes % Promyelocytes % Nucleated RBC % Hypersegmented Polys Immature Lymphocytes Blast Cells Smudge Cells Toxic Granulation Dohle Bodies Denisse Rods Platelet Evaluation Plt Clumps, EDTA Large Platelets Giant Platelets Polychromasia Hypochromasia Hyperchromasia Poikilocytosis (manual Basophilic Stippling Anisocytosis (manual) Microcytosis (manual) Macrocytosis (manual) Spherocytes Sickle Cells Target Cells Tear Drop Cells Ovalocytes Stomatocytes Helmet Cells Galien Rings Lawrence Cells Acanthocytes (Spur) Rouleaux Schistocytes PT INR pCO2 pO2 HCO3 ABG pH ABG Total CO2 ABG O2 Saturation ABG Base Excess ABG Potassium VBG pH VBG pCO2 VBG HCO3 VBG Total CO2 VBG O2 Sat (Calc) VBG Base Excess VBG Potassium Sodium Chloride Glucose Lactate FiO2 Potassium Carbon Dioxide Anion Gap BUN Creatinine Est GFR ( Amer) Est GFR (Non-Af Amer) POC Glucose (mg/dL) Random Glucose Calcium Phosphorus 3.4 Magnesium Total Bilirubin AST ALT Alkaline Phosphatase Total Protein Albumin Globulin Albumin/Globulin Ratio Arterial Blood Potassium Venous Blood Potassium Blood Type Antibody Screen Crossmatch BBK History Checked - Imaging and Cardiology US - abdomen Status: Image reviewed by me Assessment & Plan - Assessment and Plan (Free Text) Assessment: pthis 71-year-old patient with AML status post chemotherapy admitted with the neutropenic sepsis, septic shock, status post removal of the PICC line. He has Elevated transaminases wwith the normal aalkaline phosphatase, ultrasound scan showed no gallstones. Most likely related to shock liver. Patient was hypotensive requiring pressure support Pancytopenia probably related to chemotherapy and sepsis patient was now extubated elements confused Other comorbidities include acute kidney injury, diabetes mellitus PLAN 1. Continue antibiotics as per ID 2. Follow up LFT, PT INR 3. Close hematology to follow up. Patient is planned to receive Neupogen tomorrow 4. Recommend CT of the abdomen and pelvis with no by mouth and IV contrast when the patient is optimized to go down for scan We will discuss with the clinical research nurse coordinator Thank you very much for allowing us to participate in the care of the patient - Date & Time Date: 06/21/17 Time: 19:00
[2017-06-22] MEDS ORDERED: Insulin Detemir 100 units/ml Vial (Levemir) SC SCH (08:09)
--- NOTE | 2017-06-22 08:55 | CP.PCM.PN ---
Subjective - Date & Time of Evaluation Date of Evaluation: 06/22/17 Time of Evaluation: 08:30 - Subjective Subjective: Patient is now extubated and on a high flow oxygen, not in distress but still somewhat lethargic but responds to verbal and tactile stimuli by waking up. No fevers overnight. Objective - Vital Signs/Intake and Output Vital Signs (last 24 hours): Temp Pulse Resp BP Pulse Ox 98.2 F 68 17 99/48 L 100 06/21/17 18:00 06/22/17 04:30 06/22/17 04:30 06/22/17 04:00 06/22/17 04:30 Intake and Output: 06/21/17 06/22/17 18:59 06:59 Intake Total 3550 Output Total 600 Balance 2950 - Medications Medications: Current Medications Docusate Sodium (Colace) 100 mg PO DAILY [facility] Last Admin: 06/21/17 10:06 Dose: Not Given Famotidine (Pepcid 20mg/50ml Premix) 20 mg in 50 mls @ 100 mls/hr IVPB Q12 [facility] Last Admin: 06/21/17 21:46 Dose: 100 mls/hr Micafungin Sodium 100 mg/ (Sodium Chloride) 100 mls @ 100 mls/hr IV DAILY [facility] PRN Reason: Protocol Stop: 06/27/17 10:01 Last Admin: 06/21/17 10:08 Dose: 100 mls/hr Meropenem 1g/NS 100mL IVPB (Meropenem 1g/Ns 100ml Ivpb) 1 gm in 100 mls @ 100 mls/hr IVPB Q8 [facility] PRN Reason: Protocol Stop: 07/01/17 14:01 Last Admin: 06/22/17 05:25 Dose: 100 mls/hr Dobutamine HCl/Dextrose (Dobutamine/Dextrose 5% 500mg/250ml) 500 mg in 250 mls @ 5.964 mls/hr IV .Q24H PRN; Protocol; 2.5 MCG/KG/MIN PRN Reason: TITRATE PER PROTOCOL Dextrose (Dextrose 5% In Water 1000 Ml) 1,000 mls @ 50 mls/hr IV .Q20H [facility] Last Admin: 06/21/17 21:00 Dose: 50 mls/hr Insulin Detemir (Levemir) 30 unit SC AMHS [facility] Last Admin: 06/21/17 21:45 Dose: 30 unit Insulin Human Lispro (Humalog High) 0 units SC Q6H [facility] PRN Reason: Protocol Last Admin: 06/22/17 00:20 Dose: Not Given Levalbuterol HCl (Xopenex) 1.25 mg IH [id number] PRN PRN Reason: Shortness of Breath Last Admin: 06/22/17 01:05 Dose: 1.25 mg Ondansetron HCl (Zofran Inj) 4 mg IVP Q6H PRN PRN Reason: Nausea/Vomiting - Labs Labs: 06/21/17 18:16 06/21/17 23:59 PT 19.1 Seconds (9.9-11.8) H 06/21/17 05:50 INR 1.77 (0.93-1.08) H 06/21/17 05:50 APTT 35.9 Seconds (23.7-30.8) H 06/19/17 05:45 - Constitutional Appears: Other (Now extubated, still somewhat lethargic) - Head Exam Head Exam: NORMAL INSPECTION - ENT Exam ENT Exam: Mucous Membranes Moist - Neck Exam Neck Exam: absent: Meningismus Additional comments: right IJ central venous catheter in place and intact, with some petechiae surrounding the insertion site - Respiratory Exam Respiratory Exam: Decreased Breath Sounds - Cardiovascular Exam Cardiovascular Exam: +S1, +S2 - GI/Abdominal Exam GI & Abdominal Exam: Soft. absent: Tenderness Assessment and Plan - Assessment and Plan (Free Text) Plan: Assessment Severe sepsis (S/P) Septic shock with multiorgan failure (acute renal failure which has improved, S/P ventilator-dependent hypoxic respiratory failure, acute encephalopathy) due to ESBL E.coli bacteremia, suspect due to PICC line infection (since the PICC has been in place for about 3-4 months now), S/P removal 3 days ago - now off vaspressors and extubated Leukemia S/P chemotherapy one week ago, now with continued severe neutropenia and pancytopenia HTN DM Plan Continue Merrem - repeat blood cx are negative will also continue Mycamine since he continues to be neutropenic (ie. he may have been neutropenic for about 2-3 days prior to admission and may be at risk for fungal infections) will continue monitor clinically and trend WBC count Overall prognosis is poor
[2017-06-22] MEDS: Micafungin 100 MG in Sodium Chloride 0.9% 100 ML IV SCH (09:48)
[2017-06-22] MEDS: Famotidine 20mg/50ml 20 MG/50 ML BAG IVPB SCH ×2 (09:48→21:38)
--- NOTE | 2017-06-22 10:36 | CP.PCM.PN ---
<Yan Tipton - Last Filed: 06/22/17 10:29> Subjective - Date & Time of Evaluation Date of Evaluation: 06/22/17 Time of Evaluation: 07:10 - Subjective Subjective: Heme/ onc note for Dr Vázquez: Pt seen and examined at bedside in the ICU. Pt was extubated and is on high flow oxygen. On Dobutamine 6mcg. Not following commands and appears restless. ROS unobtainable. Objective - Vital Signs/Intake and Output Vital Signs (last 24 hours): Temp Pulse Resp BP Pulse Ox 97.3 F L 55 L 14 93/49 L 100 06/22/17 06:00 06/22/17 09:00 06/22/17 09:00 06/22/17 09:00 06/22/17 09:00 Intake and Output: 06/22/17 06/22/17 06:59 18:59 Intake Total 2560 Output Total 2600 Balance -40 - Medications Medications: Current Medications Dextrose (Dextrose 50% Inj) 50 ml IVP Q15M PRN PRN Reason: Hypoglycemia Docusate Sodium (Colace) 100 mg PO DAILY [facility] Last Admin: 06/22/17 09:47 Dose: Not Given Famotidine (Pepcid 20mg/50ml Premix) 20 mg in 50 mls @ 100 mls/hr IVPB Q12 [facility] Last Admin: 06/22/17 09:48 Dose: 100 mls/hr Micafungin Sodium 100 mg/ (Sodium Chloride) 100 mls @ 100 mls/hr IV DAILY [facility] PRN Reason: Protocol Stop: 06/27/17 10:01 Last Admin: 06/22/17 09:48 Dose: 100 mls/hr Meropenem 1g/NS 100mL IVPB (Meropenem 1g/Ns 100ml Ivpb) 1 gm in 100 mls @ 100 mls/hr IVPB Q8 [facility] PRN Reason: Protocol Stop: 07/01/17 14:01 Last Admin: 06/22/17 05:25 Dose: 100 mls/hr Dobutamine HCl/Dextrose (Dobutamine/Dextrose 5% 500mg/250ml) 500 mg in 250 mls @ 5.964 mls/hr IV .Q24H PRN; Protocol; 2.5 MCG/KG/MIN PRN Reason: TITRATE PER PROTOCOL Last Admin: 06/22/17 07:55 Dose: 2.5 mcg/kg/min, 5.964 mls/hr Potassium Chloride (Potassium Chloride 20 Meq/100 Ml) 20 meq in 100 mls @ 50 mls/hr IVPB Q2H [facility] Stop: 06/22/17 11:44 Last Admin: 06/22/17 10:13 Dose: 50 mls/hr Dextrose (Dextrose 5% In Water 1000 Ml) 1,000 mls @ 150 mls/hr IV .Q6H40M [facility] Insulin Human Lispro (Humalog High) 0 units SC Q6H [facility] PRN Reason: Protocol Last Admin: 06/22/17 08:31 Dose: Not Given Levalbuterol HCl (Xopenex) 1.25 mg IH [id number] PRN PRN Reason: Shortness of Breath Last Admin: 06/22/17 07:21 Dose: 1.25 mg Ondansetron HCl (Zofran Inj) 4 mg IVP Q6H PRN PRN Reason: Nausea/Vomiting - Labs Labs: 06/22/17 06:37 06/22/17 06:37 PT 19.1 Seconds (9.9-11.8) H 06/21/17 05:50 INR 1.77 (0.93-1.08) H 06/21/17 05:50 APTT 35.9 Seconds (23.7-30.8) H 06/19/17 05:45 - Constitutional Appears: No Acute Distress - Eye Exam Eye Exam: EOMI, PERRL - ENT Exam ENT Exam: Mucous Membranes Moist - Respiratory Exam Respiratory Exam: Clear to Ausculation Bilateral. absent: Rales, Wheezes - Cardiovascular Exam Cardiovascular Exam: REGULAR RHYTHM, RRR, +S1, +S2 - GI/Abdominal Exam GI & Abdominal Exam: Soft. absent: Tenderness - Extremities Exam Extremities Exam: absent: Calf Tenderness, Pedal Edema - Neurological Exam Neurological Exam: Awake - Skin Skin Exam: Dry, Intact, Normal Color, Warm Assessment and Plan - Assessment and Plan (Free Text) Assessment: 71 M with pmh of DM, BPH, HLD, and acute myelogenous leukemia s/p HiDAC treatment followed by [facility] presents with septic shock 2/2 ESBL E.coli bacterimia. Pancytopenic. Patient did receive 7+3 induction HiDAC and a second dose during hospitalization of 06/06-06/11; pt did follow up in the office on . Pt also has a matched 10/10 transplant donor. Pt was in septic shock requiring 3 pressors and intubated to protect airway. He is currently extubated and requiring high flow O2 and on Dobutamine. - Neutropenia - pt is s/p Neulasta - wbc inc to 0.3 this morning and will cont to monitor - Anemia - Hb this am 8.0 - recommend transfusing 1 unit prbc - Thrombocytopenia - platelets of 21 this am - no obvious signs of active bleeding - recommend transfusing 1 units of irradiated platelets - Transaminitis - improving f/u GI consult - ICU recs and management - F/u ID recs - picc line removed - ContMero - cont Mycamine - F/u Septic work up - E. coli + ESBL - F/u Renal consult - t with hypernatremia and hypokalemia - F/u with patients oncologist at [facility] Case and plan was reviewed and discussed in detail with Dr Vázquez. <Sepideh Vázquez P - Last Filed: 06/23/17 23:21> Objective - Vital Signs/Intake and Output Vital Signs (last 24 hours): Temp Pulse Resp BP Pulse Ox 98 F 64 16 123/62 97 06/23/17 22:30 06/23/17 22:30 06/23/17 22:30 06/23/17 22:30 06/23/17 22:15 Intake and Output: 06/23/17 06/24/17 18:59 06:59 Intake Total 572 275 Output Total 3500 Balance -2928 275 - Medications Medications: Current Medications Dextrose (Dextrose 50% Inj) 50 ml IVP Q15M PRN PRN Reason: Hypoglycemia Last Admin: 06/22/17 11:58 Dose: 50 ml Docusate Sodium (Colace) 100 mg PO DAILY [facility] Last Admin: 06/23/17 10:09 Dose: Not Given Furosemide (Lasix) 40 mg IVP Q12 [facility] Last Admin: 06/23/17 21:00 Dose: 40 mg Famotidine (Pepcid 20mg/50ml Premix) 20 mg in 50 mls @ 100 mls/hr IVPB Q12 [facility] Last Admin: 06/23/17 21:45 Dose: 100 mls/hr Micafungin Sodium 100 mg/ (Sodium Chloride) 100 mls @ 100 mls/hr IV DAILY [facility] PRN Reason: Protocol Stop: 06/27/17 10:01 Last Admin: 06/23/17 10:14 Dose: 100 mls/hr Meropenem 1g/NS 100mL IVPB (Meropenem 1g/Ns 100ml Ivpb) 1 gm in 100 mls @ 100 mls/hr IVPB Q8 [facility] PRN Reason: Protocol Stop: 07/01/17 14:01 Last Admin: 06/23/17 21:45 Dose: 100 mls/hr Dobutamine HCl/Dextrose (Dobutamine/Dextrose 5% 500mg/250ml) 500 mg in 250 mls @ 5.964 mls/hr IV .Q24H PRN; Protocol; 2.5 MCG/KG/MIN PRN Reason: TITRATE PER PROTOCOL Last Admin: 06/23/17 21:43 Dose: 2.5 mcg/kg/min, 5.964 mls/hr Dextrose (Dextrose 5% In Water 1000 Ml) 1,000 mls @ 50 mls/hr IV .Q20H [facility] Last Admin: 06/22/17 22:14 Dose: 50 mls/hr Insulin Human Lispro (Humalog High) 0 units SC Q6H [facility] PRN Reason: Protocol Last Admin: 06/23/17 17:49 Dose: 2 units Levalbuterol HCl (Xopenex) 1.25 mg IH [id number] PRN PRN Reason: Shortness of Breath Last Admin: 06/23/17 13:11 Dose: 1.25 mg Ondansetron HCl (Zofran Inj) 4 mg IVP Q6H PRN PRN Reason: Nausea/Vomiting Last Admin: 06/22/17 12:33 Dose: 4 mg - Labs Labs: 06/23/17 05:30 06/23/17 13:00 PT 19.4 Seconds (9.9-11.8) H 06/23/17 05:30 INR 1.80 (0.93-1.08) H 06/23/17 05:30 APTT 35.9 Seconds (23.7-30.8) H 06/19/17 05:45 Attending/Attestation - Attestation I have personally seen and examined this patient.: Yes I have fully participated in the care of the patient.: Yes I have reviewed all pertinent clinical information, including history, physical exam and plan: Yes
[2017-06-22 12:41] LABS: INR 1.65 (0.93-1.08)
[2017-06-22] MEDS ORDERED: DiphenhydrAMINE 50 mg/ml Inj IM ONE (13:30)
[2017-06-22 14:33] LABS: BLOOD UREA NITROGEN 40 mg/dL (7-21); CALCIUM 8.7 mg/dL (8.4-10.5); CARBON DIOXIDE 34 mmol/L (21-33); CHLORIDE 116 mmol/L (98-107); GFR AFRICAN-AMERICAN > 60; GLUCOSE,RANDOM 92 mg/dL (70-110); POTASSIUM 3.5 mmol/L (3.6-5.0)
[2017-06-22 14:38] LABS: SODIUM 158 mmol/L (132-148)
--- NOTE | 2017-06-22 14:56 | PN ---
SUBJECTIVE: The patient is once again seen in ICU, bed 2. He was extubated yesterday. He remains on high-flow oxygen. He remains lethargic; eyes are closed. He remains on hypotonic IV fluids. His NG tube was removed. He has not received any free fluid via the tube since removal of the tube. His sodium level is up to 160. MEDICATIONS: Medication list reviewed. The patient is on Colace, D5W 150 mL an hour, insulin, meropenem, micafungin, Pepcid, potassium chloride, Xopenex, and Zofran p.r.n. OBJECTIVE: INTAKE/OUTPUT: Intake 3550. Output 600. VITAL SIGNS: Blood pressure 93/49, temperature 97.3, respiratory rate 14 with a pulse of 55. On high-flow oxygen, oxygen saturation is 100%. HEENT: Eyes are closed. NECK: Supple. No neck vein distention. CHEST: Clear to auscultation and percussion. Scattered rhonchi. No rales or wheezing. CARDIOVASCULAR: S1 and S2 are normal. No audible murmurs, rubs or gallops. ABDOMEN: Soft. Bowel sounds normal. No masses, no rebound, no guarding. EXTREMITIES: Show no significant lower extremity edema. No cyanosis or clubbing. LABORATORY DATA AND IMAGING: White blood cell count is 0.3, hemoglobin is 8, platelet count is 21,000. Blood gas today 7.42 with a pCO2 of 59 and a pO2 of 81. Chemistries today showed sodium up to 160, potassium low at 2.7. Magnesium level is 1.7. Chloride 116 with a CO2 of 36. Anion gap is 11. BUN stable at 46. Creatinine stable at 1.0. Glucose 179, calcium 8.2, phosphorus 2.9 with a magnesium of 1.7. Albumin is 2.5. Microbiology: Positive for E. coli, ESBL. Followup blood cultures have been negative at 48 hours. ASSESSMENT: 1. Acute renal failure, mostly prerenal in nature in the setting of pancytopenia, septic shock, Escherichia coli extended-spectrum beta-lactamase bacteremia in the setting of profound pancytopenia. The patient has neutropenic sepsis. Blood pressure has stabilized. 2. Respiratory failure. The patient was successfully extubated. He is currently on high-flow oxygen. He appears lethargic. 3. Status post severe anion gap metabolic acidosis with sodium bicarbonate administration has had resolved. CO2 levels are now moderately elevated. 4. Hypernatremia. The patient's sodium level has slowly increased, to have received free fluid via the NG/OG tube; however, this has not done as the tube was pulled. The patient is currently receiving hypotonic fluids, D5W 150 mL in an hour. Calculating his fluid deficit, he is approximately down about 9 to 10 liters in order to lower his sodium from 160 down to 140. Agree with large volume hypotonic IV fluid administration today with close monitoring of his sodium levels. The patient will likely require potassium supplements in the IV fluids as his potassium level was low at 2.7. Magnesium level was normal. 5. Hypokalemia. I agree with potassium supplements. 6. Transaminitis thought to be secondary to shock liver. Expecting to new recovery with correction and normalization of his hemodynamic state. 7. History of diabetes. In laid of the large amount of D5W, the patient is receiving only close monitoring of his sugars with monitoring of his glucose levels and appropriate insulin coverage. 8. History of acute myelogenous leukemia. Status post chemotherapy, which is responsible for his pancytopenia. PLAN: 1. Discussed with horse show judge, house staff, and nursing staff in detail in the ICU this morning. The patient will require copious amounts of hypotonic IV fluid administration to correct his hypernatremia. I am concerned about worsening of the hypokalemia with large amounts of IV fluid administration. We will need to follow these labs throughout the day and supplements can be given and the patient can receive maintenance potassium chloride in his IV fluid. 2. Monitored accurate I's and O's. 3. Continue antibiotic therapy for his pancytopenic/neutropenic sepsis being caused by ESBL. 4. Continue to monitor the patient closely in the ICU. Greater than 35 minutes spent in the care of this patient. Oswaldo Araya MD MTDD
[2017-06-22] MEDS ORDERED: Morphine 2 mg/ml ISec IVP STA ×2 (16:20→20:20)
[2017-06-22 21:28] LABS: GRAN # 0.34 (1.4-6.5); GRAN % 50.8 % (50.0-68.0); HEMATOCRIT 28.3 % (42.0-52.0); LYMPH # 0.1 (1.2-3.4); LYMPH % 14.9 % (22.0-35.0); MEAN CELL VOLUME 86.5 fl (80.0-105.0); MEAN CORPUSCULAR HEMOGLOBIN 29.1 pg (25.0-35.0); MEAN CORPUSCULAR HGB CONC 33.6 g/dl (31.0-37.0); MEAN PLATELET VOLUME 8.8 fl (7.0-11.0); MONO # 0.2 (0.1-0.6); MONO % 34.3 % (1.0-6.0); RED CELL DISTRIBUTION WIDTH 17.5 % (11.5-14.5)
[2017-06-22 21:31] LABS: PLATELET COUNT 24 10^3/uL (120.0-450.0); WHITE BLOOD COUNT 0.7 10^3/ul (4.5-11.0)
[2017-06-22 21:36] LABS: BLOOD UREA NITROGEN 40 mg/dL (7-21); CARBON DIOXIDE 31 mmol/L (21-33); CHLORIDE 115 mmol/L (98-107); GFR AFRICAN-AMERICAN > 60; GLUCOSE,RANDOM 129 mg/dL (70-110); POTASSIUM 4.2 mmol/L (3.6-5.0)
[2017-06-22 21:39] LABS: SODIUM 155 mmol/L (132-148)
[2017-06-22] MEDS ORDERED: Potassium Phosphate 3 mmol/ml Inj IV SCH (21:45)
[2017-06-22 22:08] LABS: HYPOCHROMIA SLIGHT; NEUTROPHIL 60 % (50.0-70.0); OVALOCYTES SLIGHT; PLATELET ESTIMATE LOW (NORMAL)
--- NOTE | 2017-06-23 00:16 | PN ---
PULMONARY CRITICAL CARE PROGRESS NOTE DATE: 06/22/2017 REFERRING PHYSICIAN: Dr. Lane. SUBJECTIVE: The patient is lying in the bed, extubated on high-flow nasal cannula oxygen. Family at the bedside. There is some cough with sputum production. No hemoptysis. No emesis. No hematuria. No diarrhea reported. PHYSICAL EXAMINATION: GENERAL: No acute distress. VITAL SIGNS: Temperature 98, heart rate is 63, respiratory rate is 20, blood pressure 116/49 and pulse ox 100% on high-flow nasal cannula. HEENT: Moist mucous membranes. Crowded airway. NECK: Supple. No JVD. No stridor. LUNGS: Has scattered rhonchi. Few crackles. HEART: S1 and S2. ABDOMEN: Soft and nontender. No organomegaly. EXTREMITIES: Not much edema. NEUROLOGIC: Awake and alert. Follows simple commands. Not much murmur. MEDICATIONS: He is Colace 100 mg daily, IV fluid carrying dobutamine IV, insulin coverage, meropenem 1 g IV q. 8 hours, micafungin 800 mg daily, Pepcid 20 mg twice a day, Xopenex inhaled q. 6 hours, Zofran p.r.n. basis. LABORATORY DATA: Shows hemoglobin 8.0, hematocrit 23.5, WBC 0.3 and platelet count is 21. INR is 1.65. Blood gas shows pH 7.51, pCO2 of 40, CO2 of 46 and pO2 of 55 that is on 50% oxygen. Sodium is 158, potassium 2.5, chloride 116, bicarbonate 34, BUN 40, creatinine 1.1, glucose 92 and calcium 8.7. Microbiology; trachea secretion has yeast. Initial blood culture has E. Coli. Chest x-ray done this morning, shows bilateral pleural effusion, right greater than the left, no definite infiltrate, endotracheal tube and nasogastric tube been removed. IMPRESSION AND PLAN: Respiratory failure, presently extubated, severe cardiomyopathy, pulmonary hypertension, pancytopenia, leukopenia, acute myelocytic leukemia. Spoke to nursing staff. Requiring blood transfusion and platelet transfusion. Keep head elevated at 45 degrees. Continue dobutamine and bronchodilator aspiration precaution. Followup ABG, chest x-ray, CBC, CMP in the morning. Chest x-ray in the morning. Critical care time spent more than 35 minutes. Thank you and we will follow with you. Pablo Miguel MD [facility] # [id number]
[2017-06-23 04:28] LABS: (1-3)-B-D GLUCAN 40 pg/mL
[2017-06-23] MEDS: Meropenem 1g/NS 100mL IVPB 1 GM/100 ML PIGGYBACK IVPB SCH ×3 (05:27→21:45)
[2017-06-23] MEDS: Insulin Lispro (HUMAlog) HIGH Coverage SC SCH ×4 (06:00→17:49)
[2017-06-23 06:18] LABS: GRAN # 0.89 (1.4-6.5); HEMATOCRIT 28.3 % (42.0-52.0); LYMPH # 0.2 (1.2-3.4); LYMPH % 13.5 % (22.0-35.0); MEAN CELL VOLUME 87.1 fl (80.0-105.0); MEAN CORPUSCULAR HEMOGLOBIN 28.6 pg (25.0-35.0); MEAN CORPUSCULAR HGB CONC 32.9 g/dl (31.0-37.0); MONO # 0.3 (0.1-0.6); MONO % 19.5 % (1.0-6.0)
[2017-06-23 06:29] LABS: INR 1.8 (0.93-1.08)
[2017-06-23 06:33] LABS: ALB/GLOB RATIO 0.9 (1.1-1.8); ALKALINE PHOSPHATASE 73 U/L (38-133); AST/SGOT 174 U/L (15-59); BILIRUBIN,TOTAL 3.7 mg/dL (0.2-1.3); BLOOD UREA NITROGEN 45 mg/dL (7-21); CALCIUM 8.9 mg/dL (8.4-10.5); CARBON DIOXIDE 30 mmol/L (21-33); CHLORIDE 116 mmol/L (98-107); GFR AFRICAN-AMERICAN > 60; GLUCOSE,RANDOM 198 mg/dL (70-110); MAGNESIUM 1.6 mg/dL (1.7-2.2); PHOSPHOROUS 3.8 mg/dL (2.5-4.5); POTASSIUM 4.1 mmol/L (3.6-5.0); TOTAL PROTEIN 5.7 g/dL (5.8-8.3)
[2017-06-23 06:37] LABS: PLATELET COUNT 22 10^3/uL (120.0-450.0); WHITE BLOOD COUNT 1.3 10^3/ul (4.5-11.0)
[2017-06-23 06:47] LABS: ALT/SGPT 1316 U/L (7-56)
[2017-06-23 06:48] LABS: SODIUM 156 mmol/L (132-148)
[2017-06-23] MEDS: Levalbuterol 1.25 MG/3 ML Inhal Soln UD IH PRN ×2 (07:04→13:11)
--- NOTE | 2017-06-23 08:36 | RAD ---
HISTORY: Intubated COMPARISON: 06/22/2017 FINDINGS: LUNGS: Vascular congestion and bilateral infiltrates consistent with CHF. PLEURA: No significant pleural effusion identified, no pneumothorax apparent. CARDIOVASCULAR: Moderate to severe cardiomegaly OSSEOUS STRUCTURES: No significant abnormalities. VISUALIZED UPPER ABDOMEN: Normal. OTHER FINDINGS: None. IMPRESSION: Vascular congestion and bilateral infiltrates consistent with CHF. No significant change
[2017-06-23] MEDS: Micafungin 100 MG in Sodium Chloride 0.9% 100 ML IV SCH (10:14)
[2017-06-23] MEDS: Famotidine 20mg/50ml 20 MG/50 ML BAG IVPB SCH ×2 (10:22→21:45)
[2017-06-23 10:50] LABS: ARTERIAL BLOOD GAS HCO3 29.2 mmol/L (21-28); ARTERIAL BLOOD GAS PH 7.45 (7.35-7.45)
[2017-06-23 10:53] LABS: PH,URINE 6.5 (4.7-8.0); URINE BILIRUBIN NEGATIVE (NEGATIVE); URINE BLOOD SMALL (NEGATIVE); URINE GLUCOSE (UA) NEGATIVE (NEGATIVE); URINE KETONE 15 mg/dL (NEGATIVE); URINE LEUKOCYTE ESTERASE NEGATIVE Leu/uL (NEGATIVE); URINE PROTEIN 30 mg/dL (<30 mg/dL); URINE UROBILINOGEN 0.2 E.U./dL (<1 E.U./dL)
[2017-06-23 10:55] LABS: URINE COLOR YELLOW (YELLOW)
[2017-06-23 10:56] LABS: URINE APPEARANCE CLEAR (CLEAR)
[2017-06-23 11:08] LABS: URINE WBC NEGATIVE /hpf (0-6)
--- NOTE | 2017-06-23 11:14 | CP.PCM.PN ---
<JIM YU - Last Filed: 06/23/17 12:55> Subjective - Date & Time of Evaluation Date of Evaluation: 06/23/17 Time of Evaluation: 07:30 - Subjective Subjective: Jim uY DO PGY1 - ICU Progress Note Patient seen and examined at bedside. Nurse reported that overnight, patient was agitated and received one dose of morphine 1mg, then an hour later, 1mg ativan, at which point he relaxed. Today, he was lethargic, but arousable, responding to verbal stimuli, but only with eye opening and inappropriate noises. He localized painful stimuli, and was moving all four extremities spontaneously. Objective - Vital Signs/Intake and Output Vital Signs (last 24 hours): Temp Pulse Resp BP Pulse Ox 98.2 F 64 13 145/68 98 06/23/17 08:00 06/23/17 10:45 06/23/17 10:45 06/23/17 10:45 06/23/17 10:45 Intake and Output: 06/23/17 06/23/17 06:59 18:59 Intake Total 872 Output Total 800 Balance 72 - Medications Medications: Current Medications Dextrose (Dextrose 50% Inj) 50 ml IVP Q15M PRN PRN Reason: Hypoglycemia Last Admin: 06/22/17 11:58 Dose: 50 ml Docusate Sodium (Colace) 100 mg PO DAILY [facility] Last Admin: 06/23/17 10:09 Dose: Not Given Famotidine (Pepcid 20mg/50ml Premix) 20 mg in 50 mls @ 100 mls/hr IVPB Q12 OMARI Last Admin: 06/23/17 10:22 Dose: 100 mls/hr Micafungin Sodium 100 mg/ (Sodium Chloride) 100 mls @ 100 mls/hr IV DAILY OMARI PRN Reason: Protocol Stop: 06/27/17 10:01 Last Admin: 06/23/17 10:14 Dose: 100 mls/hr Meropenem 1g/NS 100mL IVPB (Meropenem 1g/Ns 100ml Ivpb) 1 gm in 100 mls @ 100 mls/hr IVPB Q8 OMARI PRN Reason: Protocol Stop: 07/01/17 14:01 Last Admin: 06/23/17 05:27 Dose: 100 mls/hr Dobutamine HCl/Dextrose (Dobutamine/Dextrose 5% 500mg/250ml) 500 mg in 250 mls @ 5.964 mls/hr IV .Q24H PRN; Protocol; 2.5 MCG/KG/MIN PRN Reason: TITRATE PER PROTOCOL Last Admin: 06/22/17 07:55 Dose: 2.5 mcg/kg/min, 5.964 mls/hr Dextrose (Dextrose 5% In Water 1000 Ml) 1,000 mls @ 50 mls/hr IV .Q20H OMARI Last Admin: 06/22/17 22:14 Dose: 50 mls/hr Insulin Human Lispro (Humalog High) 0 units SC Q6H OMARI PRN Reason: Protocol Last Admin: 06/23/17 06:00 Dose: Not Given Levalbuterol HCl (Xopenex) 1.25 mg IH [id number] PRN PRN Reason: Shortness of Breath Last Admin: 06/23/17 07:04 Dose: 1.25 mg Ondansetron HCl (Zofran Inj) 4 mg IVP Q6H PRN PRN Reason: Nausea/Vomiting Last Admin: 06/22/17 12:33 Dose: 4 mg - Labs Labs: 06/23/17 05:30 06/23/17 05:30 PT 19.4 Seconds (9.9-11.8) H 06/23/17 05:30 INR 1.80 (0.93-1.08) H 06/23/17 05:30 APTT 35.9 Seconds (23.7-30.8) H 06/19/17 05:45 - Constitutional Appears: Confused, Chronically Ill - Head Exam Head Exam: ATRAUMATIC, NORMOCEPHALIC - Eye Exam Eye Exam: PERRL - ENT Exam ENT Exam: Mucous Membranes Moist - Neck Exam Neck Exam: absent: Lymphadenopathy, Thyromegaly Additional comments: R IJ central line in place, with soft tissue edema, no expanding hematoma - Respiratory Exam Respiratory Exam: Decreased Breath Sounds, Rales, Rhonchi - Cardiovascular Exam Cardiovascular Exam: RRR, +S1, +S2. absent: Bradycardia, Tachycardia, JVD - GI/Abdominal Exam GI & Abdominal Exam: Soft. absent: Distended, Firm, Guarding, Rigid - Extremities Exam Extremities Exam: absent: Pedal Edema Additional comments: b/l UE edema, nonpitting - Neurological Exam Additional comments: Lethargic, responsive to verbal stimuli with eye opening and inappropriate noises. Remains very confused, and not obeying simple commands. GCS 12-13. PERRL. Moving all four extremities spontaneously. Wincing to painful stimuli on all four extremities. 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 Remains neutropenic, with ANC 870. Plan: Neuro: - Neuro status unchanged since yesterday. Off sedation, was agitated overnight, received 1mg morphine and 1mg ativan, last dose at 10PM. Currently lethargic but arousable, responsive to verbal stimuli, but only making inappropriate sounds, and not obeying commands. - AMS likely 2/2 to sepsis vs CVA vs hypernatremia vs hepatic encephalopathy in the setting of acute liver failure - Platelet count was 8 two days ago, and neuro status in unchanging. Obtained head CT which showed possible bifrontal and left occipital hemorrhages vs calcifications and potential left sided pontine infarct. - Neuro (Claudia) consulted. Consider repeat head CT tomorrow if worsening or no improvement in mental status - Ordered 2U platelets and 5mg Vit K - Will obtain ammonia level, and start lactulose if elevated - No longer hypoglycemic. Hypernatremia improving, but still has significant free water deficit, in a volume overloaded state. - Will hold fluids and start Lasix for diuresis and natruesis, with repeat BMP this afternoon to monitor electrolytes. - Continue to monitor. Neuro consult if any significant findings on head CT, or if no changes in mental status CV: - No longer in shock, off all pressors, BP stable - S/p 7 U PRBC, 7U plt, 1U FFP, in addition to large amount of fluid administration. Approximately 11L+ fluid balance since admission. - Will continue with optimization of acid base status and fluid management, to maintain BP. - Start Lasix to improve fluid overloaded state - Echo completed, significant for apical hypokinesis and severely impared systolic function with LVEF of 31% - On dobutamine, per sales development consultant, as positive inotrope to improve heart function and reduce pulmonary edema - Maintain MAP>65 Pulm: - Was on HFNC at FiO2 50%. Oxygenating well. Will titrate down to 30%, then switch to NC. - ABG today shows borderline metabolic alkalosis. Mildly elevated lactate. - Chest CT complete, pending read, but appears to have b/l LL PNA with complete consolidation of both lobes with b/l pleural effusion. - Will likely add vancomycin for MRSA coverage, but ID on case, will consult prior to initiating. - Protective lung strategies GI: - Currently NPO, failed swallow eval. Will repeat swallow eval if neuro status improves, otherwise, will insert NG tube for PO meds and feeds - Transaminitis improving, though INR increased again today, acute liver failure likely 2/2 shock state and MODS - GI (Brian) on consult, all recs appreciated - RUQ US completed, negative for signs of cholecystitis, cholangitis, cholelithiasis, or choledocholithiasis - Pepcid for PPx Renal: - DONTE likely 2/2 hypoperfusion in the setting of shock, resolved - UO 4300 over the past 24 hours, but still had positive fluid balance. Will continue to diurese to improve fluid overloaded state. Monitor lytes - Persistent hypernatremia and hyperchloremia, with significant free water deficit. On D5 at 50cc/hr, will hold at this time, and start naturesis and diuresis with a loop diuretic. - Strict I's and O's - Maintain euvolemia - Monitor and replete lytes as needed - Nephro ([place]) on consult, all recs appreciated Endo: - History of DM, hold all oral hypoglycemics - Currently NPO, will consider placing an NG tube tomorrow, but risk of aspiration is high - Accucheck Q6 and ACHS, with SSI high - Maintain euglycemia Hem/Onc: - Pancytopenic 2/2 AML s/p chemotherapy (HiDAC) and Neulasta, last dose of both 06/16/2017. WBC improved today to 1.3, ANC 870 - s/p 7U PRBC, 7U platelets, and 1 FFP. Hgb today 9.3, platelets 22,000 - Ordered 2U platelets and 5mg Vit K, per hem/onc - No colony stimulating factor indicated at this time, per Hem/Onc - Hem/Onc consulted, all recs appreciated ID: - Septic shock in the setting of pancytopenia. Likely 2/2 to indwelling PICC line infection, vs UTI vs PNA - Shock state resolved, though still neutropenic. No longer acidotic, lactate 2.4, tachypnic, tachycardic, or hypotensive. - UCx negative. BCx significant for ESBL+ E. coli. Repeat BCx shows no growth after 48hrs. Sputum Cx light growth of yeast. - PICC line removed for source control, after placement of a central line - On merrem and mycamine (d5), received one dose of amikacin on admission, and zosyn and vanc in the ER - Will defer to ID for selection of an antibiotic for likely PNA seen on chest CT - ID consulted (Taj), all recs appreciated Ppx: Thrombocytopenic, no DVT ppx indicated. Pepcid for GI Patient seen, discussed, and reviewed with attending <Alberto Almaraz - Last Filed: 06/23/17 14:00> Objective - Vital Signs/Intake and Output Vital Signs (last 24 hours): Temp Pulse Resp BP Pulse Ox 98.2 F 64 13 142/83 98 06/23/17 08:00 06/23/17 10:45 06/23/17 10:45 06/23/17 11:14 06/23/17 10:45 Intake and Output: 06/23/17 06/23/17 06:59 18:59 Intake Total 872 Output Total 800 Balance 72 - Medications Medications: Current Medications Dextrose (Dextrose 50% Inj) 50 ml IVP Q15M PRN PRN Reason: Hypoglycemia Last Admin: 06/22/17 11:58 Dose: 50 ml Docusate Sodium (Colace) 100 mg PO DAILY [facility] Last Admin: 06/23/17 10:09 Dose: Not Given Famotidine (Pepcid 20mg/50ml Premix) 20 mg in 50 mls @ 100 mls/hr IVPB Q12 OMARI Last Admin: 06/23/17 10:22 Dose: 100 mls/hr Micafungin Sodium 100 mg/ (Sodium Chloride) 100 mls @ 100 mls/hr IV DAILY OMARI PRN Reason: Protocol Stop: 06/27/17 10:01 Last Admin: 06/23/17 10:14 Dose: 100 mls/hr Meropenem 1g/NS 100mL IVPB (Meropenem 1g/Ns 100ml Ivpb) 1 gm in 100 mls @ 100 mls/hr IVPB Q8 OMARI PRN Reason: Protocol Stop: 07/01/17 14:01 Last Admin: 06/23/17 13:07 Dose: 100 mls/hr Dobutamine HCl/Dextrose (Dobutamine/Dextrose 5% 500mg/250ml) 500 mg in 250 mls @ 5.964 mls/hr IV .Q24H PRN; Protocol; 2.5 MCG/KG/MIN PRN Reason: TITRATE PER PROTOCOL Last Admin: 06/22/17 07:55 Dose: 2.5 mcg/kg/min, 5.964 mls/hr Dextrose (Dextrose 5% In Water 1000 Ml) 1,000 mls @ 50 mls/hr IV .Q20H [facility] Last Admin: 06/22/17 22:14 Dose: 50 mls/hr Insulin Human Lispro (Humalog High) 0 units SC Q6H OMARI PRN Reason: Protocol Last Admin: 06/23/17 12:26 Dose: 4 units Levalbuterol HCl (Xopenex) 1.25 mg IH [id number] PRN PRN Reason: Shortness of Breath Last Admin: 06/23/17 13:11 Dose: 1.25 mg Ondansetron HCl (Zofran Inj) 4 mg IVP Q6H PRN PRN Reason: Nausea/Vomiting Last Admin: 06/22/17 12:33 Dose: 4 mg - Labs Labs: 06/23/17 05:30 06/23/17 13:00 PT 19.4 Seconds (9.9-11.8) H 06/23/17 05:30 INR 1.80 (0.93-1.08) H 06/23/17 05:30 APTT 35.9 Seconds (23.7-30.8) H 06/19/17 05:45 Assessment and Plan - Assessment and Plan (Free Text) Assessment: Patient seen and examined, case discussed with resident on rounds. Agree with Physical exam and A/P. Patient currently HD stable, afebrile, comfortable on 4LNC, remains off vasopressors. Patient remains altered, but family reports he recognizes and attempts to converse with them. CT head done today shows ?possible bifrontal and left occipital hemorrhages vs calcifications and potential left sided pontine infarct. Neurology consult placed. Gram negative bacteremia Severe Sepsis Resp failure, s/p extubation Systolic CHF, volume overload AMS Thrombocytopenia AML on chemo Neutropenia Hypernatremia ?IPH Recommend - continue to monitor resp status, patient tolerating NC well - duonebs PRN - IV diuresis - follow up renal - Neurology consult, may need repeat CTH vs MRI - transfuse 2u platelets, Vit k IV - abx as per ID - follow up official CT chest read - follow up hematology - titrate off dobutamine - keep NPO for now - GI ppx, Pepcid - DVT ppx SCDs Family updated of clinical status Critical care time 35 minutes
--- NOTE | 2017-06-23 11:46 | PN ---
DATE: SUBJECTIVE: The patient is in the ICU earlier this morning. He was seen earlier this morning in the ICU room number 128, bed 2. No fevers reported and no chills. The patient status is stable. PHYSICAL EXAMINATION VITAL SIGNS: Temperature is 98, blood pressure is 120/60, and respiratory rate of 18. HEENT: Unremarkable. NECK: Supple. CARDIOPULMONARY: Normal S1 and S2. LUNGS: Decreased breath sounds. ABDOMEN: Soft and nontender. LABORATORY DATA: Examination reveals white count is 1.3, hemoglobin of 9, and platelets of 22. Chemistry reveals a BUN of 45, creatinine of 1.2, AST is 174, and ALT is 1316. Urinalysis is noted and beta 1, 3-D glucan is negative. Microbiology reveals initial blood cultures are E. coli. Urine culture initially had no growth. Sputum culture has yeast and initial procalcitonin was elevated 15.6. MEDICATIONS: Reviewing medications revealed the patient to be on meropenem and micafungin. Dr. Miguel's note is reviewed. ASSESSMENT AND PLAN: He is a 71-year-old male who remains extubated, comfortable admitted with severe sepsis with status post septic shock with multiorgan failure including acute renal failure, which is resolved status post ventilatory dependent hypoxic respiratory failure and acute encephalopathy with extended-spectrum beta-lactamase Escherichia coli bacteremia due to peripherally inserted central catheter line, status post removal 4 days ago, currently off of vasopressors and extubated in the patient with setting of leukemia, status post chemotherapy with pancytopenia, hypertension and diabetes, on meropenem and micafungin with white count today is up to 1.3 with an absolute neutrophil count of 890. We will continue to meropenem and micafungin, we will order a serum cryptococcal antigen. We will make further recommendations. Gustavo Billings MD
[2017-06-23] MEDS ORDERED: Magnesium Sulfate 2 GM in Sodium Chloride 0.9% 100 ML IVPB ONE (11:54)
--- NOTE | 2017-06-23 12:37 | CT ---
PROCEDURE: CT HEAD WITHOUT CONTRAST. HISTORY: ams COMPARISON: None available. TECHNIQUE: Axial computed tomography images were obtained through the head/brain without intravenous contrast. Radiation dose: Total exam DLP = 779.46 mGy-cm. This CT exam was performed using one or more of the following dose reduction techniques: Automated exposure control, adjustment of the mA and/or kV according to patient size, and/or use of iterative reconstruction technique. FINDINGS: HEMORRHAGE: There are tiny areas of linear hyperdensity seen related to 2 bilateral right frontal gyri Re, 1 on the left and another at the right, with a similar focus identified in the left occipital lobe. The lack of prior imaging limits differentiation of calcification from trace hemorrhage and follow-up head CT is advised. No large intracranial hemorrhage is identified nevertheless. Extra-axial spaces appear unremarkable diffusely. BRAIN: No mass effect or edema. Mild diffuse cerebral atrophy is appreciated manifest by expansion of the ventricular sulcal and cisternal spaces. Imaging through the brainstem is artifacted with a limited infarction in the left side of the izabela difficult to exclude. Follow-up MRI is advised. VENTRICLES: Unremarkable. No hydrocephalus. CALVARIUM: Unremarkable. PARANASAL SINUSES: Unremarkable as visualized. No significant inflammatory changes. MASTOID AIR CELLS: [id number] bilateral mastoiditis is appreciated, right greater than left, with right otitis media noted as well. Limited left otitis media is not excluded. OTHER FINDINGS: None. IMPRESSION: 1. Trace linear calcification or even possible hemorrhage is seen infrequently at the bilateral frontal lobes and the left occipital lobe. Calcification is probable. Follow-up CT is advised nevertheless. MRI can be used for evaluation as well. 2. Potential pontine infarction in the left side. Artifacts obscure this area. Follow-up brain MRI is advised without contrast for better characterization. 3. Mild diffuse cerebral atrophy encountered. 4. Bilateral mastoiditis incidentally noted as well as right otitis media. Limited left otitis media is not excluded. Findings discussed with Nurse Delaney who provided read back verification 06/23/2017 12:15 p.m.. A message was also left at Dr. Lane's office with my cell phone number 06/23/2017 11:50 a.m..
[2017-06-23] MEDS ORDERED: Phytonadione 5 MG in Sodium Chloride 0.9% 50 ML IV ONE (12:53)
[2017-06-23 13:20] LABS: BILIRUBIN,DIRECT 2.3 mg/dL (0.0-0.4); BLOOD UREA NITROGEN 50 mg/dL (7-21); CALCIUM 9.1 mg/dL (8.4-10.5); CARBON DIOXIDE 31 mmol/L (21-33); CHLORIDE 113 mmol/L (98-107); GFR AFRICAN-AMERICAN > 60; GLUCOSE,RANDOM 234 mg/dL (70-110); POTASSIUM 3.7 mmol/L (3.6-5.0); SODIUM 154 mmol/L (132-148)
--- NOTE | 2017-06-23 13:20 | CT ---
PROCEDURE: CT Chest without contrast HISTORY: fu overload COMPARISON: None. TECHNIQUE: Contiguous axial images were obtained through the chest without intravenous contrast enhancement. Sagittal and coronal reconstructions were performed. Radiation dose (DLP): 943 mGy-cm. This CT exam was performed using one or more of the following dose reduction techniques: Automated exposure control, adjustment of the mA and/or kV according to patient size, and/or use of iterative reconstruction technique. FINDINGS: LUNGS: There is dense consolidation of both lung bases with air bronchograms. MEDIASTINUM: Unremarkable thoracic aorta. No aneurysm. Normal sized heart. Main pulmonary artery unremarkable. No vascular congestion. No lymphadenopathy. PLEURA: Small bilateral pleural effusions. BONES: No fracture. No destructive lesion. UPPER ABDOMEN: Grossly unremarkable. OTHER FINDINGS: None. IMPRESSION: Dense alveolar consolidation of both lung bases posteriorly. Small bilateral pleural effusions. Findings could be secondary to pulmonary edema or pneumonia
--- NOTE | 2017-06-23 14:10 | CP.PCM.PN ---
<Yan Tipton - Last Filed: 06/23/17 14:47> Subjective - Date & Time of Evaluation Date of Evaluation: 06/23/17 Time of Evaluation: 07:10 - Subjective Subjective: Heme/ onc note for Dr Vázquez: Pt seen and examined at bedside in the ICU. Pt is on high flow oxygen. On Dobutamine 2.5mcg.Still not following any commands and appears restless. ROS unobtainable. Objective - Vital Signs/Intake and Output Vital Signs (last 24 hours): Temp Pulse Resp BP Pulse Ox 98.2 F 64 13 142/83 98 06/23/17 08:00 06/23/17 10:45 06/23/17 10:45 06/23/17 11:14 06/23/17 10:45 Intake and Output: 06/23/17 06/23/17 06:59 18:59 Intake Total 872 Output Total 800 Balance 72 - Medications Medications: Current Medications Dextrose (Dextrose 50% Inj) 50 ml IVP Q15M PRN PRN Reason: Hypoglycemia Last Admin: 06/22/17 11:58 Dose: 50 ml Docusate Sodium (Colace) 100 mg PO DAILY OMARI Last Admin: 06/23/17 10:09 Dose: Not Given Famotidine (Pepcid 20mg/50ml Premix) 20 mg in 50 mls @ 100 mls/hr IVPB Q12 OMARI Last Admin: 06/23/17 10:22 Dose: 100 mls/hr Micafungin Sodium 100 mg/ (Sodium Chloride) 100 mls @ 100 mls/hr IV DAILY OMARI PRN Reason: Protocol Stop: 06/27/17 10:01 Last Admin: 06/23/17 10:14 Dose: 100 mls/hr Meropenem 1g/NS 100mL IVPB (Meropenem 1g/Ns 100ml Ivpb) 1 gm in 100 mls @ 100 mls/hr IVPB Q8 OMARI PRN Reason: Protocol Stop: 07/01/17 14:01 Last Admin: 06/23/17 13:07 Dose: 100 mls/hr Dobutamine HCl/Dextrose (Dobutamine/Dextrose 5% 500mg/250ml) 500 mg in 250 mls @ 5.964 mls/hr IV .Q24H PRN; Protocol; 2.5 MCG/KG/MIN PRN Reason: TITRATE PER PROTOCOL Last Admin: 06/22/17 07:55 Dose: 2.5 mcg/kg/min, 5.964 mls/hr Dextrose (Dextrose 5% In Water 1000 Ml) 1,000 mls @ 50 mls/hr IV .Q20H OMARI Last Admin: 06/22/17 22:14 Dose: 50 mls/hr Insulin Human Lispro (Humalog High) 0 units SC Q6H OMARI PRN Reason: Protocol Last Admin: 06/23/17 12:26 Dose: 4 units Levalbuterol HCl (Xopenex) 1.25 mg IH [id number] PRN PRN Reason: Shortness of Breath Last Admin: 06/23/17 13:11 Dose: 1.25 mg Ondansetron HCl (Zofran Inj) 4 mg IVP Q6H PRN PRN Reason: Nausea/Vomiting Last Admin: 06/22/17 12:33 Dose: 4 mg - Labs Labs: 06/23/17 05:30 06/23/17 13:00 PT 19.4 Seconds (9.9-11.8) H 06/23/17 05:30 INR 1.80 (0.93-1.08) H 06/23/17 05:30 APTT 35.9 Seconds (23.7-30.8) H 06/19/17 05:45 - Constitutional Appears: No Acute Distress - Head Exam Head Exam: ATRAUMATIC - Eye Exam Eye Exam: PERRL - ENT Exam ENT Exam: Mucous Membranes Moist - Respiratory Exam Respiratory Exam: Clear to Ausculation Bilateral. absent: Rales, Rhonchi, Wheezes - Cardiovascular Exam Cardiovascular Exam: RRR, +S1, +S2 - GI/Abdominal Exam GI & Abdominal Exam: Soft, Normal Bowel Sounds. absent: Distended - Extremities Exam Extremities Exam: absent: Calf Tenderness, Pedal Edema - Skin Skin Exam: Dry, Intact, Warm Assessment and Plan - Assessment and Plan (Free Text) Assessment: 71 M with pmh of DM, BPH, HLD, and acute myelogenous leukemia s/p HiDAC treatment followed by [facility] presents with septic shock 2/2 ESBL E.coli bacterimia. Pancytopenic. Patient did receive 7+3 induction HiDAC and a second dose during hospitalization of 06/06-06/11; pt did follow up in the office on . Pt also has a matched 10/10 transplant donor. Pt was in septic shock requiring 3 pressors and intubated to protect airway. He is currently extubated and requiring high flow O2 and on Dobutamine. - CT head showed some changes and possible hemorrhage f/u CT or MRI rec - Neurology consulted for recs - Neutropenia - pt is s/p Neulasta - wbc inc to 1.3 this morning and will cont to monitor - Anemia - Hb this am 9.3 will cont to monitor - Thrombocytopenia - platelets of 22 this am - recommend transfusing 1 units of irradiated platelets - no bleeding - Transaminitis - improving f/u GI consult - ICU recs and management - F/u ID recs - picc line removed - Cont Chacha & Mycamine - Septic work up - E. coli + ESBL - F/u Renal consult - hypernatremia - F/u with patients oncologist at [facility] and plan was reviewed and discussed in detail with Dr Vázquez. <Sepideh Vázquez P - Last Filed: 06/23/17 22:53> Objective - Vital Signs/Intake and Output Vital Signs (last 24 hours): Temp Pulse Resp BP Pulse Ox 98 F 64 16 123/62 97 06/23/17 22:30 06/23/17 22:30 06/23/17 22:30 06/23/17 22:30 06/23/17 22:15 Intake and Output: 06/23/17 06/24/17 18:59 06:59 Intake Total 572 275 Output Total 3500 Balance -2928 275 - Medications Medications: Current Medications Dextrose (Dextrose 50% Inj) 50 ml IVP Q15M PRN PRN Reason: Hypoglycemia Last Admin: 06/22/17 11:58 Dose: 50 ml Docusate Sodium (Colace) 100 mg PO DAILY OMARI Last Admin: 06/23/17 10:09 Dose: Not Given Furosemide (Lasix) 40 mg IVP Q12 OMARI Last Admin: 06/23/17 21:00 Dose: 40 mg Famotidine (Pepcid 20mg/50ml Premix) 20 mg in 50 mls @ 100 mls/hr IVPB Q12 OMARI Last Admin: 06/23/17 21:45 Dose: 100 mls/hr Micafungin Sodium 100 mg/ (Sodium Chloride) 100 mls @ 100 mls/hr IV DAILY OMARI PRN Reason: Protocol Stop: 06/27/17 10:01 Last Admin: 06/23/17 10:14 Dose: 100 mls/hr Meropenem 1g/NS 100mL IVPB (Meropenem 1g/Ns 100ml Ivpb) 1 gm in 100 mls @ 100 mls/hr IVPB Q8 OMARI PRN Reason: Protocol Stop: 07/01/17 14:01 Last Admin: 06/23/17 21:45 Dose: 100 mls/hr Dobutamine HCl/Dextrose (Dobutamine/Dextrose 5% 500mg/250ml) 500 mg in 250 mls @ 5.964 mls/hr IV .Q24H PRN; Protocol; 2.5 MCG/KG/MIN PRN Reason: TITRATE PER PROTOCOL Last Admin: 06/23/17 21:43 Dose: 2.5 mcg/kg/min, 5.964 mls/hr Dextrose (Dextrose 5% In Water 1000 Ml) 1,000 mls @ 50 mls/hr IV .Q20H [facility] Last Admin: 06/22/17 22:14 Dose: 50 mls/hr Insulin Human Lispro (Humalog High) 0 units SC Q6H OMARI PRN Reason: Protocol Last Admin: 06/23/17 17:49 Dose: 2 units Levalbuterol HCl (Xopenex) 1.25 mg IH [id number] PRN PRN Reason: Shortness of Breath Last Admin: 06/23/17 13:11 Dose: 1.25 mg Ondansetron HCl (Zofran Inj) 4 mg IVP Q6H PRN PRN Reason: Nausea/Vomiting Last Admin: 06/22/17 12:33 Dose: 4 mg - Labs Labs: 06/23/17 05:30 06/23/17 13:00 PT 19.4 Seconds (9.9-11.8) H 06/23/17 05:30 INR 1.80 (0.93-1.08) H 06/23/17 05:30 APTT 35.9 Seconds (23.7-30.8) H 06/19/17 05:45 Attending/Attestation - Attestation I have personally seen and examined this patient.: Yes I have fully participated in the care of the patient.: Yes I have reviewed all pertinent clinical information, including history, physical exam and plan: Yes
--- NOTE | 2017-06-23 18:08 | PN ---
DATE: SUBJECTIVE: The patient is currently seen together with his family in ICU bed 2. The patient appears to be mildly sedated. The patient has failed multiple swallowing tests. Presently, his IV fluids have been discontinued because of a concern of hypervolemia and perhaps CHF on his chest CT scan. The patient's sodium had dropped from 160 down to 154 with hydration over the last 24 hours. He did receive hypotonic fluids. His potassium level has improved. MEDICATIONS: Medication list reviewed. The patient is currently on Colace, D5W has been discontinued. Dobutrex, sliding scale insulin, IV Lasix, meropenem, micafungin, Pepcid, Xopenex and Zofran. OBJECTIVE: INTAKE/OUTPUT: Intake 5524. Output 4300. VITAL SIGNS: Blood pressure is 124/67, heart rate is 66. Respiratory rate is 20, pulse ox is 99%. Temperature is 97.8. HEENT: Sclerae are icteric. Normocephalic and atraumatic. Conjunctivae are pale. NECK: Supple. No neck vein distention. CHEST: Clear to auscultation and percussion with scattered rhonchi. No rales or wheezing. Slight decreased breath sounds at the bases. CARDIOVASCULAR: S1 and S2 are normal. No audible murmurs, rubs or gallops noted. ABDOMEN: Soft. Bowel sounds normal. No rebound, no guarding, no masses, no distention. EXTREMITIES: No lower extremity pitting edema. No cyanosis or clubbing. Arms are puffy. LABORATORY DATA AND IMAGING: Chest CT done earlier today shows bilateral basilar infiltrates and small pleural effusions either consistent with pneumonia or CHF. CBC, white blood cell count is up to 1.3, hemoglobin is 9.3 stable. Platelet count remains low at 22,000. Blood gas today, pH 7.45 with a pO2 of 88 and a pCO2 of 42. Chemistries today sodium down to 154. Potassium 3.7, chloride 113 with a CO2 of 31, BUN up to 50 with a creatinine of 1.2. Glucose is 234, calcium is 9.1. Bilirubin is 3.7. Phosphorus 3.8, magnesium 1.6. Ammonia level was less than 9. Microbiology: Positive blood cultures for E. coli ESBL. Followup blood cultures have been negative at 3 days. Sputum is positive for yeast. ASSESSMENT: 1. Acute renal failure, mostly prerenal azotemia, this is in the setting of perhaps mild hypervolemia with the use of IV diuretic therapy. The patient is status post severe pancytopenia, neutropenic septic shock. He has Escherichia coli extended-spectrum beta-lactamase bacteremia in his blood and he is being treated with IV antibiotic therapy. Blood pressure has stabilized. The patient is currently being supported with inotropic agents Dobutrex. 2. Status post respiratory failure. The patient was extubated approximately 3 days ago. He appears to be stable on oxygen therapy. He remains mildly lethargic. 3. Status post severe anion gap metabolic acidosis. The patient receives sodium bicarbonate therapy during the hospitalization with CO2 level is currently normal and in the borderline elevated range at 31. He is no longer receiving any bicarbonate supplements. 4. Hypernatremia. I once again discussed with the staff, portable sawmill operator and house staff in the ICU patient requires hypotonic fluid administration. He has swallowing evaluation. He should have an nasogastric or an orogastric tube, perhaps Dobhoff tube placed so that he may receive free fluid. Otherwise, his sodium level would drift back up into the 160 range. He is currently down about 5 or 6 liters of free water. I suggest starting him back on tube feedings and getting approximately 300 mL of water every 3 hours through the tube feedings. 5. Status post hypokalemia, this has been replaced. With borderline low magnesium level, this can be replaced by the house staff. 6. Transaminitis secondary to shock liver. The patient's liver enzymes continued to fall back to baseline range. Bilirubin remains elevated. 7. History of diabetes. The patient remains on sliding scale insulin therapy. 8. Possible pneumonia, bilateral basilar pneumonia. The patient will continue IV antibiotic therapy. 9. Perhaps mild hypervolemia secondary to positive fluid balance over the last several days. The patient may continue IV diuretic therapy. In part, this is responsible for his prerenal azotemia. The patient should try and receive hydration through enteral means such as an orogastric or nasogastric Dobhoff tube. 10. History of acute myelogenous leukemia, status post chemotherapy, which is responsible for his pancytopenia, which led to the neutropenic sepsis. PLAN: 1. Once again discussed in great detail with house staff, portable sawmill operator and nursing staff in the ICU. 2. Suggest placement of a Dobhoff tube to start oral nutrition via enteral means along with oral fluid hydration. This should be safer than giving him IV fluid hydration in light of the fact that it is difficult to manage his volume status as the patient is developing more CHF and fluid retention. 3. Complete course of antibiotics for E. coli ESBL. 4. Monitor chest x-ray for any worsening of his possible bilateral level of pneumonia. 5. Continue to monitor labs on a daily basis. Greater than 35 minutes spent in the care of this critically ill patient. Lengthy discussion with the patient's family. Oswaldo Araya MD
[2017-06-23] MEDS: DOBUTamine 500mg/250ml D5W 500 MG/250 ML BAG IV PRN (21:43)
[2017-06-24] MEDS: Insulin Lispro (HUMAlog) HIGH Coverage SC SCH ×4 (00:39→17:31)
--- NOTE | 2017-06-24 04:58 | PN ---
DATE: 06/22/2017 SUBJECTIVE: The patient is a 71-year-old male. The patient was seen and examined on 06/22/2017 on the bedside, looking comfortable. No nausea, vomiting or diarrhea. No hematuria or hematochezia. Extubated on high-flow nasal cannula oxygen. Some coughing, shortness of breath, sputum production. Sometime getting anxious. No hematuria or hematochezia. The patient is not good in giving review of system. PHYSICAL EXAMINATION: VITAL SIGNS: Temperature 98.1, heart rate is 60, respiratory rate 18, blood pressure 120/40 and pulse ox 100% on high-flow nasal cannula. HEENT: Normocephalic and atraumatic. Eyes, PERRLA. Extraocular muscles intact. Conjunctivae clear. Nose patent. Mucous membranes are moist. NECK: Supple. No carotid bruit or thyromegaly. LUNGS: Has scattered rhonchi. Few crackles. HEART: S1 and S2 positive. ABDOMEN: Soft and nontender. No organomegaly. EXTREMITIES: No much edema. NEUROLOGIC: The patient is awake and alert. Follows simple commands. MEDICATIONS: Colace, IV fluid, dobutamine, insulin coverage, meropenem, micafungin, Pepcid, Xopenex, and Zofran. LABORATORY DATA: Hemoglobin 8.0, hematocrit 23.5, white blood cell 0.3, and platelets 21. Sodium 158, potassium 2.5, BUN 40, and creatinine 1.1. ASSESSMENT AND PLAN: Respiratory failure, apparently extubated; severe cardiomyopathy; pancytopenia; pulmonary hypertension; leukopenia; anemia; acute myelocytic leukemia. Anemia requiring blood transfusion and platelet transfusion. Fresh frozen plasma transfusion. Continue dobutamine and bronchodilators. Aspiration precaution. Pulmonology is on the case. Gastrointestinal and deep venous thrombosis prophylaxis. Repeat labs. We will follow. Melanie Lane MD
--- NOTE | 2017-06-24 05:13 | PN ---
SUBJECTIVE: The patient is seen and examined at the bedside. Daughter was standing on the left side also. One moment he is getting restless, second moment he was sleepy, arousable, but still moving all 4 extremities. As per nursing staff last night, the patient was very restless, was given Ativan and morphine. After that, he was sleepy. He is not able to give review of system but looks like not feverous. He is extubated. He is getting oxygen with nasal cannula. PHYSICAL EXAMINATION: VITAL SIGNS: Temperature 98.0, pulse 64, blood pressure 120/62 and respiratory rate 16. HEENT: Head is normocephalic and atraumatic. Eyes: PERRLA. Extraocular muscles intact. Conjunctivae clear. Nose patent. Mucous membrane moist. NECK: Supple. No carotid bruits, JVD, or thyromegaly. CHEST: Bilaterally symmetrical. HEART: S1 and S2 positive. LUNGS: Clear to auscultation. ABDOMEN: Soft. Bowel sounds present. No organomegaly. EXTREMITIES: No edema. No cyanosis. NEUROLOGIC: The patient is awake and alert. Moving all 4 extremities. No focal deficits. MEDICATIONS: Colace, dextrose, dobutamine, insulin, Lasix, meropenem, famotidine, Xopenex, and Zofran. LABORATORY DATA: White blood cell is 1.3, hemoglobin 9.3, hematocrit 28.3 and platelets 22. On admission, white blood cell was 0.0 increasing slowly, and platelets was 8, increasing slowly to 22. Sodium 154, potassium 3.7, BUN 50, creatinine 1.2 and glucose 177. ASSESSMENT AND PLAN: The patient is a 71-year-old male with pancytopenia, hypernatremia, hyperchloremia, hyperglycemia, abnormal liver function test, proteinuria and hematuria, seen by Dr. Oswaldo Araya, kitchen bath designer. The patient's acute renal failure mostly prerenal azotemia, may be due to hypovolemia due to use of IV diuretics therapy; neutropenic septic shock; Escherichia coli extended-spectrum beta-lactamases bacteremia in the blood and he is being treated with IV antibiotic therapy. Status post respiratory failure, now the patient is extubated approximately 3 days ago, appears to be stable on oxygen therapy status post recent non-anion gap metabolic acidosis, electrolyte imbalance, history of diabetes, possible bilateral basal pneumonia, history of acute myelogenous leukemia, status post chemotherapy, which is possible for his pancytopenia which lead to the neutropenic sepsis. Length of time discussion with patient's daughter, medical laboratory technical officer, house physician, nursing staff, suggested placement of Dobbhoff tube to start oral nutrition via g.t means along with oral fluid hydration. Continue antibiotics as per infectious disease. Gastrointestinal and deep vein thrombosis prophylaxis. Continue monitoring electrolytes. We will follow up. Melanie Lane MD MTDD
[2017-06-24] MEDS: Meropenem 1g/NS 100mL IVPB 1 GM/100 ML PIGGYBACK IVPB SCH ×3 (05:22→21:03)
[2017-06-24 06:27] LABS: ALB/GLOB RATIO 0.9 (1.1-1.8); ALKALINE PHOSPHATASE 91 U/L (38-133); ALT/SGPT 818 U/L (7-56); AST/SGOT 84 U/L (15-59); BILIRUBIN,TOTAL 4.6 mg/dL (0.2-1.3); BLOOD UREA NITROGEN 50 mg/dL (7-21); CALCIUM 9.1 mg/dL (8.4-10.5); CARBON DIOXIDE 32 mmol/L (21-33); CHLORIDE 113 mmol/L (98-107); GFR AFRICAN-AMERICAN > 60; GLUCOSE,RANDOM 159 mg/dL (70-110); TOTAL PROTEIN 5.8 g/dL (5.8-8.3)
[2017-06-24 06:36] LABS: SODIUM 154 mmol/L (132-148)
[2017-06-24 06:38] LABS: INR 1.72 (0.93-1.08)
[2017-06-24 06:39] LABS: BASO # 0.01 K/mm3 (0.0-2.0); BASO % 0.3 % (0.0-3.0); GRAN # 3.59 (1.4-6.5); GRAN % 95.5 % (50.0-68.0); HEMATOCRIT 29.1 % (42.0-52.0); LYMPH # 0.1 (1.2-3.4); LYMPH % 3.7 % (22.0-35.0); MEAN CELL VOLUME 86.9 fl (80.0-105.0); MEAN CORPUSCULAR HGB CONC 33.3 g/dl (31.0-37.0); MEAN PLATELET VOLUME 9.9 fl (7.0-11.0); MONO % 0.5 % (1.0-6.0); RED CELL DISTRIBUTION WIDTH 17.3 % (11.5-14.5); WHITE BLOOD COUNT 3.8 10^3/ul (4.5-11.0)
--- NOTE | 2017-06-24 07:34 | PN ---
DATE: 06/23/2017 PULMONARY PROGRESS NOTE REFERRING PHYSICIAN: Dr. Lane. SUBJECTIVE: He is lying in the bed, sleepy, arousable; has some cough. Family is at bedside does have a couple of hemoptysis. No emesis. No hematuria. No diarrhea reported. OBJECTIVE: VITAL SIGNS: Temperature 98, heart rate is 69, respiratory rate is 20, blood pressure 132/65 and pulse ox 98% on nasal cannula. HEENT: Moist mucous membranes. Crowded airway. Mallampati score is 4. NECK: Supple. No JVD. LUNGS: Scattered rhonchi. HEART: S1 and S2. ABDOMEN: Soft and nontender. There is no organomegaly. EXTREMITIES: Not much edema. NEUROLOGIC: Awake, alert. Does not follow much commands. MEDICATIONS: He is on Colace 100 mg twice a day, dextrose p.r.n. basis, dobutamine 2.5 mcg/kg/min, insulin coverage, Lasix 40 mg twice a day, meropenem 1 g IV q. 8 hours, Pepcid IV twice a day, Xopenex inhaled q. 6 hours p.r.n., Zofran 4 mg q. 6 hours p.r.n. LABORATORY DATA: Shows hemoglobin 9.3, hematocrit 38.3, WBC 1.3, platelet is 22. INR 1.80. Blood gases shows pH of 7.45, pCO2 of 42, O2 of 88, this is on supplemental oxygen. Sodium 154, potassium 3.7, chloride 113, bicarbonate 31, BUN 50, creatinine 1.2, glucose 237, calcium 9.1, total bilirubin 2.3, ammonia less than 9. Microbiology; tracheal secretion has yeast. Blood culture had E. coli on admission. Had a CAT scan of the head done today, which shows trace linear calcification or even possible hemorrhage seen infrequently at the bilateral frontal lobes and in the left occipital lobe. Calcification is possible. Potential pontine infarct in the left side. Mild diffused cerebral atrophy, bilateral mastoiditis incidentally noted. CAT scan of the chest done today, which shows dense alveolar consolidation of both lung bases, small right, bilateral pleural effusion. IMPRESSION AND PLAN: Respiratory failure, presently extubated, multilobar pneumonia, cardiomyopathy, acute myelocytic leukemia status post chemotherapy, presently pancytopenia, also have pulmonary hypertension. Case discussed with the nursing staff, spoke to medical chief technician. Requested to put a Dobbhoff feeding tube and start feeding. Keep head elevated at 45 degrees. Also, spoke with the patient's family at the bedside. Continue dobutamine and bronchodilator p.r.n. with suction. ABG, chest x-ray, CBC, CMP in the morning. May have petechial hemorrhage in the brain according to CT. If symptoms persist, may need to get MRI, and not a bad idea to get a stroke neurology opinion. Critical care time spent more than 35 minutes. Thank you and we will follow with you. Pablo Miguel MD
[2017-06-24] MEDS: Levalbuterol 1.25 MG/3 ML Inhal Soln UD IH PRN (07:48)
[2017-06-24] MEDS: Famotidine 20mg/50ml 20 MG/50 ML BAG IVPB SCH ×2 (09:13→21:04)
[2017-06-24] MEDS: Micafungin 100 MG in Sodium Chloride 0.9% 100 ML IV SCH (09:15)
--- NOTE | 2017-06-24 10:21 | CON ---
HISTORY OF PRESENT ILLNESS: This is a 71-year-old [place] male with past medical history of leukemia, and the patient was lethargic and extubated, and called to evaluate the patient. CAT scan of the head was done, which shows some linear calcification versus hemorrhage in the frontal lobe and left occipital. Also, some change in izabela and could be artifact, it is not clear, so we agreed to repeat the CAT scan of the head tomorrow and we will compare and follow it up. REVIEW OF SYSTEMS: The patient is still lethargic and the patient is getting platelets and also chemo. The patient had altered mental status. PHYSICAL EXAMINATION NEUROLOGIC: The patient follows one-step simple command. Both pupils reactive. Spontaneous movement of extremities noted, and the patient is able to show two fingers in response to verbal command. Otherwise, generally, weakness of all the extremities noted and deep tendon reflexes 1+. Both plantars are equivocal. Cerebellar, gait deferred. IMPRESSION: Encephalopathy, altered mental status due to multiple medical problems and also leukemia and neutropenic sepsis and the patient had septic shock and also has pancytopenia. PLAN: Continue present management, we will repeat the CAT scan of the head in the morning and compare and follow it up. Remi Taylor MD
--- NOTE | 2017-06-24 10:39 | CT ---
PROCEDURE: CT HEAD WITHOUT CONTRAST. HISTORY: f/u COMPARISON: Comparison CT scan brain 06/23/2017 TECHNIQUE: Axial computed tomography images were obtained through the head/brain without intravenous contrast. Note the examination is limited by motion artifact. Radiation dose: Total exam DLP = 725.84 mGy-cm. This CT exam was performed using one or more of the following dose reduction techniques: Automated exposure control, adjustment of the mA and/or kV according to patient size, and/or use of iterative reconstruction technique. FINDINGS: HEMORRHAGE: Motion artifact limits evaluation for subtle intracranial hemorrhage. No gross hemorrhages are identified BRAIN: Suspect mild chronic periventricular white matter ischemic changes which extend peripherally into the deep and subcortical white matter both cerebral hemispheres. Mild generalized volume loss. . VENTRICLES: No evidence of gross obstructive hydrocephalus CALVARIUM: No obvious acute calvarial fractures are identified on this limited study PARANASAL SINUSES: Minor mucosal thickening left maxillary antrum again noted. Is pacs. MASTOID AIR CELLS: Re- demonstrated is partial opacification both mastoid air complexes and both middle ear canals. OTHER FINDINGS: None. IMPRESSION: Limited study due to significant motion artifact which limits evaluation for subtle intracranial hemorrhage. . No gross intracranial hemorrhage identified on this study. Mild chronic periventricular white matter ischemic changes. Mild generalized volume loss.
--- NOTE | 2017-06-24 11:29 | CP.CCUPN ---
CCU Subjective - Physician Review Events Since Last Encounter (Free Text): 06/24/17 11:19 71 y/o M w/ Neutropenic sepsis . WBC count improving, Plateletes improving. No blood transfusions given overnight Extubated and mental status not improved. Following minimal commands CCU Objective - Vital Signs / Intake & Output Vital Signs (Last 4 hours): Vital Signs Temp Pulse Resp BP Pulse Ox 06/24/17 08:20 51 L 20 100 06/24/17 08:15 50 L 21 131/57 L 99 06/24/17 08:10 60 16 99 06/24/17 08:00 98.7 F 45 L 21 117/50 L 100 06/24/17 07:50 53 L 30 H 100 06/24/17 07:45 48 L 23 129/46 L 99 06/24/17 07:40 50 L 22 100 06/24/17 07:30 48 L 21 121/55 L 100 06/24/17 07:20 48 L 18 100 Intake and Output (Last 8hrs): Intake & Output 06/23/17 06/24/17 06/24/17 22:59 06:59 14:59 Intake Total 847 1261 Output Total 3500 5100 Balance -8856 -9956 Intake: IV 822 1058 IV medication 300 Right Internal Jugular 572 572 levophed 113 nahco3 drip 72 vasopressin 1 Oral 0 Blood Product 0 203 Apheresis Plts Acda Lr 0 203 1st Con Unit [id number] Other 25 Apheresis Plts Acda Lr 25 1st Con Unit [id number] Output: Gastric Amount 100 Stomach 100 Urine 3500 5000 Urethral ([place]) 3500 5000 Other: Voiding Method Indwelling Catheter Indwelling Catheter # Bowel Movements 0 - Physical Exam Physical Exam Limitations: Positive for: Altered Mental Status Head: Positive for: Atraumatic, Normocephalic Pupils: Positive for: PERRL Extroacular Muscles: Positive for: EOMI Conjunctiva: Positive for: Normal Mouth: Positive for: Moist Mucous Membranes Neck: Positive for: Normal Range of Motion Respiratory/Chest: Positive for: Clear to Auscultation, Good Air Exchange. Negative for: Respiratory Distress, Accessory Muscle Use Cardiovascular: Positive for: Regular Rate and Rhythm, Normal S1, S2. Negative for: Murmurs Abdomen: Positive for: Normal Bowel Sounds. Negative for: Tenderness, Distention, Peritoneal Signs Back: Positive for: Normal Inspection Upper Extremity: Positive for: Normal Inspection. Negative for: Cyanosis, Edema Lower Extremity: Positive for: Normal Inspection. Negative for: Edema Neurological: Positive for: GCS=15, CN II-XII Intact, Speech Normal, Other (R motor strength decreased ) Skin: Positive for: Warm, Dry, Normal Color. Negative for: Rashes Psychiatric: Positive for: Alert, Oriented x 3, Normal Insight, Normal Concentration - Medications Active Medications: Active Medications Generic Name Dose Route Start Last Admin Trade Name Freq PRN Reason Stop Dose Admin Dextrose 50 ml 06/22/17 08:04 06/22/17 11:58 Dextrose 50% Inj IVP 50 ml Q15M PRN Administration Hypoglycemia Docusate Sodium 100 mg 06/19/17 10:00 06/24/17 09:09 Colace PO Not Given DAILY OMARI Furosemide 40 mg 06/23/17 22:00 06/23/17 21:00 Lasix IVP 40 mg Q12 OMARI Administration Famotidine 20 mg in 50 mls @ 100 mls/hr 06/18/17 22:00 06/24/17 09:13 Pepcid 20mg/50ml Premix IVPB 100 mls/hr Q12 OMARI Administration Micafungin Sodium 100 mg/ 100 mls @ 100 mls/hr 06/20/17 10:00 06/24/17 09:15 Sodium Chloride IV 06/27/17 10:01 100 mls/hr DAILY OMARI Administration Protocol Meropenem 1g/NS 100mL IVPB 1 gm in 100 mls @ 100 mls/hr 06/21/17 14:00 05:22 Meropenem 1g/Ns 100ml Ivpb IVPB 07/01/17 14:01 100 mls/hr Q8 OMARI Administration Protocol Dobutamine HCl/Dextrose 500 mg in 250 mls @ 5.964 mls/hr 06/21/17 16:03 06/23 21:43 Dobutamine/Dextrose 5% 500mg/250ml IV 2.5 mcg/kg/min .Q24H PRN 5.964 mls/hr TITRATE PER PROTOCOL Administration Protocol 2.5 MCG/KG/MIN Dextrose 1,000 mls @ 50 mls/hr 06/22/17 22:00 06/22/17 22:14 Dextrose 5% In Water 1000 Ml IV 50 mls/hr .Q20H OMARI Administration Insulin Human Lispro 0 units 06/19/17 06:10 06/24/17 05:33 Humalog High SC Not Given Q6H [facility] Protocol Levalbuterol HCl 1.25 mg 06/18/17 15:04 06/24/17 07:48 Xopenex IH 1.25 mg [id number] PRN Administration Shortness of Breath Ondansetron HCl 4 mg 06/18/17 15:03 06/22/17 12:33 Zofran Inj IVP 4 mg Q6H PRN Administration Nausea/Vomiting - Patient Studies Lab Studies: Microbiology Studies 06/19/17 22:20 Blood Culture - Preliminary Blood-Venous NO GROWTH AFTER 4 DAYS 06/19/17 22:00 Blood Culture - Preliminary Blood-Venous NO GROWTH AFTER 4 DAYS Lab Studies 06/24/17 06/24/17 06/24/17 Range/Units 06:00 06:00 06:00 WBC 3.8 L D (4.5-11.0) 10^3/ul RBC 3.35 L (3.5-6.1) 10^6/uL Hgb 9.7 L (14.0-18.0) g/dL Hct 29.1 L (42.0-52.0) % MCV 86.9 (80.0-105.0) fl MCH 29.0 (25.0-35.0) pg MCHC 33.3 (31.0-37.0) g/dl RDW 17.3 H (11.5-14.5) % Plt Count 59 L (120.0-450.0) 10^3/uL MPV 9.9 (7.0-11.0) fl Gran % 95.5 H (50.0-68.0) % Lymph % (Auto) 3.7 L (22.0-35.0) % [place] % (Auto) 0.5 L (1.0-6.0) % Eos % (Auto) 0.0 L (1.5-5.0) % Baso % (Auto) 0.3 (0.0-3.0) % Gran # 3.59 (1.4-6.5) Lymph # 0.1 L (1.2-3.4) [place] # 0.0 L (0.1-0.6) Eos # 0.0 (0.0-0.7) Baso # 0.01 (0.0-2.0) K/mm3 PT 18.6 H (9.9-11.8) Seconds INR 1.72 H (0.93-1.08) Sodium 154 H (132-148) mmol/L Potassium 3.0 L (3.6-5.0) mmol/L Chloride 113 H (98-107) mmol/L Carbon Dioxide 32 (21-33) mmol/L Anion Gap 12 (10-20) BUN 50 H (7-21) mg/dL Creatinine 1.2 (0.5-1.4) mg/dL Est GFR ( Amer) > 60 Est GFR (Non-Af Amer) > 60 POC Glucose (mg/dL) (65-110) mg/dL Random Glucose 159 H (70-110) mg/dL Calcium 9.1 (8.4-10.5) mg/dL Total Bilirubin 4.6 H (0.2-1.3) mg/dL Direct Bilirubin (0.0-0.4) mg/dL AST 84 H (15-59) U/L ALT 818 H (7-56) U/L Alkaline Phosphatase 91 (38-133) U/L Ammonia (9-33) umol/L Total Protein 5.8 (5.8-8.3) g/dL Albumin 2.8 L (3.0-4.8) g/dL Globulin 3.0 gm/dL Albumin/Globulin Ratio 0.9 L (1.1-1.8) Crossmatch 06/24/17 06/23/17 06/23/17 Range/Units 00:37 16:23 13:00 WBC (4.5-11.0) 10^3/ul RBC (3.5-6.1) 10^6/uL Hgb (14.0-18.0) g/dL Hct (42.0-52.0) % MCV (80.0-105.0) fl MCH (25.0-35.0) pg MCHC (31.0-37.0) g/dl RDW (11.5-14.5) % Plt Count (120.0-450.0) 10^3/uL MPV (7.0-11.0) fl Gran % (50.0-68.0) % Lymph % (Auto) (22.0-35.0) % [place] % (Auto) (1.0-6.0) % Eos % (Auto) (1.5-5.0) % Baso % (Auto) (0.0-3.0) % Gran # (1.4-6.5) Lymph # (1.2-3.4) [place] # (0.1-0.6) Eos # (0.0-0.7) Baso # (0.0-2.0) K/mm3 PT (9.9-11.8) Seconds INR (0.93-1.08) Sodium (132-148) mmol/L Potassium (3.6-5.0) mmol/L Chloride (98-107) mmol/L Carbon Dioxide (21-33) mmol/L Anion Gap (10-20) BUN (7-21) mg/dL Creatinine (0.5-1.4) mg/dL Est GFR ( Amer) Est GFR (Non-Af Amer) POC Glucose (mg/dL) 145 H 177 H (65-110) mg/dL Random Glucose (70-110) mg/dL Calcium (8.4-10.5) mg/dL Total Bilirubin (0.2-1.3) mg/dL Direct Bilirubin (0.0-0.4) mg/dL AST (15-59) U/L ALT (7-56) U/L Alkaline Phosphatase (38-133) U/L Ammonia < 9 L (9-33) umol/L Total Protein (5.8-8.3) g/dL Albumin (3.0-4.8) g/dL Globulin gm/dL Albumin/Globulin Ratio (1.1-1.8) Crossmatch 06/23/17 06/23/17 06/23/17 Range/Units 13:00 12:19 08:54 WBC (4.5-11.0) 10^3/ul RBC (3.5-6.1) 10^6/uL Hgb (14.0-18.0) g/dL Hct (42.0-52.0) % MCV (80.0-105.0) fl MCH (25.0-35.0) pg MCHC (31.0-37.0) g/dl RDW (11.5-14.5) % Plt Count (120.0-450.0) 10^3/uL MPV (7.0-11.0) fl Gran % (50.0-68.0) % Lymph % (Auto) (22.0-35.0) % [place] % (Auto) (1.0-6.0) % Eos % (Auto) (1.5-5.0) % Baso % (Auto) (0.0-3.0) % Gran # (1.4-6.5) Lymph # (1.2-3.4) [place] # (0.1-0.6) Eos # (0.0-0.7) Baso # (0.0-2.0) K/mm3 PT (9.9-11.8) Seconds INR (0.93-1.08) Sodium 154 H (132-148) mmol/L Potassium 3.7 (3.6-5.0) mmol/L Chloride 113 H (98-107) mmol/L Carbon Dioxide 31 (21-33) mmol/L Anion Gap 14 (10-20) BUN 50 H (7-21) mg/dL Creatinine 1.2 (0.5-1.4) mg/dL Est GFR ( Amer) > 60 Est GFR (Non-Af Amer) > 60 POC Glucose (mg/dL) 234 H 240 H (65-110) mg/dL Random Glucose 234 H (70-110) mg/dL Calcium 9.1 (8.4-10.5) mg/dL Total Bilirubin (0.2-1.3) mg/dL Direct Bilirubin 2.3 H (0.0-0.4) mg/dL AST (15-59) U/L ALT (7-56) U/L Alkaline Phosphatase (38-133) U/L Ammonia (9-33) umol/L Total Protein (5.8-8.3) g/dL Albumin (3.0-4.8) g/dL Globulin gm/dL Albumin/Globulin Ratio (1.1-1.8) Crossmatch 06/21/17 Range/Units 07:06 WBC (4.5-11.0) 10^3/ul RBC (3.5-6.1) 10^6/uL Hgb (14.0-18.0) g/dL Hct (42.0-52.0) % MCV (80.0-105.0) fl MCH (25.0-35.0) pg MCHC (31.0-37.0) g/dl RDW (11.5-14.5) % Plt Count (120.0-450.0) 10^3/uL MPV (7.0-11.0) fl Gran % (50.0-68.0) % Lymph % (Auto) (22.0-35.0) % [place] % (Auto) (1.0-6.0) % Eos % (Auto) (1.5-5.0) % Baso % (Auto) (0.0-3.0) % Gran # (1.4-6.5) Lymph # (1.2-3.4) [place] # (0.1-0.6) Eos # (0.0-0.7) Baso # (0.0-2.0) K/mm3 PT (9.9-11.8) Seconds INR (0.93-1.08) Sodium (132-148) mmol/L Potassium (3.6-5.0) mmol/L Chloride (98-107) mmol/L Carbon Dioxide (21-33) mmol/L Anion Gap (10-20) BUN (7-21) mg/dL Creatinine (0.5-1.4) mg/dL Est GFR ( Amer) Est GFR (Non-Af Amer) POC Glucose (mg/dL) (65-110) mg/dL Random Glucose (70-110) mg/dL Calcium (8.4-10.5) mg/dL Total Bilirubin (0.2-1.3) mg/dL Direct Bilirubin (0.0-0.4) mg/dL AST (15-59) U/L ALT (7-56) U/L Alkaline Phosphatase (38-133) U/L Ammonia (9-33) umol/L Total Protein (5.8-8.3) g/dL Albumin (3.0-4.8) g/dL Globulin gm/dL Albumin/Globulin Ratio (1.1-1.8) Crossmatch See Detail Laboratory Results - last 24 hr 06/21/17 06/23/17 06/23/17 07:06 08:54 12:19 WBC RBC Hgb Hct MCV MCH MCHC RDW Plt Count MPV Gran % Lymph % (Auto) [place] % (Auto) Eos % (Auto) Baso % (Auto) Gran # Lymph # [place] # Eos # Baso # PT INR Sodium Potassium Chloride Carbon Dioxide Anion Gap BUN Creatinine Est GFR ( Amer) Est GFR (Non-Af Amer) POC Glucose (mg/dL) 240 H 234 H Random Glucose Calcium Total Bilirubin Direct Bilirubin AST ALT Alkaline Phosphatase Ammonia Total Protein Albumin Globulin Albumin/Globulin Ratio Crossmatch See Detail 06/23/17 06/23/17 06/23/17 13:00 13:00 16:23 WBC RBC Hgb Hct MCV MCH MCHC RDW Plt Count MPV Gran % Lymph % (Auto) [place] % (Auto) Eos % (Auto) Baso % (Auto) Gran # Lymph # [place] # Eos # Baso # PT INR Sodium 154 H Potassium 3.7 Chloride 113 H Carbon Dioxide 31 Anion Gap 14 BUN 50 H Creatinine 1.2 Est GFR ( Amer) > 60 Est GFR (Non-Af Amer) > 60 POC Glucose (mg/dL) 177 H Random Glucose 234 H Calcium 9.1 Total Bilirubin Direct Bilirubin 2.3 H AST ALT Alkaline Phosphatase Ammonia < 9 L Total Protein Albumin Globulin Albumin/Globulin Ratio Crossmatch 06/24/17 06/24/17 06/24/17 00:37 06:00 06:00 WBC 3.8 L D RBC 3.35 L Hgb 9.7 L Hct 29.1 L MCV 86.9 MCH 29.0 MCHC 33.3 RDW 17.3 H Plt Count 59 L MPV 9.9 Gran % 95.5 H Lymph % (Auto) 3.7 L [place] % (Auto) 0.5 L Eos % (Auto) 0.0 L Baso % (Auto) 0.3 Gran # 3.59 Lymph # 0.1 L [place] # 0.0 L Eos # 0.0 Baso # 0.01 PT 18.6 H INR 1.72 H Sodium Potassium Chloride Carbon Dioxide Anion Gap BUN Creatinine Est GFR ( Amer) Est GFR (Non-Af Amer) POC Glucose (mg/dL) 145 H Random Glucose Calcium Total Bilirubin Direct Bilirubin AST ALT Alkaline Phosphatase Ammonia Total Protein Albumin Globulin Albumin/Globulin Ratio Crossmatch 06/24/17 06:00 WBC RBC Hgb Hct MCV MCH MCHC RDW Plt Count MPV Gran % Lymph % (Auto) [place] % (Auto) Eos % (Auto) Baso % (Auto) Gran # Lymph # [place] # Eos # Baso # PT INR Sodium 154 H Potassium 3.0 L Chloride 113 H Carbon Dioxide 32 Anion Gap 12 BUN 50 H Creatinine 1.2 Est GFR ( Amer) > 60 Est GFR (Non-Af Amer) > 60 POC Glucose (mg/dL) Random Glucose 159 H Calcium 9.1 Total Bilirubin 4.6 H Direct Bilirubin AST 84 H ALT 818 H Alkaline Phosphatase 91 Ammonia Total Protein 5.8 Albumin 2.8 L Globulin 3.0 Albumin/Globulin Ratio 0.9 L Crossmatch Fingerstick Blood Sugar Results: 180 Review of Systems - EENT Eyes: UNREMARKABLE Ears: UNREMARKABLE Nose/Mouth/Throat: UNREMARKABLE - Cardiovascular Cardiovascular: UNREMARKABLE - Respiratory Respiratory: UNREMARKABLE - Gastrointestinal Gastrointestinal: UNREMARKABLE Critical Care Progress Note - Nutrition Nutrition: Nutrition Category Date Time Status Pureed [Dysphagia/Modified Consistency Diet] [DIET] Diets 06/24/17 Lunch Ordered Assessment/Plan - Assessment and Plan (Free Text) Assessment: 71 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 Platelets > 10K, INR< 2 and HGB> 7 Mental status not improving. Will need f/u MRI to determine the findings on the head CT and confirm the findings. AML, Oncology following awaiting improvement before possible aml treatment/ transfer dvt P SCD ppi cc time 65 min
--- NOTE | 2017-06-24 12:36 | CP.PCM.PN ---
Subjective - Date & Time of Evaluation Date of Evaluation: 06/24/17 Time of Evaluation: 12:34 - Subjective Subjective: seen in icu remains critically ill Objective - Vital Signs/Intake and Output Vital Signs (last 24 hours): Temp Pulse Resp BP Pulse Ox 98.7 F 51 L 20 132/64 100 06/24/17 08:00 06/24/17 08:20 06/24/17 08:20 06/24/17 12:12 06/24/17 08:20 Intake and Output: 06/24/17 06/24/17 06:59 18:59 Intake Total 1536 Output Total 5100 Balance -3564 - Medications Medications: Current Medications Dextrose (Dextrose 50% Inj) 50 ml IVP Q15M PRN PRN Reason: Hypoglycemia Last Admin: 06/22/17 11:58 Dose: 50 ml Docusate Sodium (Colace) 100 mg PO DAILY [facility] Last Admin: 06/24/17 09:09 Dose: Not Given Furosemide (Lasix) 40 mg IVP Q12 OMARI Last Admin: 06/24/17 12:12 Dose: 40 mg Famotidine (Pepcid 20mg/50ml Premix) 20 mg in 50 mls @ 100 mls/hr IVPB Q12 OMARI Last Admin: 06/24/17 09:13 Dose: 100 mls/hr Meropenem 1g/NS 100mL IVPB (Meropenem 1g/Ns 100ml Ivpb) 1 gm in 100 mls @ 100 mls/hr IVPB Q8 OMARI PRN Reason: Protocol Stop: 07/01/17 14:01 Last Admin: 06/24/17 05:22 Dose: 100 mls/hr Dobutamine HCl/Dextrose (Dobutamine/Dextrose 5% 500mg/250ml) 500 mg in 250 mls @ 5.964 mls/hr IV .Q24H PRN; Protocol; 2.5 MCG/KG/MIN PRN Reason: TITRATE PER PROTOCOL Last Admin: 06/23/17 21:43 Dose: 2.5 mcg/kg/min, 5.964 mls/hr Dextrose (Dextrose 5% In Water 1000 Ml) 1,000 mls @ 50 mls/hr IV .Q20H OMARI Last Admin: 06/22/17 22:14 Dose: 50 mls/hr Insulin Human Lispro (Humalog High) 0 units SC Q6H OMARI PRN Reason: Protocol Last Admin: 06/24/17 12:15 Dose: Not Given Levalbuterol HCl (Xopenex) 1.25 mg IH [id number] PRN PRN Reason: Shortness of Breath Last Admin: 06/24/17 07:48 Dose: 1.25 mg Ondansetron HCl (Zofran Inj) 4 mg IVP Q6H PRN PRN Reason: Nausea/Vomiting Last Admin: 06/22/17 12:33 Dose: 4 mg - Labs Labs: 06/24/17 06:00 06/24/17 06:00 PT 18.6 Seconds (9.9-11.8) H 06/24/17 06:00 INR 1.72 (0.93-1.08) H 06/24/17 06:00 APTT 35.9 Seconds (23.7-30.8) H 06/19/17 05:45 - Constitutional Appears: Toxic - Head Exam Head Exam: ATRAUMATIC - Eye Exam Eye Exam: Normal appearance - ENT Exam ENT Exam: Normal Exam - Neck Exam Neck Exam: Normal Inspection - Respiratory Exam Respiratory Exam: NORMAL BREATHING PATTERN - Cardiovascular Exam Cardiovascular Exam: +S1, +S2 - Extremities Exam Additional comments: trace edema - Neurological Exam Additional comments: follows commands - Psychiatric Exam Psychiatric exam: Flat Affect - Skin Skin Exam: Normal Color Assessment and Plan - Assessment and Plan (Free Text) Assessment: Sepsis/ Pancytopenia/ Hypokalemia/ Hypernatremia k repleted today recheck and replete further as necessary recheck mag tomorrow as well will start d5w 50 cc/hr for hypernatremia discussed w/ etymology professor
--- NOTE | 2017-06-24 13:33 | CT ---
PROCEDURE: CT abdomen and pelvis dated 06/24/2017. HISTORY: sepsis coordinate with ct head repeat COMPARISON: Comparison made with CT scan chest 06/23/2017 which also image the upper abdomen. TECHNIQUE: Contiguous axial images of the abdomen and pelvis performed without oral or intravenous contrast. Coronal and Sagittal reformats generated. Radiation dose: Total exam DLP = 859.40 mGy-cm. This CT exam was performed using one or more of the following dose reduction techniques: Automated exposure control, adjustment of the mA and/or kV according to patient size, and/or use of iterative reconstruction technique. Note that streak and beam hardening artifact arising from the upper extremities which have not been removed from the field of view limit evaluation of the abdomen. FINDINGS: LOWER THORAX: Mild bibasilar atelectasis and or infiltrates and large bilateral effusions. . LIVER: Evaluation is limited as above The liver is normal in size measuring nearly 615 cm in CC dimension. No obvious hepatic mass or collection. Mild fatty hepatic infiltration. No definitive hepatic mass or collection seen on this limited noncontrast study. . Small amount of perihepatic ascites. GALLBLADDER AND BILE DUCTS: The gallbladder is physiologically distended. No definitive intraluminal gallbladder calculi seen. Questionable gallbladder wall thickening. PANCREAS: The pancreas is atrophic and fatty replaced. No obvious pancreatic mass or collection. SPLEEN: Evaluation of the splenic parenchyma limited as above Spleen upper limits of normal measuring 12.4 cm. There is a small amount of perisplenic ascites present. The the ADRENALS: Slightly nodular appearing adrenal glands more so on the left. KIDNEYS AND URETERS: Kidneys demonstrate relatively symmetric size. Crossing streak and beam hardening artifact partially obscures detail infiltration changes are present within the perinephric fat nonspecific. BLADDER: The urinary bladder is collapsed about an in situ unclamped Rothman catheter. Small amount of air is present within the urinary bladder likely due to instrumentation. The bladder wall is also thickening felt to be secondary to collapse however muscular hypertrophy may contribute. The possibility of cystitis or other intrinsic/invasive wall lesion not excluded. REPRODUCTIVE: Prostate gland appears unremarkable. APPENDIX: Unremarkable. BOWEL: Evaluation of the bowel is limited due to the lack of oral contrast material. . The stomach is incompletely distended which presumably accounts for thick-walled appearance. Gastritis not excluded. Visualized loops of small bowel exhibit normal contour and caliber. No evidence of acute mechanical small bowel obstruction. The appendix not seen with certainty. The none ascites fluid and infiltration are present within the right pericolic gutter and right lower quadrant limiting evaluation for acute appendicitis. . Wall thickening of the ascending colon with minimal wall thickening of the remaining colon. Findings may in part be secondary to incomplete distention and peristalsis and adherent under opacified bowel. Ascites with hypoalbuminemia may contribute given the presence of anasarca ; rule out nonspecific colitis which would include infectious/ inflammatory or ischemic bowel PERITONEUM: Perihepatic - splenic and small amount of pelvic ascites present. Ascites seen in both pericolic gutters right more so than left. No gross free of the air. The infiltration changes throughout the mesenteries felt to be secondary to ascites. Mild diffuse anasarca. LYMPH NODES: Evaluation for lymphadenopathy is limited due to the lack of intravenous contrast material as well as ascites fluid. There may be a few small nonspecific retroperitoneal lymph nodes. VASCULATURE: Atherosclerotic plaque changes seen along the abdominal aorta and iliac arteries. No evidence of aneurysm. BONES: Mild multilevel degenerative spondylosis of the thoracic and lumbar spine. There is a subtle levoscoliosis of the lumbar spine OTHER FINDINGS: None. IMPRESSION: Bibasilar atelectasis and/or infiltrates with large bilateral effusions Mild amount of abdominal and pelvic ascites as above. Wall thickening of the ascending colon with minimal wall thickening of the remaining colon. Findings may in part be secondary to incomplete distention and peristalsis and adherent under opacified bowel. Ascites with hypoalbuminemia may contribute given the presence of anasarca ; rule out nonspecific colitis which would include infectious/ inflammatory or ischemic bowel. . In situ unclamped Rothman catheter with collapse of the urinary bladder about the Rothman balloon. Small amount of air is present within the lumen of the urinary bladder felt to be due to recent instrumentation. Cystitis not excluded. Mild diffuse anasarca . See above discussion for additional details and findings. . These findings were discussed with Dr. Torres at approximately 1:25 p.m. with written down and read back verification. .
--- NOTE | 2017-06-24 14:19 | RAD ---
HISTORY: Intubated COMPARISON: No prior. FINDINGS: LUNGS: Re- demonstrated is in situ central venous line with tip in the SVC. Diffuse bilateral infiltrates with bilateral effusions. Findings could represent pneumonia versus pulmonary edema PLEURA: No significant pleural effusion identified, no pneumothorax apparent. CARDIOVASCULAR: Normal. OSSEOUS STRUCTURES: No significant abnormalities. VISUALIZED UPPER ABDOMEN: Normal. OTHER FINDINGS: None. IMPRESSION: Bibasilar atelectasis/ infiltrates with bilateral effusions. Rule out pneumonia and or pulmonary edema- CHF
--- NOTE | 2017-06-24 15:37 | RAD ---
PROCEDURE: Left forearm dated 06/24/2017 HISTORY: Rule out rides and pins. COMPARISON: No prior study available for comparison TECHNIQUE: Single portable view of the left forearm obtained. FINDINGS: BONES: The current study reveals in situ fixation rods traversing the shafts of the left radius and ulna reducing old healed fracture deformities of the distal 1/ 3 of the radius and mid to distal 1/3 of the ulna. Hardware appears intact with no evidence of loosening or infection. No evidence of acute displaced fracture nor dislocation. . No evidence of acute displaced fracture nor dislocation. No cortical destructive changes. Soft tissues appear grossly unremarkable. Impression: ORIF changes old healed fractures of the left radius and ulna as described. No evidence of hardware failure.
--- NOTE | 2017-06-24 15:41 | PN ---
DATE: 06/24/2017 SUBJECTIVE: The patient is in bed, in no acute distress, nontoxic. No fevers. The patient was seen earlier this morning in 128, bed 2. PHYSICAL EXAMINATION: VITAL SIGNS: Temperature is 98, blood pressure is 130/50, respiratory rate of 21, heart rate of 50. HEENT: Unremarkable. NECK: Supple. LUNGS: Decreased breath sounds. HEART: Normal S1 and S2. ABDOMEN: Soft and nontender. LABORATORY DATA: Reveals the patient's white count of 3.8 and with absolute granulocyte count of over 3000. Microbiology reveals the patient's E. coli from the in the blood and repeat blood cultures are negative. Urine cultures are negative, and there is yeast in the trach cultures. Review of orders reveals the cryptococcal antigen is pending. The patient is still on dobutamine, meropenem, micafungin. Dr. Jonnie Gandara is the radiologist who gives us a report on the CAT scan of the head, which shows limited study and chronic white matter changes. Dr. Lane's note from yesterday is reviewed, and Dr. Miguel's note is also reviewed from yesterday. The patient is scheduled for the CAT scan of the abdomen and pelvis and the chest x-ray results from today are pending. CAT scan of the chest was done yesterday. ASSESSMENT AND PLAN: He is a 71-year-old male with a history of acute myelocytic leukemia, status post chemotherapy, status post neutropenic septic shock with extended-spectrum beta-lactamase E. coli bacteremia. Now, the neutropenia has resolved, and the patient with severe sepsis and septic shock, now extubated with extended-spectrum beta-lactamase E. coli bacteremia due to a PICC line and status post 4 days removal. Currently, we will discontinue the micafungin. Check on the serum cryptococcal antigen. Continue the meropenem. Today is day #6 of meropenem with complete at least 10 to 14 days of meropenem for a extended-spectrum beta-lactamase E. coli bacteremia. The patient is no longer neutropenic. We will follow closely with you. Overall prognosis is quite poor for this patient, who is very frail. Gustavo Billings MD
[2017-06-24] MEDS ORDERED: Potassium Chloride 20 mEq ER Tab PO STA (20:27)
[2017-06-24 23:55] LABS: ARTERIAL BLOOD GAS PH 7.53 (7.35-7.45)
[2017-06-24 23:56] LABS: ARTERIAL BLOOD GAS HCO3 31.8 mmol/L (21-28)
--- NOTE | 2017-06-25 00:08 | PN ---
PULMONARY CRITICAL CARE PROGRESS NOTE DATE: 06/24/2017 SUBJECTIVE: The patient is lying in the bed at 45 degrees, more awake and alert. Family is at bedside, able to verbalize, still short of breath. No nausea, no vomiting, no diarrhea, leg pain or leg swelling. PHYSICAL EXAMINATION GENERAL: No acute distress. VITAL SIGNS: Temperature 98, heart rate is 75, respiratory rate is 20, blood pressure 123/59 and pulse ox 100% on nasal cannula. HEENT: Moist mucous membranes. Crowded airway. NECK: Supple. No JVD. LUNGS: With few crackles, scattered rhonchi. HEART: S1 and S2. ABDOMEN: Soft and nontender. No organomegaly. EXTREMITIES: Trace edema. NEUROLOGIC: Awake and alert. Follows simple commands. LABORATORY DATA: Shows hemoglobin 9.7, hematocrit 29.1, WBC 3.8 and platelet count is 59. INR 1.72. Sodium 154, potassium 3.0, chloride 113, bicarbonate 32, BUN 15, creatinine 1.2, glucose 159, calcium 9.1, total bilirubin 4.6, AST is 84, ALT 818, alk phos is 91, albumin is 2.8. Beta 1-3 D glucan is negative. Beta 1-3 D-gluten is 40. IMAGING: Had a CT of the abdomen and pelvis done today, which shows bibasilar atelectasis and infiltrate, positive pleural effusion, small abdomen and pelvic ascites, wall thickening of the ascending colon with minimal wall thickening of the remaining colon, cystitis . CAT scan of the head was repeated today, which shows limited study due to significant motion artifact, which leave us evaluation for septal intracranial hemorrhage, no gross intracranial hemorrhage identified at this time, mild chronic periventricular white matter ischemic changes and mild generalized volume loss reported. MEDICATIONS: He is on Colace 100 mg daily, IV fluid D5 water 50 mL per hour, also getting dobutamine IV, insulin coverage, Lasix 40 mg twice a day, meropenem 1 g IV q. 8 hours, Pepcid 20 mg twice a day, Xopenex inhaled q. 6 hours p.r.n. and Zofran p.r.n. basis. IMPRESSION AND PLAN: Status post respiratory failure presently extubated, bilateral infiltrate, pleural effusion, cardiomyopathy, acute myelocytic leukemia status post chemotherapy and pancytopenia requiring multi unit of transfusion of blood and platelets, also pulmonary hypertension, case discussed with him, answered all the questions and answer. For now continue dobutamine, continue IV fluids, antibiotics, bronchodilators, gastric prophylaxis, sequential compression device to lower extremity. Followup ABG, chest x-ray, CBC, CMP in the morning. Critical care time spent more than 35 minutes. Thank you and we will follow with you. Pablo Miguel MD
[2017-06-25] MEDS: Insulin Lispro (HUMAlog) HIGH Coverage SC SCH ×5 (00:12→22:01)
--- NOTE | 2017-06-25 04:40 | PN ---
DATE: 06/24/2017 SUBJECTIVE: Patient is a 71-year-old male. Patient is seen and examined on the bedside, looking comfortable. While he was sitting on the beside, still is on isolation. Neutropenic precautions, counts have been improving. Patient is activated. Follows minimal commands, still he is confused. No nausea, vomiting, or diarrhea. No hematuria, hematochezia. He is not able to give a complete review of systems. PHYSICAL EXAMINATION VITAL SIGNS: Temperature is 98.7, pulse 75. respirations 21, blood pressure 117/50. HEENT: Head is normocephalic, atraumatic. Eyes: PERRLA. Extraocular movements intact. Conjunctiva clear. Nose is patent. Mucous membranes moist. NECK: Supple. No carotid bruits, JVD or thyromegaly. CHEST: Bilaterally symmetrical. HEART: S1 and S2 positive. LUNGS: Clear to auscultation. ABDOMEN: Soft. Positive bowel sounds present. No organomegaly. EXTREMITIES: Trace edema. No cyanosis. MEDICATIONS: Reviewed by me. Aldactone, Colace, Lasix, Pepcid, amikacin, meropenem, dobutamine, dextrose, insulin, Xopenex, Zofran. LABORATORY DATA: White blood cells 3.8, hemoglobin 9.7, hematocrit 29.1, platelets 59. AST 54, ALT 818, glucose 145, primary level less than 9. Sodium 154, potassium 3.7, BUN 50, creatinine 1.2. ASSESSMENT AND PLAN: Mr. Perry Velásquez is a 71-year-old male with neutropenic sepsis on empiric antibiotics, extended spectrum beta lactamase bacteremia. Neupogen given every weekly prior the counts improving. Platelets are more than 10. INR is less than 2. Hemoglobin is more than 7. Mental status also is improving. Need a followup MRI to determine the findings of the CAT scan. Acute myeloid leukemia; oncologist is on the case. Deep venous thrombosis and gastrointestinal prophylaxis. Repeat labs. We will follow. Melanie Lane MD
[2017-06-25] MEDS: Meropenem 1g/NS 100mL IVPB 1 GM/100 ML PIGGYBACK IVPB SCH ×3 (05:37→22:13)
[2017-06-25 06:01] LABS: ARTERIAL BLOOD GAS HCO3 33.5 mmol/L (21-28)
[2017-06-25 06:02] LABS: GRAN # 4.76 (1.4-6.5); GRAN % 83.8 % (50.0-68.0); HEMATOCRIT 28.9 % (42.0-52.0); LYMPH # 0.3 (1.2-3.4); LYMPH % 4.6 % (22.0-35.0); MEAN CORPUSCULAR HEMOGLOBIN 28.3 pg (25.0-35.0); MEAN CORPUSCULAR HGB CONC 32.5 g/dl (31.0-37.0); MONO # 0.7 (0.1-0.6); MONO % 11.6 % (1.0-6.0); RED CELL DISTRIBUTION WIDTH 17.1 % (11.5-14.5); WHITE BLOOD COUNT 5.7 10^3/ul (4.5-11.0)
[2017-06-25 06:15] LABS: ALB/GLOB RATIO 0.9 (1.1-1.8); ALKALINE PHOSPHATASE 100 U/L (38-133); ALT/SGPT 572 U/L (7-56); AST/SGOT 46 U/L (15-59); BILIRUBIN,TOTAL 3.2 mg/dL (0.2-1.3); BLOOD UREA NITROGEN 43 mg/dL (7-21); CALCIUM 8.8 mg/dL (8.4-10.5); CARBON DIOXIDE 33 mmol/L (21-33); CHLORIDE 109 mmol/L (98-107); GFR AFRICAN-AMERICAN > 60; GLUCOSE,RANDOM 266 mg/dL (70-110); MAGNESIUM 1.5 mg/dL (1.7-2.2); POTASSIUM 3.7 mmol/L (3.6-5.0); SODIUM 152 mmol/L (132-148); TOTAL PROTEIN 5.4 g/dL (5.8-8.3)
[2017-06-25 07:09] LABS: INR 1.73 (0.93-1.08)
[2017-06-25] MEDS ORDERED: Magnesium Sulfate 2 GM in Sodium Chloride 0.9% 100 ML IVPB ONE (07:16)
[2017-06-25] MEDS: Famotidine 20mg/50ml 20 MG/50 ML BAG IVPB SCH ×2 (09:36→21:26)
--- NOTE | 2017-06-25 09:56 | CP.PCM.PN ---
<CALIJIM - Last Filed: 06/25/17 09:49> Subjective - Date & Time of Evaluation Date of Evaluation: 06/25/17 Time of Evaluation: 07:30 - Subjective Subjective: Jim Yu DO PGY1 - ICU Progress Note Patient seen and examined at bedside. Nurse reported no acute events overnight. Patient is much more awake, alert, and responsive. Is actually oriented to person, place, and time, and is obeying commands. He is complaining of thirst and is requesting water. He denies CP, SOB, confusion, SANDOVAL, F/C, N/V/D/C. He is complaining of b/l upper arm pain. Objective - Vital Signs/Intake and Output Vital Signs (last 24 hours): Temp Pulse Resp BP Pulse Ox 98.8 F 68 12 109/56 L 99 06/25/17 00:00 06/25/17 07:30 06/25/17 07:30 06/25/17 09:38 06/25/17 07:30 - Medications Medications: Current Medications Dextrose (Dextrose 50% Inj) 50 ml IVP Q15M PRN PRN Reason: Hypoglycemia Last Admin: 06/22/17 11:58 Dose: 50 ml Docusate Sodium (Colace) 100 mg PO DAILY [facility] Last Admin: 06/25/17 09:31 Dose: 100 mg Furosemide (Lasix) 40 mg IVP Q12 [facility] Last Admin: 06/25/17 09:38 Dose: 40 mg Famotidine (Pepcid 20mg/50ml Premix) 20 mg in 50 mls @ 100 mls/hr IVPB Q12 OMARI Last Admin: 06/25/17 09:36 Dose: 100 mls/hr Meropenem 1g/NS 100mL IVPB (Meropenem 1g/Ns 100ml Ivpb) 1 gm in 100 mls @ 100 mls/hr IVPB Q8 OMARI PRN Reason: Protocol Stop: 07/01/17 14:01 Last Admin: 06/25/17 05:37 Dose: 100 mls/hr Dobutamine HCl/Dextrose (Dobutamine/Dextrose 5% 500mg/250ml) 500 mg in 250 mls @ 5.964 mls/hr IV .Q24H PRN; Protocol; 2.5 MCG/KG/MIN PRN Reason: TITRATE PER PROTOCOL Last Admin: 06/23/17 21:43 Dose: 2.5 mcg/kg/min, 5.964 mls/hr Dextrose (Dextrose 5% In Water 1000 Ml) 1,000 mls @ 50 mls/hr IV .Q20H [facility]MARI Last Admin: 06/25/17 09:33 Dose: 50 mls/hr Potassium Chloride (Potassium Chloride 10 Meq/100 Ml) 10 meq in 100 mls @ 100 mls/hr IVPB Q2H OMARI Stop: 06/25/17 10:29 Last Admin: 06/25/17 08:18 Dose: 100 mls/hr Insulin Human Lispro (Humalog High) 0 units SC ACHS OMARI PRN Reason: Protocol Last Admin: 06/25/17 08:16 Dose: 10 units Levalbuterol HCl (Xopenex) 1.25 mg IH [id number] PRN PRN Reason: Shortness of Breath Last Admin: 06/24/17 07:48 Dose: 1.25 mg Ondansetron HCl (Zofran Inj) 4 mg IVP Q6H PRN PRN Reason: Nausea/Vomiting Last Admin: 06/22/17 12:33 Dose: 4 mg - Labs Labs: 06/25/17 05:55 06/25/17 05:55 PT 18.7 Seconds (9.9-11.8) H 06/25/17 05:55 INR 1.73 (0.93-1.08) H 06/25/17 05:55 APTT 35.9 Seconds (23.7-30.8) H 06/19/17 05:45 - Constitutional Appears: Non-toxic, No Acute Distress, Chronically Ill - Head Exam Head Exam: ATRAUMATIC, NORMOCEPHALIC - Eye Exam Eye Exam: EOMI, PERRL - ENT Exam ENT Exam: Mucous Membranes Moist - Neck Exam Neck Exam: absent: Lymphadenopathy, Thyromegaly Additional comments: R IJ central line in place, no hematoma - Respiratory Exam Respiratory Exam: Rales, NORMAL BREATHING PATTERN - Cardiovascular Exam Cardiovascular Exam: RRR, +S1, +S2 - GI/Abdominal Exam GI & Abdominal Exam: Soft. absent: Firm, Guarding, Rigid, Tenderness - Extremities Exam Extremities Exam: Full ROM, Pedal Edema (trace). absent: Calf Tenderness Additional comments: [id number] firm swelling in right bicep, feels to be intramuscular, mildly tender, nonerythematous - Neurological Exam Neurological Exam: Alert, Awake, CN II-XII Intact, Oriented x3 Neuro motor strength exam: Left Upper Extremity: 4, Right Upper Extremity: 4, Left Lower Extremity: 4, Right Lower Extremity: 4 Additional comments: b/l UE and LE weakness, symmetric - Psychiatric Exam Psychiatric exam: Normal Affect, Normal Mood - Skin Skin Exam: Dry, Intact, Normal Color, Warm Assessment and Plan - Assessment and Plan (Free Text) Assessment: 71 yo M with ESBL+ bacteremia, previously in septic shock, 2/2 likely PICC line infection in the setting of pancytopenia with a PMH of AML on HiDAC and Neulasta. No longer neutropenic, with significantly improved mental status. Plan: Neuro: - Neuro status significantly improved. He is now AAOx3, obeying commands, with 4 /5 muscle strength throughout. Weakness likely 2/2 deconditioning. - AMS was likely 2/2 to sepsis vs CVA vs hypernatremia. Repeat head CT was a limited exam due to motion artifact, but did not show any expanding hemorrhage. MRI would be beneficial in delineating hemorrhage vs calcification, but cannot be obtained due to left forearm hardware. - Neuro (Claudia) consulted, all recs appreciated - Received platelets and vit K to reduce risk of intracranial hemorrhage. Plt count is up to 51,000 today. - Remains somewhat hypernatremic, though steadily improving. Now tolerating PO, after passing swallow eval for thickened liquids. Will encourage free water intake. - Continue to monitor. CV: - Hemodynamically stable - S/p 7 U PRBC, 9U plt, 1U FFP, in addition to large amount of fluid administration. Previously 12L+ fluid balance, now diuresing well, and down to approximately 3L+, with significantly negative fluid balance over the past 2 days. - Continue lasix for fluid overloaded state - Echo done, significant for apical hypokinesis and severely impared systolic function with LVEF of 31% - Titrating down on dobutamine, will likely d/c today. Perfusing well. - Maintain MAP>65 Pulm: - Maintaining sat well on 3L NC - ABG today shows metabolic alkalosis, 2/2 diuresis - CXR today looks improved, with decreased congestion - Chest CT complete, shows dense consolidation of both lower lobes with b/l pleural effusion. - Protective lung strategies GI: - Passed swallow eval for thickened liquids - Transaminitis improving, INR improving - GI (Brian) on consult, all recs appreciated - RUQ US completed, negative for signs of cholecystitis, cholangitis, cholelithiasis, or choledocholithiasis - CT abd/pel completed, significant for mild abdominal and pelvic ascites - Pepcid for PPx Renal: - UO 11,900 over the past 48 hours, with approximately 9L negative balance. Will continue to diurese to improve fluid overloaded state. Monitor lytes - Persistent hypernatremia and hyperchloremia, improving. On D5 at 50cc/hr, will d/c this as he is tolerating PO, and push free water intake - Strict I's and O's - Maintain euvolemia - Monitor and replete lytes as needed - Nephro ([place]) on consult, all recs appreciated Endo: - History of DM, hold all oral hypoglycemics - Accucheck ACHS, with SSI high - Maintain euglycemia Hem/Onc: - Pancytopenic 2/2 AML s/p chemotherapy (HiDAC) and Neulasta, last dose of both 06/16/2017. WBC improved today to 5.7, no longer neutropenic - s/p 7U PRBC, 9U platelets, and 1 FFP. Hgb today 9.4, platelets 51,000 - Ordered 2U platelets and 5mg Vit K, per hem/onc - No colony stimulating factor indicated at this time, per Hem/Onc - Hem/Onc consulted, all recs appreciated ID: - ESBL+ E. coli bacteremia, previously septic shock in the setting of pancytopenia. Likely 2/2 to indwelling PICC line infection, vs UTI vs PNA - UCx negative. BCx significant for ESBL+ E. coli. Repeat BCx shows no growth after 48hrs. Sputum Cx light growth of yeast. - PICC line removed for source control, after placement of a central line - No longer requiring pressors, will remove central line today after obtaining peripheral access - On merrem (d7), micafingin stopped as no longer neutropenic, received one dose of amikacin on admission, and zosyn and vanc in the ER - ID consulted (Taj), all recs appreciated Ppx: SCD's for DVT. Pepcid for GI Patient seen, discussed, and reviewed with attending <Natalie Mckinnon MD - Last Filed: 06/25/17 13:52> Objective - Vital Signs/Intake and Output Vital Signs (last 24 hours): Temp Pulse Resp BP Pulse Ox 98.8 F 77 23 103/56 L 97 06/25/17 00:00 06/25/17 13:20 06/25/17 13:20 06/25/17 13:00 06/25/17 13:20 - Medications Medications: Current Medications Dextrose (Dextrose 50% Inj) 50 ml IVP Q15M PRN PRN Reason: Hypoglycemia Last Admin: 06/22/17 11:58 Dose: 50 ml Docusate Sodium (Colace) 100 mg PO DAILY [facility] Last Admin: 06/25/17 09:31 Dose: 100 mg Furosemide (Lasix) 40 mg IVP Q12 OMARI Last Admin: 06/25/17 09:38 Dose: 40 mg Famotidine (Pepcid 20mg/50ml Premix) 20 mg in 50 mls @ 100 mls/hr IVPB Q12 OMARI Last Admin: 06/25/17 09:36 Dose: 100 mls/hr Meropenem 1g/NS 100mL IVPB (Meropenem 1g/Ns 100ml Ivpb) 1 gm in 100 mls @ 100 mls/hr IVPB Q8 OMARI PRN Reason: Protocol Stop: 07/01/17 14:01 Last Admin: 06/25/17 05:37 Dose: 100 mls/hr Dextrose (Dextrose 5% In Water 1000 Ml) 1,000 mls @ 50 mls/hr IV .Q20H OMARI Last Admin: 06/25/17 09:33 Dose: 50 mls/hr Insulin Human Lispro (Humalog High) 0 units SC ACHS OMARI PRN Reason: Protocol Last Admin: 06/25/17 12:10 Dose: 10 units Levalbuterol HCl (Xopenex) 1.25 mg IH [id number] PRN PRN Reason: Shortness of Breath Last Admin: 06/24/17 07:48 Dose: 1.25 mg Ondansetron HCl (Zofran Inj) 4 mg IVP Q6H PRN PRN Reason: Nausea/Vomiting Last Admin: 06/22/17 12:33 Dose: 4 mg - Labs Labs: 06/25/17 05:55 06/25/17 05:55 PT 18.7 Seconds (9.9-11.8) H 06/25/17 05:55 INR 1.73 (0.93-1.08) H 06/25/17 05:55 APTT 35.9 Seconds (23.7-30.8) H 06/19/17 05:45 Attending/Attestation - Attestation I have personally seen and examined this patient.: Yes I have fully participated in the care of the patient.: Yes I have reviewed all pertinent clinical information, including history, physical exam and plan: Yes Notes (Text): 06/25/17 13:50 71 y/o M w/ resolving neutropenic sepsis WBC, Platelets and HGb are WNL ESBL Bactermia on treatment for 14 days per ID w/ carbapenum S/P Extubation on NC doing well and following commands. AML , treatment per Heme/ONC Passed swallow eval. dvt P SCD cc time 65 min
--- NOTE | 2017-06-25 10:43 | RAD ---
HISTORY: Intubated COMPARISON: Comparison made with prior study 06/24/2017 FINDINGS: LUNGS: Bilateral effusions and bilateral of mid to lower lobe consolidation changes right greater than left. . Mild pulmonary edema slightly improved. No change right IJ central line with tip in the SVC PLEURA: As above. No pneumothorax apparent. CARDIOVASCULAR: Normal. OSSEOUS STRUCTURES: No significant abnormalities. VISUALIZED UPPER ABDOMEN: Normal. OTHER FINDINGS: None. IMPRESSION: Bilateral effusions and bilateral of mid to lower lobe consolidation changes right greater than left. . Mild pulmonary edema slightly improved.
--- NOTE | 2017-06-25 14:34 | PN ---
DATE: 06/25/2017 SUBJECTIVE: The patient seen earlier this morning. No fevers, no chills, appears to be comfortable. PHYSICAL EXAMINATION: VITAL SIGNS: Temperature is 98, blood pressure is 109/50, respiratory rate of 12, heart rate of 68. HEENT: Unremarkable. NECK: Supple. LUNGS: Decreased breath sounds. HEART: Normal S1 and S2. ABDOMEN: Soft and nontender. LABORATORY DATA: Reveals white count is 5.7, hemoglobin of 9, platelets are 51, 83% granulocytosis. Chemistry reveals the BUN of 43, creatinine of 1.0, and procalcitonin is 2.89. Urinalysis is noted and serology is noted. Microbiology reveals the E. coli on admission. From the review of orders reveals the patient to be on meropenem. note is reviewed and Dr. Lane's note is reviewed. ASSESSMENT AND PLAN: This is a 71-year-old male with history of acute myelocytic leukemia, status post chemotherapy, status post neutropenic septic shock, extended-spectrum beta-lactamase E. coli bacteremia with neutropenia resolved, with severe sepsis and septic shock, extubated with extended-spectrum beta-lactamase E. coli bacteremia secondary to peripherally inserted central catheter line, which is five days ago was removed. Currently, on meropenem day number 7 with complete 10 to 14 days and will check on the serum cryptococcal antigen, which is pending. We will follow closely with you. Gustavo Billings MD
--- NOTE | 2017-06-25 16:12 | CP.PCM.PN ---
<Kenny Vázquez MD - Last Filed: 06/25/17 16:09> Subjective - Date & Time of Evaluation Date of Evaluation: 06/24/17 Time of Evaluation: 18:00 - Subjective Subjective: No acute events. Still feels tired. Continues with thickened diet. 12 ROS otherwise negative Objective - Vital Signs/Intake and Output Vital Signs (last 24 hours): Temp Pulse Resp BP Pulse Ox 98.8 F 77 23 103/56 L 97 06/25/17 00:00 06/25/17 13:20 06/25/17 13:20 06/25/17 13:00 06/25/17 13:20 - Medications Medications: Current Medications Dextrose (Dextrose 50% Inj) 50 ml IVP Q15M PRN PRN Reason: Hypoglycemia Last Admin: 06/22/17 11:58 Dose: 50 ml Docusate Sodium (Colace) 100 mg PO DAILY [facility] Last Admin: 06/25/17 09:31 Dose: 100 mg Furosemide (Lasix) 40 mg IVP Q12 OMARI Last Admin: 06/25/17 09:38 Dose: 40 mg Famotidine (Pepcid 20mg/50ml Premix) 20 mg in 50 mls @ 100 mls/hr IVPB Q12 OMARI Last Admin: 06/25/17 09:36 Dose: 100 mls/hr Meropenem 1g/NS 100mL IVPB (Meropenem 1g/Ns 100ml Ivpb) 1 gm in 100 mls @ 100 mls/hr IVPB Q8 OMARI PRN Reason: Protocol Stop: 07/01/17 14:01 Last Admin: 06/25/17 14:33 Dose: 100 mls/hr Dextrose (Dextrose 5% In Water 1000 Ml) 1,000 mls @ 50 mls/hr IV .Q20H OMARI Last Admin: 06/25/17 09:33 Dose: 50 mls/hr Insulin Human Lispro (Humalog High) 0 units SC ACHS OMARI PRN Reason: Protocol Last Admin: 06/25/17 12:10 Dose: 10 units Levalbuterol HCl (Xopenex) 1.25 mg IH [id number] PRN PRN Reason: Shortness of Breath Last Admin: 06/24/17 07:48 Dose: 1.25 mg Ondansetron HCl (Zofran Inj) 4 mg IVP Q6H PRN PRN Reason: Nausea/Vomiting Last Admin: 06/22/17 12:33 Dose: 4 mg - Labs Labs: 06/25/17 05:55 06/25/17 05:55 PT 18.7 Seconds (9.9-11.8) H 06/25/17 05:55 INR 1.73 (0.93-1.08) H 06/25/17 05:55 APTT 35.9 Seconds (23.7-30.8) H 06/19/17 05:45 - Constitutional Appears: Non-toxic - Respiratory Exam Respiratory Exam: Clear to Ausculation Bilateral, NORMAL BREATHING PATTERN - Cardiovascular Exam Cardiovascular Exam: REGULAR RHYTHM, +S1, +S2. absent: Murmur - GI/Abdominal Exam GI & Abdominal Exam: Soft, Normal Bowel Sounds. absent: Tenderness - Extremities Exam Extremities Exam: Full ROM, Normal Capillary Refill, Normal Inspection. absent : Joint Swelling, Pedal Edema Assessment and Plan - Assessment and Plan (Free Text) Assessment: Mr. Velásquez christina 71 y/o gentleman with AML s/p 7+3 induction and s/p recent cycle of consoildation admitted with neutropenc sepsis in setting extended-spectrum beta-lactamase ecoli bactermia whose hospitali course has been complicated by dysphagia necessitating a thickened liquid diet. At present the patient's neutrophil counts are recovering. Can consider discontinuing neutropenic precautions tomorrow if leukopenia continues to improve. Agree with abx management per ID, and on going assessment with speach and swallow. -continue abx per ID -consider neutropenic precautions d/c tomorrow if leukopenia resolves -continue to f/u speach and swallow reccomendations -continue D5W giving persistent hypernatremia and free water defecit We will continue to follow Kenny Vázquez MD Hematology Service <Sepideh Vázquez - Last Filed: 08/12/17 17:24> Objective - Vital Signs/Intake and Output Vital Signs (last 24 hours): Temp Pulse Resp BP Pulse Ox 98.9 F 64 18 116/64 98 06/30/17 16:00 06/30/17 16:00 06/30/17 16:00 06/30/17 16:00 06/30/17 16:00 - Labs Labs: 06/30/17 13:45 06/30/17 06:00 PT 14.8 Seconds (9.9-11.8) H 06/29/17 06:05 INR 1.37 (0.93-1.08) H 06/29/17 06:05 APTT 35.9 Seconds (23.7-30.8) H 06/19/17 05:45 Attending/Attestation - Attestation I have personally seen and examined this patient.: Yes I have fully participated in the care of the patient.: Yes I have reviewed all pertinent clinical information, including history, physical exam and plan: Yes
--- NOTE | 2017-06-25 16:14 | CP.PCM.PN ---
<Kenny Vázquez MD - Last Filed: 06/25/17 16:12> Subjective - Date & Time of Evaluation Date of Evaluation: 06/25/17 Time of Evaluation: 15:00 - Subjective Subjective: Continues to improve. More attentive per family. 12 ROS negative. Denies pain Objective - Vital Signs/Intake and Output Vital Signs (last 24 hours): Temp Pulse Resp BP Pulse Ox 98.8 F 77 23 103/56 L 97 06/25/17 00:00 06/25/17 13:20 06/25/17 13:20 06/25/17 13:00 06/25/17 13:20 - Medications Medications: Current Medications Dextrose (Dextrose 50% Inj) 50 ml IVP Q15M PRN PRN Reason: Hypoglycemia Last Admin: 06/22/17 11:58 Dose: 50 ml Docusate Sodium (Colace) 100 mg PO DAILY [facility] Last Admin: 06/25/17 09:31 Dose: 100 mg Furosemide (Lasix) 40 mg IVP Q12 OMARI Last Admin: 06/25/17 09:38 Dose: 40 mg Famotidine (Pepcid 20mg/50ml Premix) 20 mg in 50 mls @ 100 mls/hr IVPB Q12 OMARI Last Admin: 06/25/17 09:36 Dose: 100 mls/hr Meropenem 1g/NS 100mL IVPB (Meropenem 1g/Ns 100ml Ivpb) 1 gm in 100 mls @ 100 mls/hr IVPB Q8 OMARI PRN Reason: Protocol Stop: 07/01/17 14:01 Last Admin: 06/25/17 14:33 Dose: 100 mls/hr Dextrose (Dextrose 5% In Water 1000 Ml) 1,000 mls @ 50 mls/hr IV .Q20H OMARI Last Admin: 06/25/17 09:33 Dose: 50 mls/hr Insulin Human Lispro (Humalog High) 0 units SC ACHS OMARI PRN Reason: Protocol Last Admin: 06/25/17 12:10 Dose: 10 units Levalbuterol HCl (Xopenex) 1.25 mg IH [id number] PRN PRN Reason: Shortness of Breath Last Admin: 06/24/17 07:48 Dose: 1.25 mg Ondansetron HCl (Zofran Inj) 4 mg IVP Q6H PRN PRN Reason: Nausea/Vomiting Last Admin: 06/22/17 12:33 Dose: 4 mg - Labs Labs: 06/25/17 05:55 06/25/17 05:55 PT 18.7 Seconds (9.9-11.8) H 06/25/17 05:55 INR 1.73 (0.93-1.08) H 06/25/17 05:55 APTT 35.9 Seconds (23.7-30.8) H 06/19/17 05:45 - Constitutional Appears: Well - Respiratory Exam Respiratory Exam: Clear to Ausculation Bilateral, NORMAL BREATHING PATTERN - Cardiovascular Exam Cardiovascular Exam: REGULAR RHYTHM, +S1, +S2. absent: Murmur - GI/Abdominal Exam GI & Abdominal Exam: Soft, Normal Bowel Sounds. absent: Tenderness - Extremities Exam Extremities Exam: Full ROM, Normal Capillary Refill, Normal Inspection. absent : Joint Swelling, Pedal Edema Assessment and Plan - Assessment and Plan (Free Text) Assessment: Mr. Velásquez christina 71 y/o gentleman with AML s/p 7+3 induction and s/p recent cycle of consoildation admitted with neutropenc sepsis in setting extended-spectrum beta-lactamase ecoli bactermia whose hospitali course has been complicated by dysphagia necessitating a thickened liquid diet. At present the patient's neutrophil counts are recovered -continue abx per ID -d/c neutropenic precautions -continue to f/u speach and swallow reccomendations -continue D5W giving persistent hypernatremia and free water deficit -ok from [facility] to transfer to floor We will continue to follow Kenny Vázquez MD Hematology Service <Sepideh Vázquez P - Last Filed: 08/12/17 17:25> Objective - Vital Signs/Intake and Output Vital Signs (last 24 hours): Temp Pulse Resp BP Pulse Ox 98.9 F 64 18 116/64 98 06/30/17 16:00 06/30/17 16:00 06/30/17 16:00 06/30/17 16:00 06/30/17 16:00 - Labs Labs: 06/30/17 13:45 06/30/17 06:00 PT 14.8 Seconds (9.9-11.8) H 06/29/17 06:05 INR 1.37 (0.93-1.08) H 06/29/17 06:05 APTT 35.9 Seconds (23.7-30.8) H 06/19/17 05:45 Attending/Attestation - Attestation I have personally seen and examined this patient.: Yes I have fully participated in the care of the patient.: Yes I have reviewed all pertinent clinical information, including history, physical exam and plan: Yes
--- NOTE | 2017-06-25 17:59 | CP.PCM.PN ---
Subjective - Date & Time of Evaluation Date of Evaluation: 06/22/17 Time of Evaluation: 18:00 - Subjective Subjective: patient is more alert. Family at bedside. Patient is being evaluated for swallowing. Objective - Vital Signs/Intake and Output Vital Signs (last 24 hours): Temp Pulse Resp BP Pulse Ox 98.2 F 64 14 111/68 97 06/22/17 19:20 06/22/17 23:00 06/22/17 23:00 06/22/17 23:00 06/22/17 23:00 Intake and Output: 06/22/17 06/23/17 18:59 06:59 Intake Total 4652 0 Output Total 3500 Balance 1152 0 - Medications Medications: Current Medications Dextrose (Dextrose 50% Inj) 50 ml IVP Q15M PRN PRN Reason: Hypoglycemia Last Admin: 06/22/17 11:58 Dose: 50 ml Docusate Sodium (Colace) 100 mg PO DAILY OMARI Last Admin: 06/22/17 09:47 Dose: Not Given Famotidine (Pepcid 20mg/50ml Premix) 20 mg in 50 mls @ 100 mls/hr IVPB Q12 OMARI Last Admin: 06/22/17 21:38 Dose: 100 mls/hr Micafungin Sodium 100 mg/ (Sodium Chloride) 100 mls @ 100 mls/hr IV DAILY OMARI PRN Reason: Protocol Stop: 06/27/17 10:01 Last Admin: 06/22/17 09:48 Dose: 100 mls/hr Meropenem 1g/NS 100mL IVPB (Meropenem 1g/Ns 100ml Ivpb) 1 gm in 100 mls @ 100 mls/hr IVPB Q8 OMARI PRN Reason: Protocol Stop: 07/01/17 14:01 Last Admin: 06/22/17 21:29 Dose: 100 mls/hr Dobutamine HCl/Dextrose (Dobutamine/Dextrose 5% 500mg/250ml) 500 mg in 250 mls @ 5.964 mls/hr IV .Q24H PRN; Protocol; 2.5 MCG/KG/MIN PRN Reason: TITRATE PER PROTOCOL Last Admin: 06/22/17 07:55 Dose: 2.5 mcg/kg/min, 5.964 mls/hr Dextrose (Dextrose 5% In Water 1000 Ml) 1,000 mls @ 50 mls/hr IV .Q20H OMARI Last Admin: 06/22/17 22:14 Dose: 50 mls/hr Insulin Human Lispro (Humalog High) 0 units SC Q6H OMARI PRN Reason: Protocol Last Admin: 06/22/17 18:47 Dose: Not Given Levalbuterol HCl (Xopenex) 1.25 mg IH [id number] PRN PRN Reason: Shortness of Breath Last Admin: 06/22/17 13:12 Dose: 1.25 mg Ondansetron HCl (Zofran Inj) 4 mg IVP Q6H PRN PRN Reason: Nausea/Vomiting Last Admin: 06/22/17 12:33 Dose: 4 mg - Labs Labs: 06/22/17 21:15 06/22/17 21:15 PT 17.8 Seconds (9.9-11.8) H 06/22/17 12:29 INR 1.65 (0.93-1.08) H 06/22/17 12:29 APTT 35.9 Seconds (23.7-30.8) H 06/19/17 05:45 - Head Exam Head Exam: ATRAUMATIC, NORMAL INSPECTION - Eye Exam Eye Exam: EOMI, PERRL - ENT Exam ENT Exam: Mucous Membranes Moist - Neck Exam Neck Exam: Full ROM. absent: Lymphadenopathy - Respiratory Exam Respiratory Exam: NORMAL BREATHING PATTERN. absent: Rales, Rhonchi - Cardiovascular Exam Cardiovascular Exam: +S1, +S2. absent: JVD - GI/Abdominal Exam GI & Abdominal Exam: Soft. absent: Tenderness, Mass - Extremities Exam Extremities Exam: Calf Tenderness, Normal Capillary Refill - Neurological Exam Neurological Exam: Alert, Awake, Oriented x3 Assessment and Plan - Assessment and Plan (Free Text) Assessment: 71-year-old patient status post chemotherapy for AML admitted with neutropenic sepsis ESBL in blood culture. Patient was hypotensive and found to have elevated LFTs , acute kidney injury. Patient had a PICC line which was removed thought to be a source of sepsis. Patient did have ultrasound scan showed mild pericholecystic fluid no stones seen within normal Recommendations 1. Continue antibiotics as per ID 2. Follow-up with LFTs and INR 3. Await swallowing evaluation and more alertness. To start by mouth feeding 4. Would consider CT of the abdomen and pelvis when the patient is optimized to go down for the scan We discussed with material handler loader
--- NOTE | 2017-06-25 18:07 | CP.PCM.PN ---
Subjective - Date & Time of Evaluation Date of Evaluation: 06/24/17 Time of Evaluation: 13:00 - Subjective Subjective: patient more alert and comfortable denies any abdominal pain Objective - Vital Signs/Intake and Output Vital Signs (last 24 hours): Temp Pulse Resp BP Pulse Ox 98.6 F 75 15 115/55 L 97 06/24/17 16:00 06/24/17 18:40 06/24/17 18:40 06/24/17 18:09 06/24/17 18:40 Intake and Output: 06/24/17 06/25/17 18:59 06:59 Intake Total 942 Output Total 3300 Balance -2358 - Medications Medications: Current Medications Dextrose (Dextrose 50% Inj) 50 ml IVP Q15M PRN PRN Reason: Hypoglycemia Last Admin: 06/22/17 11:58 Dose: 50 ml Docusate Sodium (Colace) 100 mg PO DAILY OMARI Last Admin: 06/24/17 09:09 Dose: Not Given Furosemide (Lasix) 40 mg IVP Q12 OMARI Last Admin: 06/24/17 12:12 Dose: 40 mg Famotidine (Pepcid 20mg/50ml Premix) 20 mg in 50 mls @ 100 mls/hr IVPB Q12 OMARI Last Admin: 06/24/17 21:04 Dose: 100 mls/hr Meropenem 1g/NS 100mL IVPB (Meropenem 1g/Ns 100ml Ivpb) 1 gm in 100 mls @ 100 mls/hr IVPB Q8 OMARI PRN Reason: Protocol Stop: 07/01/17 14:01 Last Admin: 06/24/17 21:03 Dose: 100 mls/hr Dobutamine HCl/Dextrose (Dobutamine/Dextrose 5% 500mg/250ml) 500 mg in 250 mls @ 5.964 mls/hr IV .Q24H PRN; Protocol; 2.5 MCG/KG/MIN PRN Reason: TITRATE PER PROTOCOL Last Admin: 06/23/17 21:43 Dose: 2.5 mcg/kg/min, 5.964 mls/hr Dextrose (Dextrose 5% In Water 1000 Ml) 1,000 mls @ 50 mls/hr IV .Q20H OMARI Last Admin: 06/24/17 13:01 Dose: 50 mls/hr Potassium Chloride (Potassium Chloride 20 Meq/100 Ml) 20 meq in 100 mls @ 50 mls/hr IVPB Q2H OMARI Stop: 06/25/17 04:29 Last Admin: 06/24/17 20:35 Dose: 50 mls/hr Insulin Human Lispro (Humalog High) 0 units SC Q6H OMARI PRN Reason: Protocol Last Admin: 06/24/17 17:31 Dose: 10 units Levalbuterol HCl (Xopenex) 1.25 mg IH [id number] PRN PRN Reason: Shortness of Breath Last Admin: 06/24/17 07:48 Dose: 1.25 mg Ondansetron HCl (Zofran Inj) 4 mg IVP Q6H PRN PRN Reason: Nausea/Vomiting Last Admin: 06/22/17 12:33 Dose: 4 mg - Labs Labs: 06/24/17 06:00 06/24/17 19:30 PT 18.6 Seconds (9.9-11.8) H 06/24/17 06:00 INR 1.72 (0.93-1.08) H 06/24/17 06:00 APTT 35.9 Seconds (23.7-30.8) H 06/19/17 05:45 - Head Exam Head Exam: ATRAUMATIC, NORMOCEPHALIC - Eye Exam Eye Exam: EOMI, PERRL - ENT Exam ENT Exam: Mucous Membranes Moist - Neck Exam Neck Exam: Full ROM. absent: Lymphadenopathy - Respiratory Exam Respiratory Exam: absent: Accessory Muscle Use Additional comments: reduced bilaterally basilar entry - Cardiovascular Exam Cardiovascular Exam: +S1, +S2. absent: JVD - GI/Abdominal Exam GI & Abdominal Exam: Soft, Hernia. absent: Mass - Extremities Exam Extremities Exam: absent: Calf Tenderness - Neurological Exam Neurological Exam: Alert, Awake Assessment and Plan - Assessment and Plan (Free Text) Assessment: 71-year-old patient with AML admitted with the neutropenic sepsis secondary to ESBL clinically improving 1. Shock liver 2. Acute kidney injury 3. CT scan reviewed colitis versus edema 4. Anasarca and ascites 5. Pleural effusion 6. AML status post chemotherapy -Anemia,thrombocytopenia owing, improving WBC 7. Sepsis ESBL, status post removal of the PICC line likely source CT reviewed had thickening of the colon but no significant inflammatory changes and also physical exam patient does not have any abdominal tenderness less likely the source RECOMMENDATIONS 1. Follow up LFTs and INR 2. Continue antibiotics as per ID 3. Stool for C. difficile 4. Hematology renal and the continue the present management as per the consultants and papeterie table assembler Thank you very much for allowing us to participate in the care of the patient
--- NOTE | 2017-06-25 18:14 | CP.PCM.PN ---
Subjective - Date & Time of Evaluation Date of Evaluation: 06/23/17 Time of Evaluation: 19:00 - Subjective Subjective: patient is obvious progressively improving. More alert Objective - Vital Signs/Intake and Output Vital Signs (last 24 hours): Temp Pulse Resp BP Pulse Ox 97.8 F 69 25 H 132/65 98 06/23/17 12:00 06/23/17 18:30 06/23/17 18:30 06/23/17 18:15 06/23/17 18:30 Intake and Output: 06/23/17 06/24/17 18:59 06:59 Intake Total 572 Output Total 3500 Balance -2928 - Medications Medications: Current Medications Dextrose (Dextrose 50% Inj) 50 ml IVP Q15M PRN PRN Reason: Hypoglycemia Last Admin: 06/22/17 11:58 Dose: 50 ml Docusate Sodium (Colace) 100 mg PO DAILY OMARI Last Admin: 06/23/17 10:09 Dose: Not Given Furosemide (Lasix) 40 mg IVP Q12 OMARI Famotidine (Pepcid 20mg/50ml Premix) 20 mg in 50 mls @ 100 mls/hr IVPB Q12 OMARI Last Admin: 06/23/17 10:22 Dose: 100 mls/hr Micafungin Sodium 100 mg/ (Sodium Chloride) 100 mls @ 100 mls/hr IV DAILY OMARI PRN Reason: Protocol Stop: 06/27/17 10:01 Last Admin: 06/23/17 10:14 Dose: 100 mls/hr Meropenem 1g/NS 100mL IVPB (Meropenem 1g/Ns 100ml Ivpb) 1 gm in 100 mls @ 100 mls/hr IVPB Q8 OMARI PRN Reason: Protocol Stop: 07/01/17 14:01 Last Admin: 06/23/17 13:07 Dose: 100 mls/hr Dobutamine HCl/Dextrose (Dobutamine/Dextrose 5% 500mg/250ml) 500 mg in 250 mls @ 5.964 mls/hr IV .Q24H PRN; Protocol; 2.5 MCG/KG/MIN PRN Reason: TITRATE PER PROTOCOL Last Admin: 06/22/17 07:55 Dose: 2.5 mcg/kg/min, 5.964 mls/hr Dextrose (Dextrose 5% In Water 1000 Ml) 1,000 mls @ 50 mls/hr IV .Q20H OMARI Last Admin: 06/22/17 22:14 Dose: 50 mls/hr Insulin Human Lispro (Humalog High) 0 units SC Q6H OMARI PRN Reason: Protocol Last Admin: 06/23/17 17:49 Dose: 2 units Levalbuterol HCl (Xopenex) 1.25 mg IH [id number] PRN PRN Reason: Shortness of Breath Last Admin: 06/23/17 13:11 Dose: 1.25 mg Ondansetron HCl (Zofran Inj) 4 mg IVP Q6H PRN PRN Reason: Nausea/Vomiting Last Admin: 06/22/17 12:33 Dose: 4 mg - Labs Labs: 06/23/17 05:30 06/23/17 13:00 PT 19.4 Seconds (9.9-11.8) H 06/23/17 05:30 INR 1.80 (0.93-1.08) H 06/23/17 05:30 APTT 35.9 Seconds (23.7-30.8) H 06/19/17 05:45 - Head Exam Head Exam: ATRAUMATIC, NORMOCEPHALIC - Eye Exam Eye Exam: EOMI, Scleral icterus - ENT Exam ENT Exam: Mucous Membranes Moist - Neck Exam Neck Exam: absent: Lymphadenopathy - Respiratory Exam Respiratory Exam: absent: Accessory Muscle Use, Respiratory Distress Additional comments: had introduced a bilaterally basis - Cardiovascular Exam Cardiovascular Exam: +S1, +S2. absent: JVD - GI/Abdominal Exam GI & Abdominal Exam: Soft. absent: Tenderness, Mass - Extremities Exam Extremities Exam: absent: Calf Tenderness - Neurological Exam Neurological Exam: Alert, Awake Assessment and Plan - Assessment and Plan (Free Text) Assessment: this 71-year-old patient admitted with the neutropenic sepsis status post a chemotherapy for AML ESBL sepsis probably secondary to PICC line which was removed Clinically improving Shock liver transaminases downward trend however INR is elevated Acute kidney injury Status post extubation bilateral pleural effusion Recommendations 1. Would request a CT of the abdomen and pelvis with no P or IV contrast 2. Follow-up LFTsand INR 3.continue the antibiotics as per ID Discussed with the resident at length thank you very much for allowing us to participate in the care of the patient
--- NOTE | 2017-06-26 00:41 | PN ---
PULMONARY CRITICAL CARE PROGRESS NOTE DATE: 06/25/2017 REFERRING PHYSICIAN: Dr. Lane. SUBJECTIVE: He is lying in the bed, much more comfortable, feels better, more verbal. Central line is just removed. No nausea, no vomiting, no diarrhea. No leg pain, no leg swelling. OBJECTIVE: GENERAL: In no acute distress. VITAL SIGNS: Temperature is 98, heart rate is 63, respiratory rate is 18, blood pressure 119/57, pulse ox 98% on room air. HEENT: Moist mucous membranes. Crowded airway. NECK: Supple. No JVD. LUNGS: Has fair airflow with few rhonchi. HEART: S1, S2. ABDOMEN: Soft and nontender. No organomegaly. EXTREMITIES: No edema. NEUROLOGIC: Awake and alert. Follow simple commands. MEDICATIONS: He is on Colace 100 mg daily, also IV fluids D5 water 50 mL per hour, insulin coverage, Lasix 40 mg twice a day, meropenem 1 g IV q. 8 hours, Pepcid 20 mg twice a day, Xopenex inhaled q. 6 hours p.r.n., Zofran p.r.n. LABORATORY DATA: Shows hemoglobin 9.4, hematocrit 28.9, WBC 5.7, platelet count is 51. INR 1.73. ABG shows pH 7.50, PCO2 of 43, O2 of 98, this is on nasal cannula. Sodium 152, potassium 3.7, chloride 109, bicarbonate 33, BUN is 43, creatinine 1.0. Glucose 266, calcium is 8.8, magnesium 1.5, total bilirubin 3.2, AST is 46, ALT 572, albumin is 2.5. Chest x-ray done today shows bilateral diffuse and bilateral mid to lower lung consolidation, right greater than the left. This is improved than previous x-rays. IMPRESSION AND PLAN: Status post respiratory failure, presently extubated on nasal cannula; pleural effusion; cardiomyopathy; acute myelocytic leukemia, status post chemotherapy improving; pancytopenia, requiring transfusion and platelet transfusion; pulmonary hypertension. Spoke to medical laboratory technical officer. The patient is off Primacor. On diuretics. Keep head elevated 45 degrees. Sleep apnea precaution. Continue antibiotics. Gastric prophylaxis, sequential compression device to lower extremity. Followup ABG, chest x-ray, CBC, CMP in the morning. Watch closely for heart failure. The patient is off pressors. Pablo Miguel MD [facility] # [id number]
--- NOTE | 2017-06-26 04:26 | PN ---
DATE: SUBJECTIVE: The patient is a 71-year-old male. The patient is seen and examined in the ICU on his bed in his room, daughter is sitting on the beside. The patient is today fully awake and alert. He is obeying simple orders and moving all 4 extremities. No nausea, vomiting, or diarrhea. No hematuria or hematochezia. Denies chest pain, confusion, or headache. He is just complaining of bilateral upper arm pain. PHYSICAL EXAMINATION VITAL SIGNS: Temperature is 98.8, pulse is 68, respiratory rate is 20, blood pressure is 109/56, and pulse oximetry is 99%. HEENT: Head is normocephalic and atraumatic. Eyes; PERRLA. Extraocular muscles intact. Conjunctiva clear. Nose is patent. Mucous membranes are moist. NECK: Supple. No carotid bruits, JVD or thyromegaly. CHEST: Bilaterally symmetrical. HEART: S1 and S2 positive. LUNGS: Clear to auscultation. ABDOMEN: Soft. Positive bowel sounds present. No organomegaly. EXTREMITIES: No edema. No cyanosis. NEUROLOGIC: The patient is awake and alert. Moving all 4 extremities. No focal deficits. MEDICATIONS: Dextrose, Colace, Lasix, famotidine, meropenem, dobutamine, dextrose, potassium, insulin, Xopenex, and Zofran. LABORATORY DATA: White blood cells of 5.7, hemoglobin of 9.4, hematocrit of 28.9, and platelets of 51. Sodium of 152, potassium is 3.7, BUN is 46, creatinine is 1.2, and glucose 266. ASSESSMENT AND PLAN: Mr. Christen Amador is a 71-year-old male with pancytopenia, improved white blood cell, hemoglobin is better, platelets are better, hypernatremia, renal insufficiency and hyperglycemia, who was admitted with neutropenic sepsis, extended-spectrum beta-lactamases bacteremia on treatment for 14 days as per infectious diseases with carbapenem, extubated on nasal cannula, doing very well, follows simple commands, history of altered mental status and now is better, acute myelogenous leukemia treatment as per hematology and oncology. Possible evaluation, DVT and GI prophylaxis, and repeat labs. Melanie Lane MD
[2017-06-26] MEDS: Meropenem 1g/NS 100mL IVPB 1 GM/100 ML PIGGYBACK IVPB SCH ×3 (05:06→21:18)
[2017-06-26 05:37] LABS: ARTERIAL BLOOD GAS PH 7.54 (7.35-7.45)
[2017-06-26 05:41] LABS: ARTERIAL BLOOD GAS HCO3 40.2 mmol/L (21-28)
--- NOTE | 2017-06-26 06:23 | CON ---
DATE: 06/25/2017 HISTORY OF PRESENT ILLNESS: The patient was seen and evaluated earlier. The patient is more comfortable, tolerating the diet. No complaints of any abdominal pain. The patient is examined at the bedside. PHYSICAL EXAMINATION VITAL SIGNS: Stable now. HEENT: Atraumatic, anicteric. NECK: Supple. HEART: S1 and S2 heard. LUNGS: Bilateral air entry present. Reduced at the base. ABDOMEN: Soft. There is no tenderness. EXTREMITIES: No cyanosis. No clubbing. NEUROLOGIC: Now alert. The patient is oriented. Moves all the extremities. LABORATORY DATA: Labs reviewed. LFT shows improving trend. IMPRESSION: This 71-year-old patient with acute myelogenous leukemia, status post chemotherapy, admitted with neutropenic sepsis secondary to extended spectrum beta lactamase, from the PICC line which was removed. Shock liver. Shock liver transaminases, improving. Elevated INR improving. The CT scan of the abdomen and pelvis was done, rule out any acute intra-abdominal pathology. The patient had some thickening of the colon on the right side. However, the patient does not have any significant tenderness there. The findings are reviewed with the radiologist. The patient does have ascites. Probably, there is anasarca and other comorbidities include pancytopenia, improving white cell count, and isolation. RECOMMENDATIONS: 1. Continue the antibiotics as per ID. 2. Follow up the LFTs. 3. Follow up the INR. 4. Stool for C. difficile. 5. Continue the present management as per other consultants and as per the powder press operator. Thank you very much for allowing us to participate in the care of the patient. We will continue to closely follow up in his care and suggest further management based on the clinical course. Mague Torres MD
[2017-06-26 06:31] LABS: INR 1.55 (0.93-1.08)
[2017-06-26 06:41] LABS: EOS % 0.2 % (1.5-5.0); GRAN # 4.58 (1.4-6.5); GRAN % 86.4 % (50.0-68.0); HEMATOCRIT 30.7 % (42.0-52.0); LYMPH # 0.3 (1.2-3.4); LYMPH % 5.7 % (22.0-35.0); MEAN CELL VOLUME 85.8 fl (80.0-105.0); MEAN CORPUSCULAR HEMOGLOBIN 28.2 pg (25.0-35.0); MEAN CORPUSCULAR HGB CONC 32.9 g/dl (31.0-37.0); MONO # 0.4 (0.1-0.6); MONO % 7.7 % (1.0-6.0); RED CELL DISTRIBUTION WIDTH 16.3 % (11.5-14.5); WHITE BLOOD COUNT 5.3 10^3/ul (4.5-11.0)
[2017-06-26 06:50] LABS: PLATELET COUNT 48 10^3/uL (120.0-450.0)
[2017-06-26 06:54] LABS: ALB/GLOB RATIO 0.8 (1.1-1.8); ALKALINE PHOSPHATASE 122 U/L (38-133); ALT/SGPT 424 U/L (7-56); AST/SGOT 39 U/L (15-59); BLOOD UREA NITROGEN 35 mg/dL (7-21); CALCIUM 8.4 mg/dL (8.4-10.5); CARBON DIOXIDE 38 mmol/L (21-33); CHLORIDE 94 mmol/L (95-110); GFR AFRICAN-AMERICAN > 60; SODIUM 139 mmol/L (132-148); TOTAL PROTEIN 5.7 g/dL (5.8-8.3)
[2017-06-26 07:09] LABS: GLUCOSE,RANDOM 298 mg/dL (70-110)
--- NOTE | 2017-06-26 07:36 | RAD ---
HISTORY: Intubated COMPARISON: 06/25/2017 FINDINGS: LUNGS: There is interval development of hazy confluent airspace disease in bilateral perihilar regions and lower lobes. PLEURA: There are small pleural effusions, no pneumothorax apparent. CARDIOVASCULAR: Normal. OSSEOUS STRUCTURES: No significant abnormalities. VISUALIZED UPPER ABDOMEN: Normal. OTHER FINDINGS: None. IMPRESSION: Findings are most compatible with development of pulmonary edema/consolidation in the perihilar regions and lower lobes. Also noted are small pleural effusions. Follow-up is advised.
[2017-06-26] MEDS: Insulin Lispro (HUMAlog) HIGH Coverage SC SCH ×4 (08:23→21:20)
[2017-06-26] MEDS: Famotidine 20mg/50ml 20 MG/50 ML BAG IVPB SCH ×2 (09:00→21:21)
[2017-06-26 09:40] LABS: VENOUS BLOOD GAS BASE EXCESS 16.2 mmol/L (0.0-2.0); VENOUS BLOOD PH 7.53 (7.32-7.43)
[2017-06-26 13:14] LABS: MAGNESIUM 1.4 mg/dL (1.7-2.2); PHOSPHOROUS 2.9 mg/dL (2.5-4.5)
--- NOTE | 2017-06-26 13:32 | CP.PCM.PN ---
<Traci Garcia - Last Filed: 06/26/17 13:31> Subjective - Date & Time of Evaluation Date of Evaluation: 06/26/17 Time of Evaluation: 08:50 - Subjective Subjective: Seen and examined at the bedside earlier today. The chart was reviewed. Patient denies any nausea, vomiting or abdominal pain. No acute overnight event reported. Objective - Vital Signs/Intake and Output Vital Signs (last 24 hours): Temp Pulse Resp BP Pulse Ox 98.4 F 79 23 114/63 99 06/26/17 08:00 06/26/17 09:20 06/26/17 09:20 06/26/17 09:10 06/26/17 09:20 Intake and Output: 06/26/17 06/26/17 06:59 18:59 Intake Total 2050 Output Total 1820 Balance 230 - Medications Medications: Current Medications Docusate Sodium (Colace) 100 mg PO DAILY [facility] Last Admin: 06/26/17 09:01 Dose: 100 mg Furosemide (Lasix) 40 mg IVP Q12 OMARI Last Admin: 06/26/17 09:01 Dose: 40 mg Famotidine (Pepcid 20mg/50ml Premix) 20 mg in 50 mls @ 100 mls/hr IVPB Q12 OMARI Last Admin: 06/26/17 09:00 Dose: 100 mls/hr Meropenem 1g/NS 100mL IVPB (Meropenem 1g/Ns 100ml Ivpb) 1 gm in 100 mls @ 100 mls/hr IVPB Q8 OMARI PRN Reason: Protocol Stop: 07/01/17 14:01 Last Admin: 06/26/17 13:20 Dose: 100 mls/hr Potassium Chloride 20 meq/ (Dextrose) 1,010 mls @ 50 mls/hr IV .[id number] OMARI Potassium Chloride (Potassium Chloride 20 Meq/100 Ml) 20 meq in 100 mls @ 50 mls/hr IVPB Q2H OMARI Stop: 06/26/17 17:14 Last Admin: 06/26/17 13:21 Dose: 50 mls/hr Insulin Human Lispro (Humalog High) 0 units SC ACHS OMARI PRN Reason: Protocol Last Admin: 06/26/17 13:19 Dose: 7 units Levalbuterol HCl (Xopenex) 1.25 mg IH [id number] PRN PRN Reason: Shortness of Breath Last Admin: 06/24/17 07:48 Dose: 1.25 mg Ondansetron HCl (Zofran Inj) 4 mg IVP Q6H PRN PRN Reason: Nausea/Vomiting Last Admin: 06/22/17 12:33 Dose: 4 mg - Labs Labs: 06/26/17 05:00 06/26/17 05:00 PT 16.7 Seconds (9.9-11.8) H 06/26/17 05:00 INR 1.55 (0.93-1.08) H 06/26/17 05:00 APTT 35.9 Seconds (23.7-30.8) H 06/19/17 05:45 - Constitutional Appears: No Acute Distress - Head Exam Head Exam: NORMOCEPHALIC - Eye Exam Eye Exam: Normal appearance. absent: Scleral icterus - ENT Exam ENT Exam: Mucous Membranes Moist - Neck Exam Neck Exam: Normal Inspection - Respiratory Exam Respiratory Exam: Decreased Breath Sounds, NORMAL BREATHING PATTERN. absent: Rales, Wheezes, Respiratory Distress - Cardiovascular Exam Cardiovascular Exam: +S1, +S2 - GI/Abdominal Exam GI & Abdominal Exam: Soft, Normal Bowel Sounds. absent: Guarding, Tenderness, Rebound - Extremities Exam Extremities Exam: Normal Capillary Refill. absent: Calf Tenderness, Pedal Edema - Neurological Exam Neurological Exam: Alert, Awake, Oriented x3 - Skin Skin Exam: Dry, Warm Assessment and Plan - Assessment and Plan (Free Text) Assessment: Assessment: 71-year-old patient with AML admitted with the neutropenic sepsis secondary to ESBL clinically improving Shock liver, improving LFT Acute kidney injury CT scan reviewed colitis versus edema Anasarca and ascites Pleural effusion AML status post chemotherapy -Anemia,thrombocytopenia owing, improving WBC Sepsis ESBL, status post removal of the PICC line likely source CT reviewed had thickening of the colon but no significant inflammatory changes and on physical exam patient does not have any abdominal tenderness less likely the source PLAN: Follow up LFTs and INR Continue antibiotics as per ID Stool for C. difficile Pured diet Continued GI and DVT prophylaxis Hematology renal and the continue the present management as per the consultants and talent manager Seen and discussed with Dr. Torres. <Mague Torres V - Last Filed: 06/26/17 22:58> Objective - Vital Signs/Intake and Output Vital Signs (last 24 hours): Temp Pulse Resp BP Pulse Ox 98.4 F 85 13 107/60 98 06/26/17 16:00 06/26/17 18:03 06/26/17 18:03 06/26/17 21:18 06/26/17 18:03 Intake and Output: 06/26/17 06/27/17 18:59 06:59 Intake Total 1900 Output Total 350 Balance 1550 - Medications Medications: Current Medications Docusate Sodium (Colace) 100 mg PO DAILY [facility] Last Admin: 06/26/17 09:01 Dose: 100 mg Furosemide (Lasix) 40 mg IVP Q12 [facility] Last Admin: 06/26/17 21:18 Dose: 40 mg Famotidine (Pepcid 20mg/50ml Premix) 20 mg in 50 mls @ 100 mls/hr IVPB Q12 [facility] Last Admin: 06/26/17 21:21 Dose: 100 mls/hr Meropenem 1g/NS 100mL IVPB (Meropenem 1g/Ns 100ml Ivpb) 1 gm in 100 mls @ 100 mls/hr IVPB Q8 [facility] PRN Reason: Protocol Stop: 07/01/17 14:01 Last Admin: 06/26/17 21:18 Dose: 100 mls/hr Potassium Chloride 20 meq/ (Sodium Chloride) 1,010 mls @ 50 mls/hr IV .[id number] [facility] Insulin Human Lispro (Humalog High) 0 units SC ACHS OMARI PRN Reason: Protocol Last Admin: 06/26/17 21:20 Dose: 3 units Levalbuterol HCl (Xopenex) 1.25 mg IH [id number] PRN PRN Reason: Shortness of Breath Last Admin: 06/24/17 07:48 Dose: 1.25 mg Ondansetron HCl (Zofran Inj) 4 mg IVP Q6H PRN PRN Reason: Nausea/Vomiting Last Admin: 06/22/17 12:33 Dose: 4 mg - Labs Labs: 06/26/17 05:00 06/26/17 05:00 PT 16.7 Seconds (9.9-11.8) H 06/26/17 05:00 INR 1.55 (0.93-1.08) H 06/26/17 05:00 APTT 35.9 Seconds (23.7-30.8) H 06/19/17 05:45 Attending/Attestation - Attestation Notes (Text): 06/26/17 22:58 p
[2017-06-26 14:35] LABS: VENOUS BLOOD GAS BASE EXCESS 18.3 mmol/L (0.0-2.0); VENOUS BLOOD PH 7.51 (7.32-7.43)
--- NOTE | 2017-06-26 20:14 | PN ---
DATE: SUBJECTIVE: The patient is currently seen in ICU bed 2. He has actually been transferred to telemetry. Since my last visit last week, the patient's white blood cell count has risen into normal range. He is tolerating oral intake. His electrolytes with exception of low potassium level have improved or remain stable. MEDIATIONS: List reviewed. The patient is on Colace, D5W 50 mL an hour, insulin, IV Lasix, meropenem, Pepcid, Xopenex, and Zofran. OBJECTIVE INTAKE/OUTPUT: Intake 3708. Output 4770. VITAL SIGNS: Blood pressure is 114/63, pulse 79, respiratory rate is 23, oxygen saturation of 99%. His temperature is 98.4, T-max was 100.0 earlier this mooring. HEENT: Sclerae mildly icteric. Conjunctiva are pale. He is normocephalic, atraumatic. He is sitting up in a chair in his room, eating lunch. NECK: Supple. No neck vein distention. CHEST: Clear to auscultation and percussion with scattered rhonchi. No rales or wheezing. Slight decreased breath sound with at the basis CARDIOPULMONARY: S1, S2 are normal. No audible murmurs, rubs, or gallops noted. ABDOMEN: Soft. Bowel sounds normal. No rebound, no guarding, no masses. EXTREMITIES: Shows no lower extremity edema. No cyanosis or clubbing. LABORATORY DATA AND IMAGING: Labs today, white blood cell count 5.3, hemoglobin 10.1, platelet count is 48,000. Chemistry today, sodium 139, it is normalized. Potassium 3.0. Chloride 94 with a CO2 of 38. BUN is 35, improved. Creatinine is excellent at of 0.9 down from 1.2 last week. Calcium level was 8.4, glucose was 298. Last phosphorous level was 3.8. Last magnesium level was borderline low at 1.5. Liver enzymes continuing to improve on a basis, bilirubin is 3.0. Microbiology, trach as per it was positive for yeast. Blood cultures were positive for E. coli ESBL. ASSESSMENT: 1. Acute renal failure, the patient remains mildly prerenal. Creatinine is back to baseline. With continued hydration, I expect his BUN to fall back to his baseline range in the 20s. 2. Status post septic shock secondary to profound neutropenia as complication of treatment for his acute myelogenous leukemia. The patient's blood cultures were positive for Escherichia coli extended-spectrum beta-lactamase. He is completing a course of antibiotic therapy. 3. Status post severe anion gap metabolic acidosis. The patient was likely mildly overcorrected with sodium bicarbonate supplements. His CO2 level is presently elevated at 38. He is receiving no further bicarbonate supplements. 4. Status post hypernatremia, this has resolved with oral fluid intake and hypotonic IV fluids. 5. Continued hypokalemia. The patient will receive two K riders today. I will also add potassium to his IV fluids. 6. Transaminitis secondary to shock liver. Liver enzymes continue to improve on a daily basis, however, bilirubin remains elevated at 3.0. 7. History of diabetes mellitus. The patient will continue sliding scale insulin. 8. Possible pneumonia, bilateral basilar pneumonia. The patient will complete the course of IV antibiotics. 9. History of acute myelogenous leukemia, status post chemotherapy. PLAN: 1. Discussed with staff in the ICU. The patient, however, has been transferred out to telemetry and has not been rounded on by ICU staff. I will add potassium to his IV fluids and start the patient on K riders today. I will request magnesium level be added to his morning blood work. 2. Oral hydration is adequate, the patient may continue low volume IV fluid hydration. 3. Completed course of antibiotics for his E. coli ESBL. 4. Continue to monitor labs on a daily basis upon transfer to telemetry. Oswaldo Araya MD
--- NOTE | 2017-06-26 22:24 | PN ---
DATE: 06/26/2017 SUBJECTIVE: The patient was seen earlier today in 128, bed 2. No fevers and no chills. PHYSICAL EXAMINATION: VITAL SIGNS: Temperature is 98, T-max is 100, blood pressure is 100/50, respiratory rate of 16. HEENT: Unremarkable. NECK: Supple. LUNGS: Have decreased breath sounds. HEART: Normal S1 and S2. ABDOMEN: Soft. LABORATORY DATA: Reveals white count of 5.3, hemoglobin of 10, and platelets of 48. Chemistries reveal a BUN of 35, creatinine of 0.9 and procalcitonin is down to 2.89. Microbiology is noted. MEDICATIONS: Review of orders reveals the patient is on meropenem. ASSESSMENT AND PLAN: This is a 71-year-old male with a history of acute myelocytic leukemia status post chemotherapy, status post neutropenic septic shock with extended-spectrum beta-lactamase Escherichia coli bacteremia, neutropenia is resolved with septic shock, extubated secondary to the extended-spectrum beta-lactamase Escherichia coli bacteremia secondary to PICC line which was removed and day #8 of meropenem. We will complete 10 to 14 days and cryptococcal antigen is not detected. We will follow closely. Gustavo Billings MD
[2017-06-26 22:52] LABS: VENOUS BLOOD GAS BASE EXCESS 16.4 mmol/L (0.0-2.0); VENOUS BLOOD PH 7.56 (7.32-7.43)
--- NOTE | 2017-06-26 23:14 | CP.PCM.PN ---
Subjective - Date & Time of Evaluation Date of Evaluation: 06/26/17 Time of Evaluation: 23:13 - Subjective Subjective: Patient was seen at bedside. Nurse had called and told that patient's blood sugar was greater than 400 mg % , is on D5W if she could change to 1/2 NS. Also later on , nurse called that his potassium level was 3.2 meq. Patient has no complaints. No diarrhoea, no vomiting Medical record was reviewed. This 71 year old male was admitted with fever, weakness, hypokalemia, hypomagnesemia, hypophosphatemia. Has PMH of leukemia, on chemotherapy, anemia. Objective - Vital Signs/Intake and Output Vital Signs (last 24 hours): Temp Pulse Resp BP Pulse Ox 98.4 F 85 13 107/60 98 06/26/17 16:00 06/26/17 18:03 06/26/17 18:03 06/26/17 21:18 06/26/17 18:03 Intake and Output: 06/26/17 06/27/17 18:59 06:59 Intake Total 1900 Output Total 350 Balance 1550 - Medications Medications: Current Medications Docusate Sodium (Colace) 100 mg PO DAILY [facility] Last Admin: 06/26/17 09:01 Dose: 100 mg Furosemide (Lasix) 40 mg IVP Q12 [facility] Last Admin: 06/26/17 21:18 Dose: 40 mg Famotidine (Pepcid 20mg/50ml Premix) 20 mg in 50 mls @ 100 mls/hr IVPB Q12 [facility] Last Admin: 06/26/17 21:21 Dose: 100 mls/hr Meropenem 1g/NS 100mL IVPB (Meropenem 1g/Ns 100ml Ivpb) 1 gm in 100 mls @ 100 mls/hr IVPB Q8 [facility] PRN Reason: Protocol Stop: 07/01/17 14:01 Last Admin: 06/26/17 21:18 Dose: 100 mls/hr Potassium Chloride 20 meq/ (Sodium Chloride) 1,010 mls @ 50 mls/hr IV .[id number] [facility] Insulin Human Lispro (Humalog High) 0 units SC ACHS [facility] PRN Reason: Protocol Last Admin: 06/26/17 21:20 Dose: 3 units Levalbuterol HCl (Xopenex) 1.25 mg IH [id number] PRN PRN Reason: Shortness of Breath Last Admin: 06/24/17 07:48 Dose: 1.25 mg Ondansetron HCl (Zofran Inj) 4 mg IVP Q6H PRN PRN Reason: Nausea/Vomiting Last Admin: 06/22/17 12:33 Dose: 4 mg - Labs Labs: 06/26/17 05:00 06/26/17 05:00 PT 16.7 Seconds (9.9-11.8) H 06/26/17 05:00 INR 1.55 (0.93-1.08) H 06/26/17 05:00 APTT 35.9 Seconds (23.7-30.8) H 06/19/17 05:45 - Constitutional Appears: Well, No Acute Distress - Head Exam Head Exam: ATRAUMATIC, NORMAL INSPECTION, NORMOCEPHALIC - Eye Exam Eye Exam: Normal appearance - ENT Exam ENT Exam: Normal External Ear Exam - Neck Exam Neck Exam: Normal Inspection - Respiratory Exam Respiratory Exam: NORMAL BREATHING PATTERN - Cardiovascular Exam Cardiovascular Exam: absent: JVD - GI/Abdominal Exam GI & Abdominal Exam: absent: Distended - Rectal Exam Rectal Exam: Deferred - Exam Additional comments: Deferred. - Extremities Exam Extremities Exam: Normal Inspection - Back Exam Back Exam: vertebral tenderness - Neurological Exam Neurological Exam: Alert, Awake, Oriented x3 - Psychiatric Exam Psychiatric exam: Normal Affect, Normal Mood - Skin Skin Exam: Normal Color Assessment and Plan - Assessment and Plan (Free Text) Assessment: Hyperglycemia. Hypokalemia. hypophosphatemia. Hypomgnesemia. Leukemia. Anemia. S/P chemotherapy. Plan: Change IV fluid to 0.45 NS. K ryders as ordered. Continue present management.
[2017-06-26] MEDS: Potassium Chloride 20 MEQ in Sodium Chloride 0.45% 1,000 ML IV SCH (23:17)
--- NOTE | 2017-06-27 00:57 | PN ---
DATE: 06/26/2017 REFERRING PHYSICIAN: Dr. Lane. SUBJECTIVE: The patient is lying in the bed, sleepy, arousable, feels much better, decreased cough, decreased shortness of breath. No nausea, no vomiting, no diarrhea. No leg pain, no leg swelling. is at bedside. OBJECTIVE: GENERAL: In no acute distress. VITAL SIGNS: Temperature is 98, heart rate is 80, respiratory rate is 20, blood pressure 104/50, pulse ox 99% on nasal cannula. HEENT: Moist mucous membranes. Crowded airway. Mallampati score is IV. NECK: Supple. No JVD. LUNGS: Fair airflow with few rhonchi. HEART: S1 and S2. ABDOMEN: Soft and nontender. No organomegaly. EXTREMITIES: No edema. NEUROLOGIC: Awake and alert. Follow simple commands. MEDICATIONS: He is on Colace 100 mg daily, insulin coverage, Lasix 40 mg twice a day, meropenem 1 g IV q. 8 hours, Pepcid 20 mg q. 12 hours, IV fluid with , also getting Xopenex inhaled q. 6 hours, Zofran on p.r.n. basis. LABORATORY DATA: Shows hemoglobin 10.1, hematocrit 30.7, WBC of 5.3, platelet count is 48. INR 1.5. A VBG shows pH is 7.51, pCO2 of 55. Blood sugar 207. Microbiology: Initial blood culture has E. Coli, tracheal secretion has yeast. Chest x-ray done today consistent with pulmonary edema, some perihilar infiltrate, small pleural effusion. IMPRESSION AND PLAN: Resolving bacteremia, status post respiratory failure, extubated, has a pulmonary edema, severe cardiomyopathy, acute myelocytic leukemia, been on chemotherapy, resolving pancytopenia, status post blood and platelet transfusion, pulmonary hypertension. Spoke to the patient's family at bedside. All the questions were answered. 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 Follow up labs in the morning. Critical care time spent more than 35 minutes. Thank you and we will follow with you. Pablo Miguel MD
--- NOTE | 2017-06-27 05:14 | PN ---
DATE: SUBJECTIVE: The patient is a 71-year-old male. The patient is seen and examined on the bedside, in the unit. was sitting on the beside also. Left hand has swelling. I spoke to the nurse to discontinue that IV line. The patient is improving. Today, the first time he WAS with me. He understands what I am talking and he is following simple commands. PHYSICAL EXAMINATION VITAL SIGNS: Temperature is 98.6, blood pressure 114/53, pulse oximetry 79, respiratory rate 23. HEENT: Head is normocephalic, atraumatic. Eyes: PERRLA. Extraocular movements intact. Conjunctiva clear. Nose is patent. Mucous membranes moist. NECK: Supple. No carotid bruits. No JVD or thyromegaly. CHEST: Bilaterally symmetrical. HEART: S1 and S2 positive. LUNGS: Clear to auscultation. ABDOMEN: Soft. Bowel sounds present. No organomegaly. EXTREMITIES: Trace edema. No cyanosis. No clubbing. NEUROLOGIC: The patient is awake and alert. Moving all 4 extremities. No focal deficits. Mainly simple conversation. LABORATORY DATA: White blood cell is 5.3, hemoglobin 10.1, platelets 48,000. Sodium 139, potassium 3.0, BUN 35, creatinine 0.9, calcium 8.4, glucose 195. Blood culture positive for E. coli, ESBL. MEDICATIONS: Colace, insulin, Lasix, meropenem, Pepcid, potassium, levofloxacin, Zofran and Xopenex. ASSESSMENT AND PLAN: Mr. Perry Velásquez is a 71-year-old male with multiple medical problems, acute myelocytic leukopenia status post chemotherapy, status post neutropenic. Septic workup is extended-spectrum beta-lactamase Escherichia coli bacteremia, neutropenia is resolved with septic shock. The patient is extubated. Has extended-spectrum beta-lactamase Escherichia coli bacteremia secondary to PICC line, which was removed and day #8 of meropenem. We will complete 10 to 14 days and cryptococcal antigen is not detected. Continue present treatment. Discussing done with the patient and his . Repeat labs. We will followup. Melanie Lane MD [facility] # [id number] MTDD
[2017-06-27] MEDS: Meropenem 1g/NS 100mL IVPB 1 GM/100 ML PIGGYBACK IVPB SCH ×3 (05:26→21:34)
[2017-06-27 06:30] LABS: GRAN # 5.91 (1.4-6.5); GRAN % 92.2 % (50.0-68.0); HEMATOCRIT 31.4 % (42.0-52.0); LYMPH # 0.3 (1.2-3.4); LYMPH % 3.9 % (22.0-35.0); MEAN CELL VOLUME 84.9 fl (80.0-105.0); MEAN CORPUSCULAR HEMOGLOBIN 27.8 pg (25.0-35.0); MEAN CORPUSCULAR HGB CONC 32.8 g/dl (31.0-37.0); MONO # 0.3 (0.1-0.6); MONO % 3.9 % (1.0-6.0); PLATELET COUNT 59 10^3/uL (120.0-450.0); RED CELL DISTRIBUTION WIDTH 15.5 % (11.5-14.5); WHITE BLOOD COUNT 6.4 10^3/ul (4.5-11.0)
[2017-06-27 06:41] LABS: ALB/GLOB RATIO 0.8 (1.1-1.8); ALKALINE PHOSPHATASE 129 U/L (38-133); ALT/SGPT 318 U/L (7-56); AST/SGOT 37 U/L (15-59); BLOOD UREA NITROGEN 34 mg/dL (7-21); CALCIUM 8.4 mg/dL (8.4-10.5); CHLORIDE 88 mmol/L (95-110); GFR AFRICAN-AMERICAN > 60; GLUCOSE,RANDOM 280 mg/dL (70-110); MAGNESIUM 1.2 mg/dL (1.7-2.2); PHOSPHOROUS 3.2 mg/dL (2.5-4.5); POTASSIUM 3.2 mmol/L (3.6-5.0); SODIUM 135 mmol/L (132-148)
[2017-06-27] MEDS: Levalbuterol 1.25 MG/3 ML Inhal Soln UD IH PRN ×2 (06:58→13:12)
[2017-06-27 07:04] LABS: CARBON DIOXIDE 40 mmol/L (21-33)
[2017-06-27 07:54] LABS: BAND 2 % (0-2); NEUTROPHIL 90 % (50.0-70.0)
[2017-06-27 07:55] LABS: ANISOCYTOSIS 1+; HYPOCHROMIA SLIGHT; OVALOCYTES SLIGHT; PLATELET ESTIMATE LOW (NORMAL); POIKILOCYTOSIS SLIGHT
--- NOTE | 2017-06-27 08:36 | RAD ---
HISTORY: Intubated COMPARISON: 06/26/2017. FINDINGS: There is no endotracheal tube or supporting lines. LUNGS: There is interval significant improvement in pulmonary edema and improved aeration in the lungs. There is persistent mild residual pulmonary edema, pulmonary venous congestion and interstitial pulmonary edema. PLEURA: There are persistent small pleural effusions, no pneumothorax apparent. CARDIOVASCULAR: Normal. OSSEOUS STRUCTURES: No significant abnormalities. VISUALIZED UPPER ABDOMEN: Normal. OTHER FINDINGS: None. IMPRESSION: Interval improvement in alveolar pulmonary edema with mild residual edema and persistent small pleural effusions.
[2017-06-27] MEDS: Famotidine 20mg/50ml 20 MG/50 ML BAG IVPB SCH ×2 (09:28→21:33)
[2017-06-27] MEDS: Insulin Lispro (HUMAlog) HIGH Coverage SC SCH ×4 (09:29→21:33)
--- NOTE | 2017-06-27 10:40 | CP.PCM.PN ---
<rTaci Garcia - Last Filed: 06/27/17 10:40> Subjective - Date & Time of Evaluation Date of Evaluation: 06/27/17 Time of Evaluation: 09:00 - Subjective Subjective: Patient was seen and examined at the bedside S morning, chart was reviewed. Patient denies nausea, vomiting, or abdominal pain. He reported coughing up brown sputum, no bright red blood. Tolerating pured diet. Reports having p.m. yesterday, no reports of acute overnight events.Chest x-ray done this morning which shows slight improvement of pulmonary edema but with residual edema and pleural effusion. Patient denies shortness of breath or chest pain. Objective - Vital Signs/Intake and Output Vital Signs (last 24 hours): Temp Pulse Resp BP Pulse Ox 98.4 F 77 9 L 115/62 96 06/26/17 16:00 06/27/17 06:30 06/27/17 06:30 06/27/17 09:29 06/27/17 06:30 Intake and Output: 06/27/17 06/27/17 06:59 18:59 Intake Total 2386 Output Total 450 Balance 1936 - Medications Medications: Current Medications Docusate Sodium (Colace) 100 mg PO DAILY [facility] Last Admin: 06/27/17 09:30 Dose: 100 mg Furosemide (Lasix) 40 mg IVP Q12 [facility] Last Admin: 06/27/17 09:29 Dose: 40 mg Famotidine (Pepcid 20mg/50ml Premix) 20 mg in 50 mls @ 100 mls/hr IVPB Q12 [facility] Last Admin: 06/27/17 09:28 Dose: 100 mls/hr Meropenem 1g/NS 100mL IVPB (Meropenem 1g/Ns 100ml Ivpb) 1 gm in 100 mls @ 100 mls/hr IVPB Q8 [facility] PRN Reason: Protocol Stop: 07/01/17 14:01 Last Admin: 06/27/17 05:26 Dose: 100 mls/hr Potassium Chloride 20 meq/ (Sodium Chloride) 1,010 mls @ 50 mls/hr IV .[id number] [facility] Last Admin: 06/26/17 23:17 Dose: 50 mls/hr Insulin Human Lispro (Humalog High) 0 units SC ACHS [facility] PRN Reason: Protocol Last Admin: 06/27/17 09:29 Dose: 7 units Levalbuterol HCl (Xopenex) 1.25 mg IH [id number] PRN PRN Reason: Shortness of Breath Last Admin: 06/27/17 06:58 Dose: 1.25 mg Ondansetron HCl (Zofran Inj) 4 mg IVP Q6H PRN PRN Reason: Nausea/Vomiting Last Admin: 06/22/17 12:33 Dose: 4 mg - Labs Labs: 06/27/17 05:30 06/27/17 05:30 PT 16.7 Seconds (9.9-11.8) H 06/26/17 05:00 INR 1.55 (0.93-1.08) H 06/26/17 05:00 APTT 35.9 Seconds (23.7-30.8) H 06/19/17 05:45 - Constitutional Appears: No Acute Distress - Head Exam Head Exam: NORMOCEPHALIC - Eye Exam Eye Exam: Normal appearance. absent: Scleral icterus - ENT Exam ENT Exam: Mucous Membranes Moist - Neck Exam Neck Exam: Normal Inspection - Respiratory Exam Respiratory Exam: Decreased Breath Sounds, Rhonchi, NORMAL BREATHING PATTERN. absent: Rales, Wheezes, Respiratory Distress - Cardiovascular Exam Cardiovascular Exam: +S1, +S2 - GI/Abdominal Exam GI & Abdominal Exam: Soft, Normal Bowel Sounds. absent: Guarding, Tenderness, Rebound - Extremities Exam Extremities Exam: Normal Capillary Refill. absent: Calf Tenderness, Pedal Edema - Neurological Exam Neurological Exam: Alert, Awake, Oriented x3 - Skin Skin Exam: Dry, Warm Assessment and Plan - Assessment and Plan (Free Text) Assessment: Assessment: 71-year-old patient with AML admitted with the neutropenic sepsis secondary to ESBL clinically improving Shock liver, improving LFT Acute kidney injury CT scan reviewed colitis versus edema Anasarca and ascites Pleural effusion AML status post chemotherapy -Anemia,thrombocytopenia, improving WBC Sepsis ESBL, status post removal of the PICC line likely source CT reviewed had thickening of the colon but no significant inflammatory changes and on physical exam patient does not have any abdominal tenderness less likely the source PLAN: Follow up LFTs and INR Continue antibiotics as per ID Continue stool softeners, hold for loose stools Pured diet Continued GI and DVT prophylaxis/scd Hematology renal and the continue the present management as per the consultants and icu team Seen and discussed with Dr. Torres. <Mague Torres V - Last Filed: 06/27/17 18:59> Objective - Vital Signs/Intake and Output Vital Signs (last 24 hours): Temp Pulse Resp BP Pulse Ox 98.7 F 81 19 129/69 100 06/27/17 08:00 06/27/17 14:10 06/27/17 14:10 06/27/17 14:00 06/27/17 14:10 Intake and Output: 06/27/17 06/27/17 06:59 18:59 Intake Total 2386 Output Total 450 Balance 1936 - Medications Medications: Current Medications Docusate Sodium (Colace) 100 mg PO DAILY [facility] Last Admin: 06/27/17 09:30 Dose: 100 mg Famotidine (Pepcid 20mg/50ml Premix) 20 mg in 50 mls @ 100 mls/hr IVPB Q12 [facility] Last Admin: 06/27/17 09:28 Dose: 100 mls/hr Meropenem 1g/NS 100mL IVPB (Meropenem 1g/Ns 100ml Ivpb) 1 gm in 100 mls @ 100 mls/hr IVPB Q8 [facility] PRN Reason: Protocol Stop: 07/01/17 14:01 Last Admin: 06/27/17 14:29 Dose: 100 mls/hr Potassium Chloride 20 meq/ (Sodium Chloride) 1,010 mls @ 50 mls/hr IV .[id number] [facility] Last Admin: 06/26/17 23:17 Dose: 50 mls/hr Insulin Human Lispro (Humalog High) 0 units SC ACHS [facility] PRN Reason: Protocol Last Admin: 06/27/17 16:07 Dose: 10 units Levalbuterol HCl (Xopenex) 1.25 mg IH [id number] PRN PRN Reason: Shortness of Breath Last Admin: 06/27/17 13:12 Dose: 1.25 mg Ondansetron HCl (Zofran Inj) 4 mg IVP Q6H PRN PRN Reason: Nausea/Vomiting Last Admin: 06/22/17 12:33 Dose: 4 mg Thiamine HCl (Vitamin B1 Tab) 100 mg PO DAILY [facility] Last Admin: 06/27/17 18:25 Dose: 100 mg - Labs Labs: 06/27/17 05:30 06/27/17 05:30 PT 16.7 Seconds (9.9-11.8) H 06/26/17 05:00 INR 1.55 (0.93-1.08) H 06/26/17 05:00 APTT 35.9 Seconds (23.7-30.8) H 06/19/17 05:45 Attending/Attestation - Attestation I have personally seen and examined this patient.: Yes I have fully participated in the care of the patient.: Yes I have reviewed all pertinent clinical information, including history, physical exam and plan: Yes Notes (Text): patient was seen in evaluted earlier. Patient family was at bedside. Denies any abdominal pain. On examination abdomen soft no tenderness. Tolerating diet. LFTs shows downward trend. Patient is on IV Pepcid 20 mg twice daily would change to po and these the dose to once daily if thrombocytopenia persists also would request hepatitis profile
[2017-06-27] MEDS ORDERED: Magnesium Sulfate 2 GM in Sodium Chloride 0.9% 100 ML IV ONE (10:44)
[2017-06-27] MEDS ORDERED: Potassium Chloride 20 mEq ER Tab PO ONE (10:51)
--- NOTE | 2017-06-27 13:31 | PN ---
DATE: SUBJECTIVE: The patient is currently seen in ICU bed number 2. He has been transferred out of the unit to Telemetry, but is awaiting a bed. The patient appears to be entirely comfortable. IV fluids with potassium are infused and potassium today is 3.2, only slightly higher than yesterday's value. The patient remains on IV diuretic therapy. The patient is completing a course of IV antibiotics for neutropenic sepsis. PHYSICAL EXAMINATION/OBJECTIVE: INTAKE/OUTPUT: Intake 4286 and output 800, but apparently this has been significantly more urine which has not been charted. VITAL SIGNS: Blood pressure of 115/62, pulse of 77, and respiratory rate of 18, with a temperature of 98.4. HEENT: Normocephalic and atraumatic. Conjunctivae are pale. Sclerae are mildly icteric. NECK: Supple and no neck vein distention. CARDIAC: S1 and S2 are normal. No audible murmurs, rubs or gallops noted. CHEST: Clear to auscultation and percussion. No rales, no rhonchi, and no wheezing appreciated. ABDOMEN: Soft and bowel sounds are normal. No rebound, no guarding, and no masses. EXTREMITIES: Show no lower extremity edema. No cyanosis or clubbing. LABORATORY AND IMAGING DATA: CBC today, white blood cell count continues to improve at 6.4, and hemoglobin of 10.3 with a platelet count of 59,000. Chemistries: Potassium of 3.2, sodium of 135, and chloride of 88 with a CO2 of 40. BUN of 34 with a creatinine of 1.2. Glucose of 280, calcium of 8.4, phosphorus of 3.2, and magnesium level is low at 1.2. Bilirubin is 3.0, ALT is 318, with a normal AST. LFTs continue to improve. MICROBIOLOGY: Positive for Escherichia coli extended-spectrum beta lactamase on admission in his blood. Repeat blood cultures are negative at 5 days. Tracheal aspirate is positive for yeast. ASSESSMENT: 1. Acute renal failure. The patient remains mildly prerenal. Creatinine is back to baseline. BUN continues to fall with hydration. 2. Status post septic shock secondary to profound neutropenia as a complication of treatment for his acute myelogenous leukemia. The patient's blood cultures are positive for Escherichia coli extended-spectrum beta lactamase. He is completing a course of antibiotic therapy. 3. Status post severe anion gap metabolic acidosis, CO2 level remains elevated. No further bicarbonate is being given. 4. Status post hypernatremia. The patient has received copious amounts of hypotonic fluids both orally and hypotonic intravenous fluids, his sodium level is now within range. 5. Persistent hypokalemia. The patient will receive K-riders again today. I will temporarily place Lasix on hold, as he appears to be euvolemic and the Lasix is likely dropping his potassium level down further. 6. Mild hypomagnesemia. The patient will receive Mag-riders today. 7. Transaminitis secondary to shock liver. These levels continue to improve. 8. History of diabetes mellitus. The patient will continue sliding scale insulin. 9. Possible bilateral basilar pneumonia. Again, the patient is repeating a course intravenous antibiotic therapy. 10. History of acute myelogenous leukemia status post chemotherapy. PLAN: 1. I will supplement potassium and magnesium today as noted above. 2. I will discontinue IV diuretic therapy as the patient appears to be euvolemic and is in no distress. 3. Complete course of antibiotics for his Escherichia coli extended-spectrum beta lactamase infection. 4. Await transfer to Telemetry. Oswaldo Araya MD
--- NOTE | 2017-06-27 18:17 | CP.PCM.PN ---
<Piyush Julio - Last Filed: 06/27/17 17:53> Subjective - Date & Time of Evaluation Date of Evaluation: 06/27/17 Time of Evaluation: 09:00 - Subjective Subjective: Neurology Progress Note for Dr. Taylor Service. Patient seen and examined at bedside in the ICU. No acute events reported overnight. Patient resting comfortably in bed, awake, alert, and oriented x3 ( self, location, year). Through automatic mounter, patient denies any acute complaints , including chest pain, shortness of breath, fevers/chills, nausea/emesis, diarrhea/constipation, dysuria/hematuria, or focal weakness. He does express a concern that he needs to be rehabbing more, and is requesting more PT, but understands he will need to leave the ICU before this can happen. Objective - Vital Signs/Intake and Output Vital Signs (last 24 hours): Temp Pulse Resp BP Pulse Ox 98.7 F 81 19 129/69 100 06/27/17 08:00 06/27/17 14:10 06/27/17 14:10 06/27/17 14:00 06/27/17 14:10 Intake and Output: 06/27/17 06/27/17 06:59 18:59 Intake Total 2386 Output Total 450 Balance 1936 - Medications Medications: Current Medications Docusate Sodium (Colace) 100 mg PO DAILY [facility] Last Admin: 06/27/17 09:30 Dose: 100 mg Famotidine (Pepcid 20mg/50ml Premix) 20 mg in 50 mls @ 100 mls/hr IVPB Q12 [facility] Last Admin: 06/27/17 09:28 Dose: 100 mls/hr Meropenem 1g/NS 100mL IVPB (Meropenem 1g/Ns 100ml Ivpb) 1 gm in 100 mls @ 100 mls/hr IVPB Q8 [facility] PRN Reason: Protocol Stop: 07/01/17 14:01 Last Admin: 06/27/17 14:29 Dose: 100 mls/hr Potassium Chloride 20 meq/ (Sodium Chloride) 1,010 mls @ 50 mls/hr IV .[id number] [facility] Last Admin: 06/26/17 23:17 Dose: 50 mls/hr Insulin Human Lispro (Humalog High) 0 units SC ACHS [facility] PRN Reason: Protocol Last Admin: 06/27/17 16:07 Dose: 10 units Levalbuterol HCl (Xopenex) 1.25 mg IH [id number] PRN PRN Reason: Shortness of Breath Last Admin: 06/27/17 13:12 Dose: 1.25 mg Ondansetron HCl (Zofran Inj) 4 mg IVP Q6H PRN PRN Reason: Nausea/Vomiting Last Admin: 06/22/17 12:33 Dose: 4 mg Thiamine HCl (Vitamin B1 Tab) 100 mg PO DAILY [facility] - Labs Labs: 06/27/17 05:30 06/27/17 05:30 PT 16.7 Seconds (9.9-11.8) H 06/26/17 05:00 INR 1.55 (0.93-1.08) H 06/26/17 05:00 APTT 35.9 Seconds (23.7-30.8) H 06/19/17 05:45 - Constitutional Appears: Well, Non-toxic, No Acute Distress - Head Exam Head Exam: ATRAUMATIC, NORMAL INSPECTION, NORMOCEPHALIC - Eye Exam Eye Exam: EOMI, Normal appearance, PERRL. absent: Conjunctival injection, Scleral icterus Pupil Exam: NORMAL ACCOMODATION, PERRL. absent: Fixed, Irregular, Unequal - ENT Exam ENT Exam: Mucous Membranes Moist. absent: Mucous Membranes Dry - Neck Exam Neck Exam: Full ROM, Normal Inspection - Respiratory Exam Respiratory Exam: Decreased Breath Sounds (faintly decreased breath sounds in all woods), Rales (mild rales at bilateral bases), NORMAL BREATHING PATTERN. absent: Accessory Muscle Use, Chest Wall Tenderness, Rhonchi, Wheezes, Stridor Additional comments: No tachypnea, no wilmer cyanosis - Cardiovascular Exam Cardiovascular Exam: REGULAR RHYTHM, RRR, +S1, +S2. absent: Bradycardia, Tachycardia, Irregular Rhythm, +S4 - GI/Abdominal Exam GI & Abdominal Exam: Soft, Normal Bowel Sounds. absent: Distended, Firm, Guarding, Rigid, Tenderness, Diminished Bowel Sounds, Hyperactive Bowel Sounds, Hypoactive Bowel Sounds - Extremities Exam Extremities Exam: Full ROM, Normal Capillary Refill, Normal Inspection. absent : Calf Tenderness, Pedal Edema, Tenderness Additional comments: +2 dorsalis pedis and radials bilaterally - Neurological Exam Neurological Exam: Alert, Awake, CN II-XII Intact, Oriented x3 Additional comments: 4/5 bilateral UE flexion, 5/5 bilateral UE extension, 4/5 corn husker strength bilaterally 3/5 bilateral LE motor on straight leg raise, 5/5 bilateral LE motor on straight leg drop against resistance, 5/5 bilateral foot flexion and extension - Psychiatric Exam Psychiatric exam: Normal Affect, Normal Mood. absent: Agitated, Anxious - Skin Skin Exam: Dry, Intact, Normal Color, Warm Additional comments: Scattered echymosis at sites of prior blood draws Assessment and Plan - Assessment and Plan (Free Text) Assessment: This is a 71 yo [place] M with PMH of DM, HTN, AML s/p HiDAC/Neulasta therapy who presented to [facility] for fever and malaise, later developed Septic shock 2/2 ESBL+ bacteremia while neutropenic, and was intubated/mechanically ventilated for respiratory distress with pending respiratory failure. Transient AMS 2/2 toxic metabolic encephalopathy, superimposed on underlying deconditioned state. The patient appears to be improving overall, including mental status. Plan: 1) Keep blood glucose between 140-180 2) Thiamine 100mg PO daily 3) Monitor and replete electrolytes as necessary 4) PT/Ot eval, will likely need KENNETH after discharge due to deconditioning Please re-consult if patient condition changes <Joshua Taylor - Last Filed: 06/28/17 11:13> Objective - Vital Signs/Intake and Output Vital Signs (last 24 hours): Temp Pulse Resp BP Pulse Ox 98 F 79 21 114/62 100 06/28/17 08:00 06/28/17 10:10 06/28/17 10:10 06/28/17 10:00 06/28/17 10:10 Intake and Output: 06/28/17 06/28/17 06:59 18:59 Intake Total 1760 Output Total 1425 Balance 335 - Medications Medications: Current Medications Docusate Sodium (Colace) 100 mg PO DAILY [facility] Last Admin: 06/28/17 09:24 Dose: 100 mg Famotidine (Pepcid 20mg/50ml Premix) 20 mg in 50 mls @ 100 mls/hr IVPB Q12 [facility] Last Admin: 06/28/17 09:24 Dose: 100 mls/hr Meropenem 1g/NS 100mL IVPB (Meropenem 1g/Ns 100ml Ivpb) 1 gm in 100 mls @ 100 mls/hr IVPB Q8 [facility] PRN Reason: Protocol Stop: 07/01/17 14:01 Last Admin: 06/28/17 05:21 Dose: 100 mls/hr Potassium Chloride 20 meq/ (Sodium Chloride) 1,010 mls @ 50 mls/hr IV .[id number] [facility] Last Admin: 06/27/17 21:08 Dose: 50 mls/hr Insulin Human Lispro (Humalog High) 0 units SC ACHS [facility] PRN Reason: Protocol Last Admin: 06/28/17 07:50 Dose: 10 units Lactulose (Enulose) 20 gm PO HS [facility] Last Admin: 06/27/17 21:21 Dose: 20 gm Levalbuterol HCl (Xopenex) 1.25 mg IH [id number] PRN PRN Reason: Shortness of Breath Last Admin: 06/28/17 07:13 Dose: 1.25 mg Ondansetron HCl (Zofran Inj) 4 mg IVP Q6H PRN PRN Reason: Nausea/Vomiting Last Admin: 06/22/17 12:33 Dose: 4 mg Thiamine HCl (Vitamin B1 Tab) 100 mg PO DAILY [facility] Last Admin: 06/28/17 09:24 Dose: 100 mg - Labs Labs: 06/28/17 05:50 06/28/17 05:50 PT 16.7 Seconds (9.9-11.8) H 06/26/17 05:00 INR 1.55 (0.93-1.08) H 06/26/17 05:00 APTT 35.9 Seconds (23.7-30.8) H 06/19/17 05:45 Attending/Attestation - Attestation I have personally seen and examined this patient.: Yes I have fully participated in the care of the patient.: Yes I have reviewed all pertinent clinical information, including history, physical exam and plan: Yes
--- NOTE | 2017-06-27 18:54 | PN ---
DATE: 06/27/2017 SUBJECTIVE: The patient is in bed, in no acute distress and was seen early this morning. He has had low grade fevers. PHYSICAL EXAMINATION: VITAL SIGNS: Temperature is 98, T-max is 100, blood pressure is 115/60, respiratory rate of 16. HEENT: Unremarkable. NECK: Supple. LUNGS: Decreased breath sounds. HEART: Normal S1 and S2. ABDOMEN: Soft. LABORATORY DATA: Reveals a white count of 6.4, hemoglobin of 10, and platelets of 59 and microbiology is noted. The repeat cultures are negative. Review of orders reviews the patient to be on meropenem. Patient had chest x-ray this morning. There is significant improvement in pulmonary edema. Traci Garcia' progress note is reviewed and Dr. Araya's note is reviewed. Dr. Lane's note is reviewed. ASSESSMENT AND PLAN: A 71-year-old male with history of acute myelocytic leukemia status post chemotherapy, status post neutropenic septic shock with extended-spectrum beta-lactamases Escherichia coli bacteria. Neutropenia is resolved. The patient is extubated, comfortable. Currently on meropenem. The PICC line may have been responsible for the Escherichia coli bacteriemia and today is day #9 of meropenem with complete 10-14 days of meropenem. Review of orders revels meropenem to be active. We will fallow with you. Gustavo Billings MD
[2017-06-27] MEDS: Potassium Chloride 20 MEQ in Sodium Chloride 0.45% 1,000 ML IV SCH (21:08)
[2017-06-27 21:15] LABS: ALB/GLOB RATIO 0.8 (1.1-1.8); ALKALINE PHOSPHATASE 130 U/L (38-133); ALT/SGPT 266 U/L (7-56); AST/SGOT 34 U/L (15-59); BILIRUBIN,TOTAL 2.1 mg/dL (0.2-1.3); BLOOD UREA NITROGEN 31 mg/dL (7-21); CALCIUM 8.2 mg/dL (8.4-10.5); CARBON DIOXIDE 36 mmol/L (21-33); CHLORIDE 91 mmol/L (98-107); GFR AFRICAN-AMERICAN > 60; GLUCOSE,RANDOM 258 mg/dL (70-110); SODIUM 134 mmol/L (132-148); TOTAL PROTEIN 5.7 g/dL (5.8-8.3)
[2017-06-28] MEDS: Meropenem 1g/NS 100mL IVPB 1 GM/100 ML PIGGYBACK IVPB SCH ×3 (05:21→21:12)
[2017-06-28 06:09] LABS: GRAN # 5.48 (1.4-6.5); GRAN % 89.4 % (50.0-68.0); HEMATOCRIT 27.9 % (42.0-52.0); LYMPH # 0.4 (1.2-3.4); LYMPH % 5.9 % (22.0-35.0); MEAN CORPUSCULAR HEMOGLOBIN 28.3 pg (25.0-35.0); MEAN CORPUSCULAR HGB CONC 33.7 g/dl (31.0-37.0); MEAN PLATELET VOLUME 11.4 fl (7.0-11.0); MONO # 0.3 (0.1-0.6); MONO % 4.7 % (1.0-6.0); RED CELL DISTRIBUTION WIDTH 15.3 % (11.5-14.5); WHITE BLOOD COUNT 6.1 10^3/ul (4.5-11.0)
[2017-06-28 06:25] LABS: ALB/GLOB RATIO 0.9 (1.1-1.8); ALKALINE PHOSPHATASE 123 U/L (38-133); ALT/SGPT 229 U/L (7-56); AST/SGOT 32 U/L (15-59); BLOOD UREA NITROGEN 28 mg/dL (7-21); CALCIUM 8.3 mg/dL (8.4-10.5); CARBON DIOXIDE 35 mmol/L (21-33); CHLORIDE 94 mmol/L (98-107); GFR AFRICAN-AMERICAN > 60; GLUCOSE,RANDOM 295 mg/dL (70-110); MAGNESIUM 1.8 mg/dL (1.7-2.2); PHOSPHOROUS 3.2 mg/dL (2.5-4.5); POTASSIUM 3.9 mmol/L (3.6-5.0); SODIUM 134 mmol/L (132-148); TOTAL PROTEIN 5.4 g/dL (5.8-8.3)
[2017-06-28] MEDS: Levalbuterol 1.25 MG/3 ML Inhal Soln UD IH PRN ×2 (07:13→13:18)
[2017-06-28] MEDS: Insulin Lispro (HUMAlog) HIGH Coverage SC SCH ×4 (07:50→22:00)
--- NOTE | 2017-06-28 07:50 | PN ---
DATE: 06/27/2017 REFERRING PHYSICIAN: Dr. Lane. SUBJECTIVE: He is lying in the bed, sleepy, arousable. Family is at bedside. Vitals were unremarkable. Feels better, decreased cough, decreased shortness of breath. No nausea. No vomiting. No diarrhea. No leg pain. No leg swelling. PHYSICAL EXAMINATION: GENERAL: No acute distress. VITAL SIGNS: Temperature is 98.0, heart rate is 85, respiratory rate is 20, blood pressure 101/62, and pulse ox 97% on nasal cannula. HEENT: Moist mucous membranes. Crowded airway. NECK: Supple. No JVD. LUNGS: Has a few scattered rhonchi. HEART: S1 and S2. ABDOMEN: Soft and nontender. No organomegaly. EXTREMITIES: There is no much edema. NEUROLOGIC: Awake and alert. Follow simple commands. MEDICATIONS: He is on Colace 100 mg daily, lactulose 20 g at bedtime, insulin coverage, meropenem 1 g IV q. 8 hours, Pepcid 20 mg twice a day, Protonix with IV fluid 50 mL per hour, vitamin B1 100 mg daily, Xopenex inhaled q. 6 hours, and Zofran p.r.n. basis. LABORATORY DATA: Shows hemoglobin 10.3, hematocrit 31.4, WBC is 6.4, and platelet count is 59. Sodium 134, potassium 4.0, chloride 91, bicarbonate 31, BUN 31, creatinine 1.0, glucose 258, calcium 8.2, magnesium 1.2. AST 34, ALT 266, alk phos is 130, albumin is 2.6. Chest x-ray done today shows interval improvement in alveolar pulmonary edema with mild residual edema, persistent small pleural effusion is still there. IMPRESSION AND PLAN: Resolving bacteremia, status post respiratory failure, presently extubated on nasal cannula oxygen, may also have a component of pulmonary edema with severe cardiomyopathy, acute myelocytic leukemia; status post chemotherapy, resolving pancytopenia, pulmonary hypertension, activity of daily living dysfunction. I spoke to the patient's family at bedside. Continue antibiotics. Keep head elevated at 45 degrees, aspiration precaution, out of bed to chair, physical therapy. Followup labs in the morning. Thank you and we will follow with you. Pablo Miguel MD
[2017-06-28] MEDS: Famotidine 20mg/50ml 20 MG/50 ML BAG IVPB SCH ×2 (09:24→21:12)
--- NOTE | 2017-06-28 09:54 | CP.PCM.PN ---
Subjective - Date & Time of Evaluation Date of Evaluation: 06/28/17 Time of Evaluation: 09:00 - Subjective Subjective: Comfortable in bed, no abdominal pain , no SOB at rest, no nausea, no fevers overnight. Objective - Vital Signs/Intake and Output Vital Signs (last 24 hours): Temp Pulse Resp BP Pulse Ox 97.9 F 77 9 L 107/58 L 98 06/28/17 04:00 06/28/17 06:20 06/28/17 06:20 06/28/17 06:00 06/28/17 06:20 Intake and Output: 06/27/17 06/28/17 18:59 06:59 Intake Total 1700 1760 Output Total 2700 1425 Balance -1000 335 - Medications Medications: Current Medications Docusate Sodium (Colace) 100 mg PO DAILY [facility] Last Admin: 06/27/17 09:30 Dose: 100 mg Famotidine (Pepcid 20mg/50ml Premix) 20 mg in 50 mls @ 100 mls/hr IVPB Q12 [facility] Last Admin: 06/27/17 21:33 Dose: 100 mls/hr Meropenem 1g/NS 100mL IVPB (Meropenem 1g/Ns 100ml Ivpb) 1 gm in 100 mls @ 100 mls/hr IVPB Q8 [facility] PRN Reason: Protocol Stop: 07/01/17 14:01 Last Admin: 06/28/17 05:21 Dose: 100 mls/hr Potassium Chloride 20 meq/ (Sodium Chloride) 1,010 mls @ 50 mls/hr IV .[id number] [facility] Last Admin: 06/27/17 21:08 Dose: 50 mls/hr Insulin Human Lispro (Humalog High) 0 units SC ACHS [facility] PRN Reason: Protocol Last Admin: 06/27/17 21:33 Dose: Not Given Lactulose (Enulose) 20 gm PO HS [facility] Last Admin: 06/27/17 21:21 Dose: 20 gm Levalbuterol HCl (Xopenex) 1.25 mg IH [id number] PRN PRN Reason: Shortness of Breath Last Admin: 06/27/17 13:12 Dose: 1.25 mg Ondansetron HCl (Zofran Inj) 4 mg IVP Q6H PRN PRN Reason: Nausea/Vomiting Last Admin: 06/22/17 12:33 Dose: 4 mg Thiamine HCl (Vitamin B1 Tab) 100 mg PO DAILY [facility] Last Admin: 06/27/17 18:25 Dose: 100 mg - Labs Labs: 06/28/17 05:50 06/27/17 21:00 PT 16.7 Seconds (9.9-11.8) H 06/26/17 05:00 INR 1.55 (0.93-1.08) H 06/26/17 05:00 APTT 35.9 Seconds (23.7-30.8) H 06/19/17 05:45 - Constitutional Appears: Non-toxic, No Acute Distress - Head Exam Head Exam: ATRAUMATIC - ENT Exam ENT Exam: Mucous Membranes Moist - Neck Exam Neck Exam: absent: Meningismus - Respiratory Exam Respiratory Exam: Decreased Breath Sounds - Cardiovascular Exam Cardiovascular Exam: +S1, +S2 - GI/Abdominal Exam GI & Abdominal Exam: Soft. absent: Tenderness Assessment and Plan - Assessment and Plan (Free Text) Plan: Assessment Severe sepsis (S/P) Septic shock with multiorgan failure (acute renal failure which has improved, S/P ventilator-dependent hypoxic respiratory failure, S/P acute encephalopathy) due to ESBL E.coli bacteremia, suspect due to PICC line infection (since the PICC has been in place for about 3-4 months now), S/P removal 9 days ago - now off vaspressors and extubated and Acute Leukemia S/P chemotherapy 2 weeks ago, S/P severe neutropenia and pancytopenia HTN DM Plan Continue Merrem (day 10) - repeat blood cx are negative - should complete 14 days of therapy will continue monitor clinically and trend WBC count
[2017-06-28] MEDS ORDERED: POLYETHYLENE GLYCOL 3350 17 GM/Dose PACKET PO ONE (14:00)
--- NOTE | 2017-06-28 14:05 | CP.PCM.PN ---
Subjective - Date & Time of Evaluation Date of Evaluation: 06/28/17 Time of Evaluation: 08:45 - Subjective Subjective: S&E at bedside, chart reviewed. HAd BM, request Miralax for today. Tolerating PO intake, no acute overnight events. No N/V or abdominal pain. No reports of bleeding. Objective - Vital Signs/Intake and Output Vital Signs (last 24 hours): Temp Pulse Resp BP Pulse Ox 98 F 79 21 114/62 100 06/28/17 08:00 06/28/17 10:10 06/28/17 10:10 06/28/17 10:00 06/28/17 10:10 Intake and Output: 06/28/17 06/28/17 06:59 18:59 Intake Total 1760 Output Total 1425 Balance 335 - Medications Medications: Current Medications Docusate Sodium (Colace) 100 mg PO DAILY [facility] Last Admin: 06/28/17 09:24 Dose: 100 mg Famotidine (Pepcid 20mg/50ml Premix) 20 mg in 50 mls @ 100 mls/hr IVPB Q12 [facility] Last Admin: 06/28/17 09:24 Dose: 100 mls/hr Meropenem 1g/NS 100mL IVPB (Meropenem 1g/Ns 100ml Ivpb) 1 gm in 100 mls @ 100 mls/hr IVPB Q8 [facility] PRN Reason: Protocol Stop: 07/01/17 14:01 Last Admin: 06/28/17 05:21 Dose: 100 mls/hr Potassium Chloride 20 meq/ (Sodium Chloride) 1,010 mls @ 50 mls/hr IV .[id number] [facility] Last Admin: 06/27/17 21:08 Dose: 50 mls/hr Insulin Human Lispro (Humalog High) 0 units SC ACHS [facility] PRN Reason: Protocol Last Admin: 06/28/17 11:35 Dose: 4 units Lactulose (Enulose) 20 gm PO HS [facility] Last Admin: 06/27/17 21:21 Dose: 20 gm Levalbuterol HCl (Xopenex) 1.25 mg IH [id number] PRN PRN Reason: Shortness of Breath Last Admin: 06/28/17 13:18 Dose: 1.25 mg Ondansetron HCl (Zofran Inj) 4 mg IVP Q6H PRN PRN Reason: Nausea/Vomiting Last Admin: 06/22/17 12:33 Dose: 4 mg Thiamine HCl (Vitamin B1 Tab) 100 mg PO DAILY [facility] Last Admin: 06/28/17 09:24 Dose: 100 mg - Labs Labs: 06/28/17 05:50 06/28/17 05:50 PT 16.7 Seconds (9.9-11.8) H 06/26/17 05:00 INR 1.55 (0.93-1.08) H 06/26/17 05:00 APTT 35.9 Seconds (23.7-30.8) H 06/19/17 05:45 - Constitutional Appears: No Acute Distress - Eye Exam Eye Exam: Normal appearance. absent: Scleral icterus - ENT Exam ENT Exam: Mucous Membranes Moist - Neck Exam Neck Exam: Normal Inspection - Respiratory Exam Respiratory Exam: NORMAL BREATHING PATTERN. absent: Respiratory Distress - Cardiovascular Exam Cardiovascular Exam: +S1, +S2 - GI/Abdominal Exam GI & Abdominal Exam: Soft, Normal Bowel Sounds. absent: Guarding, Tenderness, Rebound - Extremities Exam Extremities Exam: Normal Capillary Refill. absent: Calf Tenderness, Pedal Edema - Neurological Exam Neurological Exam: Alert, Awake, Oriented x3 - Skin Skin Exam: Dry, Warm Assessment and Plan - Assessment and Plan (Free Text) Assessment: Assessment: 71-year-old patient with AML admitted with the neutropenic sepsis secondary to ESBL clinically improving Shock liver, improving LFT Acute kidney injury CT scan reviewed colitis versus edema Anasarca and ascites Pleural effusion AML status post chemotherapy -Anemia,thrombocytopenia, improving Sepsis ESBL, status post removal of the PICC line likely source CT reviewed had thickening of the colon but no significant inflammatory changes and on physical exam patient does not have any abdominal tenderness less likely the source PLAN: Follow up LFTs Continue antibiotics as per ID Continue stool softeners, hold for loose stools will give a dose of Miralax if no BM this afternoon, [facility] soft diet Continued GI and DVT prophylaxis/scd continue the present management as per the consultants and icu team Discussed with Dr. Howell, covering Dr. Ernandez.
--- NOTE | 2017-06-28 14:27 | PN ---
DATE: SUBJECTIVE: The patient is once again awaiting transfer out of the ICU to Telemetry. He appears to be improving on a daily basis. Creatinine is down to 1.0, BUN is 28. The patient's oral intake has improved. MEDICATIONS: Medication list is reviewed. The patient is on Colace, Enulose, insulin, meropenem, Pepcid, half normal saline 50 mL an hour, 20 mEq of potassium chloride, multivites, Xopenex, and Zofran p.r.n. OBJECTIVE: INTAKE/OUTPUT: Intake 3460 and output 4125. VITAL SIGNS: Blood pressure is 107/58, temperature 98, respiratory rate 18 with a pulse of 77. HEENT: Normocephalic and atraumatic. Conjunctivae remain pale. Sclerae are mildly icteric. NECK: Supple, no neck vein distention. CARDIOVASCULAR: S1 and S2 are normal. No audible murmurs, rubs or gallops noted. CHEST: Clear to auscultation and percussion. No rales, no rhonchi, and no wheezing. ABDOMEN: Soft and bowel sounds are normal. No rebound, no guarding, and no masses. EXTREMITIES: Show no lower extremity edema. No cyanosis or clubbing. LABORATORY AND IMAGING DATA: Labs today, CBC, white blood cell count stable at 6.1, hemoglobin 9.4, platelet count has improved at 89,000. Chemistries show a sodium of 134, potassium 3.9, chloride 94 with a CO2 of 35. BUN improved at 28 and creatinine stable at 1.0. Glucose remains elevated at 295, calcium 8.3, phosphorus 3.2, magnesium 1.8. Bilirubin 2.0, AST is now normal, ALT is down to 229. Alkaline phosphatase is normal. Albumin is 2.6. MICROBIOLOGY: Initial blood cultures were positive for Escherichia coli extended-spectrum beta lactamase. Repeat blood cultures were negative. Tracheal aspirate was positive for yeast. ASSESSMENT: 1. Acute renal failure in a patient with no past history of chronic kidney disease. The patient remains slightly prerenal, but this is improving on a daily basis. Diuretics have been discontinued. 2. Status post septic shock secondary to profound neutropenia and neutropenic sepsis. This was a complication of his treatment for his acute myelogenous leukemia. The patient's blood cultures were positive initially for Escherichia coli extended-spectrum beta lactamase. The patient is currently completing a course of antibiotic therapy. 3. Status post severe anion gap metabolic acidosis. CO2 level remains elevated at 35. The patient is receiving no further bicarbonate supplements. 4. Status post hypernatremia. This has resolved with hypotonic fluid administration both orally through the feeding tube and through intravenous fluid administration. Sodium is now within the normal range. 5. Status post hypokalemia. The patient has received copious amounts of potassium supplements. He is currently off diuretic therapy, so his potassium should remain normal and this will be followed on a regular basis. 6. Status post mild hypomagnesemia. The patient received a Mag-rider yesterday. His magnesium level is now normal at 1.8. 7. Transaminitis secondary to shock liver. Levels continue to improve on a daily basis. 8. History of diabetes mellitus. The patient likely needs an adjustment in his insulin and his sugars have been trending higher. 9. Possible bilateral basilar pneumonia. Again, the patient is completing a course of antibiotic therapy for his septicemia and likely pneumonia. 10. History of acute myelogenous leukemia, status post recent chemotherapy. PLAN: 1. Awaiting for the patient to be transferred out of the ICU to Telemetry. 2. Complete a course of IV antibiotics as per Infectious Disease for his Escherichia coli bacteremia and possible pneumonia. 3. The patient is stable from a Renal standpoint. For right now, we can continue low volume IV fluid hydration. Oswaldo Araya MD
[2017-06-28] MEDS: Potassium Chloride 20 MEQ in Sodium Chloride 0.45% 1,000 ML IV SCH (16:50)
--- NOTE | 2017-06-28 20:38 | PN ---
SUBJECTIVE: He is lying in the bed, head at 45 degrees. Night was unremarkable. Feels much better. No cough. No shortness of breath. No nausea or vomiting. Denies leg pain or leg swelling. OBJECTIVE: GENERAL: In no acute distress. VITAL SIGNS: Temperature is 98, heart rate is 84, respiratory rate is 20, blood pressure 114/62, pulse ox 99% on 4 liter nasal cannula. HEENT: Moist mucous membrane. Crowded airway. Mallampati score is IV. NECK: Supple. No JVD. LUNGS: Has a few scattered rhonchi. HEART: S1 and S2. ABDOMEN: Soft, nontender. No organomegaly. EXTREMITIES: Not much edema. NEUROLOGIC: Awake and alert. Follows simple commands. MEDICATIONS: He is on Colace 100 mg daily, lactulose 20 g at bedtime, insulin coverage, meropenem 1 g IV q 8 hours, Pepcid 20 mg twice a day, potassium 20 mEq daily, vitamin B1 100 mg daily, Xopenex inhaled q 6 hours p.r.n., Zofran p.r.n. basis. LABORATORY DATA: Shows hemoglobin 9.4, hematocrit 27.9, WBC is 6.1, and platelet count is 89. Sodium 134, potassium 2.9, chloride 94, bicarbonate 35, BUN 28, creatinine 1.0, glucose 295, calcium 8.3, phosphorus 3.2. Total bilirubin 2.0. AST 32, ALT 229, alkaline phosphatase is 123, albumin is 2.6. IMPRESSION AND PLAN: 1. Resolving bacteriemia, status post respiratory failure extubated on nasal cannula, severe cardiomyopathy, acute myelocytic leukemia status post chemotherapy, may have a component of sleep apnea syndrome, need to rule out sleep apnea to rule out any contribution from sleep apnea to cardiomyopathy. Continue diuretics afterload improvement leader. Cardiology follow up. Out of bed to chair physical therapy. Follow up labs in the morning. Thank you and we will follow with you. Pablo Miguel MD
--- NOTE | 2017-06-29 03:59 | PN ---
DATE: 06/28/2017 This is [facility] visit in the intensive care unit. For Dr. Vázquez. SUBJECTIVE: The patient is a 71-year-old male seen lying, wake in bed, somnolent but arousable, with the patient denying any complaints at this point. Tolerating p.o., otherwise in no acute distress. He is known to have been treated for respiratory failure, neutropenic sepsis, status post treatment in [place] for acute myelogenous leukemia with the patient's CBC now improving, as he has severe neutropenia, anemia, and thrombocytopenia earlier in his stay when he is referred to records. OBJECTIVE: VITAL SIGNS: Temperature is 97.8, heart rate is 81, respirations 20, blood pressure 124/67 with a pulse ox 97%. HEENT: Unremarkable. NECK: Supple. HEART: Regular rate. LUNGS: Occasional rhonchi. ABDOMEN: Soft and nontender. EXTREMITIES: Faint +1 edema. NEUROLOGIC: Awake and alert. SKIN: Warm and dry. LABORATORY DATA: The patient labs were done. White blood cell count 6.1, hemoglobin 9.4, hematocrit 27.9, platelet count of 89, 000 improved from 48,000 two days prior. His Chem metabolic panel shows a chloride of 94, carbon dioxide of 35, BUN of 28, creatinine of 1.0; otherwise, normal Chem normal with a non-fasting glucose of 349, calcium 8.3, T-bili of 2.0. ALT of 229, total protein 5.4, albumin 2.6. The patient's INR was done two days prior, was 1.55. MEDICATIONS: The patient's medications at this point include Colace, Enulose, insulin sliding scale, meropenem, famotidine, thiamine, Xopenex, and Zofran. Dysphagia-modified consistency diet. The patient had a chest x-ray done yesterday, it was read as interval improvement in alveolar pulmonary edema with mild residual edema and persistent small plural effusions. ASSESSMENT: With this patient is that of respiratory failure status post extubation into a treatment. Acute renal failure, improving status post neutropenic septic shock with thrombocytopenia, acute myelogenous leukemia, anemia status post transfusions, electrolyte imbalance, hypernatremia, hypokalemia, history of diabetes, pneumonia, status post treatment with Neulasta, questionable dementia, and benign prostatic hypertrophy. PLAN: Plan for this patient after conversation with Dr. Vázquez are to transfer out of the intensive care unit as per his attending, Dr. Lane with rehabilitation and physiotherapy as indicated. We will monitor clinically with labs. We will repeat his INR along with labs for tomorrow. The prognosis for this patient is guarded. Jarrod Santiago MD
--- NOTE | 2017-06-29 04:02 | PN ---
DATE: SUBJECTIVE: The patient is seen and examined on the bedside, looking comfortable. was sitting on the bedside also. Lots of time discussion done with patient's sister, she is environmental conservation professor. No nausea, vomiting, diarrhea. No hematuria or hematochezia. Started eating. PHYSICAL EXAMINATION VITAL SIGNS: Temperature 98, heart rate 84, respiratory rate 20, blood pressure 140/62 and pulse oximetry 99% on 2 liters nasal cannula. HEENT: Head is normocephalic and atraumatic. Eyes; PERRLA. Extraocular movements intact. Conjunctivae clear. Nose is patent. Mucous membranes moist. NECK: Supple. No carotid bruits. No JVD or thyromegaly. LUNGS: Few scattered rhonchi. HEART: S1 and S2 positive. ABDOMEN: Soft and nontender. No organomegaly. EXTREMITIES: No edema. No cyanosis. NEUROLOGIC: The patient is awake and alert. Follows simple commands. LABORATORY DATA: Hemoglobin 9.4, hematocrit 27.9, white blood cells 6.1 and platelets 89. Sodium 134, potassium 2.9, BUN 28, creatinine 1.0, glucose 295, AST 32 and ALT 229. MEDICATIONS: Colace, lactulose, Pepcid, potassium, vitamin B1, Xopenex and Zofran. ASSESSMENT AND PLAN: Mr. Christen Amador, 71 years old male with resolving bacteremia, status post respiratory failure extubated now on 4 liters nasal cannula; severe cardiomyopathy; acute e myelocytic leukemia status post chemotherapy, pancytopenia improving, sleep apnea syndrome. Continue diuretics, afterload reduction, cardiology followup, out of bed, physical therapy, need good rehab. Length of time family discussion on with patient's sister, Dr. Torres. All questions were answered. We will followup. Melanie Lane MD
[2017-06-29] MEDS: Meropenem 1g/NS 100mL IVPB 1 GM/100 ML PIGGYBACK IVPB SCH ×3 (05:49→22:11)
[2017-06-29 06:50] LABS: HEMATOCRIT 26.2 % (42.0-52.0); MEAN CELL VOLUME 84.2 fl (80.0-105.0); MEAN CORPUSCULAR HEMOGLOBIN 28.3 pg (25.0-35.0); MEAN CORPUSCULAR HGB CONC 33.6 g/dl (31.0-37.0); MEAN PLATELET VOLUME 10.7 fl (7.0-11.0); RED CELL DISTRIBUTION WIDTH 15.1 % (11.5-14.5)
[2017-06-29 06:55] LABS: INR 1.37 (0.93-1.08)
[2017-06-29 07:18] LABS: ALB/GLOB RATIO 0.8 (1.1-1.8); ALKALINE PHOSPHATASE 113 U/L (38-133); ALT/SGPT 158 U/L (7-56); AST/SGOT 27 U/L (15-59); BILIRUBIN,TOTAL 1.5 mg/dL (0.2-1.3); BLOOD UREA NITROGEN 24 mg/dL (7-21); CALCIUM 7.8 mg/dL (8.4-10.5); CARBON DIOXIDE 29 mmol/L (21-33); CHLORIDE 97 mmol/L (98-107); GFR AFRICAN-AMERICAN > 60; GLUCOSE,RANDOM 243 mg/dL (70-110); SODIUM 129 mmol/L (132-148); TOTAL PROTEIN 5.2 g/dL (5.8-8.3)
[2017-06-29 07:30] LABS: POTASSIUM 5.5 mmol/L (3.6-5.0)
[2017-06-29] MEDS: Insulin Lispro (HUMAlog) HIGH Coverage SC SCH ×4 (08:00→22:10)
--- NOTE | 2017-06-29 08:23 | PN ---
DATE: 06/27/2017 SUBJECTIVE: The patient is a 71-year-old male. The patient is seen in the ICU. is sitting on the beside also. No nausea, vomiting, or diarrhea. Feeling better. Today, he did conversation with me completely. He is getting irritated with Rothman's catheter. I spoke with the nurse and discontinued Rothman catheter. Still getting IV diuretics. Getting antibiotics. PHYSICAL EXAMINATION: VITAL SIGNS: Temperature is 98.2, blood pressure 115/52, pulse oximetry 77, respiratory rate 18. HEENT: Head is normocephalic, atraumatic. Eyes: PERRLA. Extraocular movements intact. Conjunctivae clear. Nose is patent. Mucous membranes moist. NECK: Supple. No carotid bruits. No JVD or thyromegaly. CHEST: Bilaterally symmetrical. HEART: S1 and S2 positive. LUNGS: Clear to auscultation. ABDOMEN: Soft. Bowel sounds present. No organomegaly. EXTREMITIES: No edema. No cyanosis. NEUROLOGIC: The patient is awake and alert, moving all four extremities. No focal deficits. LABORATORY DATA: White blood cell is 6.4, hemoglobin 10.3, platelets 59,000. Sodium 135, potassium 3.2, BUN 34, creatinine 1.2, glucose 280. Bilirubin is 3.0 and ALT is 318. ASSESSMENT AND PLAN: Mr. Perry Velásquez is a 71-year-old male with multiple medical problems, acute renal failure, mildly prerenal now, status post septic shock secondary to profound neutropenia, has a complication of treatment for this acute myelogenous leukemia. The patient's blood cultures are positive for Escherichia coli, extended-spectrum beta-lactamase. He is completing a course of antibiotic therapy. The patient is status post severe anion gap metabolic acidosis, status post hypernatremia, persistent hypokalemia, mildly hypomagnesemia, history of diabetes mellitus, possible bibasilar pneumonia, getting intravenous antibiotics, history of acute myelogenous leukemia, status post chemotherapy. Now, the patient is improving, transferring to telemetry, end of the day maybe he need acute rehab , working with social workers. The family is agreeable with that. Seen by real estate legal assistant, Dr. Oswaldo Araya . acute myelogenous leukemia, status post chemotherapy, pancytopenia. Removal of PICC line. Followup liver function tests. Continue antibiotics, stool softener , diet and discontinue Rothman catheter. Gastrointestinal and deep venous thrombosis prophylaxis. Repeat labs. We will follow up. Melanie Lane MD MTDRaudel
[2017-06-29] MEDS: Famotidine 20mg/50ml 20 MG/50 ML BAG IVPB SCH ×2 (09:02→22:11)
--- NOTE | 2017-06-29 09:31 | CP.PCM.PN ---
Subjective - Date & Time of Evaluation Date of Evaluation: 06/29/17 Time of Evaluation: 09:00 - Subjective Subjective: Comfortable on a chair, not in distress, no fevers, no nausea or vomiting, no diarrhea. Objective - Vital Signs/Intake and Output Vital Signs (last 24 hours): Temp Pulse Resp BP Pulse Ox 97.8 F 77 17 124/67 99 06/28/17 16:00 06/28/17 20:00 06/28/17 20:00 06/28/17 17:12 06/28/17 20:00 Intake and Output: 06/28/17 06/29/17 18:59 06:59 Intake Total 1950 Output Total 620 Balance 1330 - Medications Medications: Current Medications Docusate Sodium (Colace) 100 mg PO DAILY [facility] Last Admin: 06/28/17 09:24 Dose: 100 mg Famotidine (Pepcid 20mg/50ml Premix) 20 mg in 50 mls @ 100 mls/hr IVPB Q12 [facility] Last Admin: 06/28/17 21:12 Dose: 100 mls/hr Meropenem 1g/NS 100mL IVPB (Meropenem 1g/Ns 100ml Ivpb) 1 gm in 100 mls @ 100 mls/hr IVPB Q8 [facility] PRN Reason: Protocol Stop: 07/01/17 14:01 Last Admin: 06/29/17 05:49 Dose: 100 mls/hr Potassium Chloride 20 meq/ (Sodium Chloride) 1,010 mls @ 50 mls/hr IV .[id number] [facility] [place] Last Admin: 06/28/17 16:50 Dose: 50 mls/hr Insulin Human Lispro (Humalog High) 0 units SC ACHS [facility] PRN Reason: Protocol Last Admin: 06/28/17 22:00 Dose: Not Given Lactulose (Enulose) 20 gm PO HS [facility] Last Admin: 06/28/17 21:12 Dose: 20 gm Levalbuterol HCl (Xopenex) 1.25 mg IH [id number] PRN PRN Reason: Shortness of Breath Last Admin: 06/28/17 13:18 Dose: 1.25 mg Ondansetron HCl (Zofran Inj) 4 mg IVP Q6H PRN PRN Reason: Nausea/Vomiting Last Admin: 06/22/17 12:33 Dose: 4 mg Thiamine HCl (Vitamin B1 Tab) 100 mg PO DAILY [facility] Last Admin: 06/28/17 09:24 Dose: 100 mg - Labs Labs: 06/28/17 05:50 06/28/17 05:50 PT 16.7 Seconds (9.9-11.8) H 06/26/17 05:00 INR 1.55 (0.93-1.08) H 06/26/17 05:00 APTT 35.9 Seconds (23.7-30.8) H 06/19/17 05:45 - Constitutional Appears: Non-toxic, No Acute Distress - Head Exam Head Exam: NORMAL INSPECTION - ENT Exam ENT Exam: Mucous Membranes Moist - Neck Exam Neck Exam: absent: Lymphadenopathy, Meningismus - Respiratory Exam Respiratory Exam: Decreased Breath Sounds - Cardiovascular Exam Cardiovascular Exam: +S1, +S2 - GI/Abdominal Exam GI & Abdominal Exam: Soft. absent: Tenderness Assessment and Plan - Assessment and Plan (Free Text) Plan: Assessment Severe sepsis (S/P) Septic shock with multiorgan failure (acute renal failure which has improved, S/P ventilator-dependent hypoxic respiratory failure, S/P acute encephalopathy) due to ESBL E.coli bacteremia, suspect due to PICC line infection (since the PICC has been in place for about 3-4 months now), S/P removal 10 days ago - now off vaspressors and extubated and doing clinically better Acute Leukemia S/P chemotherapy 2 weeks ago, S/P severe neutropenia and pancytopenia HTN DM Plan Continue Merrem (day 11) - repeat blood cx are negative - should complete 14 days of therapy will continue follow clinically; WBC count has normalized
--- NOTE | 2017-06-29 09:50 | CP.PCM.PN ---
Subjective - Date & Time of Evaluation Date of Evaluation: 06/29/17 Time of Evaluation: 08:10 - Subjective Subjective: Seen and examined at the bedside this morning, adequate bed to chair, eating breakfast. Tolerating oral intake, denies dysphagia. No reports of nausea, vomiting, abdominal pain, or diarrhea.patient had a large BM yesterday did not require MiraLAX dose. No reports of bleeding. Objective - Vital Signs/Intake and Output Vital Signs (last 24 hours): Temp Pulse Resp BP Pulse Ox 97.7 F 83 26 H 101/60 94 L 06/29/17 08:00 06/29/17 09:20 06/29/17 09:20 06/29/17 08:00 06/29/17 09:20 Intake and Output: 06/29/17 06/29/17 06:59 18:59 Intake Total 2214 Output Total 1900 Balance 314 - Medications Medications: Current Medications Docusate Sodium (Colace) 100 mg PO DAILY [facility] Last Admin: 06/29/17 09:01 Dose: 100 mg Famotidine (Pepcid 20mg/50ml Premix) 20 mg in 50 mls @ 100 mls/hr IVPB Q12 [facility] Last Admin: 06/29/17 09:02 Dose: 100 mls/hr Meropenem 1g/NS 100mL IVPB (Meropenem 1g/Ns 100ml Ivpb) 1 gm in 100 mls @ 100 mls/hr IVPB Q8 [facility] PRN Reason: Protocol Stop: 07/01/17 14:01 Last Admin: 06/29/17 05:49 Dose: 100 mls/hr Potassium Chloride 20 meq/ (Sodium Chloride) 1,010 mls @ 50 mls/hr IV .[id number] [facility] Last Admin: 06/28/17 16:50 Dose: 50 mls/hr Insulin Human Lispro (Humalog High) 0 units SC ACHS [facility] PRN Reason: Protocol Last Admin: 06/29/17 08:00 Dose: 10 units Lactulose (Enulose) 20 gm PO HS [facility] Last Admin: 06/28/17 21:12 Dose: 20 gm Levalbuterol HCl (Xopenex) 1.25 mg IH [id number] PRN PRN Reason: Shortness of Breath Last Admin: 06/28/17 13:18 Dose: 1.25 mg Ondansetron HCl (Zofran Inj) 4 mg IVP Q6H PRN PRN Reason: Nausea/Vomiting Last Admin: 06/22/17 12:33 Dose: 4 mg Thiamine HCl (Vitamin B1 Tab) 100 mg PO DAILY [facility] Last Admin: 06/29/17 09:01 Dose: 100 mg - Labs Labs: 06/29/17 06:05 06/29/17 06:05 PT 14.8 Seconds (9.9-11.8) H 06/29/17 06:05 INR 1.37 (0.93-1.08) H 06/29/17 06:05 APTT 35.9 Seconds (23.7-30.8) H 06/19/17 05:45 - Constitutional Appears: No Acute Distress - Head Exam Head Exam: NORMOCEPHALIC - Eye Exam Eye Exam: Normal appearance. absent: Scleral icterus - ENT Exam ENT Exam: Mucous Membranes Moist - Neck Exam Neck Exam: Normal Inspection - Respiratory Exam Respiratory Exam: Rhonchi, NORMAL BREATHING PATTERN. absent: Wheezes, Respiratory Distress - Cardiovascular Exam Cardiovascular Exam: +S1, +S2 - GI/Abdominal Exam GI & Abdominal Exam: Soft, Normal Bowel Sounds. absent: Distended, Guarding, Tenderness, Rebound - Extremities Exam Extremities Exam: Normal Capillary Refill. absent: Calf Tenderness, Pedal Edema - Neurological Exam Neurological Exam: Alert, Awake, Oriented x3 Assessment and Plan - Assessment and Plan (Free Text) Assessment: Assessment: 71-year-old patient with AML admitted with the neutropenic sepsis secondary to ESBL clinically improving s/p respiratory failure Hyponatremia Shock liver, improving LFT Acute kidney injury CT scan reviewed colitis versus edema Pleural effusion AML status post chemotherapy -Anemia,thrombocytopenia, improving Sepsis ESBL, status post removal of the PICC line likely source CT reviewed had thickening of the colon but no significant inflammatory changes and on physical exam patient does not have any abdominal tenderness less likely the source PLAN: Follow up LFTs Continue antibiotics as per ID Continue stool softeners, hold for loose stools, also on lactulose soft diet Continue GI and DVT prophylaxis/scd as per the consultants and icu team Seen and discussed with Dr. Howell, covering Dr. Ernandez.
[2017-06-29] MEDS ORDERED: Sodium Chloride 0.9% 1,000 ML IV SCH (10:30)
--- NOTE | 2017-06-29 13:29 | PN ---
SUBJECTIVE: The patient once again seen in ICU bed 2. He has been transferred out to Telemetry but is awaiting a bed. His BUN is down to 24 with a creatinine of 0.8. of note, his sodium is 129 with a potassium of 5.5. His IV fluids with potassium chloride have been discontinued. MEDICATIONS: Medication list reviewed. The patient is on Colace, Enulose, insulin, meropenem, Pepcid; IV fluids with potassium have been discontinued; vitamin B1, Xopenex and Zofran p.r.n. OBJECTIVE: INTAKE/OUTPUT: Intake 4164, output 2520. VITAL SIGNS: Blood pressure 101/60, temperature 97.7, respiratory rate is 26, oxygen saturation 94%, pulse is 83. HEENT: Normocephalic and atraumatic. Conjunctiva are pale. Sclerae nonicteric. NECK: Supple. No neck vein distention. CHEST: Clear to auscultation and percussion. No rales, no rhonchi, and no wheezing. CARDIAC: S1 and S2 which are normal. No audible murmurs, rubs, or gallops noted. ABDOMEN: Soft. Bowel sounds are normal. No rebound, no guarding, no masses. No organomegaly noted. EXTREMITIES: No lower extremity cyanosis, clubbing, or edema. LABORATORY DATA AND IMAGING: CBC: White blood cell count today is 6.0 with hemoglobin down to 8.8, platelet count of 122,000. Chemistries today show sodium which has dropped to 129 from 134, potassium is up to 5.5, chloride 97, BUN 24 with creatinine of 0.8, CO2 is 29, glucose is 243, repeat 322. Sodium actually corrects to 132 to 133 range. Magnesium level 1.5. Calcium 7.8. Last phosphorus level was 3.2. Liver enzymes continue to improve. Bilirubin is 1.5. AST is normal at 27, ALT is 158. Microbiology: Initial blood cultures were positive for E. coli, ESBL. Repeat blood cultures were negative. Tracheal aspirate was positive for yeast. ASSESSMENT: 1. Acute renal failure, resolved. The patient currently has normal BUN and creatinine. Diuretics have been discontinued. Prerenal azotemia is rapidly resolving. 2. Status post septic shock secondary to profound neutropenia and neutropenic sepsis. The patient was treated and is continuing treatment for Escherichia coli ESBL bacteremia. 3. Status post severe anion gap metabolic acidosis. CO2 levels are normalizing down to 29. The patient is receiving no further bicarbonate therapy. 4. Status post hypernatremia. Now, the patient is borderline hyponatremic, Corrected for his hyperglycemia, his sodium levels are in the 132 to 133 range. I will change the patient over to normal saline at 50 mL an hour and discontinue potassium in light of his K of 5.5. 5. Mild hyperkalemia. The patient had been hypokalemic in the past secondary to diuretic therapy. Presently all potassium supplements have been discontinued. We will try and avoid use of Kayexalate. 6. Status post mild hypomagnesemia. Magnesium level is normal at 1.8. 7. History of transaminitis secondary to shock liver. Liver enzymes continue to improve. 8. History of diabetes mellitus. The patient needs tighter control of his glucose levels. We will continue sliding scale insulin. 9. Possible bilateral basilar pneumonia. Again, the patient is completing a course of antibiotic therapy. 10. History of acute myelogenous leukemia, status post recent chemotherapy. PLAN: 1. The patient is still awaiting transfer out of the ICU. 2. Change to normal saline and discontinue all potassium supplements. 3. Continue to monitor electrolytes daily until all of his electrolytes and renal parameters normalize. Oswaldo Araya MD MTDD
[2017-06-29] MEDS ORDERED: Insulin Detemir 100 units/ml Vial (Levemir) SC SCH (22:00)
--- NOTE | 2017-06-29 23:05 | CP.PCM.PN ---
Subjective - Date & Time of Evaluation Date of Evaluation: 06/29/17 Time of Evaluation: 23:03 - Subjective Subjective: Patient was seen at bedside. Initially , it was requested to me to insert a heparin lock. He had redness and swelling of upper arm where he had pain and had requested tylenol for that. Later on , he complained of insomnia and requested something for it.(00:31). This 71 year old male was admitted for fever , generalized weakness, S/P recepient of chemotherapy recently. Has PMH of Leukemia, anemia, on chemotherapy. Objective - Vital Signs/Intake and Output Vital Signs (last 24 hours): Temp Pulse Resp BP Pulse Ox 99.4 F 78 20 102/63 96 06/29/17 16:00 06/29/17 16:00 06/29/17 16:00 06/29/17 16:00 06/29/17 16:00 Intake and Output: 06/29/17 06/30/17 18:59 06:59 Intake Total 440 660 Output Total 900 1300 Balance -460 -640 - Medications Medications: Current Medications Acetaminophen (Tylenol 325mg Tab) 650 mg PO STAT STA Stop: 06/29/17 23:04 Docusate Sodium (Colace) 100 mg PO DAILY [facility] Last Admin: 06/29/17 09:01 Dose: 100 mg Famotidine (Pepcid 20mg/50ml Premix) 20 mg in 50 mls @ 100 mls/hr IVPB Q12 [facility] Last Admin: 06/29/17 22:11 Dose: 100 mls/hr Meropenem 1g/NS 100mL IVPB (Meropenem 1g/Ns 100ml Ivpb) 1 gm in 100 mls @ 100 mls/hr IVPB Q8 [facility] PRN Reason: Protocol Stop: 07/01/17 14:01 Last Admin: 06/29/17 22:11 Dose: 100 mls/hr Sodium Chloride (Sodium Chloride 0.9%) 1,000 mls @ 50 mls/hr IV .Q20H [facility] Last Admin: 06/29/17 10:58 Dose: 50 mls/hr Insulin Detemir (Levemir) 10 unit SC HS [facility] Last Admin: 06/29/17 22:14 Dose: 10 unit Insulin Human Lispro (Humalog High) 0 units SC ACHS [facility] PRN Reason: Protocol Last Admin: 06/29/17 22:10 Dose: Not Given Insulin Human Lispro (Humalog) 8 units SC AC [facility] Lactulose (Enulose) 20 gm PO HS [facility] Last Admin: 06/29/17 22:18 Dose: Not Given Levalbuterol HCl (Xopenex) 1.25 mg IH [id number] PRN PRN Reason: Shortness of Breath Last Admin: 06/28/17 13:18 Dose: 1.25 mg Ondansetron HCl (Zofran Inj) 4 mg IVP Q6H PRN PRN Reason: Nausea/Vomiting Last Admin: 06/22/17 12:33 Dose: 4 mg Thiamine HCl (Vitamin B1 Tab) 100 mg PO DAILY [facility] Last Admin: 06/29/17 09:01 Dose: 100 mg - Labs Labs: 06/29/17 06:05 06/29/17 06:05 PT 14.8 Seconds (9.9-11.8) H 06/29/17 06:05 INR 1.37 (0.93-1.08) H 06/29/17 06:05 APTT 35.9 Seconds (23.7-30.8) H 06/19/17 05:45 Laboratory Last Values WBC 6.0 10^3/ul (4.5-11.0) 06/29/17 06:05 RBC 3.11 10^6/uL (3.5-6.1) L 06/29/17 06:05 Hgb 8.8 g/dL (14.0-18.0) L 06/29/17 06:05 Hct 26.2 % (42.0-52.0) L 06/29/17 06:05 MCV 84.2 fl (80.0-105.0) 06/29/17 06:05 MCH 28.3 pg (25.0-35.0) 06/29/17 06:05 MCHC 33.6 g/dl (31.0-37.0) 06/29/17 06:05 RDW 15.1 % (11.5-14.5) H 06/29/17 06:05 Plt Count 122 10^3/uL (120.0-450.0) 06/29/17 06:05 Manual Plt Count 46 K/mm3 (120-450) L* 06/19/17 05:45 MPV 10.7 fl (7.0-11.0) 06/29/17 06:05 Gran % 89.4 % (50.0-68.0) H 06/28/17 05:50 Lymph % (Auto) 5.9 % (22.0-35.0) L 06/28/17 05:50 [place] % (Auto) 4.7 % (1.0-6.0) 06/28/17 05:50 Eos % (Auto) 0.0 % (1.5-5.0) L 06/28/17 05:50 Baso % (Auto) 0.0 % (0.0-3.0) 06/28/17 05:50 Gran # 5.48 (1.4-6.5) 06/28/17 05:50 Lymph # 0.4 (1.2-3.4) L 06/28/17 05:50 [place] # 0.3 (0.1-0.6) 06/28/17 05:50 Eos # 0.0 (0.0-0.7) 06/28/17 05:50 Baso # 0.00 K/mm3 (0.0-2.0) 06/28/17 05:50 Corrected WBC (Man) Cancelled 06/18/17 04:20 Neutrophils % (Manual) 90 % (50.0-70.0) H 06/27/17 05:30 Band Neutrophils % 2 % (0-2) 06/27/17 05:30 Lymphocytes % (Manual) 4 % (22.0-35.0) L 06/27/17 05:30 Atypical Lymphs % Cancelled 06/18/17 04:20 Monocytes % (Manual) 4 % (1.0-6.0) 06/27/17 05:30 Eosinophils % (Manual) Cancelled 06/18/17 04:20 Basophils % (Manual) Cancelled 06/18/17 04:20 Metamyelocytes % Cancelled 06/18/17 04:20 Myelocytes % Cancelled 06/18/17 04:20 Promyelocytes % Cancelled 06/18/17 04:20 Nucleated RBC % Cancelled 06/18/17 04:20 Hypersegmented Polys Cancelled 06/18/17 04:20 Immature Lymphocytes Cancelled 06/18/17 04:20 Blast Cells Cancelled 06/18/17 04:20 Smudge Cells Cancelled 06/18/17 04:20 Toxic Granulation Cancelled 06/18/17 04:20 Dohle Bodies Cancelled 06/18/17 04:20 Denisse Rods Cancelled 06/18/17 04:20 Platelet Evaluation Low (NORMAL) 06/27/17 05:30 Plt Clumps, EDTA Cancelled 06/18/17 04:20 Large Platelets Cancelled 06/18/17 04:20 Giant Platelets Cancelled 06/18/17 04:20 Polychromasia Cancelled 06/18/17 04:20 Hypochromasia Slight 06/27/17 05:30 Hyperchromasia Cancelled 06/18/17 04:20 Poikilocytosis (manual Slight 06/27/17 05:30 Basophilic Stippling Cancelled 06/18/17 04:20 Anisocytosis (manual) 1+ 06/27/17 05:30 Microcytosis (manual) Cancelled 06/18/17 04:20 Macrocytosis (manual) Cancelled 06/18/17 04:20 Spherocytes Cancelled 06/18/17 04:20 Sickle Cells Cancelled 06/18/17 04:20 Target Cells Cancelled 06/18/17 04:20 Tear Drop Cells Cancelled 06/18/17 04:20 Ovalocytes Slight 06/27/17 05:30 Stomatocytes Cancelled 06/18/17 04:20 Helmet Cells Cancelled 06/18/17 04:20 [place] Rings Cancelled 06/18/17 04:20 Mickey Cells Cancelled 06/18/17 04:20 Acanthocytes (Spur) Cancelled 06/18/17 04:20 Rouleaux Cancelled 06/18/17 04:20 Schistocytes Cancelled 06/21/17 05:50 PT 14.8 Seconds (9.9-11.8) H 06/29/17 06:05 INR 1.37 (0.93-1.08) H 06/29/17 06:05 APTT 35.9 Seconds (23.7-30.8) H 06/19/17 05:45 Fibrinogen 418.7 mg/dL (187-400) H 06/19/17 13:53 Fibrin Degrad Products >10 <40 ug/ml (< 10 ug/mL) 06/19/17 13:53 pCO2 47 mm/Hg (35-45) H 06/26/17 05:20 pO2 169 mm/Hg (30-55) H 06/26/17 22:45 HCO3 40.2 mmol/L (21-28) H* 06/26/17 05:20 ABG pH 7.54 (7.35-7.45) H 06/26/17 05:20 ABG Total CO2 41.6 mmol.L (22-28) H 06/26/17 05:20 ABG O2 Saturation 96.9 % (95-98) 06/26/17 05:20 ABG O2 Content 11.3 ML/dl (15-23) L 06/22/17 01:54 ABG Base Excess 15.9 mmol/L (-2.0-3.0) H 06/26/17 05:20 ABG Hemoglobin 8.7 g/dL (11.7-17.4) L 06/22/17 01:54 ABG Carboxyhemoglobin 2.6 % (0.5-1.5) H 06/22/17 01:54 POC ABG HHb (Measured) 4.5 % (0-5) 06/22/17 01:54 ABG Methemoglobin 1.2 % (0.0-3.0) 06/22/17 01:54 ABG O2 Capacity 11.9 mL/dl (16-24) L 06/22/17 01:54 ABG Potassium 2.8 mmol/L (3.6-5.2) L 06/26/17 05:20 VBG pH 7.56 (7.32-7.43) H 06/26/17 22:45 VBG pCO2 45.0 (40-60) 06/26/17 22:45 VBG HCO3 40.3 mmol/l (21-28) H 06/26/17 22:45 VBG Total CO2 41.7 mmol.L (22-28) H 06/26/17 22:45 VBG O2 Sat (Calc) 99.3 % (40-65) H 06/26/17 22:45 VBG Base Excess 16.4 mmol/L (0.0-2.0) H 06/26/17 22:45 VBG Potassium 3.2 mmol/L (3.6-5.2) L 06/26/17 22:45 Hgb O2 Saturation 91.7 % (95.0-98.0) L 06/22/17 01:54 Sodium 136.0 mmol/L (132-148) 06/26/17 22:45 Chloride 96.0 mmol/L (98-107) L 06/26/17 22:45 Glucose 350 mg/dl (75-110) H 06/26/17 22:45 Lactate 2.2 mmol/L (0.7-2.1) H 06/26/17 22:45 Mechanical Rate 16 06/19/17 17:59 FiO2 21.0 % 06/26/17 22:45 Tidal Volume 400 06/19/17 17:59 PEEP 5 06/19/17 17:59 Blood Gas Comments 06/24/17 06:00 Sodium 129 mmol/L (132-148) L 06/29/17 06:05 Potassium 5.5 mmol/L (3.6-5.0) H 06/29/17 06:05 Chloride 97 mmol/L (98-107) L 06/29/17 06:05 Carbon Dioxide 29 mmol/L (21-33) 06/29/17 06:05 Anion Gap 9 (10-20) L 06/29/17 06:05 BUN 24 mg/dL (7-21) H 06/29/17 06:05 Creatinine 0.8 mg/dL (0.5-1.4) 06/29/17 06:05 Est GFR ( Amer) > 60 06/29/17 06:05 Est GFR (Non-Af Amer) > 60 06/29/17 06:05 POC Glucose (mg/dL) 175 mg/dL (65-110) H 06/29/17 21:47 Random Glucose 243 mg/dL (70-110) H 06/29/17 06:05 Calcium 7.8 mg/dL (8.4-10.5) L 06/29/17 06:05 Phosphorus 3.2 mg/dL (2.5-4.5) 06/28/17 05:50 Magnesium 1.8 mg/dL (1.7-2.2) 06/28/17 05:50 Total Bilirubin 1.5 mg/dL (0.2-1.3) H 06/29/17 06:05 Direct Bilirubin 2.3 mg/dL (0.0-0.4) H 06/23/17 13:00 AST 27 U/L (15-59) 06/29/17 06:05 ALT 158 U/L (7-56) H 06/29/17 06:05 Alkaline Phosphatase 113 U/L (38-133) 06/29/17 06:05 Ammonia < 9 umol/L (9-33) L 06/23/17 13:00 Total Protein 5.2 g/dL (5.8-8.3) L 06/29/17 06:05 Albumin 2.3 g/dL (3.0-4.8) L 06/29/17 06:05 Globulin 2.9 gm/dL 06/29/17 06:05 Albumin/Globulin Ratio 0.8 (1.1-1.8) L 06/29/17 06:05 Procalcitonin 2.89 NG/ML (0.19-0.49) H 06/24/17 17:30 Arterial Blood Potassium 2.8 mmol/L (3.6-5.2) L 06/26/17 05:20 Venous Blood Potassium 3.2 mmol/L (3.6-5.2) L 06/26/17 22:45 Urine Color Yellow (YELLOW) 06/23/17 10:45 Urine Appearance Clear (CLEAR) 06/23/17 10:45 Urine pH 6.5 (4.7-8.0) 06/23/17 10:45 Ur Specific [place] 1.010 (1.005-1.035) 06/23/17 10:45 Urine Protein 30 mg/dL (<30 mg/dL) H 06/23/17 10:45 Urine Glucose (UA) Negative mg/dL (NEGATIVE) 06/23/17 10:45 Urine Ketones 15 mg/dL (NEGATIVE) H 06/23/17 10:45 Urine Blood Small (NEGATIVE) H 06/23/17 10:45 Urine Nitrate Negative (NEGATIVE) 06/23/17 10:45 Urine Bilirubin Negative (NEGATIVE) 06/23/17 10:45 Urine Urobilinogen 0.2 E.U./dL (<1 E.U./dL) 06/23/17 10:45 Ur Leukocyte Esterase Negative Ninfa/uL (NEGATIVE) 06/23/17 10:45 Urine RBC 10 - 15 /hpf (0-2) 06/23/17 10:45 Urine WBC Negative /hpf (0-6) 06/23/17 10:45 Ur Epithelial Cells None /hpf (0-5) 06/18/17 09:24 Amorphous Sediment Few 06/18/17 09:24 Urine Bacteria Many (NEG) 06/18/17 09:24 Urine Other Uyeast 06/18/17 09:24 Urine Eosinophils Negative 06/19/17 23:00 Cryptococcus Ag Screen Not detected (Not Detected) 06/23/17 13:00 Hepatitis A IgM Ab Negative (NEGATIVE) 06/27/17 21:00 Hep Bs Antigen Negative (NEGATIVE) 06/27/17 21:00 Hep B Core IgM Ab Negative (NEGATIVE) 06/27/17 21:00 Hepatitis C Antibody Negative (NEGATIVE) 06/27/17 21:00 Beta-(1,3)-D-Glucan 40 pg/mL 06/20/17 10:40 B-(1,3)-D-Glucan Intrp Negative 06/20/17 10:40 Blood Type A POSITIVE 06/21/17 07:06 Blood Type Confirm A POSITIVE 06/18/17 07:35 Antibody Screen Negative 06/21/17 07:06 Crossmatch See Detail 06/21/17 07:06 BBK History Checked Patient has bt 06/21/17 07:06 - Constitutional Appears: Well, No Acute Distress - Head Exam Head Exam: ATRAUMATIC, NORMAL INSPECTION, NORMOCEPHALIC - Eye Exam Eye Exam: Normal appearance - ENT Exam ENT Exam: Normal External Ear Exam - Neck Exam Neck Exam: Normal Inspection - Respiratory Exam Respiratory Exam: NORMAL BREATHING PATTERN - Cardiovascular Exam Cardiovascular Exam: absent: JVD - GI/Abdominal Exam GI & Abdominal Exam: absent: Distended - Rectal Exam Rectal Exam: Deferred - Exam Additional comments: Deferred. - Extremities Exam Additional comments: Right distal arm is swollen , erythematous, tender. ? IV infiltration vs cellulitis. - Back Exam Back Exam: NORMAL INSPECTION - Neurological Exam Neurological Exam: Alert - Psychiatric Exam Psychiatric exam: Normal Affect, Normal Mood - Skin Skin Exam: Normal Color Assessment and Plan - Assessment and Plan (Free Text) Assessment: Poor venous access. Encounter for intravenous line placement. Adjustment insomnia. Leukemia. Anemia. S/P chemotherapy. Right arm IV infiltrate Vs. Cellulitis. Plan: # 22 angiocath was inserted in right distal forearm. Tylenol 650 mg PO was ordered for right arm pain. Benadry 25 mg PO was ordered for insomnia. Continue present management.
--- NOTE | 2017-06-30 00:28 | PN ---
DATE: 06/29/2017 This is [facility] visit on the medical floor. For Dr. Vázquez. SUBJECTIVE: The patient is a 71-year-old male, seen lying awake in bed with his at the bedside, in no acute distress. Denying any pain, speaking broken Y[place]ut. The patient reporting he is tolerating p.o. well. He is known to be treated for respiratory failure, status post extubation, transferred from the intensive care unit earlier today for neutropenic sepsis, after treatment in [place] for acute myelogenous leukemia with the patient's pancytopenic indices now improving. With this, he appears to be in no acute distress. His labs being monitored. PHYSICAL EXAMINATION: VITAL SIGNS: Temperature 99.4, pulse 78, respirations 20, blood pressure 102/63, pulse ox 96%. HEENT: Unremarkable. NECK: Supple. HEART: Regular rate. LUNGS: Clear. ABDOMEN: Soft, nontender. EXTREMITIES: No edema. SKIN: Warm, dry and clear. NEUROLOGIC: Awake, alert and oriented. LABORATORY DATA: The patient's labs were done. White blood cell count of 6.0, hemoglobin of 8.8, hematocrit of 26.2, platelet count of 122,000, slowly improving on a daily basis when the trend is noted on the lab reports. His chem metabolic panel shows a sodium of 129 with a chloride of 97, BUN 24, creatinine 0.8 with a total bilirubin of 1.5, total protein of 5.2. ALT 158 down from 229 yesterday with a normal AST of 27. ASSESSMENT: Pancytopenia, neutropenic sepsis, slowly improved; metabolic acidosis; electrolytes imbalance; transaminitis; diabetes mellitus; pneumonia; acute myelogenous leukemia; post treatment in [place] with Neulasta given; status post respiratory failure with extubation; ?dementia; and benign prostatic hypertrophy. PLAN: After conversation with Dr. Vázquez, we will monitor the patient's labs with consideration for transfusion of packed red blood cells for hemoglobin of 8.8 today possibly with repeat to be done in the morning with transfusion as indicated for anemic indices. We will also follow his electrolytes as per Dr. Araya with the patient to continue reconditioning with consideration for transfer to that end. The prognosis for this patient is guarded. Jarrod MD [facility] # [id number]
--- NOTE | 2017-06-30 03:56 | PN ---
PULMONARY PROGRESS NOTE DATE: 06/29/2017 REFERRING PHYSICIAN: Dr. Lnae. SUBJECTIVE: He is lying in the bed, feels much better. No headache. No rhinitis. No nausea, no vomiting, no diarrhea. No leg pain or leg swelling. OBJECTIVE: GENERAL: No acute distress. VITAL SIGNS: Temperature is 98, heart rate is 78, respiratory rate is 20, blood pressure is 102/63, pulse ox 96% on room air. HEENT: Moist mucous membranes. Crowded airway. NECK: Supple. No JVD. LUNGS: A few scattered rhonchi and a few crackles at the bases. HEART: S1 and S2. ABDOMEN: Soft, nontender. No organomegaly. EXTREMITIES: No edema. NEUROLOGIC: Awake and alert, follows simple commands. MEDICATIONS: He is on Colace 100 mg daily, lactulose 20 mg at bedtime, insulin coverage with Levemir 10 units subQ at bedtime, meropenem 1 gm IV q.8 hours, Pepcid 20 mg twice a day, IV fluids normal saline at 50 mL per hour, vitamin B1 of 100 mg daily, Xopenex inhaled q.6 hours, and Zofran p.r.n. basis. LABORATORY DATA: Shows hemoglobin 8.8, hematocrit 26.2, WBC is 6.0, and platelets 122. INR 1.37. Sodium 129, potassium 5.5, chloride 97, bicarbonate 29, BUN 24, creatinine 0.8, glucose 243, calcium 7.8. Total bilirubin 1.5, AST 27, ALT 158, alkaline phosphatase is 113, albumin is 2.3. IMPRESSION AND PLAN: Resolving bacteremia, status post septic shock; respiratory failure, presently extubated and on room air; severe cardiomyopathy; acute myelocytic leukemia, status post chemotherapy; and he has a component of sleep apnea syndrome. I spoke to the patient and family at bedside, all questions answered. Spoke to nurse practitioner on the floor, also spoke to executive secretary social welfare. Case was discussed with nursing staff. I believe the patient will benefit from rehab. Keep head elevated at 45 degrees, antibiotics, bronchodilator, gastric prophylaxis, sequential compression devices to lower extremities. Thank you and we will follow with you. Pablo Miguel MD [facility] # [id number]
[2017-06-30] MEDS: Meropenem 1g/NS 100mL IVPB 1 GM/100 ML PIGGYBACK IVPB SCH ×2 (05:42→14:54)
[2017-06-30 06:48] LABS: HEMATOCRIT 32.8 % (42.0-52.0); MEAN CELL VOLUME 85.6 fl (80.0-105.0); MEAN CORPUSCULAR HEMOGLOBIN 28.5 pg (25.0-35.0); MEAN CORPUSCULAR HGB CONC 33.2 g/dl (31.0-37.0); MEAN PLATELET VOLUME 11.1 fl (7.0-11.0); WHITE BLOOD COUNT 5.6 10^3/ul (4.5-11.0)
[2017-06-30 06:57] LABS: ALB/GLOB RATIO 0.8 (1.1-1.8); ALKALINE PHOSPHATASE 130 U/L (38-126); ALT/SGPT 142 U/L (7-56); AST/SGOT 31 U/L (17-59); BILIRUBIN,TOTAL 1.6 mg/dL (0.2-1.3); BLOOD UREA NITROGEN 25 mg/dL (7-21); CARBON DIOXIDE 30 mmol/L (21-33); CHLORIDE 101 mmol/L (95-110); GFR AFRICAN-AMERICAN > 60; GLUCOSE,RANDOM 71 mg/dL (70-110); MAGNESIUM 1.7 mg/dL (1.7-2.2); PHOSPHOROUS 4.2 mg/dL (2.5-4.5); POTASSIUM 4.1 mmol/L (3.6-5.0); SODIUM 138 mmol/L (132-148); TOTAL PROTEIN 6.6 g/dL (5.8-8.3)
[2017-06-30] MEDS: Insulin Lispro (HUMAlog) HIGH Coverage SC SCH ×3 (08:05→16:21)
[2017-06-30] MEDS: Insulin Lispro 1 UNITS/0.01 ML SC SCH ×3 (08:05→16:21)
[2017-06-30 08:33] VITALS: O2SAT 98
[2017-06-30] MEDS: Famotidine 20mg/50ml 20 MG/50 ML BAG IVPB SCH (09:15)
--- NOTE | 2017-06-30 09:47 | PN ---
DATE: 06/30/2017 SUBJECTIVE: The patient is in bed, in no acute distress. PHYSICAL EXAMINATION VITAL SIGNS: Temperature is 98, blood pressure is 120/60, respiratory rate 20, heart rate of 60. HEENT: Unremarkable. NECK: Supple. LUNGS: Has decreased breath sounds. HEART EXAM: Normal S1 and S2. ABDOMEN EXAMINATION: Soft, nontender. No organomegaly. LABORATORY EXAMINATION: Reveals a white count of 5.6, hemoglobin of 10 and platelets of 200. BUN of 25, creatinine of 0.9. Urinalysis is noted, serology is noted and microbiology is noted. Review of orders revealed the patient to be on meropenem. ASSESSMENT AND PLAN: A 71-year-old male with severe sepsis, status post septic shock, multiorgan failure, acute renal failure which has improved, status post ventilatory dependent hypoxic respiratory failure, status post acute encephalopathy due to extended-spectrum beta-lactamase Escherichia coli bacteremia and the patient is with neutropenia, status post neutropenia due to chemotherapy, had a PICC line which was removed. Today is day #12 of meropenem, would complete a 14 days of meropenem in this patient with diabetes and hypertension and acute leukemia, status post chemotherapy and status post severe neutropenia and pancytopenia. Day #12 of 14 days of meropenem. Gustavo Billings MD
--- NOTE | 2017-06-30 11:06 | CP.PCM.PN ---
Subjective - Date & Time of Evaluation Date of Evaluation: 06/30/17 Time of Evaluation: 08:20 - Subjective Subjective: Seen and examined at the bedside earlier today. No acute overnight events reported. Patient sitting up in bed eating breakfast, denies nausea, vomiting, or abdominal pain. No reports of fever, chills, diarrhea or overt GI bleed. Objective - Vital Signs/Intake and Output Vital Signs (last 24 hours): Temp Pulse Resp BP Pulse Ox 97.8 F 60 20 120/69 98 06/30/17 08:32 06/30/17 08:32 06/30/17 08:32 06/30/17 08:32 06/30/17 08:32 Intake and Output: 06/30/17 06/30/17 06:59 18:59 Intake Total 1500 Output Total 2100 Balance -600 - Medications Medications: Current Medications Docusate Sodium (Colace) 100 mg PO DAILY [facility] Last Admin: 06/30/17 09:14 Dose: 100 mg Famotidine (Pepcid 20mg/50ml Premix) 20 mg in 50 mls @ 100 mls/hr IVPB Q12 [facility] Last Admin: 06/30/17 09:15 Dose: 100 mls/hr Meropenem 1g/NS 100mL IVPB (Meropenem 1g/Ns 100ml Ivpb) 1 gm in 100 mls @ 100 mls/hr IVPB Q8 [facility] PRN Reason: Protocol Stop: 07/01/17 14:01 Last Admin: 06/30/17 05:42 Dose: 100 mls/hr Sodium Chloride (Sodium Chloride 0.9%) 1,000 mls @ 50 mls/hr IV .Q20H [facility] Last Admin: 06/29/17 10:58 Dose: 50 mls/hr Insulin Detemir (Levemir) 10 unit SC HS [facility] Last Admin: 06/29/17 22:14 Dose: 10 unit Insulin Human Lispro (Humalog High) 0 units SC ACHS [facility] PRN Reason: Protocol Last Admin: 06/30/17 08:05 Dose: Not Given Insulin Human Lispro (Humalog) 8 units SC AC [facility] Last Admin: 06/30/17 08:05 Dose: Not Given Lactulose (Enulose) 20 gm PO HS [facility] Last Admin: 06/29/17 22:18 Dose: Not Given Levalbuterol HCl (Xopenex) 1.25 mg IH [id number] PRN PRN Reason: Shortness of Breath Last Admin: 06/28/17 13:18 Dose: 1.25 mg Ondansetron HCl (Zofran Inj) 4 mg IVP Q6H PRN PRN Reason: Nausea/Vomiting Last Admin: 06/22/17 12:33 Dose: 4 mg Thiamine HCl (Vitamin B1 Tab) 100 mg PO DAILY [facility] Last Admin: 06/30/17 09:15 Dose: 100 mg - Labs Labs: 06/30/17 06:00 06/30/17 06:00 PT 14.8 Seconds (9.9-11.8) H 06/29/17 06:05 INR 1.37 (0.93-1.08) H 06/29/17 06:05 APTT 35.9 Seconds (23.7-30.8) H 06/19/17 05:45 - Constitutional Appears: No Acute Distress - Head Exam Head Exam: NORMOCEPHALIC - Eye Exam Eye Exam: Normal appearance. absent: Scleral icterus - ENT Exam ENT Exam: Mucous Membranes Moist - Respiratory Exam Respiratory Exam: NORMAL BREATHING PATTERN. absent: Respiratory Distress - Cardiovascular Exam Cardiovascular Exam: +S1, +S2 - GI/Abdominal Exam GI & Abdominal Exam: Soft, Normal Bowel Sounds. absent: Guarding, Tenderness, Rebound - Extremities Exam Extremities Exam: Normal Capillary Refill. absent: Calf Tenderness, Pedal Edema - Neurological Exam Neurological Exam: Alert, Awake, Oriented x3 - Skin Skin Exam: Dry, Warm Assessment and Plan - Assessment and Plan (Free Text) Assessment: Assessment: 71-year-old patient with AML s/p chemptherapy, admitted with the neutropenic sepsis secondary to ESBL clinically improving s/p respiratory failure Sepsis ESBL, status post removal of the PICC line S/P Hyponatremia Shock liver, improving LFT Acute kidney injury CT scan reviewed colitis versus edema Pleural effusion Anemia Thrombocytopenia, improving PLAN: Follow up LFTs,continue to improve Continue antibiotics as per ID Continue stool softeners, hold for loose stools, also on lactulose soft diet Continue GI and DVT prophylaxis/scd as per the consultants Seen and discussed with Dr. Howell, covering Dr. Ernandez.
[2017-06-30 13:55] LABS: BASO # 0.01 K/mm3 (0.0-2.0); BASO % 0.2 % (0.0-3.0); GRAN # 5.2 (1.4-6.5); GRAN % 87.7 % (50.0-68.0); HEMATOCRIT 29.5 % (42.0-52.0); LYMPH # 0.4 (1.2-3.4); LYMPH % 7.4 % (22.0-35.0); MEAN CELL VOLUME 85.3 fl (80.0-105.0); MEAN CORPUSCULAR HEMOGLOBIN 28.3 pg (25.0-35.0); MEAN CORPUSCULAR HGB CONC 33.2 g/dl (31.0-37.0); MEAN PLATELET VOLUME 10.5 fl (7.0-11.0); MONO # 0.3 (0.1-0.6); MONO % 4.7 % (1.0-6.0); WHITE BLOOD COUNT 5.9 10^3/ul (4.5-11.0)
[2017-06-30 16:42] VITALS: BP 116/64; PULSE 64; RESP 18; TEMP 98.9
--- NOTE | 2017-06-30 19:14 | PN ---
SUBJECTIVE: The patient has been transferred out to . He appears to be stable. He has no complaints. Labs from today were reviewed and are all stable. His chemistries have completely normalized. MEDICATIONS: Medication list reviewed. The patient is currently on Colace, Enulose, Humalog, Levemir, meropenem, Pepcid, normal saline 50 an hour, thiamine, Xopenex, and Zofran p.r.n. OBJECTIVE: INTAKE/OUTPUT: Intake is 1940. Output is 3000. VITAL SIGNS: Blood pressure is 120/69, temperature 97.8, respiratory rate 20 with a pulse of 60. HEENT: Normocephalic, atraumatic. Conjunctiva pale. Sclera are not icteric. NECK: Supple. No neck vein distention. CHEST: Clear to auscultation and percussion. No rales, no rhonchi, no wheezing. CARDIOVASCULAR: Regular rate and rhythm without audible murmurs, rubs, or gallops. ABDOMEN: Soft. Bowel sounds are normal. No rebound, no guarding, no masses. EXTREMITIES: Show no lower extremity cyanosis, clubbing or edema. LABORATORY DATA AND IMAGING: CBC today, white blood cell count stable at 5.9, hemoglobin 9.8, platelet count is 240,000. Chemistries today are normal. Sodium 138, potassium 4.1, chloride 101 with a CO2 of 30. BUN is 25, creatinine 0.9. Glucose is 71. Calcium and phosphorus are normal. Magnesium is 1.6. Microbiology: Initial blood cultures were positive for E. coli, ESBL. Repeat blood cultures were negative. ASSESSMENT: 1. Acute renal failure, resolved. Prerenal azotemia has for all intents and purposes resolved. Diuretics have been discontinued. From my standpoint, IV fluids may be discontinued. 2. Status post septic shock secondary to profound neutropenia and neutropenic sepsis. The patient was treated and is continuing antibiotic therapy for Escherichia coli extended-spectrum beta-lactamase bacteremia. 3. Status post severe anion gap metabolic acidosis. CO2 levels are now normal at 30. 4. Status post mild hypernatremia. The patient was borderline hyponatremic yesterday. The patient received normal saline. His sodium level has improved and again from my standpoint IV fluids may be discontinued. 5. Status post mild hypokalemia and then hyperkalemia. His potassium level is normal today. 6. Borderline mild hypomagnesemia. The patient may receive an oral magnesium supplement. 7. History of transaminitis. This is essentially resolved. Liver enzymes are almost all at baseline levels. 8. History of diabetes mellitus. The patient needs to continue on sliding scale insulin. Glucose control is better. 9. Status post bilateral basilar infiltrates consistent with pneumonia. The patient is on antibiotics for both the bacteremia and for the pneumonia. He will complete a full course. 10. History of acute myelogenous leukemia, status post recent chemotherapy. PLAN: 1. The patient appears to be stable from a renal standpoint. Electrolytes are within normal order and his BUN and creatinine have returned to baseline levels. 2. From my standpoint, IV fluids may be discontinued. 3. We could decrease the frequency of labs. Oswaldo Araya MD
[2017-07-01] MEDS ORDERED: Magnesium Oxide 400 mg Tab UD PO SCH (10:00)
--- NOTE | 2017-07-02 20:02 | CP.PCM.DIS ---
Provider - Provider Date of Admission: 06/18/17 06:53 Attending physician: Melanie Lane MD Consults: dictating dc of 06/30/17 Perry Velásquez is a 71 year old male, whose past medical history includes leukemia and left arm PICC line, who presents to the Emergency department accompanied by relative complaining of fever. Relative states patient has been experiencing fever with associated generalized weakness tonight. Relative notes patient had chemotherapy yesterday and had been receiving antibiotics via his PICC line. Patient denies any chest pain, shortness of breath, nausea, vomiting , diarrhea, urinary symptoms, back pain, neck pain, headache, dizziness, or any other complaints. Time Spent in preparation of Discharge (in minutes): 60 Diagnosis - Discharge Diagnosis (1) Respiration abnormal Status: Acute (2) Pancytopenia Status: Acute (3) Anemia Status: Acute Hospital Course - Lab Results Lab Results: Micro Results 06/19/17 22:20 Blood-Venous Blood Culture - Final NO GROWTH AFTER 5 DAYS 06/19/17 22:20 Blood-Venous Gram Stain - Final TEST NOT PERFORMED 06/19/17 22:00 Blood-Venous Blood Culture - Final NO GROWTH AFTER 5 DAYS 06/19/17 22:00 Blood-Venous Gram Stain - Final TEST NOT PERFORMED 06/20/17 08:00 Trachasp Gram Stain - Final 06/20/17 08:00 Trachasp Sputum Culture - Final Yeast Species 06/18/17 09:24 Nose MRSA Culture (Admit) - Final MRSA NOT DETECTED 06/18/17 09:24 Urine,Clean Catch Urine Culture - Final No Growth (<1,000 CFU/ML) Most Recent Lab Values WBC 5.9 10^3/ul (4.5-11.0) 06/30/17 13:45 RBC 3.46 10^6/uL (3.5-6.1) L 06/30/17 13:45 Hgb 9.8 g/dL (14.0-18.0) L 06/30/17 13:45 Hct 29.5 % (42.0-52.0) L 06/30/17 13:45 MCV 85.3 fl (80.0-105.0) 06/30/17 13:45 MCH 28.3 pg (25.0-35.0) 06/30/17 13:45 MCHC 33.2 g/dl (31.0-37.0) 06/30/17 13:45 RDW 15.0 % (11.5-14.5) H 06/30/17 13:45 Plt Count 240 10^3/uL (120.0-450.0) 06/30/17 13:45 Manual Plt Count 46 K/mm3 (120-450) L* 06/19/17 05:45 MPV 10.5 fl (7.0-11.0) 06/30/17 13:45 Gran % 87.7 % (50.0-68.0) H 06/30/17 13:45 Lymph % (Auto) 7.4 % (22.0-35.0) L 06/30/17 13:45 [place] % (Auto) 4.7 % (1.0-6.0) 06/30/17 13:45 Eos % (Auto) 0.0 % (1.5-5.0) L 06/30/17 13:45 Baso % (Auto) 0.2 % (0.0-3.0) 06/30/17 13:45 Gran # 5.20 (1.4-6.5) 06/30/17 13:45 Lymph # 0.4 (1.2-3.4) L 06/30/17 13:45 [place] # 0.3 (0.1-0.6) 06/30/17 13:45 Eos # 0.0 (0.0-0.7) 06/30/17 13:45 Baso # 0.01 K/mm3 (0.0-2.0) 06/30/17 13:45 Corrected WBC (Man) Cancelled 06/18/17 04:20 Neutrophils % (Manual) 90 % (50.0-70.0) H 06/27/17 05:30 Band Neutrophils % 2 % (0-2) 06/27/17 05:30 Lymphocytes % (Manual) 4 % (22.0-35.0) L 06/27/17 05:30 Atypical Lymphs % Cancelled 06/18/17 04:20 Monocytes % (Manual) 4 % (1.0-6.0) 06/27/17 05:30 Eosinophils % (Manual) Cancelled 06/18/17 04:20 Basophils % (Manual) Cancelled 06/18/17 04:20 Metamyelocytes % Cancelled 06/18/17 04:20 Myelocytes % Cancelled 06/18/17 04:20 Promyelocytes % Cancelled 06/18/17 04:20 Nucleated RBC % Cancelled 06/18/17 04:20 Hypersegmented Polys Cancelled 06/18/17 04:20 Immature Lymphocytes Cancelled 06/18/17 04:20 Blast Cells Cancelled 06/18/17 04:20 Smudge Cells Cancelled 06/18/17 04:20 Toxic Granulation Cancelled 06/18/17 04:20 Dohle Bodies Cancelled 06/18/17 04:20 Denisse Rods Cancelled 06/18/17 04:20 Platelet Evaluation Low (NORMAL) 06/27/17 05:30 Plt Clumps, EDTA Cancelled 06/18/17 04:20 Large Platelets Cancelled 06/18/17 04:20 Giant Platelets Cancelled 06/18/17 04:20 Polychromasia Cancelled 06/18/17 04:20 Hypochromasia Slight 06/27/17 05:30 Hyperchromasia Cancelled 06/18/17 04:20 Poikilocytosis (manual Slight 06/27/17 05:30 Basophilic Stippling Cancelled 06/18/17 04:20 Anisocytosis (manual) 1+ 06/27/17 05:30 Microcytosis (manual) Cancelled 06/18/17 04:20 Macrocytosis (manual) Cancelled 06/18/17 04:20 Spherocytes Cancelled 06/18/17 04:20 Sickle Cells Cancelled 06/18/17 04:20 Target Cells Cancelled 06/18/17 04:20 Tear Drop Cells Cancelled 06/18/17 04:20 Ovalocytes Slight 06/27/17 05:30 Stomatocytes Cancelled 06/18/17 04:20 Helmet Cells Cancelled 06/18/17 04:20 [place] Rings Cancelled 06/18/17 04:20 [place] Cells Cancelled 06/18/17 04:20 Acanthocytes (Spur) Cancelled 06/18/17 04:20 Rouleaux Cancelled 06/18/17 04:20 Schistocytes Cancelled 06/21/17 05:50 PT 14.8 Seconds (9.9-11.8) H 06/29/17 06:05 INR 1.37 (0.93-1.08) H 06/29/17 06:05 APTT 35.9 Seconds (23.7-30.8) H 06/19/17 05:45 Fibrinogen 418.7 mg/dL (187-400) H 06/19/17 13:53 Fibrin Degrad Products >10 <40 ug/ml (< 10 ug/mL) 06/19/17 13:53 pCO2 47 mm/Hg (35-45) H 06/26/17 05:20 pO2 169 mm/Hg (30-55) H 06/26/17 22:45 HCO3 40.2 mmol/L (21-28) H* 06/26/17 05:20 ABG pH 7.54 (7.35-7.45) H 06/26/17 05:20 ABG Total CO2 41.6 mmol.L (22-28) H 06/26/17 05:20 ABG O2 Saturation 96.9 % (95-98) 06/26/17 05:20 ABG O2 Content 11.3 ML/dl (15-23) L 06/22/17 01:54 ABG Base Excess 15.9 mmol/L (-2.0-3.0) H 06/26/17 05:20 ABG Hemoglobin 8.7 g/dL (11.7-17.4) L 06/22/17 01:54 ABG Carboxyhemoglobin 2.6 % (0.5-1.5) H 06/22/17 01:54 POC ABG HHb (Measured) 4.5 % (0-5) 06/22/17 01:54 ABG Methemoglobin 1.2 % (0.0-3.0) 06/22/17 01:54 ABG O2 Capacity 11.9 mL/dl (16-24) L 06/22/17 01:54 ABG Potassium 2.8 mmol/L (3.6-5.2) L 06/26/17 05:20 VBG pH 7.56 (7.32-7.43) H 06/26/17 22:45 VBG pCO2 45.0 (40-60) 06/26/17 22:45 VBG HCO3 40.3 mmol/l (21-28) H 06/26/17 22:45 VBG Total CO2 41.7 mmol.L (22-28) H 06/26/17 22:45 VBG O2 Sat (Calc) 99.3 % (40-65) H 06/26/17 22:45 VBG Base Excess 16.4 mmol/L (0.0-2.0) H 06/26/17 22:45 VBG Potassium 3.2 mmol/L (3.6-5.2) L 06/26/17 22:45 Hgb O2 Saturation 91.7 % (95.0-98.0) L 06/22/17 01:54 Sodium 136.0 mmol/L (132-148) 06/26/17 22:45 Chloride 96.0 mmol/L (98-107) L 06/26/17 22:45 Glucose 350 mg/dl (75-110) H 06/26/17 22:45 Lactate 2.2 mmol/L (0.7-2.1) H 06/26/17 22:45 Mechanical Rate 16 06/19/17 17:59 FiO2 21.0 % 06/26/17 22:45 Tidal Volume 400 06/19/17 17:59 PEEP 5 06/19/17 17:59 Blood Gas Comments 06/24/17 06:00 Sodium 138 mmol/L (132-148) 06/30/17 06:00 Potassium 4.1 mmol/L (3.6-5.0) 06/30/17 06:00 Chloride 101 mmol/L (95-110) 06/30/17 06:00 Carbon Dioxide 30 mmol/L (21-33) 06/30/17 06:00 Anion Gap 11 (10-20) 06/30/17 06:00 BUN 25 mg/dL (7-21) H 06/30/17 06:00 Creatinine 0.9 mg/dL (0.5-1.4) 06/30/17 06:00 Est GFR ( Amer) > 60 06/30/17 06:00 Est GFR (Non-Af Amer) > 60 06/30/17 06:00 POC Glucose (mg/dL) 144 mg/dL (65-110) H 06/30/17 15:58 Random Glucose 71 mg/dL (70-110) 06/30/17 06:00 Calcium 9.0 mg/dL (8.4-10.5) 06/30/17 06:00 Phosphorus 4.2 mg/dL (2.5-4.5) 06/30/17 06:00 Magnesium 1.7 mg/dL (1.7-2.2) 06/30/17 06:00 Total Bilirubin 1.6 mg/dL (0.2-1.3) H 06/30/17 06:00 Direct Bilirubin 2.3 mg/dL (0.0-0.4) H 06/23/17 13:00 AST 31 U/L (17-59) 06/30/17 06:00 ALT 142 U/L (7-56) H 06/30/17 06:00 Alkaline Phosphatase 130 U/L (38-126) H 06/30/17 06:00 Ammonia < 9 umol/L (9-33) L 06/23/17 13:00 Total Protein 6.6 g/dL (5.8-8.3) 06/30/17 06:00 Albumin 2.9 g/dL (3.0-4.8) L 06/30/17 06:00 Globulin 3.7 gm/dL 06/30/17 06:00 Albumin/Globulin Ratio 0.8 (1.1-1.8) L 06/30/17 06:00 Procalcitonin 2.89 NG/ML (0.19-0.49) H 06/24/17 17:30 Arterial Blood Potassium 2.8 mmol/L (3.6-5.2) L 06/26/17 05:20 Venous Blood Potassium 3.2 mmol/L (3.6-5.2) L 06/26/17 22:45 Urine Color Yellow (YELLOW) 06/23/17 10:45 Urine Appearance Clear (CLEAR) 06/23/17 10:45 Urine pH 6.5 (4.7-8.0) 06/23/17 10:45 Ur Specific [place] 1.010 (1.005-1.035) 06/23/17 10:45 Urine Protein 30 mg/dL (<30 mg/dL) H 06/23/17 10:45 Urine Glucose (UA) Negative mg/dL (NEGATIVE) 06/23/17 10:45 Urine Ketones 15 mg/dL (NEGATIVE) H 06/23/17 10:45 Urine Blood Small (NEGATIVE) H 06/23/17 10:45 Urine Nitrate Negative (NEGATIVE) 06/23/17 10:45 Urine Bilirubin Negative (NEGATIVE) 06/23/17 10:45 Urine Urobilinogen 0.2 E.U./dL (<1 E.U./dL) 06/23/17 10:45 Ur Leukocyte Esterase Negative Ninfa/uL (NEGATIVE) 06/23/17 10:45 Urine RBC 10 - 15 /hpf (0-2) 06/23/17 10:45 Urine WBC Negative /hpf (0-6) 06/23/17 10:45 Ur Epithelial Cells None /hpf (0-5) 06/18/17 09:24 Amorphous Sediment Few 06/18/17 09:24 Urine Bacteria Many (NEG) 06/18/17 09:24 Urine Other Uyeast 06/18/17 09:24 Urine Eosinophils Negative 06/19/17 23:00 Cryptococcus Ag Screen Not detected (Not Detected) 06/23/17 13:00 Hepatitis A IgM Ab Negative (NEGATIVE) 06/27/17 21:00 Hep Bs Antigen Negative (NEGATIVE) 06/27/17 21:00 Hep B Core IgM Ab Negative (NEGATIVE) 06/27/17 21:00 Hepatitis C Antibody Negative (NEGATIVE) 06/27/17 21:00 Beta-(1,3)-D-Glucan 40 pg/mL 06/20/17 10:40 B-(1,3)-D-Glucan Intrp Negative 06/20/17 10:40 Blood Type A POSITIVE 06/21/17 07:06 Blood Type Confirm A POSITIVE 06/18/17 07:35 Antibody Screen Negative 06/21/17 07:06 Crossmatch See Detail 06/21/17 07:06 BBK History Checked Patient has bt 06/21/17 07:06 - Hospital Course Hospital Course: Perry Velásquez is a 71 year old male, whose past medical history includes leukemia and left arm PICC line, who presents to the Emergency department accompanied by relative complaining of fever. Relative states patient has been experiencing fever with associated generalized weakness tonight. Relative notes patient had chemotherapy yesterday and had been receiving antibiotics via his PICC line. Patient denies any chest pain, shortness of breath, nausea, vomiting , diarrhea, urinary symptoms, back pain, neck pain, headache, dizziness, or any other complaints.: A/P 71-year-old patient with AML s/p chemptherapy, admitted with the neutropenic sepsis secondary to ESBL clinically improved s/p respiratory failure Sepsis ESBL, status post removal of the PICC line S/P Hyponatremia Shock liver, improving LFT Acute kidney injury CT scan reviewed colitis versus edema Pleural effusion Anemia Thrombocytopenia, improving PLAN: Follow up LFTs,continue to improve Continue antibiotics as per ID Continue stool softeners, hold for loose stools, also on lactulose soft diet Continue GI and DVT prophylaxis/scd as per the consultants transferbpt to [facility] for cont. of care and pt ot Discharge Exam - Head Exam Head Exam: NORMOCEPHALIC Discharge Plan - Follow Up Plan Condition: CRITICAL Disposition: TRANSF TO SNF Instructions: Diabetes Mellitus Type 2 in Adults (DC), Sepsis (GEN) Additional Instructions: PT DISCHARGED TO [facility]
--- NOTE | 2017-07-03 20:10 | PN ---
DATE: 06/30/2017 SUBJECTIVE: He feels comfortable in bed in no acute distress. No fever, no cough with expectoration. No pain anywhere. REVIEW OF SYSTEMS: As per HPI. Rest of the 12-point review of systems is reviewed and negative. PHYSICAL EXAMINATION: GENERAL: Comfortable in bed in no acute distress. VITAL SIGNS: Temperature 98.7, heart rate is 80 per minute, blood pressure 120/60, respiratory rate is 20 per minute. HEENT: Unremarkable. NECK: Supple. Mucosa dry. No lymphadenopathy. CHEST: Air entry present and equal bilaterally. No added sounds. CARDIOVASCULAR: S1 and S2 normal. No murmur. No gallop. ABDOMEN: Soft and nontender. No hepatosplenomegaly. EXTREMITIES: No edema. SKIN: No petechia and no rash. LABORATORY DATA: White count 5.6, hemoglobin 10, platelet 200,000. BUN 25, creatinine 0.9. meds : reviewed. ASSESSMENT: 1. Acute myelogenous leukemia. 2. Severe sepsis status post septic shock, multiorgan failure. 3. Acute renal failure, improved. 4. Status post vent dependent hypoxic respiratory failure. 5. Status post acute encephalopathy. 6. Extended-spectrum beta-lactamases septicemia. 7. Pancytopenia. 8. Diabetes mellitus type 2. PLAN: He is currently on IV antibiotics with meropenem. He is being transferred to transitional care unit for continuation of IV antibiotic for ESBL sepsis ID following. Dr. Billings note reviewed. GI following. Blood count stable. Does not need any blood transfer to him. Platelet count improved from 48,000 to 240,000. Discussed with the staff nurse. Discussed with the patient. Airam Mascorro MD KRISTI
--- NOTE | 2017-07-04 08:05 | PN ---
[place] [facility] [place]. DATE: 06/30/[address] Vázquez. SUBJECTIVE: The patient is a 71-year-old male seen sitting up in bed with his family at the bedside, in no acute distress. 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 The patient was treated recently for respiratory failure, status post extubation, status post neutropenic sepsis after treatment for acute myelogenous leukemia in [facility] ([facility] The patient's pancytopenic indices is improving with the patient reporting that he feels well, has no acute distress this visit. It should be noted that the patient&s hemoglobin report is 8.8 yesterday with value repeated this morning at 10.9 with a repeat again at 9.8. It is considered to be lab error with the 9.8 more probably more accurate. He is otherwise without complaint. OBJECTIVE: PHYSICAL EXAMINATION: VITAL SIGNS: Temperature 97.8, pulse 60, respirations 20, blood pressure 120/69, pulse ox 98%. HEENT: Unremarkable. NECK: Supple. HEART: Regular rate. LUNGS: Clear with rare rhonchi at the bases. ABDOMEN: Soft, nontender. EXTREMITIES: No edema. SKIN: Warm, dry, and clear. NEUROLOGIC: Awake, alert, and oriented x3. LABORATORY DATA: The patient&s labs were done to include a white blood cell count of 5.9, hemoglobin upon repeat at 9.8, hematocrit 29.5, platelet count of 240,000. His platelet count earlier today was reported as 200,000. Yesterday, this was 122,000 with a 48,000 platelet count on 06/26/2017. The patient&s chem metabolic panel showed a BUN of Jarrod Santiago MD
== END 2017-06-30 16:52 | DRG 314 ==
LOC: ED 02:50 → ERH 06:53 → CCU 08:25 → 3RSO 06-29 12:57
PROVIDERS: ADMIT Internal Medicine; ATTEND Internal Medicine
PROC: 5A1945Z Respiratory Ventilation, 24-96 Consecutive Hours (ICD-10-PCS; principal; 2017-06-19)
PROC: 0BH18EZ Insertion of Endotracheal Airway into Trachea, Via Natural or Artificial Opening Endoscopic (ICD-10-PCS; 2017-06-19)
PROC: 05HM33Z Insertion of Infusion Device into Right Internal Jugular Vein, Percutaneous Approach (ICD-10-PCS; 2017-06-19)
PROC: B543ZZA Ultrasonography of Right Jugular Veins, Guidance (ICD-10-PCS; 2017-06-19)
PROC: 30233K1 Transfusion of Nonautologous Frozen Plasma into Peripheral Vein, Percutaneous Approach (ICD-10-PCS; 2017-06-21)
DX: T80.211A Bloodstream infection due to central venous catheter, initial encounter (principal); R65.21 Severe sepsis with septic shock; A41.51 Sepsis due to Escherichia coli [E. coli]; J96.01 Acute respiratory failure with hypoxia; K72.00 Acute and subacute hepatic failure without coma; J18.9 Pneumonia, unspecified organism; G92 Toxic encephalopathy; D61.818 Other pancytopenia; C92.00 Acute myeloblastic leukemia, not having achieved remission; N17.9 Acute kidney failure, unspecified; E87.0 Hyperosmolality and hypernatremia; E87.1 Hypo-osmolality and hyponatremia; E87.2 Acidosis; I42.9 Cardiomyopathy, unspecified; I50.20 Unspecified systolic (congestive) heart failure; R18.8 Other ascites; Z99.11 Dependence on respirator [ventilator] status; D70.3 Neutropenia due to infection; E11.65 Type 2 diabetes mellitus with hyperglycemia; E78.5 Hyperlipidemia, unspecified; E83.39 Other disorders of phosphorus metabolism; E83.42 Hypomagnesemia; E83.51 Hypocalcemia; E86.0 Dehydration; E87.5 Hyperkalemia; E87.6 Hypokalemia; E87.8 Other disorders of electrolyte and fluid balance, not elsewhere classified; F03.90 Unspecified dementia, unspecified severity, without behavioral disturbance, psychotic disturbance, mood disturbance, and anxiety; G47.30 Sleep apnea, unspecified; I11.0 Hypertensive heart disease with heart failure; I27.2 Other secondary pulmonary hypertension; N40.0 Benign prostatic hyperplasia without lower urinary tract symptoms; Y84.8 Other medical procedures as the cause of abnormal reaction of the patient, or of later complication, without mention of misadventure at the time of the procedure; T45.1X5A Adverse effect of antineoplastic and immunosuppressive drugs, initial encounter; Z79.4 Long term (current) use of insulin; Z79.899 Other long term (current) drug therapy; Z85.72 Personal history of non-Hodgkin lymphomas

== ENCOUNTER 2017-06-30 16:52 | Inpatient (IN) | payer OTHER, MEDICAID ==
[2017-06-30 17:51] VITALS: BMI 24.3
[2017-06-30] MEDS ORDERED: Levalbuterol 1.25 MG/3 ML Inhal Soln UD IH PRN (17:58)
[2017-06-30] MEDS ORDERED: Pneumococcal 23-Valent Vaccine IM ONE (20:45)
[2017-06-30] MEDS: Meropenem 1g/NS 100mL IVPB 1 GM/100 ML PIGGYBACK IVPB SCH (22:05)
[2017-06-30] MEDS: Insulin Detemir 100 units/ml Vial (Levemir) SC SCH (22:06)
--- NOTE | 2017-06-30 22:45 | CP.PCM.PN ---
Subjective - Date & Time of Evaluation Date of Evaluation: 06/30/17 Time of Evaluation: 22:42 - Subjective Subjective: Patient was seen at bedside. His blood glucose level was 405 mg % and he requested a sleeping pill. 15 units of regular insulin will be given as ordered. Right arm redness , swelling is going down. Has no other complaints. Medical record was reviewed. 71 year old male was admitted for generalized weakness, fever , S/P recepient of chemotherapy recently. Has PMH of anemia, Leukemia, on chemotherapy. Objective - Vital Signs/Intake and Output Vital Signs (last 24 hours): Temp Pulse Resp BP Pulse Ox 98.2 F 84 20 105/59 L 06/30/17 20:23 06/30/17 20:23 06/30/17 20:23 06/30/17 20:23 - Medications Medications: Current Medications Diphenhydramine HCl (Benadryl) 25 mg PO STAT STA Stop: 06/30/17 22:42 Docusate Sodium (Colace) 100 mg PO DAILY OMARI PRN Reason: Protocol Meropenem 1g/NS 100mL IVPB (Meropenem 1g/Ns 100ml Ivpb) 1 gm in 100 mls @ 100 mls/hr IVPB Q8 OMARI PRN Reason: Protocol Stop: 07/03/17 06:59 Last Admin: 06/30/17 22:05 Dose: 100 mls/hr Famotidine (Pepcid 20mg/50ml Premix) 20 mg in 50 mls @ 100 mls/hr IVPB 1000, 2200 OMARI PRN Reason: Protocol Insulin Detemir (Levemir) 10 unit SC HS OMARI PRN Reason: Protocol Last Admin: 06/30/17 22:06 Dose: 10 unit Insulin Human Lispro (Humalog) 8 units SC 0730,1130,1700 OMARI PRN Reason: Protocol Insulin Human Lispro (Humalog High) 0 units SC ACHS OMARI PRN Reason: Protocol Lactulose (Enulose) 20 gm PO HS OMARI PRN Reason: Protocol Levalbuterol HCl (Xopenex) 1.25 mg IH [id number] PRN; Protocol PRN Reason: Shortness of Breath Ondansetron HCl (Zofran Inj) 4 mg IVP Q6H PRN; Protocol PRN Reason: Nausea/Vomiting Thiamine HCl (Vitamin B1 Tab) 100 mg PO DAILY OMARI PRN Reason: Protocol - Constitutional Appears: Well, No Acute Distress - Head Exam Head Exam: ATRAUMATIC, NORMAL INSPECTION, NORMOCEPHALIC - Eye Exam Eye Exam: Normal appearance - ENT Exam ENT Exam: Normal External Ear Exam - Neck Exam Neck Exam: Normal Inspection - Respiratory Exam Respiratory Exam: NORMAL BREATHING PATTERN - Cardiovascular Exam Cardiovascular Exam: absent: Diastolic murmur - GI/Abdominal Exam GI & Abdominal Exam: absent: Distended - Rectal Exam Rectal Exam: Deferred - Exam Additional comments: Deferred. - Extremities Exam Additional comments: Right upper arm swelling , redness is down. - Back Exam Back Exam: NORMAL INSPECTION - Neurological Exam Neurological Exam: Alert, Awake, Oriented x3 - Psychiatric Exam Psychiatric exam: Normal Affect, Normal Mood - Skin Skin Exam: Warm Assessment and Plan - Assessment and Plan (Free Text) Assessment: Adjustment insomnia. Hyperglycemia. Anemia. Leukemia. Plan: Benadryl 25 mg PO now. Regular insulin 15 Units SC as per sliding scale. Continue present management.
[2017-06-30] MEDS: Famotidine 20mg/50ml 20 MG/50 ML BAG IVPB SCH (22:54)
[2017-06-30] MEDS: Insulin Lispro (HUMAlog) HIGH Coverage SC SCH (23:00)
[2017-07-01] MEDS: Meropenem 1g/NS 100mL IVPB 1 GM/100 ML PIGGYBACK IVPB SCH ×3 (05:41→22:52)
[2017-07-01] MEDS: Insulin Lispro (HUMAlog) HIGH Coverage SC SCH ×4 (07:11→22:54)
[2017-07-01] MEDS: Insulin Lispro 1 UNITS/0.01 ML SC SCH ×3 (07:11→16:55)
[2017-07-01] MEDS: Famotidine 20mg/50ml 20 MG/50 ML BAG IVPB SCH ×2 (09:44→21:50)
[2017-07-01] MEDS: Insulin Detemir 100 units/ml Vial (Levemir) SC SCH (21:49)
--- NOTE | 2017-07-02 00:04 | PN ---
DATE: 07/01/2017 SUBJECTIVE: Temperature is 98.5, the patient is not complaining of any chest pain, no shortness of breath. He was transferred from [facility] to transitional care unit. PHYSICAL EXAMINATION VITAL SIGNS: Temperature is 98.2, pulse is 84, blood pressure 105/59, respiration is 20. GENERAL: The patient is lying in bed, flat, comfortable. HEENT: No oral lesion. Anicteric sclerae. Moist mucosa. NECK: No JVD, adenopathy, or thyromegaly. CARDIOVASCULAR: S1 and S2, regular. No murmurs, rubs, or gallops. LUNGS: Clear to auscultation bilaterally. No wheeze, rales, or rhonchi. ABDOMEN: Bowel sounds are positive, soft, nontender and nondistended. EXTREMITIES: no cyanosis, clubbing or edema. ASSESSMENT AND PLAN: 1. Cardiomyopathy. 2. Acute myelocytic leukemia. 3. Acute kidney injury, improved. 4. improved. 5. Status post removal of PICC line. The patient is currently at transitional care unit for rehab. He is receiving lactulose. He is on insulin for his diabetes. Patient is currently diabetes type 2. He is to continue Levemir. His sugars were uncontrolled when he was in the hospital, however, now it is improved. He is on thiamine and wants to continue with Tylenol. The patient feels that he has no complaints. Reece Sarmiento MD
--- NOTE | 2017-07-02 04:40 | CON ---
DATE: 07/01/2017 LOCATION: The patient was seen early this morning in room 315. CHIEF COMPLAINT: Weakness for several days. HISTORY OF PRESENT ILLNESS: This is a 71-year-old male with past medical history significant for hypertension, diabetes, acute leukemia, status post chemotherapy, and we did see the patient has a PICC line, which was removed. The patient was admitted with septic shock in the ICU with multiorgan failure and acute kidney injury and found to have ESBL E. coli bacteremia. The patient was neutropenic and now had been treated with meropenem, now transferred to transitional care. Completed meropenem today on day #13. PAST MEDICAL HISTORY: Significant for hypertension, diabetes mellitus, and leukemia. PAST SURGICAL HISTORY: Significant for a PICC line placement. ALLERGIES: PATIENT HAS NO KNOWN ALLERGIES. REVIEW OF SYSTEMS: The patient is feeling much better. No fevers and no chills. No nausea. No vomiting. No chest pain. He is awake and alert. PHYSICAL EXAMINATION: GENERAL: The patient is in bed, in no acute distress, answering questions appropriately. Today, he is alert and awake. VITAL SIGNS: Temperature was 98, blood pressure is 105/59, respiratory rate of 20, heart rate of 84. HEENT: Unremarkable. NECK: Supple. LUNGS: Decreased breath sounds. HEART: Normal S1 and S2. ABDOMEN: Soft, nontender. No organomegaly. No rebound. LABORATORY DATA: Reveals the patient's white count is 5.9 and hemoglobin of 9. Chemistries are noted. The cultures reveal that the patient had E coli in the blood. ASSESSMENT AND PLAN: This is a 71-year-old male with hypertension, diabetes, acute leukemia status post chemotherapy, had a PICC line, who came in with a septic shock, multiorgan failure, acute kidney injury, .extended-spectrum beta-lactamase Escherichia coli bacteremia, was moved to the intensive care unit. Eventually responded, did well now on day #13 of meropenem with complete 14 days of meropenem. Today is day #13 of 14. We will follow closely with you. The patient has a remarkable recovery with much improved mental status today. Gustavo Billings MD
[2017-07-02] MEDS: Meropenem 1g/NS 100mL IVPB 1 GM/100 ML PIGGYBACK IVPB SCH ×3 (05:24→22:45)
[2017-07-02] MEDS: Insulin Lispro 1 UNITS/0.01 ML SC SCH ×3 (07:09→17:24)
[2017-07-02] MEDS: Insulin Lispro (HUMAlog) HIGH Coverage SC SCH ×4 (08:07→22:15)
[2017-07-02] MEDS: Famotidine 20mg/50ml 20 MG/50 ML BAG IVPB SCH ×2 (10:56→22:16)
--- NOTE | 2017-07-02 11:26 | PN ---
DATE: 07/02/2017 SUBJECTIVE: The patient is in bed, in no acute distress, nontoxic. PHYSICAL EXAMINATION: VITAL SIGNS: Temperature 98, blood pressure 103/60, and respiratory rate 16. HEENT: Unremarkable. NECK: Supple. LUNGS: Decreased breath sounds. HEART: Normal S1 and S2. ABDOMEN: Soft and nontender. LABORATORY DATA: Reveals the patient is on meropenem. Review of orders reveals the patient is on meropenem. ASSESSMENT AND PLAN: He is a 71-year-old male with hypertension, diabetes, acute leukemia, status post chemotherapy, who had a PICC line. He was admitted with septic shock with multiorgan failure, acute kidney injury with extended-spectrum beta-lactamases Escherichia coli bacteremia. Today is day #14 of meropenem. We will discontinue meropenem after today's last dose. The patient has a remarkable recovery. He is up, walking around, doing well. We would strongly recommend discontinuing of the heparin block after today's last dose of meropenem, minimizing developing new infections. Gustavo Billings MD
--- NOTE | 2017-07-02 14:37 | CP.PCM.PN ---
Subjective - Date & Time of Evaluation Date of Evaluation: 07/01/17 Time of Evaluation: 01:30 - Subjective Subjective: Patient was seen at bed side. He complained of pain in right arm, mild pain, not radiating. Has no other complaints. Medical record was reviewed. This 71 year old male was admitted for generalized fever , weakness, S/P recipient of chemotherapy recently. PMH of anemia, Leukemia, on chemotherapy. Objective - Vital Signs/Intake and Output Vital Signs (last 24 hours): Temp Pulse Resp BP Pulse Ox 98.5 F 84 18 116/66 97 07/02/17 10:00 07/02/17 10:00 07/02/17 10:00 07/02/17 10:00 07/02/17 10:00 - Medications Medications: Current Medications Acetaminophen (Tylenol 325mg Tab) 650 mg PO Q4H PRN PRN Reason: Pain, moderate (4-7) Docusate Sodium (Colace) 100 mg PO DAILY OMARI PRN Reason: Protocol Last Admin: 07/02/17 10:54 Dose: Not Given Meropenem 1g/NS 100mL IVPB (Meropenem 1g/Ns 100ml Ivpb) 1 gm in 100 mls @ 100 mls/hr IVPB Q8 OMARI PRN Reason: Protocol Stop: 07/03/17 06:59 Last Admin: 07/02/17 05:24 Dose: 100 mls/hr Famotidine (Pepcid 20mg/50ml Premix) 20 mg in 50 mls @ 100 mls/hr IVPB 1000, 2200 OMARI PRN Reason: Protocol Last Admin: 07/02/17 10:56 Dose: 100 mls/hr Insulin Detemir (Levemir) 10 unit SC HS OMARI PRN Reason: Protocol Last Admin: 07/01/17 21:49 Dose: 10 unit Insulin Human Lispro (Humalog) 8 units SC 0730,1130,1700 OMARI PRN Reason: Protocol Last Admin: 07/02/17 11:44 Dose: 8 units Insulin Human Lispro (Humalog High) 0 units SC ACHS OMARI PRN Reason: Protocol Last Admin: 07/02/17 12:05 Dose: 4 units Lactulose (Enulose) 20 gm PO HS OMARI PRN Reason: Protocol Last Admin: 07/01/17 21:49 Dose: 20 gm Levalbuterol HCl (Xopenex) 1.25 mg IH [id number] PRN; Protocol PRN Reason: Shortness of Breath Ondansetron HCl (Zofran Inj) 4 mg IVP Q6H PRN; Protocol PRN Reason: Nausea/Vomiting Thiamine HCl (Vitamin B1 Tab) 100 mg PO DAILY OMARI PRN Reason: Protocol Last Admin: 07/02/17 10:57 Dose: 100 mg - Constitutional Appears: Well, No Acute Distress - Head Exam Head Exam: ATRAUMATIC, NORMAL INSPECTION, NORMOCEPHALIC - Eye Exam Eye Exam: Normal appearance - ENT Exam ENT Exam: Normal External Ear Exam - Neck Exam Neck Exam: Normal Inspection - Respiratory Exam Respiratory Exam: NORMAL BREATHING PATTERN - Cardiovascular Exam Cardiovascular Exam: absent: JVD - GI/Abdominal Exam GI & Abdominal Exam: absent: Distended - Rectal Exam Rectal Exam: Deferred - Exam Additional comments: Deferred. - Extremities Exam Extremities Exam: Normal Inspection - Back Exam Back Exam: NORMAL INSPECTION - Neurological Exam Neurological Exam: Alert, Awake - Psychiatric Exam Psychiatric exam: Normal Affect, Normal Mood - Skin Skin Exam: Warm Additional comments: Right arm skin erythematous. Mild induration present. Non tender. Assessment and Plan - Assessment and Plan (Free Text) Assessment: Right arm pain. Right arm infiltrate VS resolving cellulitis. Anemia. Leukemia. S/P Chemotherapy. Plan: Tylenol 650 mg po stat. Continue present management.
[2017-07-02] MEDS: Insulin Detemir 100 units/ml Vial (Levemir) SC SCH (22:15)
[2017-07-03] MEDS: Meropenem 1g/NS 100mL IVPB 1 GM/100 ML PIGGYBACK IVPB SCH (05:37)
[2017-07-03] MEDS: Insulin Lispro 1 UNITS/0.01 ML SC SCH ×3 (07:32→17:14)
[2017-07-03] MEDS: Insulin Lispro (HUMAlog) HIGH Coverage SC SCH ×4 (07:35→22:01)
[2017-07-03] MEDS: Famotidine 20mg/50ml 20 MG/50 ML BAG IVPB SCH ×2 (09:51→22:02)
--- NOTE | 2017-07-03 12:06 | CON ---
DATE: 07/02/2017 REFERRING PHYSICIAN: Dr. Lane. REASON FOR CONSULT: Status post respiratory failure, myelocytic leukemia, status post chemotherapy, pancytopenia. HISTORY OF PRESENT ILLNESS: This is a 71-year-old gentleman who was diagnosed with acute myelocytic leukemia, received chemotherapy, ended up in the emergency room with respiratory distress, intubated, had multilobe infiltrate, found to have a cardiomyopathy, pancytopenia, received multiple units of packed RBCs, also received platelets. He was started on broad-spectrum antibiotics, slowly improved. He was liberated from ventilator. Hemodynamically improved. Also, dobutamine was used because of cardiomyopathy, presently admitted in [facility] for continued care, continue antibiotics, and therapy, feels much better. Decreased cough and shortness of breath. PAST MEDICAL HISTORY: Acute myelocytic leukemia. FAMILY HISTORY: No significant cardiopulmonary disease reported. SOCIAL HISTORY: Nonsmoker, nondrinker. ALLERGIES: None known. MEDICATIONS: He is on Colace 100 mg daily, lactulose 20 mg at bedtime, insulin coverage, Levemir 10 units subcu at bedtime, meropenem 1 g IV q. 8 hours, Pepcid 20 mg twice a day, Tylenol p.r.n., vitamin B 100 mg daily, Xopenex inhaled q. 6 hours, and Zofran p.r.n. basis. REVIEW OF SYSTEMS: Presently, no headache, no rhinitis, no chest pain, no nausea, no vomiting, no diarrhea, leg pain or leg swelling. PHYSICAL EXAMINATION GENERAL: Lying in the bed, in no acute distress. VITAL SIGNS: Temperature is 98, heart rate is 84, respiratory rate is 18, blood pressure is 103/66, pulse ox 97% on room air. HEENT: Moist mucous membranes. Crowded airway. Mallampati score is 4. NECK: Supple. No JVD. LUNGS: Fair airflow with few rhonchi. HEART: S1 and S2. ABDOMEN: Soft, nontender. No organomegaly. EXTREMITIES: No edema. NEUROLOGIC: Awake and alert. Follows simple command. LABORATORY DATA: Hemoglobin 9.8, hematocrit 29.5, WBC 5.9, platelet count is 240. INR is 1.37. Blood sugar 220. IMPRESSION AND PLAN: Resolving bacteremia, status post septic shock, respiratory failure, presently extubated on room air, cardiomyopathy, acute myelocytic leukemia, status post chemotherapy, may have a component of sleep apnea syndrome, need to rule out sleep apnea syndrome, one of the cause of cardiomyopathy. I spoke to patient's family at bedside and all the questions were answered. Complete antibiotics but also needs some therapy, has severe ADL dysfunction. 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 Thank you and we will follow with you. Pablo Miguel MD
--- NOTE | 2017-07-03 16:04 | PN ---
DATE: 07/03/2017 SUBJECTIVE: The patient is in bed, in no acute distress, nontoxic. PHYSICAL EXAMINATION VITAL SIGNS: Temperature is 98, blood pressure is 120/70, respiratory rate is 16. HEENT: Unremarkable. NECK: Supple. LUNGS: Decreased breath sounds. HEART: Normal S1, S2. ABDOMEN: Soft, nontender. LABORATORY EXAMINATION: The patient's labs are reviewed. ASSESSMENT AND PLAN: A 71-year-old male who is with hypertension; diabetes; acute leukemia, status post chemotherapy, had a PICC line; was admitted with septic shock; multi-organ failure; acute kidney injury and extended-spectrum beta-lactamase Escherichia coli bacteremia; neutropenia, had completed 14 days of meropenem, currently off of antibiotics; afebrile and the patient is ambulating, doing well; however, he is at risk for developing nosocomial infections. Gustavo Billings MD
[2017-07-03] MEDS: Insulin Detemir 100 units/ml Vial (Levemir) SC SCH (22:01)
--- NOTE | 2017-07-03 23:52 | PN ---
DATE: 07/03/2017 PULMONARY PROGRESS NOTE REFERRING PHYSICIAN: Dr. Lane. SUBJECTIVE: The patient is lying in the bed, head at 45 degrees. is at bedside. Feels much better. No headache, no rhinitis. No nausea. Has a subcutaneous old blood in the right upper extremity. No cough. No shortness of breath. No chest pain, no nausea, no vomiting, no diarrhea, no leg pain, no leg swelling. OBJECTIVE: GENERAL: In no acute distress. VITAL SIGNS: Temperature is 98, heart rate is 84, respiratory is 18 and blood pressure 135/69. Pulse ox 97% on nasal cannula. HEENT: Moist mucous membranes. Crowded airway. Mallampati score is 4. NECK: Supple. No JVD. LUNGS: Has a few scattered rhonchi. HEART: S1 and S2. ABDOMEN: Soft and nontender. No organomegaly. EXTREMITIES: There is no edema. NEUROLOGIC: Awake and alert. Follows simple commands. MEDICATIONS: He is on Colace 100 mg daily, lactulose 20 g at bedtime, insulin coverage, Levemir 10 units subcu at bedtime, Pepcid 20 mg daily, Tylenol p.r.n. basis, vitamin B 100 mg daily, Xopenex inhaler q. 6 hours p.r.n., Zofran p.r.n. basis. LABORATORY DATA: Shows blood sugar this morning 199. IMPRESSION AND PLAN: Resolving bacteremia, status post septic shock; status post respiratory failure, presently extubated on room air; has severe cardiomyopathy; acute myelocytic leukemia, status post chemotherapy; status post pancytopenia; ADL dysfunction; has a right upper extremity subcutaneous hematoma. I spoke to nursing staff. Requested to place a warm soaks on it. Sleep apnea precaution. Keep head 45 degrees. Avoid sedation. Outpatient sleep study. Gastric prophylaxis. Oncology followup. Thank you and we will follow with you. Pablo Miguel MD
[2017-07-04] MEDS: Insulin Lispro 1 UNITS/0.01 ML SC SCH ×3 (07:48→17:37)
[2017-07-04] MEDS: Insulin Lispro (HUMAlog) HIGH Coverage SC SCH ×4 (07:49→22:07)
--- NOTE | 2017-07-04 12:07 | CP.PCM.PN ---
Subjective - Date & Time of Evaluation Date of Evaluation: 07/04/17 Time of Evaluation: 10:25 - Subjective Subjective: Patient is comfortably walking around his room without distress, no fevers. Objective - Vital Signs/Intake and Output Vital Signs (last 24 hours): Temp Pulse Resp BP Pulse Ox 97.6 F 63 18 112/64 97 07/04/17 06:40 07/04/17 06:40 07/04/17 06:40 07/04/17 06:40 07/04/17 06:40 - Medications Medications: Current Medications Acetaminophen (Tylenol 325mg Tab) 650 mg PO Q4H PRN PRN Reason: Pain, moderate (4-7) Docusate Sodium (Colace) 100 mg PO DAILY [facility] PRN Reason: Protocol Last Admin: 07/03/17 09:50 Dose: 100 mg Famotidine (Pepcid) 40 mg PO HS OMARI Insulin Detemir (Levemir) 10 unit SC HS OMARI PRN Reason: Protocol Last Admin: 07/03/17 22:01 Dose: 10 unit Insulin Human Lispro (Humalog) 8 units SC 0730,1130,1700 OMARI PRN Reason: Protocol Last Admin: 07/04/17 07:48 Dose: 8 units Insulin Human Lispro (Humalog High) 0 units SC ACHS [facility] PRN Reason: Protocol Last Admin: 07/04/17 07:49 Dose: 2 units Levalbuterol HCl (Xopenex) 1.25 mg IH [id number] PRN; Protocol PRN Reason: Shortness of Breath Ondansetron HCl (Zofran Inj) 4 mg IVP Q6H PRN; Protocol PRN Reason: Nausea/Vomiting - Constitutional Appears: Non-toxic, No Acute Distress - Head Exam Head Exam: NORMAL INSPECTION - ENT Exam ENT Exam: Mucous Membranes Moist - Neck Exam Neck Exam: absent: Lymphadenopathy, Meningismus - Respiratory Exam Respiratory Exam: Decreased Breath Sounds - Cardiovascular Exam Cardiovascular Exam: +S1, +S2 - GI/Abdominal Exam GI & Abdominal Exam: Soft. absent: Tenderness Assessment and Plan - Assessment and Plan (Free Text) Plan: Assessment S/P Severe sepsis S/P Septic shock with multiorgan failure (S/P acute renal failure, S/P ventilator-dependent hypoxic respiratory failure, S/P acute encephalopathy) due to ESBL E.coli bacteremia, suspect due to PICC line infection (since the PICC has been in place for about 3-4 months now), S/P removal - patient is clinically better and S/P treatment with antibiotics Acute Leukemia S/P chemotherapy 2 weeks ago, S/P severe neutropenia and pancytopenia HTN DM Plan monitor off antibiotics while the patient is in the hospital since he is at risk for nosocomial infections
[2017-07-04] MEDS: Insulin Detemir 100 units/ml Vial (Levemir) SC SCH (22:08)
[2017-07-05] MEDS ORDERED: Insulin Detemir 100 units/ml Vial (Levemir) SC SCH (00:02)
--- NOTE | 2017-07-05 02:17 | PN ---
DATE: 07/04/2017 SUBJECTIVE: Patient is seen and examined at the bedside, looking comfortable. Daughter was sitting on the bedside also. She did translation for me. No nausea, vomiting, or diarrhea. No hematuria. No hematochezia. Getting physical therapy. No chest pain. No palpitation. No headache. No dizziness. PHYSICAL EXAMINATION VITAL SIGNS: Temperature 98.2, pulse 75, blood pressure 106/54, respiratory rate 14. HEENT: Head; normocephalic and atraumatic. Eyes; PERRLA. Extraocular muscles intact. Conjunctivae clear. Nose patent. Mucous membrane moist. NECK: Supple. No carotid bruit, JVD or thyromegaly. CHEST: Bilaterally symmetrical. HEART: S1 and S2 positive. LUNGS: Clear to auscultation. ABDOMEN: Soft. Bowel sounds positive. No organomegaly. EXTREMITIES: No edema and no cyanosis. NEUROLOGIC: The patient is awake and alert. Moving all four extremities. No focal deficit. LABORATORY DATA: We do not have a recent lab today, but I have sugar 175, 236, 199. MEDICATIONS: Colace, insulin, Levemir, Pepcid, Tylenol, Xopenex, ondansetron. ASSESSMENT AND PLAN: Mr. Christen Amador is a 71-year-old male who was admitted with severe sepsis, aseptic shock with multiorgan failure, acute renal failure, ventilator dependent, hypoxia, respiratory failure, acute encephalopathy due to extended-spectrum beta lactamase Escherichia coli bacteremia suspected due to peripherally inserted central catheter line infection since the peripherally inserted central catheter line has been placed for about 3-4 months. After removal, patient is clinically better after treatment with antibiotics. Acute leukemia, status post chemotherapy two weeks ago. Status post fever, neutropenia and pancytopenia, hypertension, diabetes mellitus. Now, patient is off the antibiotics. Antibiotics were given by Dr. Gustavo Billings, infectious disease specialist. Resolving bacteremia, severe cardiomyopathy, activities of daily living dysfunction, has right upper extremity subcutaneous hematoma. Dr. Miguel started warm soaks on it. Sleep apnea precautions. Wide sedation. Reviewed all of patient's case study. Gastric prophylaxis. Oncology followup. Repeat labs. Discussion done with the patient and the patient's family and the patient's nurse's role. We will follow with you. Melanie Lane MD
--- NOTE | 2017-07-05 02:26 | PN ---
DATE: 07/04/2017 REFERRING PHYSICIAN: Dr. Lane. SUBJECTIVE: The patient is lying in the bed at 45 degrees, is at bedside. No headache, no rhinitis. No nausea, no vomiting, no diarrhea. No leg pain, no leg swelling. PHYSICAL EXAMINATION GENERAL: In no acute distress. VITAL SIGNS: Temperature is 98, heart rate 75, respiratory rate is 20, blood pressure 106/60, pulse ox 97% on 3 L nasal cannula. HEENT: Moist mucous membranes. Crowded airway. NECK: Supple. No JVD. LUNGS: Has fair flow with few rhonchi. HEART: S1 and S2. ABDOMEN: Soft, nontender, no organomegaly. EXTREMITIES: No edema. NEUROLOGIC: Awake, alert. Follows simple commands. LABORATORY DATA: Blood sugar this morning 175. MEDICATIONS: He is on Colace 100 mg daily, insulin coverage, Levemir 10 units subcu at bedtime, Pepcid 20 mg daily, Tylenol p.r.n., Xopenex inhaled q. 6 hours, Zofran p.r.n. basis. IMPRESSION AND PLAN: Resolving bacteremia, status post septic shock, status post respiratory failure, presently extubated on room air, severe cardiomyopathy, acute myelocytic leukemia, status post chemotherapy. ADL dysfunction, may have sleep apnea syndrome. Continue therapy, bronchodilator, fall precaution. Outpatient, attended sleep study. Continue therapy. We will need followup echo to assure the stability of LV function. Thank you and we will follow with you. Pablo Miguel MD
[2017-07-05 06:39] LABS: HEMATOCRIT 28.3 % (42.0-52.0); MEAN CELL VOLUME 86.5 fl (80.0-105.0); MEAN CORPUSCULAR HEMOGLOBIN 28.7 pg (25.0-35.0); MEAN CORPUSCULAR HGB CONC 33.2 g/dl (31.0-37.0); MEAN PLATELET VOLUME 9.7 fl (7.0-11.0); WHITE BLOOD COUNT 4.3 10^3/ul (4.5-11.0)
[2017-07-05 06:54] LABS: BLOOD UREA NITROGEN 20 mg/dL (7-21); CALCIUM 9.2 mg/dL (8.4-10.5); CARBON DIOXIDE 27 mmol/L (21-33); CHLORIDE 102 mmol/L (98-107); CHOLESTEROL 196 mg/dL (130-200); GFR AFRICAN-AMERICAN > 60; GLUCOSE,RANDOM 111 mg/dL (70-110); POTASSIUM 3.8 mmol/L (3.6-5.0); SODIUM 137 mmol/L (132-148)
[2017-07-05] MEDS: Insulin Lispro (HUMAlog) HIGH Coverage SC SCH ×2 (06:54→12:55)
[2017-07-05] MEDS: Insulin Lispro 1 UNITS/0.01 ML SC SCH ×2 (06:54→10:37)
[2017-07-05 07:14] LABS: IRON 76 ug/dL (45-180)
[2017-07-05 11:15] VITALS: BP 129/70; PULSE 72; RESP 18; TEMP 97.6; O2SAT 99
== END 2017-07-05 15:13 | disposition home health service (06) | DRG 945 ==
LOC: TRCU 16:52
PROVIDERS: ADMIT Internal Medicine; ATTEND Internal Medicine
PROC: 3E03329 Introduction of Other Anti-infective into Peripheral Vein, Percutaneous Approach (ICD-10-PCS; 2017-06-30)
PROC: F07Z9FZ Gait Training/Functional Ambulation Treatment using Assistive, Adaptive, Supportive or Protective Equipment (ICD-10-PCS; principal; 2017-07-01)
PROC: F07Z5ZZ Bed Mobility Treatment (ICD-10-PCS; 2017-07-01)
PROC: F07Z8ZZ Transfer Training Treatment (ICD-10-PCS; 2017-07-01)
PROC: F08Z4ZZ Home Management Treatment (ICD-10-PCS; 2017-07-02)
DX: R53.1 Weakness (principal); T80.211D Bloodstream infection due to central venous catheter, subsequent encounter; Z79.2 Long term (current) use of antibiotics; D61.818 Other pancytopenia; C92.00 Acute myeloblastic leukemia, not having achieved remission; I42.9 Cardiomyopathy, unspecified; L03.113 Cellulitis of right upper limb; F51.02 Adjustment insomnia; E11.65 Type 2 diabetes mellitus with hyperglycemia; D70.9 Neutropenia, unspecified; I10 Essential (primary) hypertension; Z92.21 Personal history of antineoplastic chemotherapy; Z79.4 Long term (current) use of insulin